=== PATIENT | male | born 1955 | race Hispanic/Latino ===

== ENCOUNTER 2017-01-31 08:35 | Outpatient (CLI) | payer BC ==
--- OUTSIDE RECORDS SUMMARY | 2017-01-31 09:00 | XMS | Clinical Summary ---
:1955 Author Organization [facility] Address [address] [place] [id number] Phone Care Team Providers Name Role Phone , Primary Care Provider Unavailable Allergies No Known Allergies Current Medications Prescription Sig. Disp. Refills Start Date End Date Status lisinopril Take 5 mg by mouth Active (PRINIVIL,ZESTRIL) 5 MG daily. tablet pravastatin (PRAVACHOL) 40 Take 40 mg by Active MG tablet mouth daily. aspirin 81 MG EC tablet Take 81 mg by Active mouth daily. Active Problems Not on file Social History Tobacco Use Types Packs/Day Years Used Date Never Assessed Sex Assigned at Date Recorded Not on file Last Filed Vital Signs Vital Sign Reading Time Taken Blood Pressure 110/70 08/21/2012 4:55 PM CDT Pulse 74 08/21/2012 4:40 PM CDT Temperature 36.4 C (97.5 F) 08/21/2012 4:40 PM CDT Respiratory Rate 20 08/21/2012 4:55 PM CDT Oxygen Saturation 96% 08/21/2012 4:40 PM CDT Inhaled Oxygen Concentration - - Weight 105 kg (231 lb 7.7 oz) 08/18/2012 5:28 PM CDT Height 182.9 cm (6') 08/18/2012 5:28 PM CDT Body Mass Index 31.39 08/18/2012 5:28 PM CDT Plan of Treatment Not on file Results Not on filefrom Last 3 Months
--- OUTSIDE RECORDS SUMMARY | 2017-01-31 09:00 | XMS | Continuity of Care Document ---
:1955 Author Organization [facility] Care Team Providers Name Role Phone GUILLERMO POLLARD Primary Care Physician Insurance Providers Payer Name Policy Number Subscriber Name Relationship [facility] [id number] NAM MORALES SELF/SAME PATIENT [facility]O [id number] NAM MORALES SELF/SAME PATIENT Advance Directives Directive Response Recorded Date/Time Code Status Level I-Full Code 01/10/17 2:36pm Advance Directive? N 01/10/17 5:37pm Chief Complaint and Reason for Visit Reason for Visit ATYPICAL CHEST PAIN Problems Active Medical Problems Problem Onset Date Recorded Date Status Pharyngitis Unknown 03/24/15 Active Atypical chest pain Unknown 01/10/17 Active Medications Current Home Medications Medication Dose Units Route Directions Days/Qty Instructions Start Date ASPIRIN (ASPIRIN 81 MG By Mouth EVERY DAY @ 30 01/11/17 EC 81 MG 0900 (LO-DOSE)) 81 MG TAB Levothyroxine 0.15 MG By Mouth EVERY DAY @ Sodium (SYNTHROID 0900 0.15 MG TAB) 150 MCG TAB TAMSULOSIN HCL 0.4 MG By Mouth AT BEDTIME (TAMSULOSIN 0.4 MG (2100) CAP) 0.4 MG CAP Past Home Medications Medication Directions Ordered Status Amoxicillin Trihydrate THREE TIME A DAY(09;15;21) 03/24/15 Discontinued (Amoxicillin 500 Mg) 500 Mg Cap Cap, 500 Mg By Mouth Ibuprofen (Motrin 600 Mg Tab) EVERY EIGHT HOURS NEEDED as 03/24/15 Discontinued 600 Mg Tab Tab, 600 Mg By Mouth needed for PAIN AND INFLAMMATION Prednisone (Prednisone 20 Mg EVERY DAY @ 0900 03/24/15 Discontinued Tab) 20 Mg Tab Tab, 60 Mg By Mouth Social History Problem Response Recorded Date Occupation: [employer] 01/10/17 Recreational drugs? N 01/10/17 Alcohol? N 01/10/17 Query Response Start Date Stop Date Smoking Status: Never Smoker Hospital Discharge Instructions Diagnosis: CHEST PAIN Goal: RESOLVE Intervention: ASSESSMENT, TESTS Plan of Care Discharge Date 01/11/17 Disposition HOME/SELF CARE Instructions/Education Provided DI for Atypical Chest Pain DI for Chest Pain Forms Provided Patient Portal [employer] Instruct DI How to Quit Smoking Prescriptions See Medications Section Additional Instructions/Education FOLLOW UP WITH [facility] FOR HEART CATHETERIZATION. TAKE MEDICATIONS PRESCRIBED. Care Plan and Goals See Discharge Instructions section Functional Status Query Response Date Recorded WNL?+ Y January 11, 2017 9:00am Allergies, Adverse Reactions, Alerts No known allergies. Immunizations Name Date Given Type Flu vaccine this seaso N Historical Pnuemonia Vaccine last 5 years? N Historical Vital Signs Vital Reading Collection Date/Time Result Blood Pressure 01/11/17 2:43pm 122/75 Blood Pressure Source 01/11/17 4:00am Auto Cuff Temperature 01/11/17 2:43pm 97.8 F Temperature Source 01/11/17 4:00am Oral Respiratory Rate 01/11/17 2:43pm 20 Pulse Rate 01/11/17 2:43pm 62 Pulse Location 01/11/17 4:00am Monitor Bedside Pulse Oximetry 01/11/17 2:43pm 97 Height 01/10/17 11:30am 5 ft 11 in Height 01/10/17 11:30am 180.34 cm Weight 01/10/17 11:30am 237 lb Weight 01/10/17 11:30am 107.501 kg Body Mass Index 01/10/17 11:30am 33.1 kg/m2 Results Laboratory Results Test Name Result Units Flags Reference Collection Result Comments Date/Time Date/Time White Blood 5.6 K/uL 4.8-10.8 01/11/17 01/11/17 Count 5:35am 6:18am Red Blood 4.44 M/uL L 4.70-6.00 01/11/17 01/11/17 Count 5:35am 6:18am Hemoglobin 14.0 g/dL 13.5-17.5 01/11/17 01/11/17 5:35am 6:18am Hematocrit 40.9 % L 42.0-52.0 01/11/17 01/11/17 5:35am 6:18am Mean 92.2 fl 80.0-100.0 01/11/17 01/11/17 Corpuscular 5:35am 6:18am Volume Mean 31.7 pg H 27.0-31.0 01/11/17 01/11/17 Corpuscular 5:35am 6:18am Hemoglobin Mean 34.3 g/dL 32.0-36.0 01/11/17 01/11/17 Corpuscular 5:35am 6:18am Hgb Concent Diff Red Cell 13.7 % 11.5-14.5 01/11/17 01/11/17 Distribution 5:35am 6:18am Width Platelet 203 K/uL 130-400 01/11/17 01/11/17 Count 5:35am 6:18am Mean Platelet 7.8 fl 7.4-10.4 01/11/17 01/11/17 Volume 5:35am 6:18am Granulocytes 60.7 % 50.0-75.0 01/11/17 01/11/17 (%) 5:35am 6:18am Lymphocytes % 26.9 % 20.0-40.0 01/11/17 01/11/17 5:35am 6:18am Monocytes % 9.7 % 0.0-15.0 01/11/17 01/11/17 5:35am 6:18am Eosinophils % 1.9 % 0.0-10.0 01/11/17 01/11/17 5:35am 6:18am Basophils % 0.8 % 0.0-2.0 01/11/17 01/11/17 5:35am 6:18am Granulocytes 3.4 K/uL 1.8-6.4 01/11/17 01/11/17 # 5:35am 6:18am Lymphocytes # 1.5 K/uL 1.2-3.6 01/11/17 01/11/17 5:35am 6:18am Monocytes # 0.5 K/uL 0.3-0.9 01/11/17 01/11/17 5:35am 6:18am Eosinophils # 0.1 K/UL 0.0-0.5 01/11/17 01/11/17 5:35am 6:18am Basophils # 0.0 K/UL 0.0-0.2 01/11/17 01/11/17 5:35am 6:18am Manual NO 01/11/17 01/11/17 Differential 5:35am 6:18am N/A CALCULATE 01/11/17 01/11/17 CORONARY HEART DISEASE (CHD) RISK FACTORS: BELOW 5:35am 5:44am +1, Age (y): Men, >45 Women, >55 or Premature Menopause Without Estrogen Therapy +1, Family History of Premature CHD +1, Current Cigarette Smoking +1, Hypertension +1, Low HDL-C: <40 mg/dL -1, High HDL-C: 60 mg/dL or More Total RFs CHD Risk Equivalents (REq): Diabetes Other Forms of Atherosclerotic Disease Lipid testing of hospitalized patients may be inaccurate due to fluctuations from the patients normal metabolic state. Accurate triglyceride and LDL testing requires a fasting specimen. If non-fasting cholesterol > rx=840 mg/dL or HDL is < 40 mg/dL, fasting lipid panel is recommended. Repeat testing recommended prior to treatment. Desirable Levels Cholesterol 175 mg/dL 0-200 01/11/17 01/11/17 Level 5:35am 6:36am Triglycerides 111 mg/dL 10-150 01/11/17 01/11/17 Normal triglycerides: <150 mg/dL Level 5:35am 6:36am Borderline-high triglycerides: 150-199 mg/dL High triglycerides: 200-499 mg/dL Very high triglycerides: > bs=368 mg/dL HDL 50 mg/dL 40-130 01/11/17 01/11/17 Cholesterol 5:35am 6:36am N/A 3.5 0.0-5.0 01/11/17 01/11/17 5:35am 6:36am LDL 104 mg/dL 0-130 01/11/17 01/11/17 *LDL Cholesterol <130 mg/dL, No CHD or CHD Risk Equivalent Cholesterol 5:35am 6:36am <100 mg/dL, With CHD or CHD Risk Equivalent (Measured) LDL Cholesterol Therapeutic Goal: 100 mg/dL or Less if CHD or CHD Risk Equivalent Present <130 mg/dL if No CHD or REq; 2 or more Risk Factors <160 mg/dL if No CHD or REq; 0-1 Risk Factors Reference: ATP III, PANCHO, 285:06, 9776-97, 2000. Sodium Level 135 mmol/L 135-144 01/11/17 01/11/17 5:35am 6:36am Potassium 3.8 mmol/L 3.5-5.1 01/11/17 01/11/17 Level 5:35am 6:36am Chloride 105 mmol/L 101-111 01/11/17 01/11/17 Level 5:35am 6:36am Carbon 24 mmol/L 22-32 01/11/17 01/11/17 Dioxide Level 5:35am 6:36am Anion Gap 9.8 mmol/L L 10-01/11/17 01/11/17 5:35am 6:36am Glucose Level 100 mg/dL 70-109 01/11/17 01/11/17 Random glucose > 200 mg/dL in a patient with typical 5:35am 6:36am symptoms of diabetes (polydipsia, polyuria and unexplained weight loss) satisfies ADA criteria for diabetes mellitus if confirmed by repeat testing on another day. Confirmation is unnecessary when acute metabolic decompensation with hyperglycemia is manifested. Reference: Report of the Expert Committee on the Diagnosis and Classification of Diabetes Mellitus. Diabetes Care, 20:1183, 1997. Blood Urea 12 mg/dL 8 01/11/17 01/11/17 Nitrogen 5:35am 6:36am Creatinine 0.80 mg/dL 0.61-1.24 01/11/17 01/11/17 5:35am 6:36am EGFR Note 115.3 59.3-175.8 01/11/17 01/11/17 eGFR (Estimated Glomerular Filtration Rate) 5:35am 6:36am eGFR calculation value obtained using the [facility] Quadratic (MCQ) equation. The reportable reference range is recommended to be greater than 60 ml/min/1.73m. This is an estimation of the patient's GFR and clinical correlation is recommended. This eGFR calculation does not account for race. This result may differ from other equations available. Calcium Level 8.5 mg/dL L 8.9-10.3 01/11/17 01/11/17 5:35am 6:36am Albumin 4.0 g/dL 3.5-5.0 01/11/17 01/11/17 5:35am 6:36am Total 0.9 mg/dL 0.3-1.2 01/11/17 01/11/17 Bilirubin 5:35am 6:36am Alkaline 110 IU/L H 32-91 01/11/17 01/11/17 Phosphatase 5:35am 6:36am Total Protein 6.9 g/dL 6.5-8.1 01/11/17 01/11/17 5:35am 6:36am Alanine 35 IU/L 7-55 01/11/17 01/11/17 Aminotransfer 5:35am 6:36am ase (ALT/SGPT) Aspartate 33 IU/L 15-41 01/11/17 01/11/17 Amino Transf 5:35am 6:36am (AST/SGOT) Globulin 2.9 g/dL 2.3-3.5 01/11/17 01/11/17 5:35am 6:36am Albumin/Globu 1.4 1.2-2.2 01/11/17 01/11/17 kota Ratio 5:35am 6:36am Troponin I < 0.01 ng/mL 0.00-0.03 01/11/17 01/11/17 5:35am 6:36am Troponin I-Interpretation Reference : <0.03 ng/mL NEGATIVE 0.04 - 0.49 ng/mL EQUIVOCAL =OR > 0.5 ng/mL CONSISTENT WITH ACUTE MYOCARDIAL INJURY 98% of confirmed AMI patients will have at least one value in a set or serial specimens >0.50 ng/ml. 99% of normals are between 0.0 - 0.10 ng/ml. Serial samples on a patient that are all <0.10 ng/ml effectively rules out AMI. Persistently increased troponin I values that are above the upper limit of normal but below the threshold for AMI indicate mycardial injury but not necessarily an ischemic mechanism of injury. Troponin Important Points 1. Troponin is specific for myocardial injury but not for AMI. Elevated troponin levels above the upper limit of normal but below the AMI cutoff may be present in cardiac injury other then AMI and represent some degree of risk. 2. Elevated troponin levels inconsistent with patient history or clinical condition should be considered a sign to investigate for other cardiac conditions. 3. Serial sampling is critical for accurate diagnosis. Magnesium 2.3 mg/dL 1.8-2.5 01/10/17 01/10/17 Level 9:20pm 9:51pm Prothrombin 11.4 SECONDS 10.0-12.9 01/10/17 01/10/17 Time 12:24pm 12:44pm INR 1.0 01/10/17 01/10/17 International 12:24pm 12:44pm THE INR IS TO BE USED ONLY FOR MONITORING ORAL ANTICOAGULANT Normalized THERAPY. Ratio INDICATION INR VALUE 1. Prophylaxis of venous thrombosis 2.0-3.0 (high-risk surgery) Treatment of venous thrombosis Treatment of PE Prevention of systemic embolism Tissue heart valves AMI (to prevent systemic embolism) Valvular heart disease Atrial fibrillation Bileaflet mechanical valve in aortic position 2. Mechanical prosthetic heart valves (high risk) 2.5-3.5 Thrombosis and Antiphospholipid syndrome Prevention of recurrent GA Sixth ACCP Consensus Conference on Antithrombotic Therapy, Chest 2001; 119:Supplement 8-21. Activated 28.5 SECONDS 25.1-36.5 01/10/17 01/10/17 Partial 12:24pm 12:44pm Thromboplast Time Creatine 379 IU/L 49-397 01/10/17 01/10/17 Kinase 12:24pm 12:53pm Creatine 4.4 ng/ML 0.6-6.3 01/10/17 01/10/17 Kinase MB 12:24pm 12:53pm Thyroid 2.51 uIU/mL 0.34-5.6 01/10/17 01/10/17 Stimulating 6:00pm 5:35pm Hormone (TSH) Procedures No Known History of Procedures. Encounters Encounter Location Arrival/Admit Date Discharge/Depart Date Attending Provider Discharged [place] 01/10/17 11:28am 01/11/17 4:36pm JEN BERGER [facility] Encounter Diagnosis Onset Date Atypical chest pain
[2017-01-31 10:03] LABS: Hematocrit 43.9 % (42.0-52.0); Mean Platelet Volume 7.3 fL (7.4-10.4); Red Blood Cell (RBC) Count 4.57 mill/uL (4.70-6.10); White Blood Cell (WBC) Count 5.1 thou/uL (4.8-10.8)
[2017-01-31 10:10] LABS: PTT 30.1 SEC (22.9-36.1); Prothrombin Time 13.8 SEC (12.0-14.7)
[2017-01-31 10:35] LABS: ALT (SGPT) 35 U/L (8-55); AST (SGOT) 27 U/L (5-34); Alkaline Phosphatase 133 U/L (40-150); Anion Gap 15 mmol/L (10-20); BUN (Urea Nitrogen) 14 mg/dL (8.4-25.7); Bilirubin, Total 0.6 mg/dL (0.2-1.2); Calc. Creatinine Clearance 0 mL/min (70-130); Calcium 9.1 mg/dL (7.8-10.44); Carbon Dioxide 25 mmol/L (23-31); Chloride 106 mmol/L (98-107); Estimated GFR-MDRD Greater than 90; Globulin 2.7 g/dL (2.4-3.5)
--- NOTE | 2017-01-31 11:34 | RAD ---
CHEST PA AND LATERAL: Date: 01/31/17 HISTORY: 61-year-old male for preoperative evaluation. COMPARISON: 04/17/16. FINDINGS: Heart size is within normal limits. Atherosclerosis of aorta. No confluent pneumonia, overt edema, o r pleural effusion. Anterior cervical fusion changes lower cervical spine. IMPRESSION: No acute intrathoracic disease. Atherosclerosis of aorta. Stable from prior study. POS: [facility]
--- NOTE | 2017-01-31 22:07 | EKG ---
Test Reason : Blood Pressure : / mmHG Vent. Rate : 055 BPM Atrial Rate : 055 BPM P-R Int : 194 ms QRS Dur : 088 ms QT Int : 396 ms P-R-T Axes : 026 -08 -14 degrees QTc Int : 378 ms Sinus bradycardia Low voltage QRS Cannot rule out Anterior infarct , age undetermined Abnormal ECG When compared with ECG of 11-SEP-2016 00:15, Questionable change in QRS axis Inverted T waves have replaced nonspecific T wave abnormality in Inferior leads Confirmed by STEPHEN RODRIGUEZ, SCally ([id number]) on 01/31/2017 10:07:00 PM Referred By: DERECK Confirmed By:DR. Estephanie MITCHELL MD
== END 2017-01-31 08:36 | disposition home or self-care (01) ==
LOC: LABBT 08:35
PROVIDERS: ATTEND Internal Medicine
DX: Z01.810 Encounter for preprocedural cardiovascular examination (principal); R07.89 Other chest pain; I70.0 Atherosclerosis of aorta
CPT/HCPCS: 71020; 80053; 85027; 85610; 85730; 93005; 93010

== ENCOUNTER 2017-02-04 07:56 | Day surgery (SDC) | payer BC, OTHER ==
[2017-01-31 08:56] VITALS: BMI 33.6
[2017-02-04] MEDS ORDERED: diphenhydrAMINE 25 MG CAP ONE (08:58)
[2017-02-04] MEDS ORDERED: Diazepam 5 MG TAB ONE (08:58)
[2017-02-04] MEDS ORDERED: Heparin 1000 UNIT/NS 500ML(OR) 500 ML ONE (09:20)
[2017-02-04] MEDS ORDERED: Diazepam 5 MG TAB PO SCH (09:30)
[2017-02-04] MEDS ORDERED: diphenhydrAMINE 25 MG CAP PO SCH (09:30)
[2017-02-04] MEDS ORDERED: Sodium Chloride 0.9% 1,000 ML IV SCH (09:30)
[2017-02-04] MEDS ORDERED: Famotidine/PF 20 mg/2ml Vial SLOW IVP SCH (09:30)
[2017-02-04] MEDS ORDERED: Nitroglycerin 100MG/250ML BOT 250 ML ONE (09:37)
[2017-02-04] MEDS ORDERED: Heparin 10,000 UNITS/1 ML VIAL ONE (09:37)
[2017-02-04] MEDS ORDERED: Verapamil 5 MG/2 ML VIAL ONE (09:38)
[2017-02-04] MEDS ORDERED: Fentanyl 100 MCG/2 ML VIAL ONE (09:50)
[2017-02-04] MEDS ORDERED: Midazolam HCl 2 mg/2 ml Vial ONE (09:50)
[2017-02-04] MEDS ORDERED: Iopamidol 370 76% 100 ML VIAL ONE ×2 (14:45→21:16)
== END 2017-02-04 12:56 | disposition home or self-care (01) ==
LOC: CCL 07:56
PROVIDERS: ATTEND Internal Medicine
DX: R07.89 Other chest pain (principal); Z79.82 Long term (current) use of aspirin; Z87.891 Personal history of nicotine dependence
CPT/HCPCS: 80061; 93458; 93798; 99152; C1769; J1644; J2250; J3010

== ENCOUNTER 2017-03-10 12:26 | Outpatient (CLI) | payer BC ==
[~2017-03-10 12:26] MED LIST: Iopamidol 370 76% 100 ML VIAL ONE
--- NOTE | 2017-03-10 13:28 | CT ---
CT OF ABDOMEN AND PELVIS PERFORMED WITH CONTRAST ENHANCEMENT: Date: 03/10/17 HISTORY: Abdominal pain, which is more right-sided, with fever. History of diverticulitis. COMPARISON: 11/06/16 study. FINDINGS: The lung bases are clear of any infiltrative process. There are diffuse fatty changes of the liver. The spleen is within normal limits of size. Pancreas an d gallbladder regions are unremarkable. Right and left adrenal glands, and right and left kidneys are normal in size. Small hypodensity invol ving the posterior cortex of the left kidney is statistically most likely a small cyst. There is no s ignificant periaortic or mesenteric adenopathy. The appendix is normal in size and retrocecal in loca tion. CT Of pelvis was performed with contrast enhancement. Sigmoid diverticulosis is noted without evidenc e of any inflammatory process. No evidence of adenopathy, mass, or free fluid. Surgical clips are aga in noted adjacent to the right side of the symphysis. Review of osseous structures show no lytic or blastic bony change. IMPRESSION: 1. Fatty changes of the liver. 2. Sigmoid diverticulosis. 3. Postsurgical changes in the right inguinal region. 4. No acute abnormalities of the abdomen or pelvis. POS: [facility]
== END 2017-03-10 12:27 | disposition home or self-care (01) ==
LOC: CT 12:26
PROVIDERS: ATTEND Family Medicine
DX: R10.30 Lower abdominal pain, unspecified (principal); K76.0 Fatty (change of) liver, not elsewhere classified; K57.30 Diverticulosis of large intestine without perforation or abscess without bleeding
CPT/HCPCS: 74177

== ENCOUNTER 2017-06-23 09:49 | Outpatient (CLI) | payer BC | END 2017-06-23 09:50 | disposition home or self-care (01) | LOC: BICRAD 09:49 | PROVIDERS: ATTEND Family Medicine | DX: M17.11 Unilateral primary osteoarthritis, right knee; M25.561 Pain in right knee ==

== ENCOUNTER 2017-12-05 09:14 | Outpatient (CLI) | payer BC ==
[2017-12-05 09:31] LABS: #Basophils 0.1 thou/uL (0.0-0.2); #Eosinphils 0.1 thou/uL (0.0-0.7); #Lymphocytes 1.7 thou/uL (1.20-3.40); #Monocytes 0.7 thou/uL (0.11-0.59); #Neutrophils 3.5 thou/uL (1.40-6.50); %Basophils 0.8 % (0.0-1.0); %Eosinophils 1.7 % (0.0-10.0); %Lymphocytes 27.7 % (21.0-51.0); %Monocytes 11.6 % (0.0-10.0); %Neutrophils 58.2 % (42.0-75.0); Hemoglobin 15.2 g/dL (14.0-18.0); Mean Corpuscular Hemoglobin 29.3 pg (27.0-31.0); Platelet Count 256 thou/uL (130-400); RBC Distribution Width 11.6 % (11.5-14.5); Red Blood Cell (RBC) Count 5.18 mill/uL (4.70-6.10)
[2017-12-05 09:51] LABS: ALT (SGPT) 43 U/L (8-55); AST (SGOT) 31 U/L (5-34); Albumin 4.4 g/dL (3.4-4.8); Alkaline Phosphatase 77 U/L (40-150); Anion Gap 10 mmol/L (10-20); BUN (Urea Nitrogen) 15 mg/dL (8.4-25.7); Bilirubin, Total 0.6 mg/dL (0.2-1.2); Calc. Creatinine Clearance 0 mL/min (70-130); Calcium 9.6 mg/dL (7.8-10.44); Carbon Dioxide 29 mmol/L (23-31); Chloride 106 mmol/L (98-107); Estimated GFR-MDRD 86; Glucose 96 mg/dL (80-115); Potassium 4.2 mmol/L (3.5-5.1); Protein, Total 7.4 g/dL (5.8-8.1); Sodium 141 mmol/L (136-145)
--- NOTE | 2017-12-05 11:46 | ULT ---
GALLBLADDER ULTRASOUND: Date: 12/05/17 HISTORY: Right upper quadrant pain. FINDINGS: Real-time imaging of the right upper quadrant shows a normal appearing gallbladder. The common duct i s 4.0 mm. Technologist reports a negative ultrasound Hollis's sign. The liver is of increased echogenicity, it measures 17.5 cm in length. The right kidney is normal in size and nonobstructed. The pancreas is almost completely obscured. IMPRESSION: Fatty changes of the liver. POS: [facility]
== END 2017-12-05 09:15 | disposition home or self-care (01) ==
LOC: SCSULT 09:14
PROVIDERS: ATTEND Family Medicine
DX: R10.11 Right upper quadrant pain (principal)
CPT/HCPCS: 36415; 76705; 80053; 85025

== ENCOUNTER 2017-12-05 18:00 | Outpatient (CLI) | payer BC | END 2017-12-05 18:01 | disposition home or self-care (01) | LOC: SLEEPLAB 18:00 | PROVIDERS: ATTEND Family Medicine | DX: G47.33 Obstructive sleep apnea (adult) (pediatric) (principal); R06.83 Snoring; G47.00 Insomnia, unspecified; Z68.34 Body mass index [BMI] 34.0-34.9, adult | CPT/HCPCS: 95806 ==

== ENCOUNTER 2018-10-13 09:10 | Outpatient (CLI) | payer BC, OTHER ==
--- NOTE | 2018-10-13 11:24 | RAD ---
TWO VIEW CHEST: HISTORY: Abnormal physical exam/oscultation. COMPARISON: 01/31/2017. FINDINGS: No evidence of confluent infiltrate or effusion. Heart size upper normal and stable. Vascular and i nterstitial markings are mildly prominent. Findings appear stable from prior exam considering the di fferences in technique. IMPRESSION: No acute process identified. POS: [facility]
== END 2018-10-13 09:11 | disposition home or self-care (01) ==
LOC: BICRAD 09:10
PROVIDERS: ATTEND Family Medicine
DX: R09.89 Other specified symptoms and signs involving the circulatory and respiratory systems (principal)
CPT/HCPCS: 71046

== ENCOUNTER 2019-02-25 23:28 | Emergency (ER) | payer BC, OTHER ==
[2019-02-26 00:57] LABS: Bilirubin Negative (Negative); Blood, Urine Negative (Negative); Clarity Clear (Clear); Glucose, Urine (Dipstick) Normal (Negative); Leukocyte Negative Leu/uL (Negative); Nitrite Negative (Negative); Protein, Urine (Dipstick) Negative (Neg-Trace); Urobilinogen Normal mg/dL (Less than 2)
--- NOTE | 2019-02-26 08:35 | ULT ---
PRELIMINARY REPORT/[facility]/EMERGENCY AFTER HOURS PROCEDURE: EXAM: Ultrasound examination of the scrotum. CLINICAL HISTORY: 63-year-old man with right testicular pain x 4-5days. See notes on last image. Thanks TECHNIQUE: Real-time ultrasound of the scrotum with color Doppler and image documentation. COMPARISON: None provided. FINDINGS: RIGHT TESTICLE: Right testicle measures 4.2 x 1.9 x 2.7 cm with normal color and spectral Doppler lindsey w. Normal right epididymis. LEFT TESTICLE: No mass. Normal Doppler flow. EPIDIDYMIDES: Left testicle measures 4.4 x 2.1 x 2.9 cm with normal color and spectral Doppler flow. Small cyst in the left epididymis. Otherwise, normal left epididymis SCROTUM: Prominent varicoceles bilaterally which enlarge with Valsalva. IMPRESSION: 1. Normal testicles. 2. Bilateral varicocele. ELECTRONICALLY SIGNED BY: Sai Loaiza D.O. Feb 26, 2019 1:27:18 AM [employer] SUPERVISOR This report is intended for review by the ordering physician only, in accordance of law. If you recei ve this report in error, please call [facility] at [phone]. FINAL REPORT TESTICULAR ULTRASOUND: HISTORY: Right testicular pain. History of hernia. COMPARISON: None. TECHNIQUE: Hussein scale, color flow, Doppler imaging, and spectral waveform analysis was performed of the left and right testicles. FINDINGS: RIGHT TESTICLE: No abnormal masses. Appropriate vascular flow. Unremarkable right epididymis. LEFT TESTICLE: Normal echotexture. No masses. Normal Doppler. Unremarkable. Left epididymis. Incidental small c yst is noted. Bilateral varicoceles are identified. IMPRESSION: Bilateral varicoceles. This report is in agreement with the preliminary report by [facility]. POS: [facility]
== END 2019-02-26 01:16 | disposition home or self-care (01) ==
LOC: ERS 23:28
DX: I86.1 Scrotal varices (principal); E03.9 Hypothyroidism, unspecified; N40.0 Benign prostatic hyperplasia without lower urinary tract symptoms
CPT/HCPCS: 76870; 81003; 93976

== ENCOUNTER 2019-08-01 09:34 | Outpatient (CLI) | payer BC, OTHER ==
--- NOTE | 2019-08-01 10:12 | RAD ---
PA AND LATERAL CHEST: History: Dyspnea on exertion. Comparison: 10-13-18 FINDINGS: Heart size is upper limits of normal. There are some atherosclerotic changes of the aorta. Chronic ap pearing interstitial lung changes are seen, with fairly similar appearance to the previous exam. IMPRESSION: Borderline heart size with chronic appearing interstitial lung change. POS: [facility]
== END 2019-08-01 09:35 | disposition home or self-care (01) ==
LOC: BICRAD 09:34
PROVIDERS: ATTEND Family Medicine
DX: R06.00 Dyspnea, unspecified (principal); J84.9 Interstitial pulmonary disease, unspecified; E03.9 Hypothyroidism, unspecified
CPT/HCPCS: 36415; 71046; 80053; 80061; 83880; 84439; 84443; 84481; 85025

== ENCOUNTER 2020-02-10 08:24 | Inpatient (IN) | payer BC, OTHER ==
[2020-02-10 09:03] LABS: #Lymphocytes 0.7 thou/uL (1.20-3.40); #Monocytes 0.2 thou/uL (0.11-0.59); #Neutrophils 4.6 thou/uL (1.40-6.50); %Basophils 0.1 % (0.0-1.0); %Eosinophils 0.3 % (0.0-10.0); %Lymphocytes 11.9 % (21.0-51.0); %Monocytes 3.2 % (0.0-10.0); %Neutrophils 84.5 % (42.0-75.0); Hemoglobin 15.3 g/dL (14.0-18.0); Mean Corpuscular HGB CONC 33.8 g/dL (32.0-36.0); Mean Corpuscular Hemoglobin 31.2 pg (27.0-31.0); Mean Corpuscular Volume 92.1 fL (78.0-98.0); Mean Platelet Volume 8.2 fL (7.4-10.4); Platelet Count 161 thou/uL (130-400); RBC Distribution Width 12.8 % (11.5-14.5); Red Blood Cell (RBC) Count 4.92 mill/uL (4.70-6.10); White Blood Cell (WBC) Count 5.4 thou/uL (4.8-10.8)
[2020-02-10 09:09] LABS: PTT 40.5 sec (22.9-36.1); Prothrombin Time 13.6 sec (12.0-14.7)
[2020-02-10 09:10] LABS: D-Dimer Test 0.81 *mcg/mL (0.27-0.43)
[2020-02-10] MEDS ORDERED: cefTRIAXone\\ROCEPHIN 1 GM VIAL ONE (09:19)
[2020-02-10] MEDS ORDERED: Acetaminophen 500 MG TAB ONE (09:19)
[2020-02-10] MEDS ORDERED: Dexamethasone 4 mg/ml Vial ONE (09:19)
[2020-02-10] MEDS ORDERED: Metoclopramide HCl 10 MG/2 ML VIAL ONE (09:19)
[2020-02-10] MEDS ORDERED: Ketorolac Tromethamine 30 MG/ML VIAL ONE (09:19)
[2020-02-10] MEDS ORDERED: Azithromycin 500 MG VIAL ONE (09:19)
[2020-02-10] MEDS ORDERED: diphenhydrAMINE 50 MG/ML VIAL ONE (09:19)
[2020-02-10 09:22] LABS: Actual Bicarbonate (HCO3a) 21.7 mEq/L (22-28); Analyzer IN Cardio ER; Base Excess (BEa) -0.7 mEq/L (-2.0 to +3.0); CO2 Tension 29.9 mmHg (35.0-45.0); Calcium, Ionized (arterial) 1.11 mmol/L (1.12-1.30); Carboxyhemoglobin (COHb) 0.8 gm% (0.0-3.0); Hemoglobin (Hb) 14.8 g/dL (14.0-18.0); Potassium - ABG Lab 3.52 mmol/L (3.70-5.30); pH, Arterial 7.48 (7.35-7.45)
[2020-02-10 09:24] LABS: ALT (SGPT) 39 U/L (8-55); AST (SGOT) 55 U/L (5-34); Alkaline Phosphatase 67 U/L (40-110); Anion Gap 20 mmol/L (10-20); BUN (Urea Nitrogen) 12 mg/dL (8.4-25.7); Bilirubin, Total 0.7 mg/dL (0.2-1.2); CK (CPK) 63 U/L (30-200); Calc. Creatinine Clearance 0 mL/min (70-130); Calcium 8.7 mg/dL (7.8-10.44); Carbon Dioxide 21 mmol/L (23-31); Chloride 102 mmol/L (98-107); Globulin 3.7 g/dL (2.4-3.5); Glucose 91 mg/dL (80-115); Potassium 3.6 mmol/L (3.5-5.1); Protein, Total 7.7 g/dL (5.8-8.1); Sodium 139 mmol/L (136-145)
[2020-02-10 09:44] LABS: ALV-art Gradient 59.155 mmHg (0-20); O2 Tension (PaO2), arterial 53.2 mmHg (> 80.0); Puncture Site LRA
[2020-02-10] MEDS ORDERED: Iopamidol-370 76% 500 ML 1 ML ONE (09:52)
--- NOTE | 2020-02-10 10:14 | RAD ---
Chest one view HISTORY: Dyspnea. COVID positive. COMPARISON: 08/01/2019. FINDINGS: Cardiac silhouette is magnified and upper limits of normal in size. Pulmonary vasculature u pper limits of normal. Predominantly peripheral patchy areas of groundglass infiltrate involving each lung, right upper lobe and left lower lobe. No evidence of pneumothorax. Degenerative changes of the thoracic spine. Postoperative changes cervic al spine. IMPRESSION : Multifocal infiltrates, consistent with COVID pneumonitis.
[2020-02-10] MEDS ORDERED: HYDROcodone/Acetaminophen 5/325 mg Tablet PO PRN (11:33)
[2020-02-10] MEDS ORDERED: Senokot S 8.6-50 MG TAB PO PRN (11:33)
[2020-02-10] MEDS ORDERED: Calcium Carbonate 500 MG ChewTAB PO PRN (11:33)
[2020-02-10] MEDS ORDERED: Ondansetron ODT 4 MG TAB PO PRN (11:33)
[2020-02-10] MEDS ORDERED: Ondansetron PF 4 MG/2 ML Vial IVP PRN (11:33)
--- NOTE | 2020-02-10 12:31 | CT ---
EXAM: CT angiogram of the chest including 3-D rendering: HISTORY: Dyspnea, Covid pneumonia, elevated d-dimer. COMPARISON: None FINDINGS: Exam is somewhat limited particularly in the lower lobes because of extensive pulmonary disease as we ll as motion artifact. There is adequate opacification of the pulmonary arteries. No evidence for aortic aneurysm or dissection. No convincing CT evidence for acute pulmonary embolism. Extensive bilateral Covid pneumonia. No evidence for mediastinal mass or adenopathy. No evidence for pleural or pericardial effusion. The visualized upper abdomen is unremarkable. IMPRESSION: No convincing CT evidence for acute pulmonary embolism. Extensive bilateral Covid pneumonia
--- NOTE | 2020-02-10 14:11 | PDOC.HHP ---
Hospitalist HPI - History of Present Illness SOB History of Present Illness: Patient is a 64-year-old male presented to the emergency room with generalized body aches, intermittent nausea with diarrhea, headaches along with fever and hypoxia. His room air saturation was 87 to 88%. He also complained of sh ortness of breath on minimal exertion along with some wheezing. The above symptoms has been going on for approximately 1 week and is progressively getting worse. He tested positive for COVID-19 on February 03. He denies any chest pain, palpitations or syncope. In the emergency room he was found to have hypoxemia with PO2 of 53.2 with O2 saturation of 88%. Pulmonary embolism was ruled out. He received antibiotics along with dexamethasone in the emergency room. He was started on O2 suppleme ntation. Past Medical History Hypothyroidism History of Graves Disease Obstructive sleep apnea on CPAP Elevated PSA Knee OA. Hsitory of Proctitis. Hx of Diverticulosis (duodenal diverticulum). BPH. ING HERNIA Surgical History Cholecystectomy [facility] 1997 L Meniscus Repair x3 1997,1999,2003 Uterine ablation R Meniscus Repair x2 Cervical spine 4 compressed discs with metal plate placed 2013 laparoscopic right inguinal hernia repair, intra-abdominal approach in [place] 1999 TRUs BX neg per pt in [place] 2006 Heart Cath x 2 TRUS BX: Vol. 37.5gms, no ca 10/28/16 left knee replacement- [facility] 09[facility]2018 TRUS VOL: 38gms 12/06/19 Cystoscopy: mild BPH, + median Bar, no ML, + trab; uo 2-3mm prox bn 12/06/19 Family History Father: , BLADDER, COLON, PROSTATE CANCER, diagnosed with Diabetes, Heart Disease Mother: , DEPRESSION, HYPERTENSION, Mental Illness Siblings: alive Children: alive, Diabetes 2 brother(s) , 1 sister(s) - healthy. 3daughter(s) - healthy. Mother had dementia, and blood disorder, Siblings diabetic. Oldest daughter-R.A. Social History Former Smoker Patient smoked on and off for 5 years while in the . Lives with spouse. Retired, postal service. Marital status: , Single, Chelo Ballard 02/20/2019 2:16:24 PM > , . Allergies N.K.D.A. ED Course: VITAL SIGNS [place] Feb 10, 2020 08:39 SUKHDEEP Ledesma, Arpita BP: 130/70, MAP: 90, Pulse: 70, Resp: 24, Temp: 99.1 (Oral), Pain: 5, O2 sat: 93 on (Room Air), Time: 02/10/2020 08:39. MEDICATION ADMINISTRATION SUMMARY [place] Feb 10, 2020 14:16 Drug Name Dose Ordered Route Status Time azithromycin intravenous 500 mg IV Piggy Back Given 10:00 02/10/2020 *Reglan injection 10 mg IV Piggy Back Given 09:45 02/10/2020 acetaminophen oral 1000 mg Oral Given 09:40 02/10/2020 cefTRIAXone injection 1 g IV Piggy Back Given 09:35 02/10/2020 *Toradol injection 15 mg IV Push Given 09:33 02/10/2020 *diphenhydrAMINE injection 25 mg IV Push Given 09:31 02/10/2020 dexamethasone sodium phosphate injection 6 mg IV Push Given 09:30 02/10/2020 *sodium chloride 0.9 % intravenous 1 L IV Fluid Infusion Given 09:30 02/10/2020 Hospitalist ROS - Review of Systems Cardiovascular: denies: chest pain, palpitations, orthopnea, paroxysmal noc. dyspnea, edema, light headedness, other Gastrointestinal: denies: nausea, vomiting, abdominal pain, diarrhea, constipation, melena, hematochezia, other Neurological: reports: other (Generalized headache). denies: weakness, numbness, incoordination, change in speech, confusion, seizures All other systems reviewed; all pertinent +/- noted in HPI/Subj - Medication Medications: Aspirin 81(Aspirin) 81 MG Tablet Delayed Release 1 tablet Orally Once a day Levothyroxine Sodium 125 MCG Tablet 1 tablet in the morning on an empty stomach Orally Once a day Tamsulosin HCl 0.4 mg Capsule TAKE 1 CAPSULE BY MOUTH EVERY DAY - Exam General Appearance: ill appearing General - other findings: Mild to moderate respiratory distress Eye: PERRL, anicteric sclera ENT: normocephalic atraumatic, no oropharyngeal lesions Neck: supple, no JVD Heart: RRR, no gallops, no rubs, normal peripheral pulses Respiratory: no wheezes, normal chest expansion, rales, rhonchi Gastrointestinal: soft, non-tender, non-distended, normal bowel sounds, no guarding, no rigidity Extremities: no cyanosis, no clubbing Skin: normal turgor, no lesions Neurological: cranial nerve grossly intact, normal sensation to touch, no weakness, no focal deficits Musculoskeletal: normal tone, normal strength Psychiatric: normal affect, A&O x 3 Hospitalist Results - Labs Result Diagrams: 02/10/20 08:45 02/10/20 08:45 Lab results: WBC 5.4 thou/uL (4.8-10.8) 02/10/20 08:45 Hgb 15.3 g/dL (14.0-18.0) 02/10/20 08:45 Hct 45.4 % (42.0-52.0) 02/10/20 08:45 MCV 92.1 fL (78.0-98.0) 02/10/20 08:45 Plt Count 161 thou/uL (130-400) 02/10/20 08:45 Neutrophils % 84.5 % (42.0-75.0) H 02/10/20 08:45 ABG pH 7.48 (7.35-7.45) H 02/10/20 09:22 ABG pCO2 29.9 mmHg (35.0-45.0) L 02/10/20 09:22 ABG pO2 53.2 mmHg (> 80.0) L* 02/10/20 09:22 Sodium 139 mmol/L (136-145) 02/10/20 08:45 Potassium 3.6 mmol/L (3.5-5.1) 02/10/20 08:45 Chloride 102 mmol/L (98-107) 02/10/20 08:45 Carbon Dioxide 21 mmol/L (23-31) L 02/10/20 08:45 BUN 12 mg/dL (8.4-25.7) 02/10/20 08:45 Creatinine 0.85 mg/dL (0.7-1.3) 02/10/20 08:45 Glucose 91 mg/dL (80-115) 02/10/20 08:45 Calcium 8.7 mg/dL (7.8-10.44) 02/10/20 08:45 Total Bilirubin 0.7 mg/dL (0.2-1.2) 02/10/20 08:45 AST 55 U/L (5-34) H 02/10/20 08:45 ALT 39 U/L (8-55) 02/10/20 08:45 Alkaline Phosphatase 67 U/L (40-110) 02/10/20 08:45 Creatine Kinase 63 U/L (30-200) 02/10/20 08:45 Troponin I 0.020 ng/mL (< 0.028) 02/10/20 08:45 C-Reactive Protein 20.10 mg/dL (= or < 0.5) H 02/10/20 11:54 B-Natriuretic Peptide 30.1 pg/mL (0-100) 02/10/20 08:45 Serum Total Protein 7.7 g/dL (5.8-8.1) 02/10/20 08:45 Albumin 4.0 g/dL (3.4-4.8) 02/10/20 08:45 Abnormal Lab Results - Last 48 hrs 02/10/20 08:45: Carbon Dioxide 21 L, AST 55 H, Globulin 3.7 H, Albumin/Globulin Ratio 1.1 L 02/10/20 08:45: APTT 40.5 H, D-Dimer 0.81 H 02/10/20 08:45: MCH 31.2 H, Neutrophils % 84.5 H, Lymphocytes % 11.9 L, Lymphocytes # 0.7 L 02/10/20 08:45: Ferritin 371.74 H 02/10/20 08:45: Fibrinogen 576 H 02/10/20 09:22: Bicarbonate Actual 21.7 L, ABG pH 7.48 H, ABG pCO2 29.9 L, ABG pO2 53.2 L*, ABG O2 Sat (Measured) 88.7 L, ABG Oxyhemoglobin 87.8 L, ABG Deoxyhemoglobin 11.2 H, A-a O2 Gradient 59.155 H, Potassium 3.52 L, Ionized Calcium 1.11 L 02/10/20 11:54: Lactate Dehydrogenase 386 H 02/10/20 11:54: C-Reactive Protein 20.10 H - EKG Interpretation EKG: Sinus rhythm with left axis deviationreviewed by me - Radiology Interpretation CT scan - chest Status: image reviewed by me Additional Comment: No convincing CT evidence for acute pulmonary embolism. Extensive bilateral Covid pneumonia Chest x-ray Status: image reviewed by me Additional Comment: Multifocal infiltrates, consistent with COVID pneumonitis. Hospitalist H&P A/P - Plan Plan: Acute hypoxic respiratory failure due to COVID-19 pneumonia Elevated inflammatory markers Benign prostatic hypertrophy Hypothyroidism Obstructive sleep apnea on CPAP Plan: Patient will be monitored on the medical floor. We will start him on O2 supplementation with bronchodilators. Start IV dexamethasone. Consult infectious disease. Symptomatic treatment. Resume home medications once verified. GI and DVT prophylaxis. Resume home CPAP. Monitor inflammatory markers. A.m. labs. Isolation for COVID-19. Case discussed with patient's spouse who is the DPOA.
--- NOTE | 2020-02-10 17:10 | CON ---
DATE OF CONSULTATION: 02/10/2020 REASON FOR CONSULTATION: COVID pneumonia. HISTORY OF PRESENT ILLNESS: A 64-year-old, history of hypothyroidism, BPH, and degenerative joint disease, who developed symptoms of COVID infection on February 03, and then became hypoxemic and was admitted on the . He was just admitted to the floor here. He was given Decadron and has not yet been started remdesivir. He is quite dyspneic. Denies any headaches. A little bit of abdominal cramps, some diarrhea, anorexia, anosmia. No chest pain. No sputum production. No hemoptysis. No genitourinary symptoms. Chronic left knee pain following replacement. MEDICAL HISTORY: Hypothyroidism, BPH, degenerative joint disease, C-spine fusion, right knee scope and replacement, hernia repair. SOCIAL HISTORY: Retired from post office. . Drinks occasionally. Never smoker. FAMILY HISTORY: Noncontributory. ALLERGIES: NONE. CURRENT MEDICATIONS: 1. Inhaler. 2. Aspirin. 3. Calcium. 4. Clonidine. 5. Decadron. 6. Pepcid. 7. Hydrocodone. 8. Levothyroxine. 9. Ondansetron. 10. Tamsulosin. PHYSICAL EXAMINATION: VITAL SIGNS: O2 saturation is 94 with 3 L nasal cannula O2. His blood pressure 130/70, heart rate 92, afebrile at the moment. SKIN: Normal, peripheral IV access, voiding in the toilet. No lymphadenopathy. HEENT: Ocular movements conjugate. Oral cavity normal. NECK: Supple. LUNGS: With scattered inspiratory crackles. HEART: S1, S2, regular rate. ABDOMEN: Soft, not distended or tender. No ascites. No bladder distention. EXTREMITIES: No joint inflammatory activity. A little bit of tenderness on range of motion of left knee that is chronic. No edema. Pulses 1+ in dorsalis pedis. Moves all extremities equally. LABORATORY DATA: Sodium 139, creatinine was 0.85. AST 55, ALT 39, alkaline phosphatase 67, CK 63, albumin 4.0. BNP 30. CRP 20. Ferritin 371. D-dimer 0.81. CT angio chest with diffuse bilateral ground-glass opacities, had a CT abdomen last year in February with diverticulosis. ASSESSMENT: Severe COVID pneumonia requiring O2 nasal cannula 3 L, quite extensive lung disease, the usual type, marked elevation in CRP. The patient has a high risk of further deterioration and we will go ahead and add remdesivir after discussing indication with his and continue Decadron, and enoxaparin has been started. Monitor inflammatory markers daily. Job ID: [id number]
[2020-02-10] MEDS: Albuterol 200 PUFF (6.7GM INHALER) INH SCH ×3 (18:41→21:56)
[2020-02-10] MEDS ORDERED: REMDESIVIR (EUA) 200 MG in Sodium Chloride 0.9% 250 ML 210 ML IV SCH (21:00)
[2020-02-10] MEDS: Enoxaparin Sodium 40 MG/0.4 ML SYRINGE SC SCH (21:27)
[2020-02-10] MEDS: Tamsulosin HCl 0.4 MG CAP PO SCH (21:27)
[2020-02-10] MEDS: Famotidine 20 MG TAB PO SCH (21:27)
[2020-02-10] MEDS: Acetaminophen 325 MG TAB PO PRN (21:34)
[2020-02-10] MEDS ORDERED: Sodium Chloride 0.9% 500 ML IV SCH (22:30)
[2020-02-10 23:19] LABS: Lactic Acid 1.9 mmol/L (0.5-2.2)
[2020-02-10 23:24] LABS: Anion Gap 17 mmol/L (10-20); BUN (Urea Nitrogen) 14 mg/dL (8.4-25.7); Calc. Creatinine Clearance 144 mL/min (70-130); Carbon Dioxide 18 mmol/L (23-31); Chloride 106 mmol/L (98-107); Glucose 111 mg/dL (80-115); Magnesium 1.8 mg/dL (1.6-2.6); Potassium 3.6 mmol/L (3.5-5.1); Sodium 137 mmol/L (136-145)
[2020-02-11] MEDS ORDERED: Ibuprofen 200 MG TAB PO SCH (01:15)
[2020-02-11] MEDS: Albuterol 200 PUFF (6.7GM INHALER) INH SCH ×5 (01:29→19:35)
[2020-02-11] MEDS: Levothyroxine Sodium 125 MCG TAB PO SCH (05:22)
[2020-02-11 06:34] LABS: #Basophils 0.1 thou/uL (0.0-0.2); #Lymphocytes 0.5 thou/uL (1.20-3.40); #Monocytes 0.4 thou/uL (0.11-0.59); #Neutrophils 4.2 thou/uL (1.40-6.50); %Basophils 1.3 % (0.0-1.0); %Eosinophils 0.2 % (0.0-10.0); %Lymphocytes 9.7 % (21.0-51.0); %Monocytes 7.5 % (0.0-10.0); %Neutrophils 81.3 % (42.0-75.0); Hemoglobin 13.9 g/dL (14.0-18.0); Mean Corpuscular HGB CONC 34.6 g/dL (32.0-36.0); Mean Corpuscular Volume 92.3 fL (78.0-98.0); Mean Platelet Volume 7.8 fL (7.4-10.4); Platelet Count 159 thou/uL (130-400); RBC Distribution Width 12.8 % (11.5-14.5); Red Blood Cell (RBC) Count 4.35 mill/uL (4.70-6.10); White Blood Cell (WBC) Count 5.2 thou/uL (4.8-10.8)
[2020-02-11 06:58] LABS: ALT (SGPT) 38 U/L (8-55); AST (SGOT) 61 U/L (5-34); Albumin 3.6 g/dL (3.4-4.8); Alkaline Phosphatase 58 U/L (40-110); Anion Gap 16 mmol/L (10-20); BUN (Urea Nitrogen) 17 mg/dL (8.4-25.7); Bilirubin, Total 0.5 mg/dL (0.2-1.2); CRP (Inflammatory) 19.99 mg/dL (= or < 0.5); Calc. Creatinine Clearance 130 mL/min (70-130); Calcium 8.2 mg/dL (7.8-10.44); Carbon Dioxide 23 mmol/L (23-31); Chloride 104 mmol/L (98-107); Globulin 3.1 g/dL (2.4-3.5); Glucose 109 mg/dL (80-115); Potassium 3.7 mmol/L (3.5-5.1); Protein, Total 6.7 g/dL (5.8-8.1); Sodium 139 mmol/L (136-145)
[2020-02-11] MEDS ORDERED: hydrALAZINE 20 MG/ML VIAL SLOW IVP PRN (08:36)
[2020-02-11] MEDS ORDERED: Loratadine 10 MG TAB PO PRN (08:36)
[2020-02-11] MEDS ORDERED: Sodium Chloride 0.65% Nasal 44 ML BOT EA NARE PRN (08:36)
[2020-02-11] MEDS ORDERED: Loperamide HCl 2 MG CAP PO PRN (08:36)
[2020-02-11] MEDS ORDERED: Cepastat Lozenges 1 LOZ PO PRN (08:36)
[2020-02-11] MEDS ORDERED: Bisacodyl 5 MG TAB PO PRN (08:36)
[2020-02-11] MEDS ORDERED: FLU VACC QS2020-21(6MOS UP)/PF 60 MCG/0.5 ML SYRINGE IM ONE (09:00)
[2020-02-11] MEDS: Enoxaparin Sodium 40 MG/0.4 ML SYRINGE SC SCH ×2 (09:45→21:10)
[2020-02-11] MEDS: Aspirin 81 mg Enteric Coated Tablet PO SCH (09:45)
[2020-02-11] MEDS: Acetaminophen 325 MG TAB PO PRN ×2 (09:45→21:11)
[2020-02-11] MEDS: Dexamethasone 4 mg/ml Vial SLOW IVP SCH (09:45)
--- NOTE | 2020-02-11 11:26 | PDOC.HOSPP ---
- Subjective Encounter Date: 02/11/20 Encounter Time: 08:00 Subjective: Patient seen and examined bedside today, patient is physically weak, no overnight event, patient has fever, he has cough and shortness of breath on exertion - Objective Vital Signs & Weight: Vital Signs (12 hours) Temp Pulse Resp BP Pulse Ox 02/11/20 04:00 98.8 F 63 20 96/61 92 L 02/11/20 02:18 99.8 F H 02/11/20 01:29 100.3 F H 02/11/20 00:00 100.3 F H 70 20 100/58 L 92 L Weight Weight 250 lb 0.067 oz I&O: 02/10/20 02/11/20 02/12/20 06:59 06:59 06:59 Intake Total 1210 Output Total 150 Balance 1060 Result Diagrams: 02/11/20 06:20 02/11/20 06:20 Radiology Reviewed by me: Yes Hospitalist ROS - Review of Systems Constitutional: reports: fever, weakness, malaise. denies: chills, sweats, other Respiratory: reports: cough, shortness of breath, SOB with excertion. denies: dry, hemoptysis, pleuritic pain, sputum, wheezing, other Cardiovascular: denies: chest pain, palpitations, orthopnea, paroxysmal noc. dyspnea, edema, light headedness, other Gastrointestinal: denies: nausea, vomiting, abdominal pain, diarrhea, constipation, melena, hematochezia, other Genitourinary: denies: dysuria, frequency, incontinence, hematuria, retention, other Musculoskeletal: denies: neck pain, shoulder pain, arm pain, back pain, hand pain, leg pain, foot pain, other - Medication Medications: Active Medications Generic Name Dose Route Start Last Admin Trade Name Freq PRN Reason Stop Dose Admin Acetaminophen 650 mg 02/10/20 11:33 02/11/20 09:45 Acetaminophen 325 Mg Tab PO 650 mg Q4H PRN Administration Headache/Fever/Mild Pain (1-3) Albuterol Sulfate 2 puff 02/10/20 14:30 02/11/20 05:35 Albuterol 200 Puff (6.7gm Inhaler) INH 2 puff [id number] CLAY Administration Aspirin 81 mg 02/11/20 09:00 02/11/20 09:45 Aspirin 81 Mg Enteric Coated Tablet PO 81 mg DAILY CLAY Administration Dexamethasone 6 mg 02/11/20 09:00 02/11/20 09:45 Dexamethasone 4 Mg/Ml Vial SLOW IVP 6 mg DAILY CLAY Administration Enoxaparin Sodium 40 mg 02/10/20 21:00 02/11/20 09:45 Enoxaparin Sodium 40 Mg/0.4 Ml Syringe SC 40 mg 0900,2100 CLAY Administration Famotidine 20 mg 02/10/20 21:00 02/10/20 21:27 Famotidine 20 Mg Tab PO 20 mg BID CLAY Administration Levothyroxine Sodium 125 mcg 02/11/20 06:00 02/11/20 05:22 Levothyroxine Sodium 125 Mcg Tab PO 125 mcg 0600 CLAY Administration Tamsulosin HCl 0.4 mg 02/10/20 21:00 02/10/20 21:27 Tamsulosin Hcl 0.4 Mg Cap PO 0.4 mg HS CLAY Administration - Exam General Appearance: NAD, awake alert Eye: PERRL, anicteric sclera ENT: normocephalic atraumatic, no oropharyngeal lesions Neck: supple, symmetric, no JVD, no thyromegaly Heart: RRR, no murmur, no gallops, no rubs Respiratory - other findings: Bilateral coarse breath sound, reduced air entry, Gastrointestinal: soft, non-tender, non-distended, normal bowel sounds Gastrointestinal - other findings: Obesity noted Extremities: no cyanosis, no clubbing, no edema Skin: normal turgor, no lesions Neurological: no focal deficits Musculoskeletal: normal tone, normal strength Psychiatric: normal affect, normal behavior, A&O x 3 Hosp A/P (1) Acute respiratory failure due to COVID-19 Code(s): U07.1 - COVID-19; J96.00 - ACUTE RESPIRATORY FAILURE, UNSP W HYPOXIA OR HYPERCAPNIA Status: Acute (2) Viral pneumonia Code(s): J12.9 - VIRAL PNEUMONIA, UNSPECIFIED Status: Acute (3) Hypothyroidism (acquired) Code(s): E03.9 - HYPOTHYROIDISM, UNSPECIFIED Status: Chronic (4) BPH (benign prostatic hyperplasia) Code(s): N40.0 - BENIGN PROSTATIC HYPERPLASIA WITHOUT LOWER URINRY TRACT SYMP Status: Chronic Qualifiers: Lower urinary tract symptom presence: symptoms absent Qualified Code(s): N40.0 - Benign prostatic hyperplasia without lower urinary tract symptoms (5) H/O Graves' disease Code(s): Z86.39 - PERSONAL HISTORY OF ENDO, NUTRITIONAL AND METABOLIC DISEASE Status: Chronic (6) Obesity (BMI 30.0-34.9) Code(s): E66.9 - OBESITY, UNSPECIFIED Status: Chronic - Plan old records reviewed/req, respiratory therapy Continue remdesivir therapy today day 2 Continue vitamin supplementation Continue dexamethasone Medication reviewed and continue provide symptomatic and supportive care We will monitor for any deterioration Continue oxygen to keep saturation above 92% Ambulate as tolerated
[2020-02-11] MEDS: Famotidine 20 MG TAB PO SCH ×2 (12:52→21:10)
--- NOTE | 2020-02-11 18:51 | PRG ---
DATE OF SERVICE: 02/11/2020 SUBJECTIVE: Sitting in bed, a little bit tachypneic. OBJECTIVE: VITAL SIGNS: He has been placed on high-flow nasal cannula O2, satting at 96 to 99 with 60 L/minute. Still having intermittent temperature elevation. LUNGS: Basilar inspiratory crackles. HEART: S1 and S2. Regular rate. ABDOMEN: Soft and not distended. EXTREMITIES: Moves all extremities equally. LABORATORY DATA: White cell count 5.2, hemoglobin 13.9, and platelets 159. D-dimer is 1.03. Creatinine 0.92. Ferritin 404. CRP 19.99. ASSESSMENT AND DISCUSSION: Severe COVID pneumonia on high-flow nasal cannula O2. Extensive lung infection, marked elevation in CRP, high risk for further deterioration. If he does not turn around soon, he is going to end up intubated. Job ID: [id number]
[2020-02-11] MEDS: Tamsulosin HCl 0.4 MG CAP PO SCH (21:11)
[2020-02-11] MEDS: REMDESIVIR (EUA) 100 MG in Sodium Chloride 0.9% 250 ML 230 ML IV SCH (21:11)
[2020-02-12] MEDS: Albuterol 200 PUFF (6.7GM INHALER) INH SCH ×7 (00:12→20:57)
[2020-02-12] MEDS: Levothyroxine Sodium 125 MCG TAB PO SCH (05:12)
[2020-02-12 07:05] LABS: #Lymphocytes 0.7 thou/uL (1.20-3.40); #Monocytes 0.7 thou/uL (0.11-0.59); #Neutrophils 5.9 thou/uL (1.40-6.50); %Basophils 0.1 % (0.0-1.0); %Eosinophils 0.1 % (0.0-10.0); %Lymphocytes 9.7 % (21.0-51.0); %Monocytes 9.7 % (0.0-10.0); %Neutrophils 80.5 % (42.0-75.0); Hemoglobin 13.9 g/dL (14.0-18.0); Mean Corpuscular HGB CONC 33.8 g/dL (32.0-36.0); Mean Corpuscular Hemoglobin 30.6 pg (27.0-31.0); Mean Corpuscular Volume 90.5 fL (78.0-98.0); Platelet Count 194 thou/uL (130-400); RBC Distribution Width 12.9 % (11.5-14.5); Red Blood Cell (RBC) Count 4.53 mill/uL (4.70-6.10); White Blood Cell (WBC) Count 7.3 thou/uL (4.8-10.8)
[2020-02-12 07:13] LABS: ALT (SGPT) 34 U/L (8-55); AST (SGOT) 57 U/L (5-34); Albumin 3.6 g/dL (3.4-4.8); Alkaline Phosphatase 59 U/L (40-110); Bilirubin, Direct 0.3 mg/dL (0.1-0.3); Bilirubin, Total 0.5 mg/dL (0.2-1.2); Protein, Total 6.7 g/dL (5.8-8.1)
[2020-02-12 07:16] LABS: ALT (SGPT) 34 U/L (8-55); AST (SGOT) 57 U/L (5-34); Albumin 3.6 g/dL (3.4-4.8); Alkaline Phosphatase 61 U/L (40-110); Anion Gap 16 mmol/L (10-20); BUN (Urea Nitrogen) 19 mg/dL (8.4-25.7); Bilirubin, Total 0.5 mg/dL (0.2-1.2); CRP (Inflammatory) 12.99 mg/dL (= or < 0.5); Calc. Creatinine Clearance 153 mL/min (70-130); Calcium 8.4 mg/dL (7.8-10.44); Carbon Dioxide 23 mmol/L (23-31); Chloride 103 mmol/L (98-107); Globulin 3.2 g/dL (2.4-3.5); Glucose 114 mg/dL (80-115); Potassium 3.9 mmol/L (3.5-5.1); Protein, Total 6.8 g/dL (5.8-8.1); Sodium 138 mmol/L (136-145)
[2020-02-12] MEDS: Famotidine 20 MG TAB PO SCH ×2 (08:53→20:56)
[2020-02-12] MEDS: Aspirin 81 mg Enteric Coated Tablet PO SCH (08:53)
[2020-02-12] MEDS: Enoxaparin Sodium 40 MG/0.4 ML SYRINGE SC SCH ×2 (08:53→20:57)
[2020-02-12] MEDS: Dexamethasone 4 mg/ml Vial SLOW IVP SCH (08:53)
--- NOTE | 2020-02-12 13:18 | PDOC.HOSPP ---
- Subjective Encounter Date: 02/12/20 Encounter Time: 09:00 Subjective: Patient is on high flow oxygen, overall patient is doing better, he has no fever, he is feeling weak, he has a mild cough, no chest pain, - Objective Vital Signs & Weight: Vital Signs (12 hours) Temp Pulse Resp BP Pulse Ox 02/12/20 12:00 98.5 F 62 20 112/80 96 02/12/20 08:00 98.2 F 58 L 24 H 116/61 95 02/12/20 04:00 98.5 F 56 L 20 120/67 96 Weight Weight 250 lb 0.067 oz I&O: 02/11/20 02/12/20 02/13/20 06:59 06:59 06:59 Intake Total 1210 Output Total 150 Balance 1060 Result Diagrams: 02/12/20 06:33 02/12/20 06:33 Hospitalist ROS - Review of Systems Constitutional: reports: weakness Respiratory: reports: cough, shortness of breath, SOB with excertion. denies: dry, hemoptysis, pleuritic pain, sputum, wheezing, other Cardiovascular: denies: chest pain, palpitations, orthopnea, paroxysmal noc. dyspnea, edema, light headedness, other Gastrointestinal: denies: nausea, vomiting, abdominal pain, diarrhea, constipation, melena, hematochezia, other Genitourinary: denies: dysuria, frequency, incontinence, hematuria, retention, other Musculoskeletal: denies: neck pain, shoulder pain, arm pain, back pain, hand pain, leg pain, foot pain, other Skin: denies: rash, lesions, jacques, bruising, other - Medication Medications: Active Medications Generic Name Dose Route Start Last Admin Trade Name Freq PRN Reason Stop Dose Admin Acetaminophen 650 mg 02/10/20 11:33 02/11/20 21:11 Acetaminophen 325 Mg Tab PO 650 mg Q4H PRN Administration Headache/Fever/Mild Pain (1-3) Albuterol Sulfate 2 puff 02/10/20 14:30 02/12/20 11:03 Albuterol 200 Puff (6.7gm Inhaler) INH 2 puff [id number] CLAY Administration Aspirin 81 mg 02/11/20 09:00 02/12/20 08:53 Aspirin 81 Mg Enteric Coated Tablet PO 81 mg DAILY CLAY Administration Dexamethasone 6 mg 02/11/20 09:00 02/12/20 08:53 Dexamethasone 4 Mg/Ml Vial SLOW IVP 6 mg DAILY CLAY Administration Enoxaparin Sodium 40 mg 02/10/20 21:00 02/12/20 08:53 Enoxaparin Sodium 40 Mg/0.4 Ml Syringe SC 40 mg 0900,2100 CLAY Administration Famotidine 20 mg 02/10/20 21:00 02/12/20 08:53 Famotidine 20 Mg Tab PO 20 mg BID CLAY Administration Remdesivir 100 mg/ Sodium 250 mls @ 250 mls/hr 02/11/20 21:00 02/11/20 21:11 Chloride IV 02/14/20 21:59 250 mls Q24H CLAY Administration Levothyroxine Sodium 125 mcg 02/11/20 06:00 02/12/20 05:12 Levothyroxine Sodium 125 Mcg Tab PO 125 mcg 0600 CLAY Administration Tamsulosin HCl 0.4 mg 02/10/20 21:00 02/11/20 21:11 Tamsulosin Hcl 0.4 Mg Cap PO 0.4 mg HS CLAY Administration - Exam General Appearance: NAD, awake alert Eye: PERRL, anicteric sclera ENT: normocephalic atraumatic, no oropharyngeal lesions Neck: supple, symmetric, no JVD, no thyromegaly Heart: RRR, no murmur, no gallops Respiratory: no tachypnea Respiratory - other findings: Air entry reduced bilaterally, Gastrointestinal: soft, non-tender, non-distended, normal bowel sounds Gastrointestinal - other findings: Obesity noted Extremities: no cyanosis, no clubbing Skin: normal turgor, no lesions Neurological: no focal deficits Musculoskeletal: normal tone, normal strength Psychiatric: normal affect, normal behavior Hosp A/P (1) Acute respiratory failure due to COVID-19 Code(s): U07.1 - COVID-19; J96.00 - ACUTE RESPIRATORY FAILURE, UNSP W HYPOXIA OR HYPERCAPNIA Status: Acute (2) Viral pneumonia Code(s): J12.9 - VIRAL PNEUMONIA, UNSPECIFIED Status: Acute (3) Hypothyroidism (acquired) Code(s): E03.9 - HYPOTHYROIDISM, UNSPECIFIED Status: Chronic (4) BPH (benign prostatic hyperplasia) Code(s): N40.0 - BENIGN PROSTATIC HYPERPLASIA WITHOUT LOWER URINRY TRACT SYMP Status: Chronic Qualifiers: Lower urinary tract symptom presence: symptoms absent Qualified Code(s): N40.0 - Benign prostatic hyperplasia without lower urinary tract symptoms (5) H/O Graves' disease Code(s): Z86.39 - PERSONAL HISTORY OF ENDO, NUTRITIONAL AND METABOLIC DISEASE Status: Chronic (6) Obesity (BMI 30.0-34.9) Code(s): E66.9 - OBESITY, UNSPECIFIED Status: Chronic (7) JARED on CPAP Code(s): G47.33 - OBSTRUCTIVE SLEEP APNEA (ADULT) (PEDIATRIC); Z99.89 - DEPENDENCE ON OTHER ENABLING MACHINES AND DEVICES Status: Chronic - Plan old records reviewed/req, plan discussed w/ family, respiratory therapy, DVT proph w/lovenox Continue remdesivir therapy today day 3 Continue vitamin supplementation Continue dexamethasone Medication reviewed and continue provide symptomatic and supportive care We will monitor for any deterioration Continue oxygen to keep saturation above 92% Ambulate as tolerated Try to reach out family member about updating plan of care but no response on phone Continue high flow oxygen and wean off as tolerated
[2020-02-12] MEDS: Zolpidem Tartrate 5 MG TAB PO PRN (20:56)
[2020-02-12] MEDS: Benzonatate 100 MG CAP PO PRN (20:56)
[2020-02-12] MEDS: GUAIFENESIN SF SOLN 200 MG/10 ML UDCUP PO PRN (20:56)
[2020-02-12] MEDS: REMDESIVIR (EUA) 100 MG in Sodium Chloride 0.9% 250 ML 230 ML IV SCH (20:57)
[2020-02-12] MEDS: Tamsulosin HCl 0.4 MG CAP PO SCH (20:57)
[2020-02-13] MEDS: GUAIFENESIN SF SOLN 200 MG/10 ML UDCUP PO PRN ×3 (00:22→09:06)
[2020-02-13] MEDS: Albuterol 200 PUFF (6.7GM INHALER) INH SCH ×6 (02:41→23:29)
[2020-02-13] MEDS: Levothyroxine Sodium 125 MCG TAB PO SCH (04:53)
[2020-02-13] MEDS: Benzonatate 100 MG CAP PO PRN ×2 (04:53→20:33)
[2020-02-13 07:20] LABS: ALT (SGPT) 33 U/L (8-55); AST (SGOT) 51 U/L (5-34); Albumin 3.4 g/dL (3.4-4.8); Alkaline Phosphatase 71 U/L (40-110); Bilirubin, Direct 0.3 mg/dL (0.1-0.3); Bilirubin, Total 0.7 mg/dL (0.2-1.2); Protein, Total 6.5 g/dL (5.8-8.1)
[2020-02-13 07:22] LABS: Anion Gap 14 mmol/L (10-20); BUN (Urea Nitrogen) 17 mg/dL (8.4-25.7); Calc. Creatinine Clearance 171 mL/min (70-130); Calcium 8.2 mg/dL (7.8-10.44); Carbon Dioxide 22 mmol/L (23-31); Chloride 104 mmol/L (98-107); Glucose 108 mg/dL (80-115); Sodium 136 mmol/L (136-145)
[2020-02-13] MEDS: Enoxaparin Sodium 40 MG/0.4 ML SYRINGE SC SCH ×2 (09:05→20:32)
[2020-02-13] MEDS: Aspirin 81 mg Enteric Coated Tablet PO SCH (09:05)
[2020-02-13] MEDS: Dexamethasone 4 mg/ml Vial SLOW IVP SCH (09:05)
[2020-02-13] MEDS: Famotidine 20 MG TAB PO SCH ×2 (09:05→20:33)
[2020-02-13] MEDS: Acetaminophen 325 MG TAB PO PRN ×2 (09:18→20:33)
--- NOTE | 2020-02-13 19:08 | PDOC.HOSPP ---
- Subjective Encounter Date: 02/13/20 Encounter Time: 11:00 Subjective: Patient seen for follow-up regarding COVID-19 infection. He reports feeling better while at rest, shortness of breath with exertion. - Objective Vital Signs & Weight: Vital Signs (12 hours) Temp Pulse Resp BP Pulse Ox 02/13/20 16:00 58 L 22 H 95 02/13/20 12:00 98.3 F 60 94 L 02/13/20 08:00 98.1 F 61 22 H 122/69 94 L 02/13/20 07:54 92 L Weight Weight 250 lb 0.067 oz I&O: 02/12/20 02/13/20 02/14/20 06:59 06:59 06:59 Intake Total 250 Balance 250 Result Diagrams: 02/12/20 06:33 02/13/20 06:49 Additional Labs: Labs and MAR reviewed by sd Hospitalist ROS - Review of Systems Respiratory: reports: SOB with excertion Cardiovascular: denies: chest pain, palpitations, orthopnea, paroxysmal noc. dyspnea, edema, light headedness Gastrointestinal: denies: nausea, vomiting, abdominal pain, diarrhea, constipation, melena, hematochezia - Medication Medications: Active Medications Generic Name Dose Route Start Last Admin Trade Name Freq PRN Reason Stop Dose Admin Acetaminophen 650 mg 02/10/20 11:33 02/13/20 09:18 Acetaminophen 325 Mg Tab PO 650 mg Q4H PRN Administration Headache/Fever/Mild Pain (1-3) Albuterol Sulfate 2 puff 02/10/20 14:30 02/13/20 18:21 Albuterol 200 Puff (6.7gm Inhaler) INH 2 puff [id number] CLAY Administration Aspirin 81 mg 02/11/20 09:00 02/13/20 09:05 Aspirin 81 Mg Enteric Coated Tablet PO 81 mg DAILY CLAY Administration Benzonatate 100 mg 02/11/20 08:36 02/13/20 04:53 Benzonatate 100 Mg Cap PO 100 mg Q6H PRN Administration Cough Dexamethasone 6 mg 02/11/20 09:00 02/13/20 09:05 Dexamethasone 4 Mg/Ml Vial SLOW IVP 6 mg DAILY CLAY Administration Enoxaparin Sodium 40 mg 02/10/20 21:00 02/13/20 09:05 Enoxaparin Sodium 40 Mg/0.4 Ml Syringe SC 40 mg 0900,2100 CLAY Administration Famotidine 20 mg 02/10/20 21:00 02/13/20 09:05 Famotidine 20 Mg Tab PO 20 mg BID CLAY Administration Guaifenesin 200 mg 02/11/20 08:36 02/13/20 09:06 Diabetic Tussin 200 Mg/10 Ml Udcup PO 200 mg Q4H PRN Administration Cough Remdesivir 100 mg/ Sodium 250 mls @ 250 mls/hr 02/11/20 21:00 02/12/20 20:57 Chloride IV 02/14/20 21:59 250 mls Q24H CLAY Administration Levothyroxine Sodium 125 mcg 02/11/20 06:00 02/13/20 04:53 Levothyroxine Sodium 125 Mcg Tab PO 125 mcg 0600 CLAY Administration Tamsulosin HCl 0.4 mg 02/10/20 21:00 02/12/20 20:57 Tamsulosin Hcl 0.4 Mg Cap PO 0.4 mg HS CLAY Administration Zolpidem Tartrate 5 mg 02/11/20 08:36 02/12/20 20:56 Zolpidem Tartrate 5 Mg Tab PO 5 mg HSPRN PRN Administration Insomnia - Exam General Appearance: awake alert Eye: anicteric sclera ENT: moist mucosa Neck: supple Heart: RRR Respiratory: CTAB Gastrointestinal: soft, non-tender Skin: no rashes Psychiatric: normal affect, normal behavior Hosp A/P - Plan (1) Acute respiratory failure due to COVID-19 Code(s): U07.1 - COVID-19; J96.00 - ACUTE RESPIRATORY FAILURE, UNSP W HYPOXIA OR HYPERCAPNIA Status: Acute (2) Viral pneumonia Code(s): J12.9 - VIRAL PNEUMONIA, UNSPECIFIED Status: Acute (3) Hypothyroidism (acquired) Code(s): E03.9 - HYPOTHYROIDISM, UNSPECIFIED Status: Chronic (4) BPH (benign prostatic hyperplasia) Code(s): N40.0 - BENIGN PROSTATIC HYPERPLASIA WITHOUT LOWER URINRY TRACT SYMP Status: Chronic Qualifiers: Lower urinary tract symptom presence: symptoms absent Qualified Code(s): N40.0 - Benign prostatic hyperplasia without lower urinary tract symptoms (5) H/O Graves' disease Code(s): Z86.39 - PERSONAL HISTORY OF ENDO, NUTRITIONAL AND METABOLIC DISEASE Status: Chronic (6) Obesity (BMI 30.0-34.9) Code(s): E66.9 - OBESITY, UNSPECIFIED Status: Chronic (7) JARED on CPAP Code(s): G47.33 - OBSTRUCTIVE SLEEP APNEA (ADULT) (PEDIATRIC); Z99.89 - DEPENDENCE ON OTHER ENABLING MACHINES AND DEVICES Status: Chronic - Plan Remdesivir day 4 today. Patient is on dexamethasone Patient continues to be on high flow oxygen, may need BiPAP if situation worsens. Ambulate as tolerated
[2020-02-13] MEDS: Zolpidem Tartrate 5 MG TAB PO PRN (20:33)
[2020-02-13] MEDS: Tamsulosin HCl 0.4 MG CAP PO SCH (20:33)
[2020-02-13] MEDS: REMDESIVIR (EUA) 100 MG in Sodium Chloride 0.9% 250 ML 230 ML IV SCH (20:37)
[2020-02-14] MEDS: GUAIFENESIN SF SOLN 200 MG/10 ML UDCUP PO PRN (00:18)
[2020-02-14] MEDS: Albuterol 200 PUFF (6.7GM INHALER) INH SCH ×6 (02:37→22:30)
[2020-02-14] MEDS: Benzonatate 100 MG CAP PO PRN ×2 (05:28→20:39)
[2020-02-14] MEDS: Levothyroxine Sodium 125 MCG TAB PO SCH (05:28)
[2020-02-14 06:41] LABS: ALT (SGPT) 44 U/L (8-55); AST (SGOT) 51 U/L (5-34); Albumin 3.5 g/dL (3.4-4.8); Alkaline Phosphatase 90 U/L (40-110); Anion Gap 14 mmol/L (10-20); BUN (Urea Nitrogen) 17 mg/dL (8.4-25.7); Bilirubin, Direct 0.4 mg/dL (0.1-0.3); Bilirubin, Total 0.8 mg/dL (0.2-1.2); Calc. Creatinine Clearance 162 mL/min (70-130); Calcium 8.2 mg/dL (7.8-10.44); Carbon Dioxide 24 mmol/L (23-31); Chloride 102 mmol/L (98-107); Glucose 95 mg/dL (80-115); Potassium 4.1 mmol/L (3.5-5.1); Protein, Total 6.5 g/dL (5.8-8.1); Sodium 136 mmol/L (136-145)
[2020-02-14] MEDS: Famotidine 20 MG TAB PO SCH ×2 (08:45→20:36)
[2020-02-14] MEDS: Aspirin 81 mg Enteric Coated Tablet PO SCH (08:46)
[2020-02-14] MEDS: Enoxaparin Sodium 40 MG/0.4 ML SYRINGE SC SCH ×2 (08:46→20:37)
[2020-02-14] MEDS: Dexamethasone 4 mg/ml Vial SLOW IVP SCH (08:46)
[2020-02-14] MEDS: Acetaminophen 325 MG TAB PO PRN ×2 (08:51→18:26)
--- NOTE | 2020-02-14 18:27 | PDOC.HOSPP ---
- Subjective Encounter Date: 02/14/20 Encounter Time: 10:00 Subjective: Patient seen for follow-up regarding acute respiratory failure with hypoxia. He reports shortness of breath with exertion but also reports that he feels better than yesterday. - Objective Vital Signs & Weight: Vital Signs (12 hours) Temp Pulse Resp BP BP Pulse Ox 02/14/20 12:06 98.5 F 67 20 124/72 95 02/14/20 09:00 98.1 F 57 L 20 143/76 H 96 02/14/20 08:02 93 L 02/14/20 08:00 96 Weight Weight 250 lb 0.067 oz I&O: 02/13/20 02/14/20 02/15/20 06:59 06:59 06:59 Intake Total 250 Balance 250 Result Diagrams: 02/12/20 06:33 02/14/20 06:05 Additional Labs: I reviewed patient's labs and MAR Hospitalist ROS - Review of Systems Respiratory: reports: cough, dry, SOB with excertion Cardiovascular: denies: chest pain, palpitations, orthopnea, paroxysmal noc. dyspnea, edema, light headedness Genitourinary: denies: dysuria, frequency, incontinence, hematuria, retention - Medication Medications: Active Medications Generic Name Dose Route Start Last Admin Trade Name Freq PRN Reason Stop Dose Admin Acetaminophen 650 mg 02/10/20 11:33 02/14/20 08:51 Acetaminophen 325 Mg Tab PO 650 mg Q4H PRN Administration Headache/Fever/Mild Pain (1-3) Albuterol Sulfate 2 puff 02/10/20 14:30 02/14/20 17:52 Albuterol 200 Puff (6.7gm Inhaler) INH 2 puff [id number] CLAY Administration Aspirin 81 mg 02/11/20 09:00 02/14/20 08:46 Aspirin 81 Mg Enteric Coated Tablet PO 81 mg DAILY CLAY Administration Benzonatate 100 mg 02/11/20 08:36 02/14/20 05:28 Benzonatate 100 Mg Cap PO 100 mg Q6H PRN Administration Cough Dexamethasone 6 mg 02/11/20 09:00 02/14/20 08:46 Dexamethasone 4 Mg/Ml Vial SLOW IVP 6 mg DAILY CLAY Administration Enoxaparin Sodium 40 mg 02/10/20 21:00 02/14/20 08:46 Enoxaparin Sodium 40 Mg/0.4 Ml Syringe SC 40 mg 0900,2100 CLAY Administration Famotidine 20 mg 02/10/20 21:00 02/14/20 08:45 Famotidine 20 Mg Tab PO 20 mg BID CLAY Administration Guaifenesin 200 mg 02/11/20 08:36 02/14/20 00:18 Diabetic Tussin 200 Mg/10 Ml Udcup PO 200 mg Q4H PRN Administration Cough Remdesivir 100 mg/ Sodium 250 mls @ 250 mls/hr 02/11/20 21:00 02/13/20 20:37 Chloride IV 02/14/20 21:59 250 mls Q24H CLAY Administration Levothyroxine Sodium 125 mcg 02/11/20 06:00 02/14/20 05:28 Levothyroxine Sodium 125 Mcg Tab PO 125 mcg 0600 CLAY Administration Tamsulosin HCl 0.4 mg 02/10/20 21:00 02/13/20 20:33 Tamsulosin Hcl 0.4 Mg Cap PO 0.4 mg HS CLAY Administration Zolpidem Tartrate 5 mg 02/11/20 08:36 02/13/20 20:33 Zolpidem Tartrate 5 Mg Tab PO 5 mg HSPRN PRN Administration Insomnia - Exam General - other findings: Obese Eye: anicteric sclera ENT: moist mucosa Neck: supple Heart: RRR Respiratory: CTAB Gastrointestinal: soft, non-tender Skin: no rashes Psychiatric: normal affect, normal behavior, oriented to person, oriented to place Hosp A/P - Plan (1) Acute respiratory failure due to COVID-19 Code(s): U07.1 - COVID-19; J96.00 - ACUTE RESPIRATORY FAILURE, UNSP W HYPOXIA OR HYPERCAPNIA Status: Acute (2) Viral pneumonia Code(s): J12.9 - VIRAL PNEUMONIA, UNSPECIFIED Status: Acute (3) Hypothyroidism (acquired) Code(s): E03.9 - HYPOTHYROIDISM, UNSPECIFIED Status: Chronic (4) BPH (benign prostatic hyperplasia) Code(s): N40.0 - BENIGN PROSTATIC HYPERPLASIA WITHOUT LOWER URINRY TRACT SYMP Status: Chronic Qualifiers: Lower urinary tract symptom presence: symptoms absent Qualified Code(s): N40.0 - Benign prostatic hyperplasia without lower urinary tract symptoms (5) H/O Graves' disease Code(s): Z86.39 - PERSONAL HISTORY OF ENDO, NUTRITIONAL AND METABOLIC DISEASE Status: Chronic (6) Obesity (BMI 30.0-34.9) Code(s): E66.9 - OBESITY, UNSPECIFIED Status: Chronic (7) JARED on CPAP Code(s): G47.33 - OBSTRUCTIVE SLEEP APNEA (ADULT) (PEDIATRIC); Z99.89 - DEPENDENCE ON OTHER ENABLING MACHINES AND DEVICES Status: Chronic - Plan Remdesivir day 5 today. Continue dexamethasone Patient continues to be on high flow oxygen. Ambulate as tolerated
[2020-02-14] MEDS ORDERED: Zinc Sulfate 220 MG CAP PO SCH (18:45)
[2020-02-14] MEDS ORDERED: Ascorbic Acid 500 mg Chewable Tablet PO SCH (18:45)
[2020-02-14] MEDS: Zolpidem Tartrate 5 MG TAB PO PRN (20:36)
[2020-02-14] MEDS: Tamsulosin HCl 0.4 MG CAP PO SCH (20:36)
[2020-02-14] MEDS: REMDESIVIR (EUA) 100 MG in Sodium Chloride 0.9% 250 ML 230 ML IV SCH (20:37)
[2020-02-15] MEDS: Albuterol 200 PUFF (6.7GM INHALER) INH SCH ×6 (03:01→22:17)
[2020-02-15] MEDS: Acetaminophen 325 MG TAB PO PRN (05:11)
[2020-02-15] MEDS: Levothyroxine Sodium 125 MCG TAB PO SCH (05:11)
[2020-02-15] MEDS: GUAIFENESIN SF SOLN 200 MG/10 ML UDCUP PO PRN (05:12)
[2020-02-15 06:33] LABS: Anion Gap 17 mmol/L (10-20); BUN (Urea Nitrogen) 18 mg/dL (8.4-25.7); Calc. Creatinine Clearance 144 mL/min (70-130); Calcium 8.5 mg/dL (7.8-10.44); Carbon Dioxide 21 mmol/L (23-31); Chloride 100 mmol/L (98-107); Glucose 89 mg/dL (80-115); Potassium 4.1 mmol/L (3.5-5.1); Sodium 134 mmol/L (136-145)
[2020-02-15 06:36] LABS: ALT (SGPT) 46 U/L (8-55); AST (SGOT) 47 U/L (5-34); Albumin 3.6 g/dL (3.4-4.8); Alkaline Phosphatase 106 U/L (40-110); Bilirubin, Direct 0.7 mg/dL (0.1-0.3); Bilirubin, Total 1.2 mg/dL (0.2-1.2); Protein, Total 6.9 g/dL (5.8-8.1)
[2020-02-15] MEDS: Ascorbic Acid 500 mg Chewable Tablet PO SCH ×2 (09:56→12:14)
[2020-02-15] MEDS: Aspirin 81 mg Enteric Coated Tablet PO SCH ×2 (09:56→12:14)
[2020-02-15] MEDS: Famotidine 20 MG TAB PO SCH ×3 (09:56→20:13)
[2020-02-15] MEDS: Zinc Sulfate 220 MG CAP PO SCH (09:56)
[2020-02-15] MEDS: Enoxaparin Sodium 40 MG/0.4 ML SYRINGE SC SCH ×2 (11:25→20:13)
[2020-02-15] MEDS: Dexamethasone 4 mg/ml Vial SLOW IVP SCH (11:25)
[2020-02-15] MEDS ORDERED: Cholecalciferol 1,000 UNITS (25 MCG) TAB PO SCH (12:15)
--- NOTE | 2020-02-15 12:28 | CON ---
DATE OF CONSULTATION: 02/15/2020 REASON FOR CONSULTATION: Hypoxic respiratory failure from COVID-19 pneumonia. HISTORY OF PRESENT ILLNESS: The patient is a pleasant 64-year-old male, who presented to this facility on 02/09 with COVID-19 pneumonia. He said he was diagnosed on February 04, but was not hospitalized until this past Tuesday. He has developed progressive hypoxemia and was brought into the [facility] specifically for BiPAP, which he did for a little while, but is now back on high-flow nasal cannula. The patient's associated symptoms include dry cough and body aches. He denies any lack of taste or lack of smell. PAST MEDICAL HISTORY: 1. Hypothyroidism. 2. Prostatic hypertrophy. 3. Degenerative joint disease. PAST SURGICAL HISTORY: 1. C-spine fusion. 2. Right knee scope. 3. Hernia repair. SOCIAL HISTORY: Nonsmoker. Occasionally drinks alcohol. He is retired from the [employer]. FAMILY MEDICAL HISTORY: Unremarkable. ALLERGIES: NONE. INPATIENT MEDICATIONS: Reviewed. See summary section on the chart. OUTPATIENT MEDICATIONS: Include: 1. Ibuprofen. 2. Aspirin. 3. Levothyroxine. 4. Tamsulosin. PHYSICAL EXAMINATION: VITAL SIGNS: Temperature 99.8, pulse 86, respirations 20, O2 saturations were only 94% on high-flow nasal cannula, 89%. HEENT: Unremarkable. NECK: No adenopathy or JVD. LUNGS: Coarse crackles bilaterally. CARDIAC: S1 and S2. Regular. ABDOMEN: Soft and nontender. EXTREMITIES: No clubbing, cyanosis, or edema. IMAGING: Chest x-ray from 5 days ago showed diffuse bilateral pulmonary infiltrates. LABORATORY DATA: White blood cell count 7.3, hematocrit 41, and platelet count 194 from 02/11. Chemistry: Sodium 134, potassium 4.1, chloride 100, CO2 21, BUN 18, creatinine 0.8, glucose 89. Ferritin is 322. C-reactive protein is 10. ASSESSMENT: COVID-19 pneumonia with acute hypoxic respiratory failure. PLAN: Continue the steroids. High-flow oxygen. I have added vitamin D at supratherapeutic doses. BiPAP only as needed. Continue anticoagulation. Job ID: [id number]
--- NOTE | 2020-02-15 14:34 | RAD ---
EXAM: Single view of the chest HISTORY: Pneumonia COMPARISON: 02/10/2020 FINDINGS: Single view of the chest shows an enlarged but stable cardiomediastinal silhouette. There i s a scattered multifocal infiltrates. These appear to have worsened in the left lower lobe. No pleural effusion is seen. Degenerative changes are seen in the spine. IMPRESSION: Multifocal pneumonia
--- NOTE | 2020-02-15 18:08 | PDOC.HOSPP ---
- Subjective Encounter Date: 02/15/20 Encounter Time: 11:30 Subjective: Patient seen for follow-up regarding acute hypoxic respiratory failure. Patient was transferred to [facility] today morning for BiPAP. He reports feeling about the same as yesterday. - Objective Vital Signs & Weight: Vital Signs (12 hours) Temp Pulse 02/15/20 13:00 99.4 F 02/15/20 06:20 88 Weight Weight 250 lb 0.067 oz I&O: 02/14/20 02/15/20 02/16/20 06:59 06:59 06:59 Intake Total 1000 Output Total 975 675 Balance 25 -675 Result Diagrams: 02/12/20 06:33 02/15/20 05:37 Additional Labs: Labs and MAR reviewed by me EKG Reviewed by me: Yes Hospitalist ROS - Review of Systems ROS unobtainable: (Normal sinus rhythm on telemetry) Constitutional: denies: fever, chills, sweats, weakness, malaise Respiratory: reports: SOB with excertion. denies: cough, dry, shortness of breath, hemoptysis, pleuritic pain, sputum, wheezing Cardiovascular: denies: chest pain, palpitations, orthopnea, paroxysmal noc. dyspnea, edema, light headedness - Medication Medications: Active Medications Generic Name Dose Route Start Last Admin Trade Name Freq PRN Reason Stop Dose Admin Acetaminophen 650 mg 02/10/20 11:33 02/15/20 05:11 Acetaminophen 325 Mg Tab PO 650 mg Q4H PRN Administration Headache/Fever/Mild Pain (1-3) Albuterol Sulfate 2 puff 02/10/20 14:30 02/15/20 14:11 Albuterol 200 Puff (6.7gm Inhaler) INH 2 puff [id number] CLAY Administration Ascorbic Acid 1,000 mg 02/15/20 09:00 02/15/20 12:14 Ascorbic Acid 500 Mg Chewable Tablet PO 1,000 mg DAILY CLAY Administration Aspirin 81 mg 02/11/20 09:00 02/15/20 12:14 Aspirin 81 Mg Enteric Coated Tablet PO 81 mg DAILY CLAY Administration Benzonatate 100 mg 02/11/20 08:36 02/14/20 20:39 Benzonatate 100 Mg Cap PO 100 mg Q6H PRN Administration Cough Dexamethasone 6 mg 02/11/20 09:00 02/15/20 11:25 Dexamethasone 4 Mg/Ml Vial SLOW IVP 6 mg DAILY CLAY Administration Enoxaparin Sodium 40 mg 02/10/20 21:00 02/15/20 11:25 Enoxaparin Sodium 40 Mg/0.4 Ml Syringe SC 40 mg 0900,2100 CLAY Administration Famotidine 20 mg 02/10/20 21:00 02/15/20 12:13 Famotidine 20 Mg Tab PO 20 mg BID CLAY Administration Guaifenesin 200 mg 02/11/20 08:36 02/15/20 05:12 Diabetic Tussin 200 Mg/10 Ml Udcup PO 200 mg Q4H PRN Administration Cough Levothyroxine Sodium 125 mcg 02/11/20 06:00 02/15/20 05:11 Levothyroxine Sodium 125 Mcg Tab PO 125 mcg 0600 CLAY Administration Tamsulosin HCl 0.4 mg 02/10/20 21:00 02/14/20 20:36 Tamsulosin Hcl 0.4 Mg Cap PO 0.4 mg HS CLAY Administration Zinc Sulfate 220 mg 02/15/20 09:00 02/15/20 09:56 Zinc Sulfate 220 Mg Cap PO Not Given DAILY CLAY Zolpidem Tartrate 5 mg 02/11/20 08:36 02/14/20 20:36 Zolpidem Tartrate 5 Mg Tab PO 5 mg HSPRN PRN Administration Insomnia - Exam General Appearance: awake alert ENT: normocephalic atraumatic Heart: RRR Respiratory: CTAB Gastrointestinal: soft, normal bowel sounds Skin: no rashes Musculoskeletal: normal strength Psychiatric: normal affect, normal behavior Hosp A/P - Plan (1) Acute respiratory failure due to COVID-19 Code(s): U07.1 - COVID-19; J96.00 - ACUTE RESPIRATORY FAILURE, UNSP W HYPOXIA OR HYPERCAPNIA Status: Acute (2) Viral pneumonia Code(s): J12.9 - VIRAL PNEUMONIA, UNSPECIFIED Status: Acute (3) Hypothyroidism (acquired) Code(s): E03.9 - HYPOTHYROIDISM, UNSPECIFIED Status: Chronic (4) BPH (benign prostatic hyperplasia) Code(s): N40.0 - BENIGN PROSTATIC HYPERPLASIA WITHOUT LOWER URINRY TRACT SYMP Status: Chronic Qualifiers: Lower urinary tract symptom presence: symptoms absent Qualified Code(s): N40.0 - Benign prostatic hyperplasia without lower urinary tract symptoms (5) H/O Graves' disease Code(s): Z86.39 - PERSONAL HISTORY OF ENDO, NUTRITIONAL AND METABOLIC DISEASE Status: Chronic (6) Obesity (BMI 30.0-34.9) Code(s): E66.9 - OBESITY, UNSPECIFIED Status: Chronic (7) JARED on CPAP Code(s): G47.33 - OBSTRUCTIVE SLEEP APNEA (ADULT) (PEDIATRIC); Z99.89 - DEPENDENCE ON OTHER ENABLING MACHINES AND DEVICES Status: Chronic - Plan Patient completed course of remdesivir. Continue dexamethasone Patient currently in the IMCU, on BiPAP therapy. Continue DVT prophylaxis. Plate
[2020-02-15] MEDS: Tamsulosin HCl 0.4 MG CAP PO SCH (20:13)
[2020-02-16] MEDS: Albuterol 200 PUFF (6.7GM INHALER) INH SCH ×6 (02:00→22:30)
[2020-02-16 04:13] LABS: Anion Gap 16 mmol/L (10-20); BUN (Urea Nitrogen) 20 mg/dL (8.4-25.7); Calc. Creatinine Clearance 155 mL/min (70-130); Calcium 8.2 mg/dL (7.8-10.44); Carbon Dioxide 22 mmol/L (23-31); Chloride 100 mmol/L (98-107); Glucose 106 mg/dL (80-115); Sodium 134 mmol/L (136-145)
[2020-02-16 04:16] LABS: ALT (SGPT) 37 U/L (8-55); AST (SGOT) 29 U/L (5-34); Albumin 3.4 g/dL (3.4-4.8); Alkaline Phosphatase 83 U/L (40-110); Bilirubin, Direct 0.6 mg/dL (0.1-0.3); Bilirubin, Total 1.1 mg/dL (0.2-1.2); Protein, Total 6.1 g/dL (5.8-8.1)
[2020-02-16] MEDS: Levothyroxine Sodium 125 MCG TAB PO SCH (06:12)
[2020-02-16] MEDS: Enoxaparin Sodium 40 MG/0.4 ML SYRINGE SC SCH ×2 (08:16→19:55)
[2020-02-16] MEDS: Dexamethasone 4 mg/ml Vial SLOW IVP SCH (08:16)
[2020-02-16] MEDS: Famotidine 20 MG TAB PO SCH ×2 (08:16→19:56)
[2020-02-16] MEDS: Aspirin 81 mg Enteric Coated Tablet PO SCH (08:16)
[2020-02-16] MEDS: Zinc Sulfate 220 MG CAP PO SCH (08:22)
[2020-02-16] MEDS: Ascorbic Acid 500 mg Chewable Tablet PO SCH (08:22)
[2020-02-16] MEDS: Cholecalciferol 1,000 UNITS (25 MCG) TAB PO SCH (08:28)
--- NOTE | 2020-02-16 15:02 | PRG ---
DATE OF SERVICE: 02/16/2020 SUBJECTIVE: Events have been reviewed. He is afebrile. His last temperature was February 10 at 102.7. OBJECTIVE: VITAL SIGNS: Blood pressure 115/72, heart rate is 84, respiratory rates in the high 20s. GENERAL: He is sitting in a bedside chair, in no distress. LUNGS: Unchanged. HEART: Unchanged. ABDOMEN: Unchanged. LABORATORY DATA: Sodium 134, potassium 4, chloride 100, bicarb 22, BUN 20, and creatinine 0.7. IMPRESSION: COVID pneumonia, clinically stable at this point. Continue in the intermediate care unit for as needed BiPAP. Job ID: [id number]
--- NOTE | 2020-02-16 19:07 | PDOC.HOSPP ---
- Subjective Encounter Date: 02/16/20 Encounter Time: 11:30 Subjective: Patient seen for follow-up regarding acute hypoxic respiratory failure. He states he feels better today. He denies any chest pain. Shortness of breath is better. - Objective Vital Signs & Weight: Vital Signs (12 hours) Temp Pulse Ox 02/16/20 18:56 90 L 02/16/20 16:00 98.0 F 02/16/20 15:00 92 L 02/16/20 12:00 98 F 02/16/20 08:00 99.8 F H 94 L Weight Weight 250 lb 0.067 oz Most Recent Monitor Data Heart Rate from ECG 70 NIBP 131/75 NIBP BP-Mean 93 Respiration from ECG 35 SpO2 97 I&O: 02/15/20 02/16/20 02/17/20 06:59 06:59 06:59 Intake Total 1000 480 680 Output Total 975 1325 1050 Balance 25 -845 -370 Result Diagrams: 02/12/20 06:33 02/16/20 03:38 Additional Labs: Labs and MAR reviewed by me EKG Reviewed by me: Yes (Telemetry shows normal sinus rhythm) Hospitalist ROS - Review of Systems Constitutional: denies: fever, chills, sweats, weakness, malaise Respiratory: reports: SOB with excertion. denies: cough, dry, shortness of breath, hemoptysis, pleuritic pain, sputum, wheezing - Medication Medications: Active Medications Generic Name Dose Route Start Last Admin Trade Name Freq PRN Reason Stop Dose Admin Acetaminophen 650 mg 02/10/20 11:33 02/15/20 05:11 Acetaminophen 325 Mg Tab PO 650 mg Q4H PRN Administration Headache/Fever/Mild Pain (1-3) Albuterol Sulfate 2 puff 02/10/20 14:30 02/16/20 18:26 Albuterol 200 Puff (6.7gm Inhaler) INH 2 puff [id number] CLAY Administration Ascorbic Acid 1,000 mg 02/15/20 09:00 02/16/20 08:22 Ascorbic Acid 500 Mg Chewable Tablet PO 1,000 mg DAILY CLAY Administration Aspirin 81 mg 02/11/20 09:00 02/16/20 08:16 Aspirin 81 Mg Enteric Coated Tablet PO 81 mg DAILY CLAY Administration Benzonatate 100 mg 02/11/20 08:36 02/14/20 20:39 Benzonatate 100 Mg Cap PO 100 mg Q6H PRN Administration Cough Cholecalciferol 5,000 units 02/16/20 09:00 02/16/20 08:28 Cholecalciferol 1,000 Units (25 Mcg) Tab PO 5,000 units DAILY CLAY Administration Dexamethasone 6 mg 02/11/20 09:00 02/16/20 08:16 Dexamethasone 4 Mg/Ml Vial SLOW IVP 6 mg DAILY CLAY Administration Enoxaparin Sodium 40 mg 02/10/20 21:00 02/16/20 08:16 Enoxaparin Sodium 40 Mg/0.4 Ml Syringe SC 40 mg 09,2099 CLAY Administration Famotidine 20 mg 02/10/20 21:00 02/16/20 08:16 Famotidine 20 Mg Tab PO 20 mg BID CLAY Administration Guaifenesin 200 mg 02/11/20 08:36 02/15/20 05:12 Diabetic Tussin 200 Mg/10 Ml Udcup PO 200 mg Q4H PRN Administration Cough Levothyroxine Sodium 125 mcg 02/11/20 06:00 02/16/20 06:12 Levothyroxine Sodium 125 Mcg Tab PO 125 mcg 0600 CLAY Administration Sodium Chloride 10 ml 02/10/20 11:33 02/15/20 20:14 Flush - Normal Saline 10 Ml Syringe IVF 10 ml PRN PRN Administration Saline Flush Tamsulosin HCl 0.4 mg 02/10/20 21:00 02/15/20 20:13 Tamsulosin Hcl 0.4 Mg Cap PO 0.4 mg HS CLAY Administration Zinc Sulfate 220 mg 02/15/20 09:00 02/16/20 08:22 Zinc Sulfate 220 Mg Cap PO 220 mg DAILY CLAY Administration Zolpidem Tartrate 5 mg 02/11/20 08:36 02/14/20 20:36 Zolpidem Tartrate 5 Mg Tab PO 5 mg HSPRN PRN Administration Insomnia - Exam General - other findings: Obesity ENT: moist mucosa Neck: supple Heart: RRR Respiratory: CTAB Gastrointestinal: soft, non-tender Skin: no rashes Psychiatric: normal affect, normal behavior Hosp A/P - Plan -Assessment (1) Acute respiratory failure due to COVID-19 Code(s): U07.1 - COVID-19; J96.00 - ACUTE RESPIRATORY FAILURE, UNSP W HYPOXIA OR HYPERCAPNIA Status: Acute (2) Viral pneumonia Code(s): J12.9 - VIRAL PNEUMONIA, UNSPECIFIED Status: Acute (3) Hypothyroidism (acquired) Code(s): E03.9 - HYPOTHYROIDISM, UNSPECIFIED Status: Chronic (4) BPH (benign prostatic hyperplasia) Code(s): N40.0 - BENIGN PROSTATIC HYPERPLASIA WITHOUT LOWER URINRY TRACT SYMP Status: Chronic Qualifiers: Lower urinary tract symptom presence: symptoms absent Qualified Code(s): N40.0 - Benign prostatic hyperplasia without lower urinary tract symptoms (5) H/O Graves' disease Code(s): Z86.39 - PERSONAL HISTORY OF ENDO, NUTRITIONAL AND METABOLIC DISEASE Status: Chronic (6) Obesity (BMI 30.0-34.9) Code(s): E66.9 - OBESITY, UNSPECIFIED Status: Chronic (7) JARED on CPAP Code(s): G47.33 - OBSTRUCTIVE SLEEP APNEA (ADULT) (PEDIATRIC); Z99.89 - DE PENDENCE ON OTHER ENABLING MACHINES AND DEVICES Status: Chronic - Plan Patient is currently on BiPAP, in the IMCU. He has completed course of remdesivir. He is currently on dexamethasone DVT prophylaxis with low molecular weight heparin.
[2020-02-16] MEDS: Tamsulosin HCl 0.4 MG CAP PO SCH (19:56)
[2020-02-17] MEDS: Albuterol 200 PUFF (6.7GM INHALER) INH SCH ×6 (02:30→21:18)
[2020-02-17 04:02] LABS: Anion Gap 15 mmol/L (10-20); BUN (Urea Nitrogen) 20 mg/dL (8.4-25.7); Calc. Creatinine Clearance 176 mL/min (70-130); Calcium 8.2 mg/dL (7.8-10.44); Carbon Dioxide 19 mmol/L (23-31); Chloride 101 mmol/L (98-107); Glucose 111 mg/dL (80-115); Potassium 4.3 mmol/L (3.5-5.1); Sodium 131 mmol/L (136-145)
[2020-02-17 04:09] LABS: ALT (SGPT) 39 U/L (8-55); AST (SGOT) 40 U/L (5-34); Albumin 3.2 g/dL (3.4-4.8); Alkaline Phosphatase 77 U/L (40-110); Bilirubin, Direct 0.3 mg/dL (0.1-0.3); Bilirubin, Total 0.8 mg/dL (0.2-1.2); Protein, Total 6.7 g/dL (5.8-8.1)
[2020-02-17] MEDS: Levothyroxine Sodium 125 MCG TAB PO SCH (05:44)
[2020-02-17] MEDS: Famotidine 20 MG TAB PO SCH ×2 (09:25→20:35)
[2020-02-17] MEDS: Enoxaparin Sodium 40 MG/0.4 ML SYRINGE SC SCH ×2 (09:26→20:35)
[2020-02-17] MEDS: Zinc Sulfate 220 MG CAP PO SCH (09:26)
[2020-02-17] MEDS: Dexamethasone 4 mg/ml Vial SLOW IVP SCH (09:26)
[2020-02-17] MEDS: Ascorbic Acid 500 mg Chewable Tablet PO SCH (09:26)
[2020-02-17] MEDS: Cholecalciferol 1,000 UNITS (25 MCG) TAB PO SCH (09:26)
[2020-02-17] MEDS: Aspirin 81 mg Enteric Coated Tablet PO SCH (09:26)
--- NOTE | 2020-02-17 14:25 | PRG ---
DATE OF SERVICE: 02/17/2020 SUBJECTIVE: Lasha Escudero sit in bedside chair. He is in no distress. He says he is feeling "okay." He says he might be a little bit better. OBJECTIVE: VITAL SIGNS: His blood pressure 127/69, respiratory rates in the high 20s to low 30s, oximetry is 96, still on high-flow oxygen. LUNGS: Unchanged. HEART: Unchanged. ABDOMEN: Unchanged. IMPRESSION: COVID pneumonia, making slow progress as expected. There are no signs on exam needing intubation. There are no signs of muscle fatigue. Job ID: [id number]
--- NOTE | 2020-02-17 18:58 | PDOC.HOSPP ---
- Subjective Encounter Date: 02/17/20 Encounter Time: 12:30 Subjective: Patient seen for follow-up regarding acute hypoxic respiratory failure. He denies chest pain. - Objective Vital Signs & Weight: Vital Signs (12 hours) Temp Pulse Ox 02/17/20 16:00 98.6 F 02/17/20 12:00 98.3 F 02/17/20 08:00 99.0 F 90 L Weight Weight 250 lb 0.067 oz Most Recent Monitor Data Heart Rate from ECG 71 NIBP 117/70 NIBP BP-Mean 85 Respiration from ECG 38 SpO2 92 I&O: 02/16/20 02/17/20 02/18/20 06:59 06:59 06:59 Intake Total 480 930 Output Total 7306 7622 161 Balance -845 -995 -600 Result Diagrams: 02/12/20 06:33 02/17/20 03:34 Additional Labs: I reviewed patient's labs and MAR EKG Reviewed by me: Yes (Normal sinus rhythm on telemetry) Hospitalist ROS - Review of Systems Respiratory: reports: SOB with excertion Cardiovascular: denies: chest pain, palpitations, orthopnea, paroxysmal noc. dyspnea, edema, light headedness Gastrointestinal: denies: nausea, vomiting, abdominal pain, diarrhea, constipation, melena, hematochezia - Medication Medications: Active Medications Generic Name Dose Route Start Last Admin Trade Name Freq PRN Reason Stop Dose Admin Acetaminophen 650 mg 02/10/20 11:33 02/15/20 05:11 Acetaminophen 325 Mg Tab PO 650 mg Q4H PRN Administration Headache/Fever/Mild Pain (1-3) Albuterol Sulfate 2 puff 02/10/20 14:30 02/17/20 17:08 Albuterol 200 Puff (6.7gm Inhaler) INH 2 puff [id number] CLAY Administration Ascorbic Acid 1,000 mg 02/15/20 09:00 02/17/20 09:26 Ascorbic Acid 500 Mg Chewable Tablet PO 1,000 mg DAILY CLAY Administration Aspirin 81 mg 02/11/20 09:00 02/17/20 09:26 Aspirin 81 Mg Enteric Coated Tablet PO 81 mg DAILY CLAY Administration Benzonatate 100 mg 02/11/20 08:36 02/14/20 20:39 Benzonatate 100 Mg Cap PO 100 mg Q6H PRN Administration Cough Cholecalciferol 5,000 units 02/16/20 09:00 02/17/20 09:26 Cholecalciferol 1,000 Units (25 Mcg) Tab PO 5,000 units DAILY CLAY Administration Dexamethasone 6 mg 02/11/20 09:00 02/17/20 09:26 Dexamethasone 4 Mg/Ml Vial SLOW IVP 6 mg DAILY CLAY Administration Enoxaparin Sodium 40 mg 02/10/20 21:00 02/17/20 09:26 Enoxaparin Sodium 40 Mg/0.4 Ml Syringe SC 40 mg 09,2099 CLAY Administration Famotidine 20 mg 02/10/20 21:00 02/17/20 09:25 Famotidine 20 Mg Tab PO 20 mg BID CLAY Administration Guaifenesin 200 mg 02/11/20 08:36 02/15/20 05:12 Diabetic Tussin 200 Mg/10 Ml Udcup PO 200 mg Q4H PRN Administration Cough Levothyroxine Sodium 125 mcg 02/11/20 06:00 02/17/20 05:44 Levothyroxine Sodium 125 Mcg Tab PO 125 mcg 0600 CLAY Administration Senna/Docusate Sodium 2 tab 02/10/20 11:33 02/16/20 19:55 Senokot S 8.6-50 Mg Tab PO 2 tab BIDPRN PRN Administration Constipation Sodium Chloride 10 ml 02/10/20 11:33 02/15/20 20:14 Flush - Normal Saline 10 Ml Syringe IVF 10 ml PRN PRN Administration Saline Flush Tamsulosin HCl 0.4 mg 02/10/20 21:00 02/16/20 19:56 Tamsulosin Hcl 0.4 Mg Cap PO 0.4 mg HS CLAY Administration Zinc Sulfate 220 mg 02/15/20 09:00 02/17/20 09:26 Zinc Sulfate 220 Mg Cap PO 220 mg DAILY CLAY Administration Zolpidem Tartrate 5 mg 02/11/20 08:36 02/14/20 20:36 Zolpidem Tartrate 5 Mg Tab PO 5 mg HSPRN PRN Administration Insomnia - Exam General Appearance: awake alert General - other findings: Obese Eye: anicteric sclera ENT: moist mucosa Heart: RRR Respiratory: CTAB Gastrointestinal: soft Skin: no rashes Psychiatric: normal affect, normal behavior Hosp A/P - Plan -Assessment (1) Acute respiratory failure due to COVID-19 Code(s): U07.1 - COVID-19; J96.00 - ACUTE RESPIRATORY FAILURE, UNSP W HYPOXIA OR HYPERCAPNIA Status: Acute (2) Viral pneumonia Code(s): J12.9 - VIRAL PNEUMONIA, UNSPECIFIED Status: Acute (3) Hypothyroidism (acquired) Code(s): E03.9 - HYPOTHYROIDISM, UNSPECIFIED Status: Chronic (4) BPH (benign prostatic hyperplasia) Code(s): N40.0 - BENIGN PROSTATIC HYPERPLASIA WITHOUT LOWER URINRY TRACT SYMP Status: Chronic Qualifiers: Lower urinary tract symptom presence: symptoms absent Qualified Code(s): N40.0 - Benign prostatic hyperplasia without lower urinary tract symptoms (5) H/O Graves' disease Code(s): Z86.39 - PERSONAL HISTORY OF ENDO, NUTRITIONAL AND METABOLIC DISEASE Status: Chronic (6) Obesity (BMI 30.0-34.9) Code(s): E66.9 - OBESITY, UNSPECIFIED Status: Chronic (7) JARED on CPAP Code(s): G47.33 - OBSTRUCTIVE SLEEP APNEA (ADULT) (PEDIATRIC); Z99.89 - DEPENDENCE ON OTHER ENABLING MACHINES AND DEVICES Status: Chronic - Plan Continue to treat on BiPAP in the IMCU. Patient completed course of remdesivir. Continue dexamethasone DVT prophylaxis with low molecular weight heparin.
[2020-02-17] MEDS: Tamsulosin HCl 0.4 MG CAP PO SCH (20:35)
[2020-02-17] MEDS: Zolpidem Tartrate 5 MG TAB PO PRN (20:35)
[2020-02-18] MEDS: Albuterol 200 PUFF (6.7GM INHALER) INH SCH ×6 (01:35→22:57)
[2020-02-18 04:14] LABS: Anion Gap 14 mmol/L (10-20); BUN (Urea Nitrogen) 20 mg/dL (8.4-25.7); Calc. Creatinine Clearance 155 mL/min (70-130); Calcium 8.6 mg/dL (7.8-10.44); Carbon Dioxide 25 mmol/L (23-31); Chloride 99 mmol/L (98-107); Glucose 107 mg/dL (80-115); Potassium 4.2 mmol/L (3.5-5.1); Sodium 134 mmol/L (136-145)
[2020-02-18 04:16] LABS: ALT (SGPT) 52 U/L (8-55); AST (SGOT) 40 U/L (5-34); Albumin 3.2 g/dL (3.4-4.8); Alkaline Phosphatase 79 U/L (40-110); Bilirubin, Direct 0.4 mg/dL (0.1-0.3); Bilirubin, Total 0.8 mg/dL (0.2-1.2); Protein, Total 6.6 g/dL (5.8-8.1)
[2020-02-18] MEDS: Levothyroxine Sodium 125 MCG TAB PO SCH (05:38)
[2020-02-18] MEDS: Enoxaparin Sodium 40 MG/0.4 ML SYRINGE SC SCH ×2 (08:49→20:41)
[2020-02-18] MEDS: Ascorbic Acid 500 mg Chewable Tablet PO SCH (08:49)
[2020-02-18] MEDS: Zinc Sulfate 220 MG CAP PO SCH (08:49)
[2020-02-18] MEDS: Cholecalciferol 1,000 UNITS (25 MCG) TAB PO SCH (08:49)
[2020-02-18] MEDS: Famotidine 20 MG TAB PO SCH ×2 (08:49→20:41)
[2020-02-18] MEDS: Aspirin 81 mg Enteric Coated Tablet PO SCH (08:49)
[2020-02-18] MEDS: Dexamethasone 4 mg/ml Vial SLOW IVP SCH (08:49)
--- NOTE | 2020-02-18 11:40 | PRG ---
DATE OF SERVICE: 02/18/2020 SUBJECTIVE: The patient is sitting up in a chair. His O2 saturations are generally running in the high 80s on 90% high-flow. He is not in any distress. OBJECTIVE: VITAL SIGNS: His blood pressure is 135/88, pulse is running generally from 60 to 109. HEENT: Unremarkable. NECK: No JVD. LUNGS: No crackles. CARDIAC: S1 and S2. Regular. ABDOMEN: Soft. EXTREMITIES: No edema. LABORATORY DATA: Sodium 134, potassium 4.2, BUN 20, creatinine 0.7, glucose 107, C-reactive protein is down to 7.8. ASSESSMENT: 1. COVID-19 pneumonia. 2. Acute hypoxic respiratory failure. PLAN: I would advocate continuing the anticoagulation, steroids, and high-flow oxygen. He remains on vitamin D, vitamin C, and zinc. Even though his O2 saturations are in the 80s, I would not intubate or do BiPAP at this time. Job ID: [id number]
--- NOTE | 2020-02-18 17:41 | PDOC.HOSPP ---
- Subjective Encounter Date: 02/18/20 Encounter Time: 14:00 Subjective: Patient seen for follow-up regarding hypoxic respiratory failure. Denies any new complaints. - Objective Vital Signs & Weight: Vital Signs (12 hours) Temp Pulse Ox 02/18/20 15:07 97 02/18/20 12:02 91 L 02/18/20 12:00 98.3 F 02/18/20 08:00 98.8 F 88 L Weight Weight 250 lb 0.067 oz Most Recent Monitor Data Heart Rate from ECG 106 NIBP 120/68 NIBP BP-Mean 85 Respiration from ECG 39 SpO2 87 I&O: 02/17/20 02/18/20 02/19/20 06:59 06:59 06:59 Intake Total 930 910 Output Total 6235 1999 Balance -784 -8284 Result Diagrams: 02/12/20 06:33 02/18/20 03:37 Additional Labs: Labs and MAR reviewed by me EKG Reviewed by me: Yes (Telemetry shows normal sinus rhythm) Hospitalist ROS - Review of Systems Respiratory: reports: SOB with excertion. denies: cough, shortness of breath, pleuritic pain, wheezing Cardiovascular: denies: chest pain, palpitations, orthopnea, paroxysmal noc. dyspnea, edema, light headedness Genitourinary: denies: dysuria, frequency, incontinence, hematuria, retention - Medication Medications: Active Medications Generic Name Dose Route Start Last Admin Trade Name Freq PRN Reason Stop Dose Admin Acetaminophen 650 mg 02/10/20 11:33 02/15/20 05:11 Acetaminophen 325 Mg Tab PO 650 mg Q4H PRN Administration Headache/Fever/Mild Pain (1-3) Albuterol Sulfate 2 puff 02/10/20 14:30 02/18/20 15:09 Albuterol 200 Puff (6.7gm Inhaler) INH 2 puff [id number] CLAY Administration Ascorbic Acid 1,000 mg 02/15/20 09:00 02/18/20 08:49 Ascorbic Acid 500 Mg Chewable Tablet PO 1,000 mg DAILY CLAY Administration Aspirin 81 mg 02/11/20 09:00 02/18/20 08:49 Aspirin 81 Mg Enteric Coated Tablet PO 81 mg DAILY CLAY Administration Benzonatate 100 mg 02/11/20 08:36 02/14/20 20:39 Benzonatate 100 Mg Cap PO 100 mg Q6H PRN Administration Cough Cholecalciferol 5,000 units 02/16/20 09:00 02/18/20 08:49 Cholecalciferol 1,000 Units (25 Mcg) Tab PO 5,000 units DAILY CLAY Administration Dexamethasone 6 mg 02/11/20 09:00 02/18/20 08:49 Dexamethasone 4 Mg/Ml Vial SLOW IVP 6 mg DAILY CLAY Administration Enoxaparin Sodium 40 mg 02/10/20 21:00 02/18/20 08:49 Enoxaparin Sodium 40 Mg/0.4 Ml Syringe SC 40 mg [id number],[id number] CLAY Administration Famotidine 20 mg 02/10/20 21:00 02/18/20 08:49 Famotidine 20 Mg Tab PO 20 mg BID CLAY Administration Guaifenesin 200 mg 02/11/20 08:36 02/15/20 05:12 Diabetic Tussin 200 Mg/10 Ml Udcup PO 200 mg Q4H PRN Administration Cough Levothyroxine Sodium 125 mcg 02/11/20 06:00 02/18/20 05:38 Levothyroxine Sodium 125 Mcg Tab PO 125 mcg 0600 CLAY Administration Senna/Docusate Sodium 2 tab 02/10/20 11:33 02/16/20 19:55 Senokot S 8.6-50 Mg Tab PO 2 tab BIDPRN PRN Administration Constipation Sodium Chloride 10 ml 02/10/20 11:33 02/17/20 20:36 Flush - Normal Saline 10 Ml Syringe IVF 10 ml PRN PRN Administration Saline Flush Tamsulosin HCl 0.4 mg 02/10/20 21:00 02/17/20 20:35 Tamsulosin Hcl 0.4 Mg Cap PO 0.4 mg HS CLAY Administration Zinc Sulfate 220 mg 02/15/20 09:00 02/18/20 08:49 Zinc Sulfate 220 Mg Cap PO 220 mg DAILY CLAY Administration Zolpidem Tartrate 5 mg 02/11/20 08:36 02/17/20 20:35 Zolpidem Tartrate 5 Mg Tab PO 5 mg HSPRN PRN Administration Insomnia - Exam General Appearance: awake alert ENT: normocephalic atraumatic Neck: supple Heart: RRR Respiratory: CTAB Gastrointestinal: soft Skin: no lesions Psychiatric: normal affect, normal behavior Hosp A/P - Plan -Assessment (1) Acute respiratory failure due to COVID-19 Code(s): U07.1 - COVID-19; J96.00 - ACUTE RESPIRATORY FAILURE, UNSP W HYPOXIA OR HYPERCAPNIA Status: Acute (2) Viral pneumonia Code(s): J12.9 - VIRAL PNEUMONIA, UNSPECIFIED Status: Acute (3) Hypothyroidism (acquired) Code(s): E03.9 - HYPOTHYROIDISM, UNSPECIFIED Status: Chronic (4) BPH (benign prostatic hyperplasia) Code(s): N40.0 - BENIGN PROSTATIC HYPERPLASIA WITHOUT LOWER URINRY TRACT SYMP Status: Chronic Qualifiers: Lower urinary tract symptom presence: symptoms absent Qualified Code(s): N40.0 - Benign prostatic hyperplasia without lower urinary tract symptoms (5) H/O Graves' disease Code(s): Z86.39 - PERSONAL HISTORY OF ENDO, NUTRITIONAL AND METABOLIC DISEASE Status: Chronic (6) Obesity (BMI 30.0-34.9) Code(s): E66.9 - OBESITY, UNSPECIFIED Status: Chronic (7) JARED on CPAP Code(s): G47.33 - OBSTRUCTIVE SLEEP APNEA (ADULT) (PEDIATRIC); Z99.89 - DEPENDENCE ON OTHER ENABLING MACHINES AND DEVICES Status: Chronic - Plan Patient being treated with BiPAP in the IMCU. Patient has completed course of remdesivir. Pt is on dexamethasone DVT prophylaxis with low molecular weight heparin.
[2020-02-18] MEDS: Zolpidem Tartrate 5 MG TAB PO PRN (20:41)
[2020-02-18] MEDS: Tamsulosin HCl 0.4 MG CAP PO SCH (20:41)
[2020-02-19] MEDS: Albuterol 200 PUFF (6.7GM INHALER) INH SCH ×6 (02:42→23:07)
[2020-02-19 04:22] LABS: Anion Gap 16 mmol/L (10-20); BUN (Urea Nitrogen) 19 mg/dL (8.4-25.7); Calc. Creatinine Clearance 171 mL/min (70-130); Calcium 8.6 mg/dL (7.8-10.44); Carbon Dioxide 20 mmol/L (23-31); Chloride 100 mmol/L (98-107); Glucose 112 mg/dL (80-115); Potassium 4.2 mmol/L (3.5-5.1); Sodium 132 mmol/L (136-145)
[2020-02-19 04:25] LABS: ALT (SGPT) 52 U/L (8-55); AST (SGOT) 36 U/L (5-34); Albumin 3.2 g/dL (3.4-4.8); Alkaline Phosphatase 75 U/L (40-110); Bilirubin, Direct 0.4 mg/dL (0.1-0.3); Bilirubin, Total 0.8 mg/dL (0.2-1.2); Protein, Total 6.7 g/dL (5.8-8.1)
[2020-02-19] MEDS: Levothyroxine Sodium 125 MCG TAB PO SCH (06:27)
[2020-02-19] MEDS: Zinc Sulfate 220 MG CAP PO SCH (07:52)
[2020-02-19] MEDS: Enoxaparin Sodium 40 MG/0.4 ML SYRINGE SC SCH ×2 (07:52→19:59)
[2020-02-19] MEDS: Famotidine 20 MG TAB PO SCH ×2 (07:52→20:00)
[2020-02-19] MEDS: Dexamethasone 4 mg/ml Vial SLOW IVP SCH (07:52)
[2020-02-19] MEDS: Aspirin 81 mg Enteric Coated Tablet PO SCH (07:52)
[2020-02-19] MEDS: Ascorbic Acid 500 mg Chewable Tablet PO SCH (07:53)
[2020-02-19] MEDS: Cholecalciferol 1,000 UNITS (25 MCG) TAB PO SCH (07:53)
--- NOTE | 2020-02-19 10:24 | PRG ---
DATE OF SERVICE: 02/19/2020 SUBJECTIVE: The patient is doing well and has no acute complaints. He is on high-flow oxygen. OBJECTIVE: VITAL SIGNS: Temperature 98.2, heart rate 99, blood pressure 133/79. HEENT: Unremarkable. NECK: No JVD. LUNGS: Coarse breath sounds. CARDIAC: S1 and S2, regular. ABDOMEN: Soft. EXTREMITIES: No edema. LABORATORY DATA: Sodium 132, potassium 4.2, BUN 19, creatinine 0.7, glucose 112. C-reactive protein is 9.68. ASSESSMENT: 1. COVID-19 pneumonia. 2. Acute hypoxic respiratory failure. PLAN: Continue anticoagulation, steroids, and high-flow oxygen. Job ID: [id number]
--- NOTE | 2020-02-19 18:15 | PDOC.HOSPP ---
- Subjective Encounter Date: 02/19/20 Encounter Time: 08:30 Subjective: Patient seen for follow-up regarding acute hypoxic respiratory failure from pneumonia due to COVID-19 virus. He denies any chest pain. He reports shortness of breath with exertion. - Objective Vital Signs & Weight: Vital Signs (12 hours) Temp Pulse Ox 02/19/20 16:00 98.1 F 02/19/20 12:00 98.0 F 93 L 02/19/20 10:47 90 L 02/19/20 08:00 98.2 F 93 L Weight Weight 250 lb 0.067 oz Most Recent Monitor Data Heart Rate from ECG 72 NIBP 178/95 NIBP BP-Mean 122 Respiration from ECG 30 SpO2 100 I&O: 02/18/20 02/19/20 02/20/20 06:59 06:59 06:59 Intake Total 0 1730 Output Total 1999 1999 Balance -8344 -877 Result Diagrams: 02/12/20 06:33 02/19/20 03:21 Additional Labs: I reviewed patient's labs and MAR EKG Reviewed by me: Yes (Normal sinus rhythm on telemetry) Hospitalist ROS - Review of Systems Respiratory: reports: cough, dry, SOB with excertion. denies: shortness of breath, hemoptysis, pleuritic pain, sputum, wheezing Cardiovascular: denies: chest pain, palpitations, orthopnea, paroxysmal noc. dyspnea, edema, light headedness - Medication Medications: Active Medications Generic Name Dose Route Start Last Admin Trade Name Freq PRN Reason Stop Dose Admin Acetaminophen 650 mg 02/10/20 11:33 02/15/20 05:11 Acetaminophen 325 Mg Tab PO 650 mg Q4H PRN Administration Headache/Fever/Mild Pain (1-3) Albuterol Sulfate 2 puff 02/10/20 14:30 02/19/20 14:36 Albuterol 200 Puff (6.7gm Inhaler) INH 2 puff [id number] CLAY Administration Ascorbic Acid 1,000 mg 02/15/20 09:00 02/19/20 07:53 Ascorbic Acid 500 Mg Chewable Tablet PO 1,000 mg DAILY CLAY Administration Aspirin 81 mg 02/11/20 09:00 02/19/20 07:52 Aspirin 81 Mg Enteric Coated Tablet PO 81 mg DAILY CLAY Administration Benzonatate 100 mg 02/11/20 08:36 02/14/20 20:39 Benzonatate 100 Mg Cap PO 100 mg Q6H PRN Administration Cough Cholecalciferol 5,000 units 02/16/20 09:00 02/19/20 07:53 Cholecalciferol 1,000 Units (25 Mcg) Tab PO 5,000 units DAILY CLAY Administration Dexamethasone 6 mg 02/11/20 09:00 02/19/20 07:52 Dexamethasone 4 Mg/Ml Vial SLOW IVP 6 mg DAILY CLAY Administration Enoxaparin Sodium 40 mg 02/10/20 21:00 02/19/20 07:52 Enoxaparin Sodium 40 Mg/0.4 Ml Syringe SC 40 mg [id number] CLAY Administration Famotidine 20 mg 02/10/20 21:00 02/19/20 07:52 Famotidine 20 Mg Tab PO 20 mg BID CLAY Administration Guaifenesin 200 mg 02/11/20 08:36 02/15/20 05:12 Diabetic Tussin 200 Mg/10 Ml Udcup PO 200 mg Q4H PRN Administration Cough Levothyroxine Sodium 125 mcg 02/11/20 06:00 02/19/20 06:27 Levothyroxine Sodium 125 Mcg Tab PO 125 mcg 0600 CLAY Administration Senna/Docusate Sodium 2 tab 02/10/20 11:33 02/16/20 19:55 Senokot S 8.6-50 Mg Tab PO 2 tab BIDPRN PRN Administration Constipation Sodium Chloride 10 ml 02/10/20 11:33 02/18/20 20:41 Flush - Normal Saline 10 Ml Syringe IVF 10 ml PRN PRN Administration Saline Flush Tamsulosin HCl 0.4 mg 02/10/20 21:00 02/18/20 20:41 Tamsulosin Hcl 0.4 Mg Cap PO 0.4 mg HS CLAY Administration Zinc Sulfate 220 mg 02/15/20 09:00 02/19/20 07:52 Zinc Sulfate 220 Mg Cap PO 220 mg DAILY CLAY Administration Zolpidem Tartrate 5 mg 02/11/20 08:36 02/18/20 20:41 Zolpidem Tartrate 5 Mg Tab PO 5 mg HSPRN PRN Administration Insomnia - Exam General - other findings: Obese Eye: anicteric sclera ENT: no oropharyngeal lesions Neck: supple Heart: RRR Respiratory - other findings: Bibasal crackles Skin: no rashes Psychiatric: normal affect, normal behavior Hosp A/P - Plan -Assessment (1) Acute respiratory failure due to COVID-19 Code(s): U07.1 - COVID-19; J96.00 - ACUTE RESPIRATORY FAILURE, UNSP W HYPOXIA OR HYPERCAPNIA Status: Acute (2) Viral pneumonia Code(s): J12.9 - VIRAL PNEUMONIA, UNSPECIFIED Status: Acute (3) Hypothyroidism (acquired) Code(s): E03.9 - HYPOTHYROIDISM, UNSPECIFIED Status: Chronic (4) BPH (benign prostatic hyperplasia) Code(s): N40.0 - BENIGN PROSTATIC HYPERPLASIA WITHOUT LOWER URINRY TRACT SYMP Status: Chronic Qualifiers: Lower urinary tract symptom presence: symptoms absent Qualified Code(s): N40.0 - Benign prostatic hyperplasia without lower urinary tract symptoms (5) H/O Graves' disease Code(s): Z86.39 - PERSONAL HISTORY OF ENDO, NUTRITIONAL AND METABOLIC DISEASE Status: Chronic (6) Obesity (BMI 30.0-34.9) Code(s): E66.9 - OBESITY, UNSPECIFIED Status: Chronic (7) JARED on CPAP Code(s): G47.33 - OBSTRUCTIVE SLEEP APNEA (ADULT) (PEDIATRIC); Z99.89 - DEPENDENCE ON OTHER ENABLING MACHINES AND DEVICES Status: Chronic - Plan Patient is on high flow oxygen in [facility]. He was only on BiPAP for a few hours on the day of transfer to [facility]. Patient has completed course of remdesivir. Continue dexamethasone DVT prophylaxis with low molecular weight heparin.
[2020-02-19] MEDS: Tamsulosin HCl 0.4 MG CAP PO SCH (20:00)
[2020-02-19] MEDS: Zolpidem Tartrate 5 MG TAB PO PRN (20:34)
[2020-02-20] MEDS: Albuterol 200 PUFF (6.7GM INHALER) INH SCH ×6 (02:34→23:02)
[2020-02-20 04:04] LABS: Anion Gap 15 mmol/L (10-20); BUN (Urea Nitrogen) 18 mg/dL (8.4-25.7); Calc. Creatinine Clearance 176 mL/min (70-130); Calcium 8.5 mg/dL (7.8-10.44); Carbon Dioxide 21 mmol/L (23-31); Chloride 99 mmol/L (98-107); Glucose 104 mg/dL (80-115); Potassium 4.1 mmol/L (3.5-5.1); Sodium 131 mmol/L (136-145)
[2020-02-20 04:06] LABS: ALT (SGPT) 65 U/L (8-55); AST (SGOT) 36 U/L (5-34); Albumin 3.2 g/dL (3.4-4.8); Alkaline Phosphatase 81 U/L (40-110); Bilirubin, Direct 0.5 mg/dL (0.1-0.3); Bilirubin, Total 0.8 mg/dL (0.2-1.2); Protein, Total 6.6 g/dL (5.8-8.1)
[2020-02-20] MEDS: Levothyroxine Sodium 125 MCG TAB PO SCH (06:47)
[2020-02-20] MEDS: Zinc Sulfate 220 MG CAP PO SCH (07:55)
[2020-02-20] MEDS: Cholecalciferol 1,000 UNITS (25 MCG) TAB PO SCH (07:55)
[2020-02-20] MEDS: Enoxaparin Sodium 40 MG/0.4 ML SYRINGE SC SCH ×2 (07:55→20:02)
[2020-02-20] MEDS: Famotidine 20 MG TAB PO SCH ×2 (07:56→20:02)
[2020-02-20] MEDS: Aspirin 81 mg Enteric Coated Tablet PO SCH (07:56)
[2020-02-20] MEDS: Ascorbic Acid 500 mg Chewable Tablet PO SCH (07:56)
[2020-02-20] MEDS: Dexamethasone 4 mg/ml Vial SLOW IVP SCH (07:56)
--- NOTE | 2020-02-20 11:18 | PRG ---
DATE OF SERVICE: 02/20/2020 SUBJECTIVE: Mr. Escudero is now requiring BiPAP, but his O2 saturations are running 100% on the BiPAP. OBJECTIVE: VITAL SIGNS: On exam, temperature 98.4, pulse 114, and blood pressure 107/74. HEENT: Unremarkable. NECK: No JVD. LUNGS: Diffuse crackles. CARDIAC: S1 and S2. Regular. ABDOMEN: Soft. EXTREMITIES: No edema. LABORATORY DATA: Sodium 131, potassium 4.1, chloride 99, CO2 of 21, BUN 18, creatinine 0.6, glucose 104, and albumin 3.2. ASSESSMENT: 1. COVID-19 pneumonia. 2. Acute hypoxic respiratory failure. 3. Mild hyponatremia. PLAN: Continue supportive care with BiPAP, steroids, and anticoagulation. Hopefully, he will not worsen to the point where he needs intubation. Job ID: [id number]
--- NOTE | 2020-02-20 18:31 | PDOC.HOSPP ---
- Subjective Encounter Date: 02/20/20 Encounter Time: 12:00 Subjective: Patient seen for follow-up regarding acute hypoxic respiratory failure. He has been switched to BiPAP today. He reports shortness of breath with exertion. - Objective Vital Signs & Weight: Vital Signs (12 hours) Temp Pulse Ox 02/20/20 16:00 98.3 F 02/20/20 12:00 97.9 F 99 02/20/20 08:00 98.4 F 84 L Weight Admit Weight 250 lb 0.067 oz Weight 250 lb 0.067 oz Most Recent Monitor Data Heart Rate from ECG 89 NIBP 107/83 NIBP BP-Mean 91 Respiration from ECG 31 SpO2 85 I&O: 02/19/20 02/20/20 02/21/20 06:59 06:59 06:59 Intake Total 1730 1460 250 Output Total 2000 1950 400 Balance -270 -490 -150 Result Diagrams: 02/12/20 06:33 02/20/20 03:23 Additional Labs: Labs and MAR reviewed by me EKG Reviewed by me: Yes (Normal sinus rhythm on telemetry) Hospitalist ROS - Review of Systems Respiratory: reports: cough, dry, shortness of breath, SOB with excertion. denies: hemoptysis, pleuritic pain, sputum, wheezing Cardiovascular: denies: chest pain, palpitations, orthopnea, paroxysmal noc. dyspnea, light headedness - Medication Medications: Active Medications Generic Name Dose Route Start Last Admin Trade Name Freq PRN Reason Stop Dose Admin Acetaminophen 650 mg 02/10/20 11:33 02/15/20 05:11 Acetaminophen 325 Mg Tab PO 650 mg Q4H PRN Administration Headache/Fever/Mild Pain (1-3) Albuterol Sulfate 2 puff 02/10/20 14:30 02/20/20 15:06 Albuterol 200 Puff (6.7gm Inhaler) INH 2 puff [id number] CLAY Administration Ascorbic Acid 1,000 mg 02/15/20 09:00 02/20/20 07:56 Ascorbic Acid 500 Mg Chewable Tablet PO 1,000 mg DAILY CLAY Administration Aspirin 81 mg 02/11/20 09:00 02/20/20 07:56 Aspirin 81 Mg Enteric Coated Tablet PO 81 mg DAILY CLAY Administration Benzonatate 100 mg 02/11/20 08:36 02/14/20 20:39 Benzonatate 100 Mg Cap PO 100 mg Q6H PRN Administration Cough Cholecalciferol 5,000 units 02/16/20 09:00 02/20/20 07:55 Cholecalciferol 1,000 Units (25 Mcg) Tab PO 5,000 units DAILY CLAY Administration Dexamethasone 6 mg 02/11/20 09:00 02/20/20 07:56 Dexamethasone 4 Mg/Ml Vial SLOW IVP 6 mg DAILY CLAY Administration Enoxaparin Sodium 40 mg 02/10/20 21:00 02/20/20 07:55 Enoxaparin Sodium 40 Mg/0.4 Ml Syringe SC 40 mg 09,2099 CLAY Administration Famotidine 20 mg 02/10/20 21:00 02/20/20 07:56 Famotidine 20 Mg Tab PO 20 mg BID CLAY Administration Guaifenesin 200 mg 02/11/20 08:36 02/15/20 05:12 Diabetic Tussin 200 Mg/10 Ml Udcup PO 200 mg Q4H PRN Administration Cough Levothyroxine Sodium 125 mcg 02/11/20 06:00 02/20/20 06:47 Levothyroxine Sodium 125 Mcg Tab PO 125 mcg 0600 CLAY Administration Senna/Docusate Sodium 2 tab 02/10/20 11:33 02/16/20 19:55 Senokot S 8.6-50 Mg Tab PO 2 tab BIDPRN PRN Administration Constipation Sodium Chloride 10 ml 02/10/20 11:33 02/18/20 20:41 Flush - Normal Saline 10 Ml Syringe IVF 10 ml PRN PRN Administration Saline Flush Tamsulosin HCl 0.4 mg 02/10/20 21:00 02/19/20 20:00 Tamsulosin Hcl 0.4 Mg Cap PO 0.4 mg HS CLAY Administration Zinc Sulfate 220 mg 02/15/20 09:00 02/20/20 07:55 Zinc Sulfate 220 Mg Cap PO 220 mg DAILY CLAY Administration Zolpidem Tartrate 5 mg 02/11/20 08:36 02/19/20 20:34 Zolpidem Tartrate 5 Mg Tab PO 5 mg HSPRN PRN Administration Insomnia - Exam General - other findings: Obese ENT: moist mucosa Heart: RRR Respiratory: CTAB Gastrointestinal: soft Skin: no rashes Psychiatric: normal affect Hosp A/P - Plan -Assessment (1) Acute respiratory failure due to COVID-19 Code(s): U07.1 - COVID-19; J96.00 - ACUTE RESPIRATORY FAILURE, UNSP W HYPOXIA OR HYPERCAPNIA Status: Acute (2) Viral pneumonia Code(s): J12.9 - VIRAL PNEUMONIA, UNSPECIFIED Status: Acute (3) Hypothyroidism (acquired) Code(s): E03.9 - HYPOTHYROIDISM, UNSPECIFIED Status: Chronic (4) BPH (benign prostatic hyperplasia) Code(s): N40.0 - BENIGN PROSTATIC HYPERPLASIA WITHOUT LOWER URINRY TRACT SYMP Status: Chronic Qualifiers: Lower urinary tract symptom presence: symptoms absent Qualified Code(s): N40.0 - Benign prostatic hyperplasia without lower urinary tract symptoms (5) H/O Graves' disease Code(s): Z86.39 - PERSONAL HISTORY OF ENDO, NUTRITIONAL AND METABOLIC DISEASE Status: Chronic (6) Obesity (BMI 30.0-34.9) Code(s): E66.9 - OBESITY, UNSPECIFIED Status: Chronic (7) JARED on CPAP Code(s): G47.33 - OBSTRUCTIVE SLEEP APNEA (ADULT) (PEDIATRIC); Z99.89 - DEPENDENCE ON OTHER ENABLING MACHINES AND DEVICES Status: Chronic - Plan Patient has been switched to BiPAP today. Continue BiPAP, steroids. Patient has completed course of remdesivir. DVT prophylaxis with low molecular weight heparin.
[2020-02-20] MEDS: Zolpidem Tartrate 5 MG TAB PO PRN (20:02)
[2020-02-20] MEDS: Tamsulosin HCl 0.4 MG CAP PO SCH (20:02)
[2020-02-21] MEDS: Albuterol 200 PUFF (6.7GM INHALER) INH SCH ×6 (02:58→23:51)
[2020-02-21] MEDS: Levothyroxine Sodium 125 MCG TAB PO SCH (05:40)
[2020-02-21 05:49] LABS: ALT (SGPT) 61 U/L (8-55); AST (SGOT) 35 U/L (5-34); Alkaline Phosphatase 83 U/L (40-110); Anion Gap 15 mmol/L (10-20); BUN (Urea Nitrogen) 18 mg/dL (8.4-25.7); Bilirubin, Direct 0.5 mg/dL (0.1-0.3); Calc. Creatinine Clearance 179 mL/min (70-130); Calcium 8.3 mg/dL (7.8-10.44); Carbon Dioxide 21 mmol/L (23-31); Chloride 100 mmol/L (98-107); Glucose 93 mg/dL (80-115); Potassium 4.4 mmol/L (3.5-5.1); Protein, Total 6.7 g/dL (5.8-8.1); Sodium 132 mmol/L (136-145)
[2020-02-21] MEDS: Cholecalciferol 1,000 UNITS (25 MCG) TAB PO SCH (10:20)
[2020-02-21] MEDS: Enoxaparin Sodium 40 MG/0.4 ML SYRINGE SC SCH ×2 (10:20→20:23)
[2020-02-21] MEDS: Dexamethasone 4 mg/ml Vial SLOW IVP SCH (10:21)
[2020-02-21] MEDS: Aspirin 81 mg Enteric Coated Tablet PO SCH (10:21)
[2020-02-21] MEDS: Ascorbic Acid 500 mg Chewable Tablet PO SCH (10:21)
[2020-02-21] MEDS: Famotidine 20 MG TAB PO SCH ×2 (10:21→20:23)
[2020-02-21] MEDS: Zinc Sulfate 220 MG CAP PO SCH (10:21)
--- NOTE | 2020-02-21 10:50 | PRG ---
DATE OF SERVICE: 02/21/2020 SUBJECTIVE: He remains on BiPAP with FiO2 of about 95%. PHYSICAL EXAMINATION: VITAL SIGNS: Temperature 97.5, pulse 77, blood pressure 134/80. HEENT: Unremarkable. NECK: No JVD. LUNGS: Diffuse crackles. CARDIAC: S1 and S2, regular. ABDOMEN: Soft. EXTREMITIES: No edema. LABORATORY DATA: Sodium 132, potassium 4.4, BUN 18, creatinine 0.6, glucose 93. ASSESSMENT: Severe COVID-19 pneumonia with hypoxemia requiring noninvasive ventilation. PLAN: At this time, he is not weanable from his ventilation. He is very borderline in terms of needing to be intubated. He needs to remain in the ICU. We are continuing present therapy. Job ID: [id number]
--- NOTE | 2020-02-21 17:55 | PDOC.HOSPP ---
- Subjective Encounter Date: 02/21/20 Encounter Time: 11:00 Subjective: Patient seen for follow-up regarding hypoxic respiratory failure secondary to COVID-19 pneumonia. Patient is currently on BiPAP. - Objective Vital Signs & Weight: Vital Signs (12 hours) Temp Pulse Pulse Ox 02/21/20 16:00 98 F 96 02/21/20 12:00 98.3 F 02/21/20 08:45 90 02/21/20 08:00 98 F 95 Weight Admit Weight 250 lb 0.067 oz Weight 250 lb 0.067 oz Most Recent Monitor Data Heart Rate from ECG 92 NIBP 116/69 NIBP BP-Mean 84 Respiration from ECG 16 SpO2 94 I&O: 02/20/20 02/21/20 02/22/20 06:59 06:59 06:59 Intake Total 1460 700 Output Total 1950 1100 Balance -490 -400 Result Diagrams: 02/12/20 06:33 02/21/20 05:10 Additional Labs: I reviewed patient's labs and MAR EKG Reviewed by me: Yes (Telemetry shows normal sinus rhythm) Hospitalist ROS - Review of Systems Cardiovascular: denies: chest pain, palpitations, orthopnea, paroxysmal noc. dyspnea, edema, light headedness Gastrointestinal: denies: nausea, vomiting, abdominal pain, diarrhea, constipation, melena, hematochezia - Medication Medications: Active Medications Generic Name Dose Route Start Last Admin Trade Name Freq PRN Reason Stop Dose Admin Acetaminophen 650 mg 02/10/20 11:33 02/15/20 05:11 Acetaminophen 325 Mg Tab PO 650 mg Q4H PRN Administration Headache/Fever/Mild Pain (1-3) Albuterol Sulfate 2 puff 02/10/20 14:30 02/21/20 05:41 Albuterol 200 Puff (6.7gm Inhaler) INH Not Given [id number] CLAY Ascorbic Acid 1,000 mg 02/15/20 09:00 02/21/20 10:21 Ascorbic Acid 500 Mg Chewable Tablet PO 1,000 mg DAILY CLAY Administration Aspirin 81 mg 02/11/20 09:00 02/21/20 10:21 Aspirin 81 Mg Enteric Coated Tablet PO 81 mg DAILY CLAY Administration Benzonatate 100 mg 02/11/20 08:36 02/14/20 20:39 Benzonatate 100 Mg Cap PO 100 mg Q6H PRN Administration Cough Cholecalciferol 5,000 units 02/16/20 09:00 02/21/20 10:20 Cholecalciferol 1,000 Units (25 Mcg) Tab PO 5,000 units DAILY CLAY Administration Dexamethasone 6 mg 02/11/20 09:00 02/21/20 10:21 Dexamethasone 4 Mg/Ml Vial SLOW IVP 6 mg DAILY CLAY Administration Enoxaparin Sodium 40 mg 02/10/20 21:00 02/21/20 10:20 Enoxaparin Sodium 40 Mg/0.4 Ml Syringe SC 40 mg 09,2099 CLAY Administration Famotidine 20 mg 02/10/20 21:00 02/21/20 10:21 Famotidine 20 Mg Tab PO 20 mg BID CLAY Administration Guaifenesin 200 mg 02/11/20 08:36 02/15/20 05:12 Diabetic Tussin 200 Mg/10 Ml Udcup PO 200 mg Q4H PRN Administration Cough Levothyroxine Sodium 125 mcg 02/11/20 06:00 02/21/20 05:40 Levothyroxine Sodium 125 Mcg Tab PO Not Given 0600 CLAY Senna/Docusate Sodium 2 tab 02/10/20 11:33 02/16/20 19:55 Senokot S 8.6-50 Mg Tab PO 2 tab BIDPRN PRN Administration Constipation Sodium Chloride 10 ml 02/10/20 11:33 02/18/20 20:41 Flush - Normal Saline 10 Ml Syringe IVF 10 ml PRN PRN Administration Saline Flush Tamsulosin HCl 0.4 mg 02/10/20 21:00 02/20/20 20:02 Tamsulosin Hcl 0.4 Mg Cap PO 0.4 mg HS CLAY Administration Zinc Sulfate 220 mg 02/15/20 09:00 02/21/20 10:21 Zinc Sulfate 220 Mg Cap PO 220 mg DAILY CLAY Administration Zolpidem Tartrate 5 mg 02/11/20 08:36 02/20/20 20:02 Zolpidem Tartrate 5 Mg Tab PO 5 mg HSPRN PRN Administration Insomnia - Exam General Appearance: awake alert General - other findings: Obese Eye: anicteric sclera ENT: normocephalic atraumatic Neck: supple Heart: RRR Respiratory: CTAB Gastrointestinal: soft, non-tender Skin: no rashes Psychiatric: normal affect, normal behavior Hosp A/P - Plan -Assessment (1) Acute respiratory failure due to COVID-19 Code(s): U07.1 - COVID-19; J96.00 - ACUTE RESPIRATORY FAILURE, UNSP W HYPOXIA OR HYPERCAPNIA Status: Acute (2) Viral pneumonia Code(s): J12.9 - VIRAL PNEUMONIA, UNSPECIFIED Status: Acute (3) Hypothyroidism (acquired) Code(s): E03.9 - HYPOTHYROIDISM, UNSPECIFIED Status: Chronic (4) BPH (benign prostatic hyperplasia) Code(s): N40.0 - BENIGN PROSTATIC HYPERPLASIA WITHOUT LOWER URINRY TRACT SYMP Status: Chronic Qualifiers: Lower urinary tract symptom presence: symptoms absent Qualified Code(s): N40.0 - Benign prostatic hyperplasia without lower urinary tract symptoms (5) H/O Graves' disease Code(s): Z86.39 - PERSONAL HISTORY OF ENDO, NUTRITIONAL AND METABOLIC DISEASE Status: Chronic (6) Obesity (BMI 30.0-34.9) Code(s): E66.9 - OBESITY, UNSPECIFIED Status: Chronic (7) JARED on CPAP Code(s): G47.33 - OBSTRUCTIVE SLEEP APNEA (ADULT) (PEDIATRIC); Z99.89 - DEPENDENCE ON OTHER ENABLING MACHINES AND DEVICES Status: Chronic - Plan Continue BiPAP therapy. Continue dexamethasone. Patient has completed course of remdesivir. DVT prophylaxis with low molecular weight heparin.
[2020-02-21] MEDS: Tamsulosin HCl 0.4 MG CAP PO SCH (20:23)
[2020-02-22] MEDS: Albuterol 200 PUFF (6.7GM INHALER) INH SCH ×5 (02:56→21:51)
[2020-02-22 05:02] LABS: Anion Gap 14 mmol/L (10-20); BUN (Urea Nitrogen) 20 mg/dL (8.4-25.7); Calc. Creatinine Clearance 181 mL/min (70-130); Calcium 8.6 mg/dL (7.8-10.44); Carbon Dioxide 24 mmol/L (23-31); Chloride 98 mmol/L (98-107); Glucose 107 mg/dL (80-115); Potassium 4.2 mmol/L (3.5-5.1); Sodium 132 mmol/L (136-145)
[2020-02-22 05:14] LABS: ALT (SGPT) 57 U/L (8-55); AST (SGOT) 29 U/L (5-34); Albumin 3.2 g/dL (3.4-4.8); Alkaline Phosphatase 82 U/L (40-110); Bilirubin, Direct 0.6 mg/dL (0.1-0.3); Protein, Total 6.7 g/dL (5.8-8.1)
[2020-02-22] MEDS: Levothyroxine Sodium 125 MCG TAB PO SCH (06:39)
[2020-02-22] MEDS: Cholecalciferol 1,000 UNITS (25 MCG) TAB PO SCH (08:06)
[2020-02-22] MEDS: Ascorbic Acid 500 mg Chewable Tablet PO SCH (08:06)
[2020-02-22] MEDS: Famotidine 20 MG TAB PO SCH ×2 (08:07→21:51)
[2020-02-22] MEDS: Zinc Sulfate 220 MG CAP PO SCH (08:07)
[2020-02-22] MEDS: Aspirin 81 mg Enteric Coated Tablet PO SCH (08:07)
[2020-02-22] MEDS: Dexamethasone 4 mg/ml Vial SLOW IVP SCH (08:07)
[2020-02-22] MEDS: Enoxaparin Sodium 40 MG/0.4 ML SYRINGE SC SCH ×2 (08:08→21:51)
--- NOTE | 2020-02-22 10:35 | PRG ---
DATE OF SERVICE: 02/22/2020 SUBJECTIVE: The patient is doing better today. He has been taken off the BiPAP and put on high-flow nasal cannula. PHYSICAL EXAMINATION: VITAL SINGS: On exam, his O2 sats about 96% on 75% high flow. Temperature 98.1, pulse rate 80, and blood pressure 111/64. HEENT: Unremarkable. NECK: No JVD. CHEST: Inspiratory crackles. CARDIAC: S1 and S2. Regular. ABDOMEN: Soft. EXTREMITIES: No edema. His C-reactive protein is 18.8. Sodium 132, potassium 4.2, chloride 90, CO2 of 24, BUN 20, creatinine 0.6, glucose 107. ASSESSMENT: COVID-19 pneumonia with acute hypoxic respiratory failure. PLAN: I think we can go ahead and discontinue the daily anti-inflammatory marker monitoring as that is not making any difference in his care. We are continuing the steroids, anticoagulation and hopefully, we can continue to wean his oxygen. His progress over the last 24 hours is encouraging. Job ID: [id number]
--- NOTE | 2020-02-22 18:05 | PDOC.HOSPP ---
- Subjective Encounter Date: 02/22/20 Encounter Time: 10:30 Subjective: Patient seen for follow-up regarding Covid 19 infection causing pneumonia. He is now on high flow oxygen. - Objective Vital Signs & Weight: Vital Signs (12 hours) Temp Pulse Pulse BP BP Pulse Ox Pulse Ox 02/22/20 16:00 98.1 F 02/22/20 14:23 92 97 116/69 115/72 92 L 02/22/20 12:00 98.8 F 02/22/20 10:05 91 L 02/22/20 08:00 98.1 F 02/22/20 07:33 99 Pulse Ox 02/22/20 16:00 02/22/20 14:23 93 L 02/22/20 12:00 02/22/20 10:05 02/22/20 08:00 02/22/20 07:33 Weight Admit Weight 250 lb 0.067 oz Weight 250 lb 0.067 oz Most Recent Monitor Data Heart Rate from ECG 78 NIBP 109/71 NIBP BP-Mean 83 Respiration from ECG 34 SpO2 89 I&O: 02/21/20 02/22/20 02/23/20 06:59 06:59 06:59 Intake Total 700 710 Output Total 1100 1230 Balance -400 -520 Result Diagrams: 02/12/20 06:33 02/22/20 04:31 Additional Labs: I reviewed patient's labs and MAR EKG Reviewed by me: Yes (Telemetry: NSR) Hospitalist ROS - Review of Systems Respiratory: reports: SOB with excertion. denies: cough, dry, shortness of breath, hemoptysis, pleuritic pain, sputum, wheezing Gastrointestinal: denies: nausea, vomiting, abdominal pain, diarrhea, constipation, melena, hematochezia - Medication Medications: Active Medications Generic Name Dose Route Start Last Admin Trade Name Freq PRN Reason Stop Dose Admin Acetaminophen 650 mg 02/10/20 11:33 02/15/20 05:11 Acetaminophen 325 Mg Tab PO 650 mg Q4H PRN Administration Headache/Fever/Mild Pain (1-3) Albuterol Sulfate 2 puff 02/10/20 14:30 02/22/20 13:21 Albuterol 200 Puff (6.7gm Inhaler) INH 2 puff [id number] CLAY Administration Ascorbic Acid 1,000 mg 02/15/20 09:00 02/22/20 08:06 Ascorbic Acid 500 Mg Chewable Tablet PO 1,000 mg DAILY CLAY Administration Aspirin 81 mg 02/11/20 09:00 02/22/20 08:07 Aspirin 81 Mg Enteric Coated Tablet PO 81 mg DAILY CLAY Administration Benzonatate 100 mg 02/11/20 08:36 02/14/20 20:39 Benzonatate 100 Mg Cap PO 100 mg Q6H PRN Administration Cough Cholecalciferol 5,000 units 02/16/20 09:00 02/22/20 08:06 Cholecalciferol 1,000 Units (25 Mcg) Tab PO 5,000 units DAILY CLAY Administration Dexamethasone 6 mg 02/11/20 09:00 02/22/20 08:07 Dexamethasone 4 Mg/Ml Vial SLOW IVP 6 mg DAILY CLAY Administration Enoxaparin Sodium 40 mg 02/10/20 21:00 02/22/20 08:08 Enoxaparin Sodium 40 Mg/0.4 Ml Syringe SC 40 mg [id number],[id number] CLAY Administration Famotidine 20 mg 02/10/20 21:00 02/22/20 08:07 Famotidine 20 Mg Tab PO 20 mg BID CLAY Administration Guaifenesin 200 mg 02/11/20 08:36 02/15/20 05:12 Diabetic Tussin 200 Mg/10 Ml Udcup PO 200 mg Q4H PRN Administration Cough Levothyroxine Sodium 125 mcg 02/11/20 06:00 02/22/20 06:39 Levothyroxine Sodium 125 Mcg Tab PO Not Given 0600 CLAY Senna/Docusate Sodium 2 tab 02/10/20 11:33 02/16/20 19:55 Senokot S 8.6-50 Mg Tab PO 2 tab BIDPRN PRN Administration Constipation Sodium Chloride 10 ml 02/10/20 11:33 02/18/20 20:41 Flush - Normal Saline 10 Ml Syringe IVF 10 ml PRN PRN Administration Saline Flush Tamsulosin HCl 0.4 mg 02/10/20 21:00 02/21/20 20:23 Tamsulosin Hcl 0.4 Mg Cap PO 0.4 mg HS CLAY Administration Zinc Sulfate 220 mg 02/15/20 09:00 02/22/20 08:07 Zinc Sulfate 220 Mg Cap PO 220 mg DAILY CLAY Administration Zolpidem Tartrate 5 mg 02/11/20 08:36 02/20/20 20:02 Zolpidem Tartrate 5 Mg Tab PO 5 mg HSPRN PRN Administration Insomnia - Exam General Appearance: awake alert General - other findings: Obese ENT: no oropharyngeal lesions Heart: RRR Respiratory: CTAB Gastrointestinal: soft Skin: no rashes Psychiatric: normal affect, normal behavior Hosp A/P - Plan Patient is a pleasant 64-year-old gentleman who was admitted to the hospital on February 10, 2020 for respiratory failure secondary to COVID-19 infection. He was seen by infectious disease service and by pulmonary and critical care medicine service. He received remdesivir. He is also on dexamethasone. He was on high flow oxygen on the medical floor, subsequently was transferred to [facility] for BiPAP. He had BiPAP for a couple of hours on the night of transfer and did not tolerate it well. He was transitioned back to high flow oxygen. He did need to go back on BiPAP for the last couple of days but is back on high flow oxygen today. -Assessment (1) Acute respiratory failure due to COVID-19 Code(s): U07.1 - COVID-19; J96.00 - ACUTE RESPIRATORY FAILURE, UNSP W HYPOXIA OR HYPERCAPNIA Status: Acute (2) Viral pneumonia Code(s): J12.9 - VIRAL PNEUMONIA, UNSPECIFIED Status: Acute (3) Hypothyroidism (acquired) Code(s): E03.9 - HYPOTHYROIDISM, UNSPECIFIED Status: Chronic (4) BPH (benign prostatic hyperplasia) Code(s): N40.0 - BENIGN PROSTATIC HYPERPLASIA WITHOUT LOWER URINRY TRACT SYMP Status: Chronic Qualifiers: Lower urinary tract symptom presence: symptoms absent Qualified Code(s): N40.0 - Benign prostatic hyperplasia without lower urinary tract symptoms (5) H/O Graves' disease Code(s): Z86.39 - PERSONAL HISTORY OF ENDO, NUTRITIONAL AND METABOLIC DISEASE Status: Chronic (6) Obesity (BMI 30.0-34.9) Code(s): E66.9 - OBESITY, UNSPECIFIED Status: Chronic (7) JARED on CPAP Code(s): G47.33 - OBSTRUCTIVE SLEEP APNEA (ADULT) (PEDIATRIC); Z99.89 - DEPENDENCE ON OTHER ENABLING MACHINES AND DEVICES Status: Chronic - Plan Patient has been transitioned from BiPAP to high flow oxygen. Continue dexamethasone. Patient has received a course of remdesivir. DVT prophylaxis with low molecular weight heparin. Ambulate patient.
--- NOTE | 2020-02-22 18:16 | PRG ---
DATE OF SERVICE: 02/22/2020 SUBJECTIVE: The patient in the IMCU with high-flow nasal cannula, sometimes going back to BiPAP intermittently. He is eating dinner and says that he feels much better today, but is still saturating at 86% with high-flow nasal cannula. Flow rate now is at 55 and O2 saturations are stated at 91% to 99%. OBJECTIVE: GENERAL: He is oriented. HEENT: Ocular movements conjugate. LUNGS: Cellophane like bilateral inspiratory crackles up to fourth of right and left hemithorax and poor expansion bilaterally. HEART: S1 and S2. ABDOMEN: Soft. EXTREMITIES: Moves all extremities equally. LABORATORY DATA: Creatinine 0.66. Sodium 132. Ferritin was down, but now is up again to 433, and CRP was down to 9 and now is up again to 18. The D-dimers are down to 2.62. MEDICATIONS: The patient is currently on; 1. Decadron. 2. Ambien. 3. Zofran. 4. Clonidine. 5. Aspirin. 6. Enoxaparin. IMAGING STUDIES: Last chest x-ray was from a few days ago and it showed multifocal pneumonia changes. ASSESSMENT AND DISCUSSION: Severe COVID pneumonia with evidence of some organizing pneumonia already and severe hypoxemia requiring high-flow nasal cannula. His lungs sounds indicate a very slow recovery if he avoids intubation. It is not clear why these inflammatory markers are turning around, going back up again. It is usually it is a harbinger of problems in the future. Job ID: [id number]
[2020-02-22] MEDS: Zolpidem Tartrate 5 MG TAB PO PRN (21:51)
[2020-02-22] MEDS: Tamsulosin HCl 0.4 MG CAP PO SCH (21:51)
[2020-02-23] MEDS: Albuterol 200 PUFF (6.7GM INHALER) INH SCH ×7 (00:26→21:37)
[2020-02-23 04:37] LABS: Anion Gap 17 mmol/L (10-20); BUN (Urea Nitrogen) 18 mg/dL (8.4-25.7); Calc. Creatinine Clearance 184 mL/min (70-130); Calcium 8.5 mg/dL (7.8-10.44); Carbon Dioxide 24 mmol/L (23-31); Chloride 99 mmol/L (98-107); Glucose 107 mg/dL (80-115); Potassium 4.6 mmol/L (3.5-5.1); Sodium 135 mmol/L (136-145)
[2020-02-23] MEDS: Levothyroxine Sodium 125 MCG TAB PO SCH (05:59)
[2020-02-23] MEDS: Cholecalciferol 1,000 UNITS (25 MCG) TAB PO SCH (09:02)
[2020-02-23] MEDS: Dexamethasone 4 mg/ml Vial SLOW IVP SCH (09:02)
[2020-02-23] MEDS: Ascorbic Acid 500 mg Chewable Tablet PO SCH (09:02)
[2020-02-23] MEDS: Aspirin 81 mg Enteric Coated Tablet PO SCH (09:02)
[2020-02-23] MEDS: Zinc Sulfate 220 MG CAP PO SCH (09:03)
[2020-02-23] MEDS: Famotidine 20 MG TAB PO SCH ×2 (09:03→21:36)
[2020-02-23] MEDS: Acetaminophen 325 MG TAB PO PRN ×2 (09:03→13:30)
[2020-02-23] MEDS: Enoxaparin Sodium 40 MG/0.4 ML SYRINGE SC SCH ×2 (09:04→21:35)
--- NOTE | 2020-02-23 11:28 | RAD ---
EXAM: Chest one view: HISTORY: Follow-up pneumonia COMPARISON: 02/15/2020 FINDINGS: Heart size: Within normal limits. Lungs: Persistent bilateral interstitial alveolar and groundglass opacity changes evidence for bilate ral Covid pneumonia, somewhat more prominent and more diffuse than on the prior study. No evidence for pleural effusion. IMPRESSION: Somewhat more diffuse bilateral pneumonia. Continued short-term follow-up.
--- NOTE | 2020-02-23 12:47 | PRG ---
DATE OF SERVICE: 02/23/2020 SUBJECTIVE: The patient is about the same as he has been. He is still requiring BiPAP alternating with high flow. OBJECTIVE: VITAL SIGNS: Temperature 97.5, O2 saturation 94%, pulse 97, blood pressure 129/68. He is currently on FiO2 of 95%. HEENT: Unremarkable. NECK: No adenopathy or JVD. LUNGS: Inspiratory crackles. CARDIAC: S1 and S2. Regular. ABDOMEN: Soft. EXTREMITIES: No edema. DIAGNOSTIC DATA: His x-ray continued to show bilateral infiltrates. Labs; sodium 135, potassium 4.6, BUN 18, creatinine 0.6, glucose 107. ASSESSMENT: 1. COVID-19 pneumonia. 2. Acute respiratory failure with hypoxemia. PLAN: Continue supportive care. Hopefully, we can avoid intubation. He is on proper medication including steroids, anticoagulation, and appropriate vitamins. Job ID: [id number]
--- NOTE | 2020-02-23 14:51 | PDOC.HOSPP ---
- Subjective Encounter Date: 02/23/20 Encounter Time: 14:49 Subjective: F/u: COVID The patient desaturated after working with PT this morning to 70% on high flow nasal cannula. He has been placed back on BIPAP. He has minimal cough. He reports mild chest discomfort . No fevers or chills Spoke extensively to the about viral pneumonia and its course vs bacterial pneumonia and she was concerned about inflammatory markers going up - Objective Vital Signs & Weight: Vital Signs (12 hours) Temp Pulse Pulse Ox 02/23/20 11:21 101 H 02/23/20 08:00 97.5 F L 91 L 02/23/20 04:10 98.0 F Weight Admit Weight 250 lb 0.067 oz Weight 250 lb 0.067 oz Most Recent Monitor Data Heart Rate from ECG 95 NIBP 96/59 NIBP BP-Mean 71 Respiration from ECG 31 SpO2 100 I&O: 02/22/20 02/23/20 02/24/20 06:59 06:59 06:59 Intake Total 710 1750 Output Total 1230 1725 Balance -520 25 Result Diagrams: 02/12/20 06:33 02/23/20 03:53 Hospitalist ROS - Review of Systems Constitutional: denies: fever, chills - Medication Medications: Active Medications Generic Name Dose Route Start Last Admin Trade Name Freq PRN Reason Stop Dose Admin Acetaminophen 650 mg 02/10/20 11:33 02/15/20 05:11 Acetaminophen 325 Mg Tab PO 650 mg Q4H PRN Administration Headache/Fever/Mild Pain (1-3) Albuterol Sulfate 2 puff 02/10/20 14:30 02/23/20 14:49 Albuterol 200 Puff (6.7gm Inhaler) INH 2 puff [id number] CLAY Administration Ascorbic Acid 1,000 mg 02/15/20 09:00 02/23/20 09:02 Ascorbic Acid 500 Mg Chewable Tablet PO 1,000 mg DAILY CLAY Administration Aspirin 81 mg 02/11/20 09:00 02/23/20 09:02 Aspirin 81 Mg Enteric Coated Tablet PO 81 mg DAILY CLAY Administration Benzonatate 100 mg 02/11/20 08:36 02/14/20 20:39 Benzonatate 100 Mg Cap PO 100 mg Q6H PRN Administration Cough Cholecalciferol 5,000 units 02/16/20 09:00 02/23/20 09:02 Cholecalciferol 1,000 Units (25 Mcg) Tab PO 5,000 units DAILY CLAY Administration Dexamethasone 6 mg 02/11/20 09:00 02/23/20 09:02 Dexamethasone 4 Mg/Ml Vial SLOW IVP 6 mg DAILY CLAY Administration Enoxaparin Sodium 40 mg 02/10/20 21:00 02/23/20 09:04 Enoxaparin Sodium 40 Mg/0.4 Ml Syringe SC 40 mg [id number],[id number] CLAY Administration Famotidine 20 mg 02/10/20 21:00 02/23/20 09:03 Famotidine 20 Mg Tab PO 20 mg BID CLAY Administration Guaifenesin 200 mg 02/11/20 08:36 02/15/20 05:12 Diabetic Tussin 200 Mg/10 Ml Udcup PO 200 mg Q4H PRN Administration Cough Levothyroxine Sodium 125 mcg 02/11/20 06:00 02/23/20 05:59 Levothyroxine Sodium 125 Mcg Tab PO 125 mcg 0600 CLAY Administration Senna/Docusate Sodium 2 tab 02/10/20 11:33 02/16/20 19:55 Senokot S 8.6-50 Mg Tab PO 2 tab BIDPRN PRN Administration Constipation Sodium Chloride 10 ml 02/10/20 11:33 02/22/20 21:51 Flush - Normal Saline 10 Ml Syringe IVF 10 ml PRN PRN Administration Saline Flush Tamsulosin HCl 0.4 mg 02/10/20 21:00 02/22/20 21:51 Tamsulosin Hcl 0.4 Mg Cap PO 0.4 mg HS CLAY Administration Zinc Sulfate 220 mg 02/15/20 09:00 02/23/20 09:03 Zinc Sulfate 220 Mg Cap PO 220 mg DAILY CLAY Administration Zolpidem Tartrate 5 mg 02/11/20 08:36 02/22/20 21:51 Zolpidem Tartrate 5 Mg Tab PO 5 mg HSPRN PRN Administration Insomnia - Exam General Appearance: NAD, awake alert General - other findings: on BIPAP Eye: PERRL, anicteric sclera ENT: normocephalic atraumatic, no oropharyngeal lesions Neck: no JVD Heart: RRR, no murmur, no gallops, no rubs Respiratory: CTAB, no wheezes, no rales, no ronchi Gastrointestinal: soft, non-tender, non-distended, normal bowel sounds Extremities: no cyanosis, no clubbing, no edema Skin: normal turgor, no lesions, no rashes Hosp A/P - Plan Chest X ray: bilateral infiltrates This is a 64 year old male diagnosed with COVID Acute hypoxic respiratory failure secondary to COVID pneumonia- worsening - repeat chest X ray shows stable bilateral infiltrates. D-dimer downtrending yesterday. No fever or WBC - s/p remdesivir 02/09 to 02/13 - continue IV steroids and lovenox 40 mg SC BID - pulmonary and ID are following - will trial doxycycline Hyponatremia - improved, sodium up to 135 Anemia - 13.9, stable Transaminitis - LFT dowtnrending
[2020-02-23] MEDS ORDERED: Doxycycline 100 MG CAP PO SCH (16:30)
[2020-02-23] MEDS: Zolpidem Tartrate 5 MG TAB PO PRN (21:36)
[2020-02-23] MEDS: Tamsulosin HCl 0.4 MG CAP PO SCH (21:36)
[2020-02-23] MEDS: Doxycycline 100 MG CAP PO SCH (21:36)
[2020-02-24] MEDS: Albuterol 200 PUFF (6.7GM INHALER) INH SCH ×6 (01:44→23:12)
[2020-02-24 04:53] LABS: Anion Gap 17 mmol/L (10-20); BUN (Urea Nitrogen) 18 mg/dL (8.4-25.7); Calc. Creatinine Clearance 181 mL/min (70-130); Calcium 8.4 mg/dL (7.8-10.44); Carbon Dioxide 23 mmol/L (23-31); Chloride 97 mmol/L (98-107); Glucose 96 mg/dL (80-115); Potassium 4.5 mmol/L (3.5-5.1); Sodium 132 mmol/L (136-145)
[2020-02-24] MEDS: Levothyroxine Sodium 125 MCG TAB PO SCH (05:52)
[2020-02-24] MEDS: Dexamethasone 4 mg/ml Vial SLOW IVP SCH (09:37)
[2020-02-24] MEDS: Enoxaparin Sodium 40 MG/0.4 ML SYRINGE SC SCH ×2 (09:37→20:07)
[2020-02-24] MEDS: Doxycycline 100 MG CAP PO SCH ×2 (09:38→20:06)
[2020-02-24] MEDS: Zinc Sulfate 220 MG CAP PO SCH (09:38)
[2020-02-24] MEDS: Famotidine 20 MG TAB PO SCH ×2 (09:38→20:06)
[2020-02-24] MEDS: Cholecalciferol 1,000 UNITS (25 MCG) TAB PO SCH (09:38)
[2020-02-24] MEDS: Ascorbic Acid 500 mg Chewable Tablet PO SCH (09:38)
[2020-02-24] MEDS: Aspirin 81 mg Enteric Coated Tablet PO SCH (09:38)
--- NOTE | 2020-02-24 14:40 | PRG ---
DATE OF SERVICE: 02/24/2020 SUBJECTIVE: The patient remains on BiPAP alternating with high-flow oxygen. OBJECTIVE: VITAL SIGNS: Temperature 100.4, pulse low 100s, blood pressure 125/80, O2 saturation generally in the low 90s. HEENT: Unremarkable. NECK: No JVD. LUNGS: Clear anteriorly. CARDIAC: S1 and S2. Regular. ABDOMEN: Soft. EXTREMITIES: No edema. LABORATORY DATA: Sodium 132, potassium 4.5, BUN 18, creatinine 0.6, and glucose 96. ASSESSMENT: 1. COVID-19 pneumonia. 2. Acute hypoxic respiratory failure requiring noninvasive mechanical ventilation. PLAN: The patient is continuing steroids, anticoagulation, and vitamins. It might be helpful to add some antifungal coverage given the duration of corticosteroids. Job ID: [id number]
--- NOTE | 2020-02-24 15:11 | PDOC.HOSPP ---
- Subjective Encounter Date: 02/24/20 Encounter Time: 12:00 Subjective: F/u: COVID The patient is sitting in the chair. He is on the BIPAP because he desaturated this morning. He is asking for sprite. He has mild dry cough. No chest pain or chest congestion Discussed with the who wants to come visit. She states the patient originally had a fever on 02/02. They stayed at home and he did not test positive until 02/04. She states it has been 20 days since he was symptomatic and he has been on BIPAP for last four days and is disappointed with the slow recovery. Patient's she had COVID herself and has recovered. She is a nurse here at the hospital - Objective Vital Signs & Weight: Vital Signs (12 hours) Temp Pulse Pulse Ox 02/24/20 12:00 98.6 F 02/24/20 08:01 105 H 02/24/20 08:00 100.4 F H 02/24/20 07:42 90 L 02/24/20 05:55 98.3 F Weight Admit Weight 250 lb 0.067 oz Weight 250 lb 0.067 oz Most Recent Monitor Data Heart Rate from ECG 104 NIBP 121/78 NIBP BP-Mean 92 Respiration from ECG 29 SpO2 83 I&O: 02/23/20 02/24/20 02/25/20 06:59 06:59 06:59 Intake Total 1750 1871.5 Output Total 1725 1700 Balance 25 171.5 Result Diagrams: 02/12/20 06:33 02/24/20 03:48 Hospitalist ROS - Review of Systems Constitutional: denies: fever, chills - Medication Medications: Active Medications Generic Name Dose Route Start Last Admin Trade Name Freq PRN Reason Stop Dose Admin Acetaminophen 650 mg 02/10/20 11:33 02/23/20 13:30 Acetaminophen 325 Mg Tab PO 650 mg Q4H PRN Administration Headache/Fever/Mild Pain (1-3) Albuterol Sulfate 2 puff 02/10/20 14:30 02/24/20 14:41 Albuterol 200 Puff (6.7gm Inhaler) INH 2 puff [id number] CLAY Administration Ascorbic Acid 1,000 mg 02/15/20 09:00 02/24/20 09:38 Ascorbic Acid 500 Mg Chewable Tablet PO 1,000 mg DAILY CLAY Administration Aspirin 81 mg 02/11/20 09:00 02/24/20 09:38 Aspirin 81 Mg Enteric Coated Tablet PO 81 mg DAILY CLAY Administration Benzonatate 100 mg 02/11/20 08:36 02/14/20 20:39 Benzonatate 100 Mg Cap PO 100 mg Q6H PRN Administration Cough Cholecalciferol 5,000 units 02/16/20 09:00 02/24/20 09:38 Cholecalciferol 1,000 Units (25 Mcg) Tab PO 5,000 units DAILY CLAY Administration Dexamethasone 6 mg 02/11/20 09:00 02/24/20 09:37 Dexamethasone 4 Mg/Ml Vial SLOW IVP 6 mg DAILY CLAY Administration Doxycycline Hyclate 100 mg 02/23/20 21:00 02/24/20 09:38 Doxycycline 100 Mg Cap PO 100 mg BID CLAY Administration Enoxaparin Sodium 40 mg 02/10/20 21:00 02/24/20 09:37 Enoxaparin Sodium 40 Mg/0.4 Ml Syringe SC 40 mg [id number] CLAY Administration Famotidine 20 mg 02/10/20 21:00 02/24/20 09:38 Famotidine 20 Mg Tab PO 20 mg BID CLAY Administration Guaifenesin 200 mg 02/11/20 08:36 02/15/20 05:12 Diabetic Tussin 200 Mg/10 Ml Udcup PO 200 mg Q4H PRN Administration Cough Levothyroxine Sodium 125 mcg 02/11/20 06:00 02/24/20 05:52 Levothyroxine Sodium 125 Mcg Tab PO 125 mcg 0600 CLAY Administration Senna/Docusate Sodium 2 tab 02/10/20 11:33 02/16/20 19:55 Senokot S 8.6-50 Mg Tab PO 2 tab BIDPRN PRN Administration Constipation Sodium Chloride 10 ml 02/10/20 11:33 02/22/20 21:51 Flush - Normal Saline 10 Ml Syringe IVF 10 ml PRN PRN Administration Saline Flush Tamsulosin HCl 0.4 mg 02/10/20 21:00 02/23/20 21:36 Tamsulosin Hcl 0.4 Mg Cap PO 0.4 mg HS CLAY Administration Zinc Sulfate 220 mg 02/15/20 09:00 02/24/20 09:38 Zinc Sulfate 220 Mg Cap PO 220 mg DAILY CLAY Administration Zolpidem Tartrate 5 mg 02/11/20 08:36 02/23/20 21:36 Zolpidem Tartrate 5 Mg Tab PO 5 mg HSPRN PRN Administration Insomnia - Exam General Appearance: NAD, awake alert General - other findings: obese, on BIPAP Eye: PERRL, anicteric sclera ENT: normocephalic atraumatic, no oropharyngeal lesions Neck: no JVD Heart: RRR, no murmur, no gallops, no rubs Respiratory - other findings: diminished breath sounds at the bases Gastrointestinal: soft, non-tender, non-distended, normal bowel sounds Extremities: no cyanosis, no clubbing, no edema Skin: normal turgor, no lesions, no rashes Hosp A/P - Plan Chest X ray: more diffuse pneumonia This is a 64 year old male diagnosed with COVID Acute hypoxic respiratory failure secondary to COVID pneumonia - repeat chest X ray 02/22 show more diffuse pneumonia - s/p remdesivir 02/09 to 02/13 - continue IV steroids and lovenox 40 mg SC BID - started doxycycline 02/22. Ferritin worsening, but CRP and d-dimer are downtrending. Will add on a BNP, last one was normal - pulmonary has added micafungin. Will continue BIPAP alternating with high flow as tolerated Hyponatremia - worsened, sodium down to 132. No edema. Check BNP Anemia - 13.9, stable. Repeat CBC tomorrow, B12/folate Transaminitis - LFT dowtnrended, will repeat to see if normalized
[2020-02-24] MEDS: Micafungin 100 MG in Sodium Chloride 0.9% 100 ML IVPB SCH (16:15)
[2020-02-24] MEDS: Tamsulosin HCl 0.4 MG CAP PO SCH (20:06)
[2020-02-25] MEDS: Albuterol 200 PUFF (6.7GM INHALER) INH SCH ×6 (02:42→22:44)
[2020-02-25 04:22] LABS: Hemoglobin 15.8 g/dL (14.0-18.0); Mean Corpuscular HGB CONC 33.2 g/dL (32.0-36.0); Mean Corpuscular Hemoglobin 30.5 pg (27.0-31.0); Mean Corpuscular Volume 91.6 fL (78.0-98.0); Mean Platelet Volume 7.7 fL (7.4-10.4); Platelet Count 307 thou/uL (130-400); RBC Distribution Width 13.6 % (11.5-14.5); Red Blood Cell (RBC) Count 5.18 mill/uL (4.70-6.10); White Blood Cell (WBC) Count 17.2 thou/uL (4.8-10.8)
[2020-02-25 04:41] LABS: ALT (SGPT) 51 U/L (8-55); AST (SGOT) 26 U/L (5-34); Albumin 3.1 g/dL (3.4-4.8); Alkaline Phosphatase 87 U/L (40-110); Anion Gap 16 mmol/L (10-20); BUN (Urea Nitrogen) 17 mg/dL (8.4-25.7); Bilirubin, Direct 0.7 mg/dL (0.1-0.3); Bilirubin, Total 1.3 mg/dL (0.2-1.2); Calc. Creatinine Clearance 179 mL/min (70-130); Calcium 8.7 mg/dL (7.8-10.44); Carbon Dioxide 24 mmol/L (23-31); Chloride 97 mmol/L (98-107); Glucose 96 mg/dL (80-115); Potassium 4.2 mmol/L (3.5-5.1); Protein, Total 6.9 g/dL (5.8-8.1); Sodium 133 mmol/L (136-145)
[2020-02-25] MEDS: Levothyroxine Sodium 125 MCG TAB PO SCH (06:07)
[2020-02-25] MEDS: Cholecalciferol 1,000 UNITS (25 MCG) TAB PO SCH (07:24)
[2020-02-25] MEDS: Doxycycline 100 MG CAP PO SCH ×2 (07:24→21:15)
[2020-02-25] MEDS: Ascorbic Acid 500 mg Chewable Tablet PO SCH (07:25)
[2020-02-25] MEDS: Zinc Sulfate 220 MG CAP PO SCH (07:25)
[2020-02-25] MEDS: Famotidine 20 MG TAB PO SCH ×2 (07:25→21:16)
[2020-02-25] MEDS: Aspirin 81 mg Enteric Coated Tablet PO SCH (07:25)
[2020-02-25] MEDS: Enoxaparin Sodium 40 MG/0.4 ML SYRINGE SC SCH ×2 (07:26→20:41)
[2020-02-25] MEDS: Dexamethasone 4 mg/ml Vial SLOW IVP SCH (07:26)
--- NOTE | 2020-02-25 09:21 | PRG ---
DATE OF SERVICE: 02/25/2020 SUBJECTIVE: The patient is not doing very well. He continues on BiPAP 100% FiO2. Discussed within the prospect of intubation today. He was not interested in pursuing that. OBJECTIVE: VITAL SIGNS: Temperature 99.3, pulse 101, pressure 124/64, O2 saturation in the low 90s. HEENT: Unremarkable. NECK: No adenopathy or JVD. LUNGS: Crackles. CARDIAC: S1 and S2. Regular. ABDOMEN: Soft. EXTREMITIES: No edema. LABORATORY DATA: White blood cell count 17.2, hematocrit 47.5, and platelet count 307. D-dimer is 2.18. Albumin 3.1. Sodium 133, potassium 4.2, chloride 97, CO2 of 24, BUN 17, creatinine 0.7, and glucose 96. ASSESSMENT: 1. Severe COVID-19 pneumonia. 2. Hypoxemic respiratory failure. PLAN: The patient will continue steroids, anticoagulation, antibiotics, and antifungals. His progress has been disappointing thus far, but there is not much to add to current treatment. Job ID: [id number]
[2020-02-25] MEDS ORDERED: Cyanocobalamin (Vitamin B-12) 1,000 MCG TAB PO SCH (14:45)
[2020-02-25] MEDS ORDERED: Folic Acid 1 MG TAB PO SCH (14:45)
[2020-02-25] MEDS: Micafungin 100 MG in Sodium Chloride 0.9% 100 ML IVPB SCH (15:48)
--- NOTE | 2020-02-25 18:19 | PDOC.HOSPP ---
- Subjective Encounter Date: 02/25/20 Encounter Time: 10:00 Subjective: Fu: COVID THe patient has been having difficulty weaning off the BIPAP today and has been wearing it most of the day. He reports productive cough of clear phlegm. His visited him today - Objective Vital Signs & Weight: Vital Signs (12 hours) Temp Pulse Pulse Ox 02/25/20 16:00 97.4 F L 02/25/20 11:35 98.5 F 02/25/20 11:23 89 02/25/20 07:55 99.3 F 02/25/20 07:52 89 L Weight Admit Weight 250 lb 0.067 oz Weight 250 lb 0.067 oz Most Recent Monitor Data Heart Rate from ECG 86 NIBP 138/83 NIBP BP-Mean 101 Respiration from ECG 28 SpO2 94 I&O: 02/24/20 02/25/20 02/26/20 06:59 06:59 06:59 Intake Total 1871.5 367 Output Total 1700 1650 Balance 171.5 -1283 Result Diagrams: 02/25/20 03:46 02/25/20 03:46 Hospitalist ROS - Review of Systems Constitutional: denies: fever, chills - Medication Medications: Active Medications Generic Name Dose Route Start Last Admin Trade Name Freq PRN Reason Stop Dose Admin Acetaminophen 650 mg 02/10/20 11:33 02/23/20 13:30 Acetaminophen 325 Mg Tab PO 650 mg Q4H PRN Administration Headache/Fever/Mild Pain (1-3) Albuterol Sulfate 2 puff 02/10/20 14:30 02/25/20 15:46 Albuterol 200 Puff (6.7gm Inhaler) INH 2 puff [id number] CLAY Administration Ascorbic Acid 1,000 mg 02/15/20 09:00 02/25/20 07:25 Ascorbic Acid 500 Mg Chewable Tablet PO 1,000 mg DAILY CLAY Administration Aspirin 81 mg 02/11/20 09:00 02/25/20 07:25 Aspirin 81 Mg Enteric Coated Tablet PO 81 mg DAILY CLAY Administration Benzonatate 100 mg 02/11/20 08:36 02/14/20 20:39 Benzonatate 100 Mg Cap PO 100 mg Q6H PRN Administration Cough Cholecalciferol 5,000 units 02/16/20 09:00 02/25/20 07:24 Cholecalciferol 1,000 Units (25 Mcg) Tab PO 5,000 units DAILY CLAY Administration Dexamethasone 6 mg 02/11/20 09:00 02/25/20 07:26 Dexamethasone 4 Mg/Ml Vial SLOW IVP 6 mg DAILY CLAY Administration Doxycycline Hyclate 100 mg 02/23/20 21:00 02/25/20 07:24 Doxycycline 100 Mg Cap PO 100 mg BID CLAY Administration Enoxaparin Sodium 40 mg 02/10/20 21:00 02/25/20 07:26 Enoxaparin Sodium 40 Mg/0.4 Ml Syringe SC 40 mg 09,2099 CLAY Administration Famotidine 20 mg 02/10/20 21:00 02/25/20 07:25 Famotidine 20 Mg Tab PO 20 mg BID CLAY Administration Guaifenesin 200 mg 02/11/20 08:36 02/15/20 05:12 Diabetic Tussin 200 Mg/10 Ml Udcup PO 200 mg Q4H PRN Administration Cough Micafungin Sodium 100 mg/ 100 mls @ 100 mls/hr 02/24/20 15:00 02/25/20 15:48 Sodium Chloride IVPB 100 mls Q24H CLAY Administration Levothyroxine Sodium 125 mcg 02/11/20 06:00 02/25/20 06:07 Levothyroxine Sodium 125 Mcg Tab PO 125 mcg 0600 CLAY Administration Senna/Docusate Sodium 2 tab 02/10/20 11:33 02/16/20 19:55 Senokot S 8.6-50 Mg Tab PO 2 tab BIDPRN PRN Administration Constipation Sodium Chloride 10 ml 02/10/20 11:33 02/22/20 21:51 Flush - Normal Saline 10 Ml Syringe IVF 10 ml PRN PRN Administration Saline Flush Tamsulosin HCl 0.4 mg 02/10/20 21:00 02/24/20 20:06 Tamsulosin Hcl 0.4 Mg Cap PO 0.4 mg HS CLAY Administration Zinc Sulfate 220 mg 02/15/20 09:00 02/25/20 07:25 Zinc Sulfate 220 Mg Cap PO 220 mg DAILY CLAY Administration Zolpidem Tartrate 5 mg 02/11/20 08:36 02/23/20 21:36 Zolpidem Tartrate 5 Mg Tab PO 5 mg HSPRN PRN Administration Insomnia - Exam General Appearance: NAD, awake alert Eye: PERRL, anicteric sclera ENT: normocephalic atraumatic, no oropharyngeal lesions Neck: no JVD Heart: RRR, no murmur, no gallops, no rubs, normal peripheral pulses Respiratory: CTAB, no wheezes, no rales, no ronchi Gastrointestinal: soft, non-tender, non-distended, normal bowel sounds Extremities: no cyanosis, no clubbing, no edema Skin: normal turgor, no lesions, no rashes Hosp A/P - Plan Chest X ray: more diffuse pneumonia This is a 64 year old male diagnosed with COVID Acute hypoxic respiratory failure secondary to COVID pneumonia - repeat chest X ray 02/22 show more diffuse pneumonia - s/p remdesivir 02/09 to 02/13 - continue IV dexamethasone and lovenox 40 mg SC BID - started doxycycline 02/22 since ferritin worsened. Repeat BNP 02/24 was only 12, so no need for diuretics. Micafungin added 02/23 - 02/24: WBC has increased to 17. Given worsening Xray on 02/22, will trial adding IV zosyn. This could alternatively just be leukocytosis from steroids. Send sputum culture Hyponatremia - sodium 132 02/23, will recheck tomorrow B12 and folate deficiency anemia - vitamin B12 < 200, folate low. Started IM vitamin B12, then switch to oral B12 - start folic acid supplementation. Check intrinsic factor antibody in morning Transaminitis - LFT dowtnrended, will repeat to see if normalized
[2020-02-25] MEDS ORDERED: Piperacillin/Tazobactam 3.375 GM in Sodium Chloride 0.9% 100 ML IVPB SCH (18:45)
[2020-02-25] MEDS ORDERED: Cyanocobalamin 1000 MCG/ML VIAL IM SCH (20:00)
[2020-02-25] MEDS: Tamsulosin HCl 0.4 MG CAP PO SCH (21:16)
[2020-02-25] MEDS ORDERED: Morphine 2 MG/ML VIAL SLOW IVP SCH (23:00)
[2020-02-26] MEDS: Piperacillin/Tazobactam 3.375 GM in Sodium Chloride 0.9% 100 ML IVPB SCH ×5 (00:27→23:21)
[2020-02-26] MEDS: Albuterol 200 PUFF (6.7GM INHALER) INH SCH ×6 (02:58→23:09)
[2020-02-26 04:19] LABS: Hemoglobin 16.8 g/dL (14.0-18.0); Mean Corpuscular HGB CONC 32.9 g/dL (32.0-36.0); Mean Corpuscular Hemoglobin 30.8 pg (27.0-31.0); Mean Corpuscular Volume 93.6 fL (78.0-98.0); Mean Platelet Volume 7.9 fL (7.4-10.4); Platelet Count 279 thou/uL (130-400); RBC Distribution Width 13.8 % (11.5-14.5); Red Blood Cell (RBC) Count 5.46 mill/uL (4.70-6.10); White Blood Cell (WBC) Count 14.5 thou/uL (4.8-10.8)
[2020-02-26 04:40] LABS: ALT (SGPT) 46 U/L (8-55); AST (SGOT) 25 U/L (5-34); Albumin 3.2 g/dL (3.4-4.8); Alkaline Phosphatase 92 U/L (40-110); Anion Gap 20 mmol/L (10-20); BUN (Urea Nitrogen) 20 mg/dL (8.4-25.7); Bilirubin, Total 1.4 mg/dL (0.2-1.2); Calc. Creatinine Clearance 184 mL/min (70-130); Calcium 8.9 mg/dL (7.8-10.44); Carbon Dioxide 21 mmol/L (23-31); Chloride 100 mmol/L (98-107); Globulin 4.1 g/dL (2.4-3.5); Glucose 93 mg/dL (80-115); Potassium 4.5 mmol/L (3.5-5.1); Protein, Total 7.3 g/dL (5.8-8.1); Sodium 136 mmol/L (136-145)
[2020-02-26] MEDS: Levothyroxine Sodium 125 MCG TAB PO SCH (07:13)
[2020-02-26] MEDS ORDERED: Enoxaparin Sodium 40 MG/0.4 ML SYRINGE SC SCH (09:20)
--- NOTE | 2020-02-26 09:45 | PRG ---
DATE OF SERVICE: 02/26/2020 SUBJECTIVE: The patient remains on BiPAP with FiO2 100%. OBJECTIVE: VITAL SIGNS: Temperature 98.2, O2 saturation 98%, pulse 110, blood pressure 117/79. HEENT: Unremarkable. NECK: No JVD. LUNGS: Crackles. CARDIAC: S1 and S2. Regular. ABDOMEN: Soft. EXTREMITIES: No edema. LABORATORY DATA: Sodium 136, potassium 4.5, chloride 100, CO2 of 21, BUN 20, creatinine 0.6, glucose 93. Ferritin level 741, which is up compared to yesterday. White blood cell count 14.5, hematocrit 51, platelet count 279. ASSESSMENT: 1. COVID-19 pneumonia with very minimal improvement in O2 saturation. 2. Acute hypoxic respiratory failure. PLAN: I am going to add D5 half-normal as he has been unable to take nutrition in the last couple of days. I have suggested a Dobhoff tube and tube feeds, but the patient refused. I have also offered intubation and the patient has refused. I am going to continue with the steroids, increase his anticoagulation, and change his oral doxycycline IV. I do think there is a significant chance of him worsening and I do feel that the family will probably want intubation when the patient starts to go [place]. Job ID: [id number]
[2020-02-26] MEDS ORDERED: Enoxaparin Sodium 80 MG/0.8 ML SYRINGE SC SCH (10:15)
[2020-02-26] MEDS: Dextrose 5 %-0.45 % NaCl 1,000 ML IV SCH ×2 (10:55→23:54)
[2020-02-26] MEDS: Dexamethasone 4 mg/ml Vial SLOW IVP SCH (10:56)
[2020-02-26] MEDS: Aspirin 81 mg Enteric Coated Tablet PO SCH (11:44)
[2020-02-26] MEDS: Ascorbic Acid 500 mg Chewable Tablet PO SCH (11:44)
[2020-02-26] MEDS: Cholecalciferol 1,000 UNITS (25 MCG) TAB PO SCH (11:45)
[2020-02-26] MEDS: Cyanocobalamin (Vitamin B-12) 1,000 MCG TAB PO SCH (11:45)
[2020-02-26] MEDS: Zinc Sulfate 220 MG CAP PO SCH (11:47)
[2020-02-26] MEDS: Folic Acid 1 MG TAB PO SCH (11:47)
[2020-02-26] MEDS: Famotidine 20 MG TAB PO SCH ×2 (11:47→22:19)
[2020-02-26] MEDS: Enoxaparin Sodium 40 MG/0.4 ML SYRINGE SC SCH (14:34)
[2020-02-26] MEDS: Doxycycline 100 MG CAP PO SCH (14:34)
[2020-02-26] MEDS: Micafungin 100 MG in Sodium Chloride 0.9% 100 ML IVPB SCH (14:38)
--- NOTE | 2020-02-26 16:17 | PDOC.HOSPP ---
- Subjective Encounter Date: 02/26/20 Encounter Time: 15:00 Subjective: F/u: COVID The patient has been wearing BIPAP for most of the day. He is tired, still has dry cough. Spoke to and updated her on plan. Advised her not to have her daughter visit since she is on immunosuppressants - Objective Vital Signs & Weight: Vital Signs (12 hours) Temp Pulse 02/26/20 15:00 98.4 F 02/26/20 14:22 103 H 02/26/20 12:00 98.2 F 02/26/20 08:46 101 H 02/26/20 07:31 98.2 F Weight Admit Weight 250 lb 0.067 oz Weight 250 lb 0.067 oz Most Recent Monitor Data Heart Rate from ECG 102 NIBP 117/79 NIBP BP-Mean 91 Respiration from ECG 29 SpO2 98 I&O: 02/25/20 02/26/20 02/27/20 06:59 06:59 06:59 Intake Total 367 575 Output Total 1650 700 Balance -1283 -125 Result Diagrams: 02/26/20 03:50 02/26/20 03:50 Hospitalist ROS - Review of Systems Constitutional: denies: fever, chills - Medication Medications: Active Medications Generic Name Dose Route Start Last Admin Trade Name Freq PRN Reason Stop Dose Admin Acetaminophen 650 mg 02/10/20 11:33 02/23/20 13:30 Acetaminophen 325 Mg Tab PO 650 mg Q4H PRN Administration Headache/Fever/Mild Pain (1-3) Albuterol Sulfate 2 puff 02/10/20 14:30 02/26/20 14:24 Albuterol 200 Puff (6.7gm Inhaler) INH Not Given [id number] CLAY Ascorbic Acid 1,000 mg 02/15/20 09:00 02/26/20 11:44 Ascorbic Acid 500 Mg Chewable Tablet PO Not Given DAILY CLAY Aspirin 81 mg 02/11/20 09:00 02/26/20 11:44 Aspirin 81 Mg Enteric Coated Tablet PO Not Given DAILY CLAY Benzonatate 100 mg 02/11/20 08:36 02/14/20 20:39 Benzonatate 100 Mg Cap PO 100 mg Q6H PRN Administration Cough Cholecalciferol 5,000 units 02/16/20 09:00 02/26/20 11:45 Cholecalciferol 1,000 Units (25 Mcg) Tab PO Not Given DAILY CLAY Cyanocobalamin 1,000 mcg 02/26/20 09:00 02/26/20 11:45 Cyanocobalamin (Vitamin B-12) 1,000 Mcg Tab PO Not Given DAILY CLAY Dexamethasone 6 mg 02/11/20 09:00 02/26/20 10:56 Dexamethasone 4 Mg/Ml Vial SLOW IVP 6 mg DAILY CLAY Administration Famotidine 20 mg 02/10/20 21:00 02/26/20 11:47 Famotidine 20 Mg Tab PO Not Given BID CLAY Folic Acid 1 mg 02/26/20 09:00 02/26/20 11:47 Folic Acid 1 Mg Tab PO Not Given DAILY [facility] Guaifenesin 200 mg 02/11/20 08:36 02/15/20 05:12 Diabetic Tussin 200 Mg/10 Ml Udcup PO 200 mg Q4H PRN Administration Cough Micafungin Sodium 100 mg/ 100 mls @ 100 mls/hr 02/24/20 15:00 02/26/20 14:38 Sodium Chloride IVPB 100 mls Q24H CLAY Administration Piperacillin Sod/Tazobactam 100 mls @ 200 mls/hr 02/25/20 23:59 02/26/20 10:57 Sod 3.375 gm/ Sodium Chloride IVPB 100 mls Q6HR CLAY Administration Dextrose/Sodium Chloride 1,000 mls @ 75 mls/hr 02/26/20 09:30 02/26/20 10:55 D5 1/2 Ns IV 1,000 mls .[id number] CLAY Administration Levothyroxine Sodium 125 mcg 02/11/20 06:00 02/26/20 07:13 Levothyroxine Sodium 125 Mcg Tab PO Not Given 0600 CLAY Senna/Docusate Sodium 2 tab 02/10/20 11:33 02/16/20 19:55 Senokot S 8.6-50 Mg Tab PO 2 tab BIDPRN PRN Administration Constipation Sodium Chloride 10 ml 02/10/20 11:33 02/22/20 21:51 Flush - Normal Saline 10 Ml Syringe IVF 10 ml PRN PRN Administration Saline Flush Tamsulosin HCl 0.4 mg 02/10/20 21:00 02/25/20 21:16 Tamsulosin Hcl 0.4 Mg Cap PO Not Given HS CLAY Zinc Sulfate 220 mg 02/15/20 09:00 02/26/20 11:47 Zinc Sulfate 220 Mg Cap PO Not Given DAILY CLAY Zolpidem Tartrate 5 mg 02/11/20 08:36 02/23/20 21:36 Zolpidem Tartrate 5 Mg Tab PO 5 mg HSPRN PRN Administration Insomnia - Exam General Appearance: NAD General - other findings: slightly drowsy, on BIPAP Eye: PERRL, anicteric sclera ENT: normocephalic atraumatic, no oropharyngeal lesions Neck: no JVD Heart: RRR, no murmur, no gallops, no rubs Respiratory: CTAB, no wheezes, no rales, no ronchi Gastrointestinal: soft, non-tender, non-distended, normal bowel sounds Extremities: no cyanosis, no clubbing, no edema Skin: normal turgor, no lesions, no rashes Hosp A/P - Plan Chest X ray: more diffuse pneumonia This is a 64 year old male diagnosed with COVID Acute hypoxic respiratory failure secondary to COVID pneumonia - repeat chest X ray 02/22 show more diffuse pneumonia - s/p remdesivir 02/09 to 02/13 - continue IV dexamethasone and lovenox 40 mg SC BID - continue doxycycline ( D1 02/22), micafungin (D1 02/23) and zosyn day 2. WBC has improved from 17 to 14. CRP has increased to 256? Hyponatremia - resolved B12 and folate deficiency anemia - vitamin B12 < 200, folate low. Started IM vitamin B12, then switch to oral B12 - start folic acid supplementation. Intrinsic factor antibody pending Transaminitis - LFT dowtnrended, will repeat to see if normalized
[2020-02-26] MEDS: Enoxaparin Sodium 80 MG/0.8 ML SYRINGE SC SCH (20:22)
[2020-02-26] MEDS ORDERED: Doxycycline 100 MG in Syringe 0 ML IVPB SCH (21:00)
[2020-02-26] MEDS: Tamsulosin HCl 0.4 MG CAP PO SCH (22:19)
[2020-02-27] MEDS: Albuterol 200 PUFF (6.7GM INHALER) INH SCH ×5 (03:00→23:51)
[2020-02-27] MEDS: Levothyroxine Sodium 125 MCG TAB PO SCH (05:01)
[2020-02-27] MEDS: Piperacillin/Tazobactam 3.375 GM in Sodium Chloride 0.9% 100 ML IVPB SCH ×4 (05:33→23:24)
[2020-02-27] MEDS: Cholecalciferol 1,000 UNITS (25 MCG) TAB PO SCH (07:19)
[2020-02-27] MEDS: Ascorbic Acid 500 mg Chewable Tablet PO SCH (07:19)
[2020-02-27] MEDS: Aspirin 81 mg Enteric Coated Tablet PO SCH (07:19)
[2020-02-27] MEDS: Famotidine 20 MG TAB PO SCH ×2 (07:20→21:25)
[2020-02-27] MEDS: Zinc Sulfate 220 MG CAP PO SCH (07:20)
[2020-02-27] MEDS: Folic Acid 1 MG TAB PO SCH (07:20)
[2020-02-27] MEDS: Cyanocobalamin (Vitamin B-12) 1,000 MCG TAB PO SCH (07:20)
[2020-02-27] MEDS: Dexamethasone 4 mg/ml Vial SLOW IVP SCH (07:42)
[2020-02-27] MEDS: Enoxaparin Sodium 80 MG/0.8 ML SYRINGE SC SCH ×2 (07:42→21:25)
--- NOTE | 2020-02-27 09:03 | PRG ---
DATE OF SERVICE: 02/27/2020 SUBJECTIVE: The patient is on BiPAP. His is at his bedside. He seems to be doing reasonably well. OBJECTIVE: VITAL SIGNS: On exam, temperature 97.6, pulse 79, blood pressure 141/92. He is on BiPAP 14/7 with FiO2 of 87%. His O2 saturations were running in the mid 90s. HEENT: Unremarkable. NECK: No JVD. LUNGS: Inspiratory crackles. CARDIAC: S1 and S2. Regular. ABDOMEN: Soft. EXTREMITIES: No edema. ASSESSMENT: 1. COVID-19 pneumonia. 2. Acute respiratory failure requiring noninvasive mechanical ventilation. 3. Question of secondary infection. PLAN: We are going to trial him on high-flow oxygen later today, see if we can get some nutrition in him. If he cannot get nutrition in that way, then I think he is at the point where he probably needs to have a Dobhoff tube and start tube feedings. We are continuing the dexamethasone and the anticoagulation. Prognosis is guarded. Job ID: [id number]
[2020-02-27] MEDS: Dextrose 5 %-0.45 % NaCl 1,000 ML IV SCH (11:00)
[2020-02-27] MEDS: Lorazepam 2 MG/ML VIAL SLOW IVP PRN (11:00)
[2020-02-27 14:00] LABS: Hemoglobin 16.2 g/dL (14.0-18.0); Mean Corpuscular HGB CONC 32.6 g/dL (32.0-36.0); Mean Corpuscular Hemoglobin 30.5 pg (27.0-31.0); Mean Corpuscular Volume 93.7 fL (78.0-98.0); Platelet Count 234 thou/uL (130-400); RBC Distribution Width 13.7 % (11.5-14.5); Red Blood Cell (RBC) Count 5.31 mill/uL (4.70-6.10); White Blood Cell (WBC) Count 16.1 thou/uL (4.8-10.8)
[2020-02-27] MEDS: Micafungin 100 MG in Sodium Chloride 0.9% 100 ML IVPB SCH (16:05)
--- NOTE | 2020-02-27 17:25 | PDOC.HOSPP ---
- Subjective Encounter Date: 02/27/20 Encounter Time: 11:00 Subjective: F/u: COVID The patient was on high flow nasal cannula this morning with saturations 83- 85%. They had just taken him off BIPAP to get him to eat. The patient states he had extensive gunk all inside of his mouth due to wearing BIPAP for days and his mouth being dry. His back is hurting from being in bed all the time. - Objective Vital Signs & Weight: Vital Signs (12 hours) Temp Pulse Pulse Ox 02/27/20 14:11 105 H 02/27/20 12:36 83 L 02/27/20 12:00 97.4 F L 02/27/20 10:38 90 02/27/20 07:27 93 L 02/27/20 07:18 97.6 F 02/27/20 07:08 97 02/27/20 04:00 98.0 F Weight Admit Weight 250 lb 0.067 oz Weight 250 lb 0.067 oz Most Recent Monitor Data Heart Rate from ECG 96 NIBP 146/90 NIBP BP-Mean 108 Respiration from ECG 28 SpO2 92 I&O: 02/26/20 02/27/20 02/28/20 06:59 06:59 06:59 Intake Total 575 1696 Output Total 700 925 Balance -125 771 Result Diagrams: 02/27/20 13:40 02/26/20 03:50 Hospitalist ROS - Review of Systems Constitutional: denies: fever, chills - Medication Medications: Active Medications Generic Name Dose Route Start Last Admin Trade Name Freq PRN Reason Stop Dose Admin Acetaminophen 650 mg 02/10/20 11:33 02/23/20 13:30 Acetaminophen 325 Mg Tab PO 650 mg Q4H PRN Administration Headache/Fever/Mild Pain (1-3) Albuterol Sulfate 2 puff 02/10/20 14:30 02/27/20 14:09 Albuterol 200 Puff (6.7gm Inhaler) INH 2 puff [id number] CLAY Administration Ascorbic Acid 1,000 mg 02/15/20 09:00 02/27/20 07:19 Ascorbic Acid 500 Mg Chewable Tablet PO Not Given DAILY CLAY Aspirin 81 mg 02/11/20 09:00 02/27/20 07:19 Aspirin 81 Mg Enteric Coated Tablet PO Not Given DAILY CLAY Benzonatate 100 mg 02/11/20 08:36 02/14/20 20:39 Benzonatate 100 Mg Cap PO 100 mg Q6H PRN Administration Cough Cholecalciferol 5,000 units 02/16/20 09:00 02/27/20 07:19 Cholecalciferol 1,000 Units (25 Mcg) Tab PO Not Given DAILY CLAY Cyanocobalamin 1,000 mcg 02/26/20 09:00 02/27/20 07:20 Cyanocobalamin (Vitamin B-12) 1,000 Mcg Tab PO Not Given DAILY CLAY Dexamethasone 6 mg 02/11/20 09:00 02/27/20 07:42 Dexamethasone 4 Mg/Ml Vial SLOW IVP 6 mg DAILY CLAY Administration Enoxaparin Sodium 70 mg 02/26/20 21:00 02/27/20 07:42 Enoxaparin Sodium 80 Mg/0.8 Ml Syringe SC 70 mg [id number] CLAY Administration Famotidine 20 mg 02/10/20 21:00 02/27/20 07:20 Famotidine 20 Mg Tab PO Not Given BID CLAY Folic Acid 1 mg 02/26/20 09:00 02/27/20 07:20 Folic Acid 1 Mg Tab PO Not Given DAILY [facility] Guaifenesin 200 mg 02/11/20 08:36 02/15/20 05:12 Diabetic Tussin 200 Mg/10 Ml Udcup PO 200 mg Q4H PRN Administration Cough Micafungin Sodium 100 mg/ 100 mls @ 100 mls/hr 02/24/20 15:00 02/26/20 14:38 Sodium Chloride IVPB 100 mls Q24H CLAY Administration Piperacillin Sod/Tazobactam 100 mls @ 200 mls/hr 02/25/20 23:59 02/27/20 10:59 Sod 3.375 gm/ Sodium Chloride IVPB 100 mls Q6HR CLAY Administration Dextrose/Sodium Chloride 1,000 mls @ 75 mls/hr 02/26/20 09:30 02/27/20 11:00 D5 1/2 Ns IV 1,000 mls .[id number] CLAY Administration Doxycycline Hyclate 100 mg/ 100 mls @ 100 mls/hr 02/26/20 21:00 02/27/20 09:36 Sodium Chloride IVPB 100 mls Q12HR CLAY Administration Levothyroxine Sodium 125 mcg 02/11/20 06:00 02/27/20 05:01 Levothyroxine Sodium 125 Mcg Tab PO Not Given 0600 CLAY Lorazepam 0.5 mg 02/26/20 09:19 02/27/20 11:00 Lorazepam 2 Mg/Ml Vial SLOW IVP 0.5 mg Q6H PRN Administration Anxiety/Agitation Senna/Docusate Sodium 2 tab 02/10/20 11:33 02/16/20 19:55 Senokot S 8.6-50 Mg Tab PO 2 tab BIDPRN PRN Administration Constipation Sodium Chloride 10 ml 02/10/20 11:33 02/22/20 21:51 Flush - Normal Saline 10 Ml Syringe IVF 10 ml PRN PRN Administration Saline Flush Tamsulosin HCl 0.4 mg 02/10/20 21:00 02/26/20 22:19 Tamsulosin Hcl 0.4 Mg Cap PO Not Given HS CLAY Zinc Sulfate 220 mg 02/15/20 09:00 02/27/20 07:20 Zinc Sulfate 220 Mg Cap PO Not Given DAILY [facility]LAY Zolpidem Tartrate 5 mg 02/11/20 08:36 02/23/20 21:36 Zolpidem Tartrate 5 Mg Tab PO 5 mg HSPRN PRN Administration Insomnia - Exam General Appearance: NAD, awake alert Eye: PERRL, anicteric sclera ENT: normocephalic atraumatic, no oropharyngeal lesions Neck: no JVD Heart: RRR, no murmur, no gallops, no rubs Respiratory: no rales, no ronchi Respiratory - other findings: mildly diminished Gastrointestinal: soft, non-tender, non-distended, normal bowel sounds Extremities: no cyanosis, no clubbing, no edema Hosp A/P - Plan Chest X ray: more diffuse pneumonia This is a 64 year old male diagnosed with COVID Acute hypoxic respiratory failure secondary to COVID pneumonia - repeat chest X ray 02/22 show more diffuse pneumonia. He received remdesivir 02/09 to 02/13 - continue IV dexamethasone and lovenox 40 mg SC BID - continue doxycycline ( D1 02/22), micafungin (D1 02/23) and zosyn day 3. WBC increased again to 16, but will monitor . His ferritin and CRP are increasing, but clinically appears slightly better Hyponatremia - resolved B12 and folate deficiency anemia - vitamin B12 < 200, folate low. Started IM vitamin B12, then switch to oral B12 - start folic acid supplementation. Intrinsic factor antibody pending Transaminitis - resolved
[2020-02-27] MEDS: Zolpidem Tartrate 5 MG TAB PO PRN (21:25)
[2020-02-27] MEDS: Tamsulosin HCl 0.4 MG CAP PO SCH (21:25)
[2020-02-28] MEDS: Albuterol 200 PUFF (6.7GM INHALER) INH SCH ×6 (01:06→22:42)
[2020-02-28] MEDS: Lorazepam 2 MG/ML VIAL SLOW IVP PRN ×2 (01:46→03:41)
[2020-02-28 02:15] LABS: Actual Bicarbonate (HCO3a) 23.4 mEq/L (22-28); Base Excess (BEa) -1.3 mEq/L (-2.0 to +3.0); CO2 Tension 39.6 mmHg (35.0-45.0); Calcium, Ionized (arterial) 1.18 mmol/L (1.12-1.30); Carboxyhemoglobin (COHb) 1.5 gm% (0.0-3.0); Hemoglobin (Hb) 16.6 g/dL (14.0-18.0); Potassium - ABG Lab 3.95 mmol/L (3.70-5.30); pH, Arterial 7.39 (7.35-7.45)
[2020-02-28] MEDS ORDERED: Propofol 1,000 MG/100 ML VIAL IV ONE (02:41)
[2020-02-28 03:02] LABS: O2 Tension (PaO2), arterial 47.4 mmHg (> 80.0)
[2020-02-28 03:03] LABS: Puncture Site RBA
[2020-02-28] MEDS ORDERED: Morphine 2 MG/ML VIAL SLOW IVP PRN (03:30)
[2020-02-28] MEDS ORDERED: DISCONTINUE PREVIOUS NARCOTIC PAIN MEDICATIONS AND BENZODIAZEPINES FS SCH (03:30)
[2020-02-28] MEDS ORDERED: Fentanyl BOLUS 250 ML IVPB PRN (03:30)
[2020-02-28] MEDS ORDERED: Propofol BOLUS 1,000 MG/100 ML VIAL IV PRN (03:30)
[2020-02-28] MEDS: Dextrose 5 %-0.45 % NaCl 1,000 ML IV SCH ×3 (03:40→21:06)
[2020-02-28] MEDS: Propofol 1,000 MG/100 ML VIAL IV PRN ×5 (03:41→17:20)
[2020-02-28] MEDS: fentaNYL Citrate/PF 2,000 MCG in Sodium Chloride 0.9% 60 ML IV SCH ×2 (03:43→15:06)
[2020-02-28] MEDS ORDERED: Sterile Water 10 ML ONE ×3 (03:44→07:29)
[2020-02-28] MEDS ORDERED: Vecuronium 10 MG VIAL ONE (03:44)
[2020-02-28 04:07] LABS: Platelet Count 216 thou/uL (130-400)
[2020-02-28 04:47] LABS: Calc. Creatinine Clearance 179 mL/min (70-130)
[2020-02-28] MEDS: Piperacillin/Tazobactam 3.375 GM in Sodium Chloride 0.9% 100 ML IVPB SCH ×3 (05:09→17:18)
[2020-02-28] MEDS: Vecuronium 10 MG VIAL IV PRN ×8 (05:09→17:21)
[2020-02-28] MEDS: Levothyroxine Sodium 125 MCG TAB PO SCH ×2 (06:38→09:10)
[2020-02-28 07:04] LABS: Actual Bicarbonate (HCO3a) 26.8 mEq/L (22-28); Base Excess (BEa) -3.3 mEq/L (-2.0 to +3.0); Calcium, Ionized (arterial) 1.21 mmol/L (1.12-1.30); Carboxyhemoglobin (COHb) 1.4 gm% (0.0-3.0); Hemoglobin (Hb) 15.9 g/dL (14.0-18.0); O2 Tension (PaO2), arterial 84.8 mmHg (> 80.0)
[2020-02-28 07:05] LABS: Puncture Site LRA
[2020-02-28] MEDS ORDERED: Vecuronium 10 MG VIAL IVP PRN (07:29)
[2020-02-28] MEDS: Sterile Water 10 ML VIAL IVP PRN ×5 (07:33→17:21)
--- NOTE | 2020-02-28 07:53 | RAD ---
Chest AP view INDICATION: ET tube placement COMPARISON: Prior exam dated February 23, 2020 FINDINGS: Lungs: Bilateral airspace disease most prominent within the left lower lobe is stable Cardiac silhouette: Mild cardiomegaly persists Pulmonary vasculature: Mild pulmonary vascular congestion persist Pleural spaces: Slightly increased bilateral pleural effusions, small in size. Upper abdomen: There is now a gastric catheter projecting below left hemidiaphragm and beyond the fi eld-of-view. Osseous structures: No acute osseous abnormality. Additional findings: Patient is not intubated with the ET tube tip seen 4 cm above the level of the kemar. IMPRESSION: 1. Persistent bilateral airspace disease suspicious for component pneumonia and alveolar edema. 2. Mild cardiomegaly with pulmonary vascular congestion and now slightly increased bilateral pleural effusions suggest a component of CHF. 3. Interval intubation and gastric catheter placement. 4. No pneumothorax.
--- NOTE | 2020-02-28 07:54 | PRG ---
DATE OF SERVICE: 02/28/2020 This is a 35 minutes critical care time. SUBJECTIVE: The patient finally decompensated to the point last night where he had to be taken to the CCU and intubated. He is now about to be placed in prone positioning. OBJECTIVE: VITAL SIGNS: Temperature 98.5, pulse 120, blood pressure 104/70. He is currently off propofol 40 mcg/kg/minute, 24 intake 1237, output 250. HEENT: Unremarkable. NECK: No JVD. LUNGS: Have poor crackles bilaterally. CARDIAC: S1 and S2. Slightly tachycardic. ABDOMEN: Soft and nontender. EXTREMITIES: No edema. IMAGING STUDIES: His x-ray shows diffuse bilateral infiltrates, which largely unchanged. LABORATORY DATA: ABG; pH 7.2, pCO2 of 71, pO2 of 84, that is on SIMV rate 18, tidal volume 500, PEEP 12, FiO2 of 100%. Hematocrit 48.4, and platelet count 216. Ferritin level 820. ASSESSMENT: 1. COVID-19 pneumonia with progressive respiratory failure. 2. Protein-calorie malnutrition. 3. Acute respiratory failure requiring mechanical ventilation. PLAN: 1. I will have the patient placed in prone positioning today. I will try to convert him over to a midazolam drip rather than the propofol drip. 2. Start tube feeds as he has been unable to eat for quite some time. 3. Convert dexamethasone over to hydrocortisone and see if he has a better response to that. 4. Prognosis is very guarded at this time. Job ID: [id number]
[2020-02-28] MEDS: Hydrocortisone Sod Succ/PF 100 mg/2 ml Vial IVP SCH ×2 (09:02→20:57)
[2020-02-28] MEDS: Famotidine 20 MG TAB PO SCH (09:10)
[2020-02-28] MEDS: Ascorbic Acid 500 mg Chewable Tablet PO SCH (09:10)
[2020-02-28] MEDS: Enoxaparin Sodium 80 MG/0.8 ML SYRINGE SC SCH ×2 (09:10→20:58)
[2020-02-28] MEDS: Aspirin 81 mg Enteric Coated Tablet PO SCH (09:10)
[2020-02-28] MEDS: Zinc Sulfate 220 MG CAP PO SCH (09:11)
[2020-02-28] MEDS: Famotidine/PF 20 mg/2ml Vial SLOW IVP SCH ×2 (09:13→20:57)
[2020-02-28] MEDS: Cyanocobalamin (Vitamin B-12) 1,000 MCG TAB PO SCH (09:14)
[2020-02-28] MEDS: Folic Acid 1 MG TAB PO SCH (09:14)
[2020-02-28] MEDS: Cholecalciferol 1,000 UNITS (25 MCG) TAB PO SCH (10:15)
[2020-02-28] MEDS: Micafungin 100 MG in Sodium Chloride 0.9% 100 ML IVPB SCH (14:45)
--- NOTE | 2020-02-28 16:28 | PDOC.HOSPP ---
- Subjective Encounter Date: 02/28/20 Encounter Time: 15:00 Subjective: F/u: COVID The patient was intubated overnight. The patient is currently in the prone position - Objective Vital Signs & Weight: Vital Signs (12 hours) Temp Pulse Resp BP Pulse Ox 02/28/20 16:00 25 H 02/28/20 15:49 91 94/69 02/28/20 15:00 97.9 F 02/28/20 14:00 25 H 02/28/20 12:00 98.0 F 25 H 02/28/20 10:51 106 H 102/67 02/28/20 10:00 25 H 02/28/20 08:00 25 H 93 L 02/28/20 07:00 98.4 F 02/28/20 06:54 117 H 104/70 02/28/20 06:00 18 Weight Admit Weight 250 lb 0.067 oz Weight 218 lb 0.595 oz Most Recent Monitor Data Heart Rate from ECG 91 NIBP 97/67 NIBP BP-Mean 77 Respiration from ECG 25 SpO2 93 I&O: 02/27/20 02/28/20 02/29/20 06:59 06:59 06:59 Intake Total 1696 1237 387 Output Total 925 250 520 Balance 771 987 -133 Result Diagrams: 02/28/20 03:36 02/28/20 03:36 Additional Labs: Accuchecks 02/28/20 02/28/20 13:18 03:34 POC Glucose 150 H 114 H Hospitalist ROS - Review of Systems Constitutional: denies: fever, chills - Medication Medications: Active Medications Generic Name Dose Route Start Last Admin Trade Name Freq PRN Reason Stop Dose Admin Acetaminophen 650 mg 02/10/20 11:33 02/23/20 13:30 Acetaminophen 325 Mg Tab PO 650 mg Q4H PRN Administration Headache/Fever/Mild Pain (1-3) Albuterol Sulfate 2 puff 02/10/20 14:30 02/28/20 15:49 Albuterol 200 Puff (6.7gm Inhaler) INH 2 puff [id number] CLAY Administration Ascorbic Acid 1,000 mg 02/15/20 09:00 02/28/20 09:10 Ascorbic Acid 500 Mg Chewable Tablet PO 1,000 mg DAILY CLAY Administration Aspirin 81 mg 02/11/20 09:00 02/28/20 09:10 Aspirin 81 Mg Enteric Coated Tablet PO 81 mg DAILY CLAY Administration Benzonatate 100 mg 02/11/20 08:36 02/14/20 20:39 Benzonatate 100 Mg Cap PO 100 mg Q6H PRN Administration Cough Cholecalciferol 5,000 units 02/16/20 09:00 02/28/20 10:15 Cholecalciferol 1,000 Units (25 Mcg) Tab PO 5,000 units DAILY CLAY Administration Cyanocobalamin 1,000 mcg 02/26/20 09:00 02/28/20 09:14 Cyanocobalamin (Vitamin B-12) 1,000 Mcg Tab PO 1,000 mcg DAILY CLAY Administration Enoxaparin Sodium 70 mg 02/26/20 21:00 02/28/20 09:10 Enoxaparin Sodium 80 Mg/0.8 Ml Syringe SC 70 mg [id number] CLAY Administration Famotidine 20 mg 02/28/20 09:00 02/28/20 09:13 Famotidine/Pf 20 Mg/2ml Vial SLOW IVP Not Given Q12HR CLAY Folic Acid 1 mg 02/26/20 09:00 02/28/20 09:14 Folic Acid 1 Mg Tab PO 1 mg DAILY CLAY Administration Guaifenesin 200 mg 02/11/20 08:36 02/15/20 05:12 Diabetic Tussin 200 Mg/10 Ml Udcup PO 200 mg Q4H PRN Administration Cough Hydrocortisone Sodium Succinate 100 mg 02/28/20 09:00 02/28/20 09:02 Hydrocortisone Sod Succ/Pf 100 Mg/2 Ml Vial IVP 100 mg Q12HR CLAY Administration Micafungin Sodium 100 mg/ 100 mls @ 100 mls/hr 02/24/20 15:00 02/28/20 14:45 Sodium Chloride IVPB 100 mls Q24H CLAY Administration Piperacillin Sod/Tazobactam 100 mls @ 200 mls/hr 02/25/20 23:59 02/28/20 11:30 Sod 3.375 gm/ Sodium Chloride IVPB 100 mls Q6HR CLAY Administration Dextrose/Sodium Chloride 1,000 mls @ 75 mls/hr 02/26/20 09:30 02/28/20 03:46 D5 1/2 Ns IV 1,000 mls .[id number] CLAY Administration Fentanyl Citrate 2,000 mcg/ 100 mls @ 0 mls/hr 02/28/20 03:30 02/28/20 15:06 Sodium Chloride IV 03/29/20 03:30 100 mls INF CLAY Administration Protocol Per Protocol Midazolam HCl 100 mg/ Sodium 100 mls @ 0 mls/hr 02/28/20 08:00 02/28/20 10:07 Chloride IVPB 100 mls INF PRN Administration Sedation Protocol As Directed Levothyroxine Sodium 125 mcg 02/11/20 06:00 02/28/20 09:10 Levothyroxine Sodium 125 Mcg Tab PO 125 mcg 0600 CLAY Administration Lorazepam 2 mg 02/28/20 03:30 02/28/20 03:41 Lorazepam 2 Mg/Ml Vial SLOW IVP 03/29/20 03:30 2 mg Q1H PRN Administration Breakthrough agitation Propofol 1,000 mg 02/28/20 03:30 02/28/20 13:21 Propofol 1,000 Mg/100 Ml Vial IV 03/29/20 03:30 1,000 mg INF PRN Administration TO ACHIEVE GOAL RASS Protocol Senna/Docusate Sodium 2 tab 02/10/20 11:33 02/16/20 19:55 Senokot S 8.6-50 Mg Tab PO 2 tab BIDPRN PRN Administration Constipation Sodium Chloride 10 ml 02/10/20 11:33 02/22/20 21:51 Flush - Normal Saline 10 Ml Syringe IVF 10 ml PRN PRN Administration Saline Flush Sterile Water 10 ml 02/28/20 03:54 02/28/20 11:29 Sterile Water 10 Ml Vial IVP 10 ml Q30MIN PRN Administration NEEDED FOR RECONSTITUTION Tamsulosin HCl 0.4 mg 02/10/20 21:00 02/27/20 21:25 Tamsulosin Hcl 0.4 Mg Cap PO 0.4 mg HS CLAY Administration Vecuronium [place] 10 mg 02/28/20 03:54 02/28/20 15:09 Vecuronium 10 Mg Vial IV 10 mg Q30MIN PRN Administration SPASM Zinc Sulfate 220 mg 02/15/20 09:00 02/28/20 09:11 Zinc Sulfate 220 Mg Cap PO 220 mg DAILY CLAY Administration - Exam General - other findings: intubated, in prone position ENT: normocephalic atraumatic, no oropharyngeal lesions Neck: no JVD Heart: RRR, no murmur, no gallops, no rubs Respiratory: CTAB, no wheezes, no rales, no ronchi Gastrointestinal: soft, non-tender, non-distended, normal bowel sounds Extremities: no cyanosis, no clubbing, no edema Skin: normal turgor, no lesions, no rashes Hosp A/P - Plan Chest X ray: more diffuse pneumonia This is a 64 year old male diagnosed with COVID Acute hypoxic respiratory failure secondary to COVID pneumonia - repeat chest X ray 02/22 show more diffuse pneumonia. He received remdesivir 02/09 to 02/13 - continue IV dexamethasone and lovenox 40 mg SC BID - micafungin (D1 02/23) and zosyn day (D1 02/24). WBC increased again to 16, will repeat today. Ferritin downtrending Hyponatremia - resolved B12 and folate deficiency anemia - vitamin B12 < 200, folate low. Got one dose of vitamin B12, then switch to oral B12 - start folic acid supplementation. Intrinsic factor antibody pending Transaminitis - resolved
[2020-02-28 17:23] LABS: White Blood Cell (WBC) Count 17.2 thou/uL (4.8-10.8)
[2020-02-28] MEDS: Tamsulosin HCl 0.4 MG CAP PO SCH (20:57)
[2020-02-29] MEDS: Piperacillin/Tazobactam 3.375 GM in Sodium Chloride 0.9% 100 ML IVPB SCH ×5 (00:12→23:52)
[2020-02-29] MEDS ORDERED: Vecuronium 10 MG VIAL ONE ×2 (01:56→04:21)
[2020-02-29] MEDS ORDERED: Sterile Water 10 ML ONE ×2 (01:59→04:22)
[2020-02-29] MEDS: Vecuronium 10 MG VIAL IV PRN (02:00)
[2020-02-29] MEDS: Sterile Water 10 ML VIAL IVP PRN (02:01)
[2020-02-29] MEDS: Albuterol 200 PUFF (6.7GM INHALER) INH SCH ×6 (02:48→23:00)
[2020-02-29] MEDS: fentaNYL Citrate/PF 2,000 MCG in Sodium Chloride 0.9% 60 ML IV SCH ×2 (03:43→17:17)
[2020-02-29 03:55] LABS: #Basophils 0.1 thou/uL (0.0-0.2); #Lymphocytes 0.3 thou/uL (1.20-3.40); #Monocytes 0.4 thou/uL (0.11-0.59); #Neutrophils 9.6 thou/uL (1.40-6.50); %Basophils 0.8 % (0.0-1.0); %Eosinophils 0.2 % (0.0-10.0); %Lymphocytes 2.5 % (21.0-51.0); %Monocytes 3.5 % (0.0-10.0); %Neutrophils 92.9 % (42.0-75.0); Hemoglobin 14.2 g/dL (14.0-18.0); Mean Corpuscular HGB CONC 32.8 g/dL (32.0-36.0); Mean Corpuscular Volume 94.5 fL (78.0-98.0); Mean Platelet Volume 8.5 fL (7.4-10.4); Platelet Count 155 thou/uL (130-400); RBC Distribution Width 13.8 % (11.5-14.5); Red Blood Cell (RBC) Count 4.58 mill/uL (4.70-6.10); White Blood Cell (WBC) Count 10.3 thou/uL (4.8-10.8)
[2020-02-29 04:11] LABS: Anion Gap 14 mmol/L (10-20); BUN (Urea Nitrogen) 22 mg/dL (8.4-25.7); Calc. Creatinine Clearance 168 mL/min (70-130); Calcium 8.1 mg/dL (7.8-10.44); Carbon Dioxide 22 mmol/L (23-31); Chloride 104 mmol/L (98-107); Glucose 127 mg/dL (80-115); Potassium 4.8 mmol/L (3.5-5.1); Sodium 135 mmol/L (136-145)
[2020-02-29 07:08] LABS: Actual Bicarbonate (HCO3a) 24.7 mEq/L (22-28); Base Excess (BEa) -1.7 mEq/L (-2.0 to +3.0); CO2 Tension 48.3 mmHg (35.0-45.0); Carboxyhemoglobin (COHb) 1.8 gm% (0.0-3.0); Hemoglobin (Hb) 14.6 g/dL (14.0-18.0); O2 Tension (PaO2), arterial 101.2 mmHg (> 80.0); Potassium - ABG Lab 4.36 mmol/L (3.70-5.30); pH, Arterial 7.33 (7.35-7.45)
[2020-02-29 07:12] LABS: ALV-art Gradient 551.425 mmHg (0-20); Puncture Site RRA
--- NOTE | 2020-02-29 08:29 | PRG ---
DATE OF SERVICE: 02/29/2020 35 minutes critical care time. SUBJECTIVE: The patient remains intubated on mechanical ventilation in a prone position for COVID-19 pneumonia. OBJECTIVE: VITAL SIGNS: His temperature is 97.2, pulse 72, blood pressure 91/58, O2 saturation 99%. Total intake 1914, output 1180. HEENT: Difficult to assess because he is in a prone position. NECK: No adenopathy or JVD. LUNGS: Inspiratory crackles. CARDIAC: S1 and S2 regular. ABDOMEN: Soft. EXTREMITIES: Edematous. LABORATORY DATA: ABG; pH 7.33, pCO2 of 48, pO2 of 101 on bilevel rate 22, FiO2 of 100%, high pressure 32, low pressure 12, inspiratory time 1.1 second. White blood cell count 10.3, hematocrit 43.2, platelet count 155. Sodium 135, potassium 4.8, chloride 104, CO2 of 22, BUN 22, creatinine 0.6, and glucose 127. Ferritin is 820. ASSESSMENT: 1. Coronavirus disease 2019 pneumonia. 2. Prolonged respiratory failure. Intubated about 24 hours ago for respiratory arrest. The patient has had a coronavirus disease since mid January. 3. Protein-calorie malnutrition. PLAN: 1. Tube feeds were started yesterday. 2. To supine position later today and reassess. 3. I have adjusted some ventilator parameters in order to try to increase his mean airway pressure. 4. Continue the Mycamine and Zosyn empirically. 5. Continue hydrocortisone. 6. Prognosis extremely guarded at this point. Job ID: [id number]
--- NOTE | 2020-02-29 09:07 | RAD ---
FRONTAL RADIOGRAPH CHEST: DATE: 02/29/2020. COMPARISON: 02/28/2020. HISTORY: Pneumonia. FINDINGS: Stable endotracheal tube and nasogastric tube. Cardiac silhouette is prominent. Shallow inspiration limits detailed assessment. There is significant perihilar and bibasilar interstitial prominence wi th superimposed nonspecific airspace disease in the left lung base, not significantly changed. IMPRESSION: No significant interval change. POS: [facility]
[2020-02-29] MEDS: Cyanocobalamin (Vitamin B-12) 1,000 MCG TAB PO SCH (09:48)
[2020-02-29] MEDS: Cholecalciferol 1,000 UNITS (25 MCG) TAB PO SCH (09:48)
[2020-02-29] MEDS: Aspirin 81 mg Enteric Coated Tablet PO SCH (09:48)
[2020-02-29] MEDS: Ascorbic Acid 500 mg Chewable Tablet PO SCH (09:48)
[2020-02-29] MEDS: Enoxaparin Sodium 80 MG/0.8 ML SYRINGE SC SCH ×2 (09:48→20:56)
[2020-02-29] MEDS: Hydrocortisone Sod Succ/PF 100 mg/2 ml Vial IVP SCH ×2 (09:49→20:56)
[2020-02-29] MEDS: Micafungin 100 MG in Sodium Chloride 0.9% 100 ML IVPB SCH (09:49)
[2020-02-29] MEDS: Zinc Sulfate 220 MG CAP PO SCH (09:49)
[2020-02-29] MEDS: Levothyroxine 100 MCG SDV IVP SCH (09:49)
[2020-02-29] MEDS: Famotidine/PF 20 mg/2ml Vial SLOW IVP SCH ×2 (09:49→20:56)
[2020-02-29] MEDS: Folic Acid 1 MG TAB PO SCH (09:49)
--- NOTE | 2020-02-29 13:06 | PDOC.HOSPP ---
- Subjective Encounter Date: 02/29/20 Encounter Time: 10:00 Subjective: F/u: COVID The patient is intubated. Urine appears darker. The patient is sedated Spoke with patient's daughter visiting from [place] in the room and answered her questions - Objective Vital Signs & Weight: Vital Signs (12 hours) Pulse Resp BP Pulse Ox 02/29/20 10:32 70 133/79 02/29/20 10:00 25 H 02/29/20 08:00 25 H 92 L 02/29/20 06:56 71 92/58 L 02/29/20 06:00 25 H 02/29/20 04:00 25 H 02/29/20 02:47 73 02/29/20 02:00 25 H Weight Admit Weight 250 lb 0.067 oz Weight 218 lb 0.595 oz Most Recent Monitor Data Heart Rate from ECG 77 NIBP 129/70 NIBP BP-Mean 89 Respiration from ECG 26 SpO2 90 I&O: 02/28/20 02/29/20 03/01/20 06:59 06:59 06:59 Intake Total 1237 1914.1 Output Total 250 1180 155 Balance 987 734.1 -155 Result Diagrams: 02/29/20 03:43 02/29/20 03:43 Additional Labs: Accuchecks 02/29/20 02/28/20 09:42 13:18 POC Glucose 112 H 150 H Hospitalist ROS - Review of Systems Constitutional: denies: fever, chills - Medication Medications: Active Medications Generic Name Dose Route Start Last Admin Trade Name Freq PRN Reason Stop Dose Admin Acetaminophen 650 mg 02/10/20 11:33 02/23/20 13:30 Acetaminophen 325 Mg Tab PO 650 mg Q4H PRN Administration Headache/Fever/Mild Pain (1-3) Albuterol Sulfate 2 puff 02/10/20 14:30 02/29/20 10:31 Albuterol 200 Puff (6.7gm Inhaler) INH 2 puff [id number] CLAY Administration Ascorbic Acid 1,000 mg 02/15/20 09:00 02/29/20 09:48 Ascorbic Acid 500 Mg Chewable Tablet PO 1,000 mg DAILY CLAY Administration Aspirin 81 mg 02/11/20 09:00 02/29/20 09:48 Aspirin 81 Mg Enteric Coated Tablet PO 81 mg DAILY CLAY Administration Benzonatate 100 mg 02/11/20 08:36 02/14/20 20:39 Benzonatate 100 Mg Cap PO 100 mg Q6H PRN Administration Cough Cholecalciferol 5,000 units 02/16/20 09:00 02/29/20 09:48 Cholecalciferol 1,000 Units (25 Mcg) Tab PO 5,000 units DAILY CLAY Administration Cyanocobalamin 1,000 mcg 02/26/20 09:00 02/29/20 09:48 Cyanocobalamin (Vitamin B-12) 1,000 Mcg Tab PO 1,000 mcg DAILY CLAY Administration Enoxaparin Sodium 70 mg 02/26/20 21:00 02/29/20 09:48 Enoxaparin Sodium 80 Mg/0.8 Ml Syringe SC 70 mg CLAY Administration Famotidine 20 mg 02/28/20 09:00 02/29/20 09:49 Famotidine/Pf 20 Mg/2ml Vial SLOW IVP 20 mg Q12HR CLAY Administration Folic Acid 1 mg 02/26/20 09:00 02/29/20 09:49 Folic Acid 1 Mg Tab PO 1 mg DAILY CLAY Administration Guaifenesin 200 mg 02/11/20 08:36 02/15/20 05:12 Diabetic Tussin 200 Mg/10 Ml Udcup PO 200 mg Q4H PRN Administration Cough Hydrocortisone Sodium Succinate 100 mg 02/28/20 09:00 02/29/20 09:49 Hydrocortisone Sod Succ/Pf 100 Mg/2 Ml Vial IVP 100 mg Q12HR CLAY Administration Piperacillin Sod/Tazobactam 100 mls @ 200 mls/hr 02/25/20 23:59 02/29/20 12:26 Sod 3.375 gm/ Sodium Chloride IVPB 100 mls Q6HR CLAY Administration Dextrose/Sodium Chloride 1,000 mls @ 75 mls/hr 02/26/20 09:30 02/28/20 21:06 D5 1/2 Ns IV 1,000 mls .[id number] CLAY Administration Fentanyl Citrate 2,000 mcg/ 100 mls @ 0 mls/hr 02/28/20 03:30 02/29/20 03:43 Sodium Chloride IV 03/29/20 03:30 100 mls INF CLAY Administration Protocol Per Protocol Midazolam HCl 100 mg/ Sodium 100 mls @ 0 mls/hr 02/28/20 08:00 02/28/20 10:07 Chloride IVPB 100 mls INF PRN Administration Sedation Protocol As Directed Micafungin Sodium 100 mg/ 100 mls @ 100 mls/hr 02/29/20 09:00 02/29/20 09:49 Sodium Chloride IVPB 100 mls 0900 CLAY Administration Levothyroxine Sodium 75 mcg 02/29/20 09:00 02/29/20 09:49 Levothyroxine 100 Mcg Sdv IVP 75 mcg DAILY CLAY Administration Lorazepam 2 mg 02/28/20 03:30 02/28/20 03:41 Lorazepam 2 Mg/Ml Vial SLOW IVP 03/29/20 03:30 2 mg Q1H PRN Administration Breakthrough agitation Propofol 1,000 mg 02/28/20 03:30 02/28/20 17:20 Propofol 1,000 Mg/100 Ml Vial IV 03/29/20 03:30 1,000 mg INF PRN Administration TO ACHIEVE GOAL RASS Protocol Senna/Docusate Sodium 2 tab 02/10/20 11:33 02/16/20 19:55 Senokot S 8.6-50 Mg Tab PO 2 tab BIDPRN PRN Administration Constipation Sodium Chloride 10 ml 02/10/20 11:33 02/22/20 21:51 Flush - Normal Saline 10 Ml Syringe IVF 10 ml PRN PRN Administration Saline Flush Sterile Water 10 ml 02/28/20 03:54 02/29/20 02:01 Sterile Water 10 Ml Vial IVP 10 ml Q30MIN PRN Administration NEEDED FOR RECONSTITUTION Tamsulosin HCl 0.4 mg 02/10/20 21:00 02/28/20 20:57 Tamsulosin Hcl 0.4 Mg Cap PO 0.4 mg HS CLAY Administration Vecuronium [place] 10 mg 02/28/20 03:54 02/29/20 02:00 Vecuronium 10 Mg Vial IV 10 mg Q30MIN PRN Administration SPASM Zinc Sulfate 220 mg 02/15/20 09:00 02/29/20 09:49 Zinc Sulfate 220 Mg Cap PO 220 mg DAILY CLAY Administration - Exam General Appearance: NAD General - other findings: intubated Eye: PERRL, anicteric sclera ENT: normocephalic atraumatic, no oropharyngeal lesions Neck: no JVD Heart: RRR, no murmur, no gallops, no rubs Respiratory: CTAB, no wheezes, no rales, no ronchi Gastrointestinal: soft, non-tender, non-distended, normal bowel sounds Gastrointestinal - other findings: dark urine Extremities: no cyanosis, no clubbing, no edema Hosp A/P - Plan Chest X ray: more diffuse pneumonia This is a 64 year old male diagnosed with COVID, developed progressive respiratory failure and is now intubated. Acute hypoxic respiratory failure secondary to COVID pneumonia - repeat chest X ray 02/22 show more diffuse pneumonia. He received remdesivir 02/09 to 02/13 - continue IV dexamethasone and lovenox 40 mg SC BID - micafungin (D1 02/23) and zosyn day (D1 02/24). Leukocytosis resolved. Appreciate journal box inspector support Hyponatremia - resolved Pernicious anemia - vitamin B12 < 200, intrinsic factor positive. Continue monthly vitamin B12 Folic acid deficiency anemia - continue folic acid Transaminitis - resolved
[2020-02-29] MEDS: Lorazepam 2 MG/ML VIAL SLOW IVP PRN (13:52)
--- NOTE | 2020-02-29 14:24 | PQF ---
CLINICAL DOCUMENTATION CLARIFICATION FORM: Dear Dr. Hoffman Date: 03/01/20 Please exercise your independent, professional judgment in responding to the clarification form. Clinical indicators are provided on the bottom of this form for your review. Please check appropriate box(es): [ ] Sepsis due to: [ ] Severe sepsis with associated acute organ dysfunction: [ ] Acute Respiratory Failure [ ] Acute Kidney injury w/o ATN [ ] Acute Kidney Injury w ATN [ ] Encephalopathy (metabolic) (septic) [ ] Disseminated Intravascular Coagulopathy (DIC) [ ] Hepatic Failure [ ] Additional/Other: please specify: [ ] Septic Shock [ X] Localized infection without sepsis [ ] SIRS due to non-infectious process (please specify etiology) [ ] with organ dysfunction [ ] without organ dysfunction [ ] Other diagnosis [ ] Unable to determine In addition, please specify: Present on Admission (POA): [ X] Yes [ ] No [ ] Unable to determine For continuity of documentation, please document condition throughout progress notes and discharge summary. Thank You. To be completed by CDI/Coding staff for physician review: CLINICAL INDICATORS - SIGNS / SYMPTOMS / LABS / RESULTS AND LOCATION IN MR WBC 02/24: 17.2 CRP 02/21: 18.85 PULSE 101-117 RISK FACTORS / RESULTS AND LOCATION IN MR COVID 19 (PN 02/28-NIVIA) PNEUMONIA (PN 02/28-NIVIA) ACUTE RESPIRATORY FAILURE (PN 02/28-NIVIA) TREATMENTS / RESULTS AND LOCATION IN MR IV AZITHROMYCIN (ER) IV ROCEPHIN (ER) IV FLUIDS (ER-PRESENT) IV ZOSYN (02/24-PRESENT) BLOOD CULTURES (02/09) CCU MONITORING MECHANICAL VENTILATION CDS Signature: Lexy Zambrano RN Phone #: [phone] Date: 03/01/20 This is a permanent part of the Medical Record [facility]
[2020-02-29] MEDS: Dextrose 5 %-0.45 % NaCl 1,000 ML IV SCH (16:35)
[2020-02-29] MEDS: Tamsulosin HCl 0.4 MG CAP PO SCH (20:56)
[2020-03-01] MEDS: Albuterol 200 PUFF (6.7GM INHALER) INH SCH ×6 (02:38→21:48)
[2020-03-01 03:27] LABS: #Basophils 0.2 thou/uL (0.0-0.2); #Lymphocytes 0.2 thou/uL (1.20-3.40); #Monocytes 0.3 thou/uL (0.11-0.59); #Neutrophils 10.8 thou/uL (1.40-6.50); %Basophils 1.7 % (0.0-1.0); %Eosinophils 0.3 % (0.0-10.0); %Monocytes 2.5 % (0.0-10.0); %Neutrophils 93.5 % (42.0-75.0); Hemoglobin 14.1 g/dL (14.0-18.0); Mean Corpuscular HGB CONC 32.3 g/dL (32.0-36.0); Mean Corpuscular Hemoglobin 30.6 pg (27.0-31.0); Mean Corpuscular Volume 94.9 fL (78.0-98.0); Mean Platelet Volume 8.7 fL (7.4-10.4); Platelet Count 154 thou/uL (130-400); RBC Distribution Width 13.9 % (11.5-14.5); Red Blood Cell (RBC) Count 4.62 mill/uL (4.70-6.10); White Blood Cell (WBC) Count 11.5 thou/uL (4.8-10.8)
[2020-03-01 04:08] LABS: Anion Gap 13 mmol/L (10-20); BUN (Urea Nitrogen) 20 mg/dL (8.4-25.7); Calc. Creatinine Clearance 151 mL/min (70-130); Calcium 7.8 mg/dL (7.8-10.44); Carbon Dioxide 27 mmol/L (23-31); Chloride 101 mmol/L (98-107); Glucose 131 mg/dL (80-115); Potassium 4.3 mmol/L (3.5-5.1); Sodium 137 mmol/L (136-145)
[2020-03-01] MEDS: Piperacillin/Tazobactam 3.375 GM in Sodium Chloride 0.9% 100 ML IVPB SCH ×4 (05:26→23:36)
[2020-03-01] MEDS: Dextrose 5 %-0.45 % NaCl 1,000 ML IV SCH ×2 (05:31→17:57)
[2020-03-01] MEDS: fentaNYL Citrate/PF 2,000 MCG in Sodium Chloride 0.9% 60 ML IV SCH ×2 (06:49→19:33)
[2020-03-01] MEDS: Lorazepam 2 MG/ML VIAL SLOW IVP PRN ×5 (07:07→20:18)
[2020-03-01 07:16] LABS: Actual Bicarbonate (HCO3a) 28.5 mEq/L (22-28); CO2 Tension 42.7 mmHg (35.0-45.0); Calcium, Ionized (arterial) 1.12 mmol/L (1.12-1.30); Carboxyhemoglobin (COHb) 1.1 gm% (0.0-3.0); pH, Arterial 7.44 (7.35-7.45)
[2020-03-01 07:17] LABS: O2 Tension (PaO2), arterial 50.9 mmHg (> 80.0); Puncture Site LRA
[2020-03-01 07:18] LABS: ALV-art Gradient 359.175 mmHg (0-20)
--- NOTE | 2020-03-01 08:45 | RAD ---
PORTABLE CHEST 1 VIEW: Date: 03/01/2020 Time: 0525 hours HISTORY: Respiratory failure. COVID pneumonia. FINDINGS/IMPRESSION: Comparison made with exam of previous day. Endotracheal and nasogastric tubes remain in place. The heart size is stable. Bilateral interstitial and air space disease is again seen. No pneumothoraces or large effusions are identified. POS: OFF
[2020-03-01] MEDS: Ascorbic Acid 500 mg Chewable Tablet PO SCH (09:33)
[2020-03-01] MEDS: Aspirin 81 mg Enteric Coated Tablet PO SCH (09:34)
[2020-03-01] MEDS: Cyanocobalamin (Vitamin B-12) 1,000 MCG TAB PO SCH (09:34)
[2020-03-01] MEDS: Zinc Sulfate 220 MG CAP PO SCH (09:34)
[2020-03-01] MEDS: Folic Acid 1 MG TAB PO SCH (09:34)
[2020-03-01] MEDS: Cholecalciferol 1,000 UNITS (25 MCG) TAB PO SCH (09:34)
[2020-03-01] MEDS: Micafungin 100 MG in Sodium Chloride 0.9% 100 ML IVPB SCH (09:35)
[2020-03-01] MEDS: Enoxaparin Sodium 80 MG/0.8 ML SYRINGE SC SCH ×2 (09:35→20:17)
[2020-03-01] MEDS: Famotidine/PF 20 mg/2ml Vial SLOW IVP SCH ×2 (09:36→20:17)
[2020-03-01] MEDS: Hydrocortisone Sod Succ/PF 100 mg/2 ml Vial IVP SCH ×2 (09:36→20:17)
[2020-03-01] MEDS: Levothyroxine 100 MCG SDV IVP SCH (11:07)
--- NOTE | 2020-03-01 11:52 | PRG ---
DATE OF SERVICE: 03/01/2020 SUBJECTIVE: Mr. Escudero is a little bit better. We have been able to come off the prone position, but still requiring sedation. Current ventilator includes a rate of 25, bilevel pressure 34/13, and FiO2 of 65%. At this, he has at best saturation 95. PHYSICAL EXAMINATION: VITAL SIGNS: Blood pressure 155/83, heart rate 74, temperature 98.1, saturation 93%. HEENT: Shows no JVD. LUNGS: Coarse rhonchi without wheezes. HEART: Regular rate and rhythm, S1, S2 are distant. ABDOMEN: Soft. There is no organomegaly. EXTREMITIES: Has Trace edema. LABORATORY DATA: White count 39550, hemoglobin is 14.1 with hematocrit of 43.8, and platelet count 154,000. Chemistries include sodium 134, potassium 4.3, chloride 101, CO2 is 27, BUN 20, creatinine 0.7. Blood gas includes pH 7.44, CO2 42.7, pO2 of 51, and bicarbonate of 28. IMAGING: Chest x-ray today is reviewed by me and demonstrates lines and tubes in appropriate positions. There are bilateral infiltrates throughout the right lung and involving the left lower lung. At this point, only the left upper lung appears to be saved. When compared to the previous chest x-ray of 02/22, it is moderately improved, even given differences in technique. IMPRESSION: COVID pneumonia with hypercapnic hypoxic respiratory failure, and not dramatically improved, although now off prone positioning. PLAN: We will continue current supportive therapies with guarded prognosis. Critical care 30 minutes. Job ID: [id number]
--- NOTE | 2020-03-01 15:21 | PDOC.HOSPP ---
- Subjective Encounter Date: 03/01/20 Encounter Time: 10:45 Subjective: is on vent, sedated daughter at bedside - Objective Vital Signs & Weight: Vital Signs (12 hours) Pulse Resp BP Pulse Ox 03/01/20 14:20 74 99/70 03/01/20 14:00 33 H 03/01/20 12:00 26 H 03/01/20 10:18 74 155/83 H 03/01/20 10:00 30 H 03/01/20 08:00 28 H 92 L 03/01/20 06:55 112 H 102/66 03/01/20 06:00 25 H 03/01/20 04:00 25 H Weight Admit Weight 250 lb 0.067 oz Weight 222 lb 0.088 oz Most Recent Monitor Data Heart Rate from ECG 76 NIBP 108/70 NIBP BP-Mean 82 Respiration from ECG 19 SpO2 90 I&O: 02/29/20 03/01/20 03/02/20 06:59 06:59 06:59 Intake Total 1914.1 2613 Output Total 1180 965 640 Balance 734.1 6623 -640 Result Diagrams: 03/01/20 03:05 03/01/20 03:05 Hospitalist ROS - Medication Medications: Active Medications Generic Name Dose Route Start Last Admin Trade Name Freq PRN Reason Stop Dose Admin Acetaminophen 650 mg 02/10/20 11:33 02/23/20 13:30 Acetaminophen 325 Mg Tab PO 650 mg Q4H PRN Administration Headache/Fever/Mild Pain (1-3) Albuterol Sulfate 2 puff 02/10/20 14:30 03/01/20 14:19 Albuterol 200 Puff (6.7gm Inhaler) INH 2 puff [id number] CLAY Administration Ascorbic Acid 1,000 mg 02/15/20 09:00 03/01/20 09:33 Ascorbic Acid 500 Mg Chewable Tablet PO 1,000 mg DAILY CLAY Administration Aspirin 81 mg 02/11/20 09:00 03/01/20 09:34 Aspirin 81 Mg Enteric Coated Tablet PO 81 mg DAILY CLAY Administration Benzonatate 100 mg 02/11/20 08:36 02/14/20 20:39 Benzonatate 100 Mg Cap PO 100 mg Q6H PRN Administration Cough Cholecalciferol 5,000 units 02/16/20 09:00 03/01/20 09:34 Cholecalciferol 1,000 Units (25 Mcg) Tab PO 5,000 units DAILY CLAY Administration Cyanocobalamin 1,000 mcg 02/26/20 09:00 03/01/20 09:34 Cyanocobalamin (Vitamin B-12) 1,000 Mcg Tab PO 1,000 mcg DAILY CLAY Administration Enoxaparin Sodium 70 mg 02/26/20 21:00 03/01/20 09:35 Enoxaparin Sodium 80 Mg/0.8 Ml Syringe SC 70 mg [id number] CLAY Administration Famotidine 20 mg 02/28/20 09:00 03/01/20 09:36 Famotidine/Pf 20 Mg/2ml Vial SLOW IVP 20 mg Q12HR CLAY Administration Folic Acid 1 mg 02/26/20 09:00 03/01/20 09:34 Folic Acid 1 Mg Tab PO 1 mg DAILY CLAY Administration Guaifenesin 200 mg 02/11/20 08:36 02/15/20 05:12 Diabetic Tussin 200 Mg/10 Ml Udcup PO 200 mg Q4H PRN Administration Cough Hydrocortisone Sodium Succinate 100 mg 02/28/20 09:00 03/01/20 09:36 Hydrocortisone Sod Succ/Pf 100 Mg/2 Ml Vial IVP 100 mg Q12HR CLAY Administration Piperacillin Sod/Tazobactam 100 mls @ 200 mls/hr 02/25/20 23:59 03/01/20 11:07 Sod 3.375 gm/ Sodium Chloride IVPB 100 mls Q6HR CLAY Administration Dextrose/Sodium Chloride 1,000 mls @ 75 mls/hr 02/26/20 09:30 03/01/20 05:31 D5 1/2 Ns IV 1,000 mls .[id number] CLAY Administration Fentanyl Citrate 2,000 mcg/ 100 mls @ 0 mls/hr 02/28/20 03:30 03/01/20 06:49 Sodium Chloride IV 03/29/20 03:30 100 mls INF CLAY Administration Protocol Per Protocol Midazolam HCl 100 mg/ Sodium 100 mls @ 0 mls/hr 02/28/20 08:00 03/01/20 11:14 Chloride IVPB 100 mls INF PRN Administration Sedation Protocol As Directed Micafungin Sodium 100 mg/ 100 mls @ 100 mls/hr 02/29/20 09:00 03/01/20 09:35 Sodium Chloride IVPB 100 mls 0900 CLAY Administration Lorazepam 2 mg 02/28/20 03:30 03/01/20 09:25 Lorazepam 2 Mg/Ml Vial SLOW IVP 03/29/20 03:30 2 mg Q1H PRN Administration Breakthrough agitation Propofol 1,000 mg 02/28/20 03:30 02/28/20 17:20 Propofol 1,000 Mg/100 Ml Vial IV 03/29/20 03:30 1,000 mg INF PRN Administration TO ACHIEVE GOAL RASS Protocol Senna/Docusate Sodium 2 tab 02/10/20 11:33 02/16/20 19:55 Senokot S 8.6-50 Mg Tab PO 2 tab BIDPRN PRN Administration Constipation Sodium Chloride 10 ml 02/10/20 11:33 03/01/20 09:34 Flush - Normal Saline 10 Ml Syringe IVF 10 ml PRN PRN Administration Saline Flush Sterile Water 10 ml 02/28/20 03:54 02/29/20 02:01 Sterile Water 10 Ml Vial IVP 10 ml Q30MIN PRN Administration NEEDED FOR RECONSTITUTION Tamsulosin HCl 0.4 mg 02/10/20 21:00 02/29/20 20:56 Tamsulosin Hcl 0.4 Mg Cap PO 0.4 mg HS CLAY Administration Vecuronium [place] 10 mg 02/28/20 03:54 02/29/20 02:00 Vecuronium 10 Mg Vial IV 10 mg Q30MIN PRN Administration SPASM Zinc Sulfate 220 mg 02/15/20 09:00 03/01/20 09:34 Zinc Sulfate 220 Mg Cap PO 220 mg DAILY CLAY Administration - Exam General Appearance: ill appearing Eye: PERRL, anicteric sclera ENT: no oropharyngeal lesions, moist mucosa Neck: supple, no JVD Heart: RRR, no murmur Respiratory: no wheezes, rales, rhonchi Gastrointestinal: soft, non-tender, non-distended, normal bowel sounds Extremities: no cyanosis, no edema Neurological: cranial nerve grossly intact, no focal deficits Hosp A/P (1) Pneumonia due to COVID-19 virus Code(s): U07.1 - COVID-19; J12.89 - OTHER VIRAL PNEUMONIA Status: Acute (2) Acute respiratory failure due to COVID-19 Code(s): U07.1 - COVID-19; J96.00 - ACUTE RESPIRATORY FAILURE, UNSP W HYPOXIA OR HYPERCAPNIA Status: Acute (3) BPH (benign prostatic hyperplasia) Code(s): N40.0 - BENIGN PROSTATIC HYPERPLASIA WITHOUT LOWER URINRY TRACT SYMP Status: Chronic Qualifiers: Lower urinary tract symptom presence: symptoms absent Qualified Code(s): N40.0 - Benign prostatic hyperplasia without lower urinary tract symptoms (4) H/O Graves' disease Code(s): Z86.39 - PERSONAL HISTORY OF ENDO, NUTRITIONAL AND METABOLIC DISEASE Status: Chronic (5) Hypothyroidism (acquired) Code(s): E03.9 - HYPOTHYROIDISM, UNSPECIFIED Status: Chronic (6) Obesity (BMI 30.0-34.9) Code(s): E66.9 - OBESITY, UNSPECIFIED Status: Chronic (7) Chronic anemia Code(s): D64.9 - ANEMIA, UNSPECIFIED Status: Chronic (8) JARED (obstructive sleep apnea) Code(s): G47.33 - OBSTRUCTIVE SLEEP APNEA (ADULT) (PEDIATRIC) Status: Chronic (9) Moderate malnutrition Code(s): E44.0 - MODERATE PROTEIN-CALORIE MALNUTRITION Status: Acute - Plan is on steroids, nebs, aspirin, lovenox full dose, zosyn, micafungin, pepcid, synthroid and flomax prognosis guarded hemostable d/w daughter at bedside palliative care
[2020-03-01] MEDS: Propofol 1,000 MG/100 ML VIAL IV PRN (19:04)
[2020-03-01] MEDS: Tamsulosin HCl 0.4 MG CAP PO SCH (20:17)
[2020-03-02] MEDS: Propofol 1,000 MG/100 ML VIAL IV PRN ×4 (00:55→23:05)
[2020-03-02] MEDS: Albuterol 200 PUFF (6.7GM INHALER) INH SCH ×6 (02:36→22:37)
[2020-03-02 04:19] LABS: #Basophils 0.1 thou/uL (0.0-0.2); #Lymphocytes 0.3 thou/uL (1.20-3.40); #Monocytes 0.3 thou/uL (0.11-0.59); #Neutrophils 9.4 thou/uL (1.40-6.50); %Basophils 0.9 % (0.0-1.0); %Eosinophils 0.4 % (0.0-10.0); %Lymphocytes 3.2 % (21.0-51.0); %Monocytes 2.4 % (0.0-10.0); Hemoglobin 12.3 g/dL (14.0-18.0); Mean Corpuscular HGB CONC 33.2 g/dL (32.0-36.0); Mean Corpuscular Hemoglobin 31.1 pg (27.0-31.0); Mean Corpuscular Volume 93.8 fL (78.0-98.0); Mean Platelet Volume 8.4 fL (7.4-10.4); Platelet Count 130 thou/uL (130-400); Red Blood Cell (RBC) Count 3.95 mill/uL (4.70-6.10); White Blood Cell (WBC) Count 10.1 thou/uL (4.8-10.8)
[2020-03-02 04:38] LABS: Anion Gap 11 mmol/L (10-20); BUN (Urea Nitrogen) 17 mg/dL (8.4-25.7); Calc. Creatinine Clearance 171 mL/min (70-130); Calcium 7.5 mg/dL (7.8-10.44); Carbon Dioxide 29 mmol/L (23-31); Chloride 102 mmol/L (98-107); Glucose 127 mg/dL (80-115); Potassium 4.1 mmol/L (3.5-5.1); Sodium 138 mmol/L (136-145)
[2020-03-02] MEDS: Piperacillin/Tazobactam 3.375 GM in Sodium Chloride 0.9% 100 ML IVPB SCH ×4 (05:03→23:02)
[2020-03-02] MEDS: Levothyroxine Sodium 75 MCG TAB PO SCH (05:04)
[2020-03-02 07:00] LABS: Actual Bicarbonate (HCO3a) 27.3 mEq/L (22-28); Base Excess (BEa) 2.9 mEq/L (-2.0 to +3.0); CO2 Tension 41.3 mmHg (35.0-45.0); Calcium, Ionized (arterial) 1.12 mmol/L (1.12-1.30); Carboxyhemoglobin (COHb) 1.4 gm% (0.0-3.0); Hemoglobin (Hb) 12.9 g/dL (14.0-18.0); Potassium - ABG Lab 3.81 mmol/L (3.70-5.30); pH, Arterial 7.44 (7.35-7.45)
[2020-03-02 07:01] LABS: ALV-art Gradient 364.225 mmHg (0-20); O2 Tension (PaO2), arterial 47.6 mmHg (> 80.0); Puncture Site LRA
[2020-03-02] MEDS: Aspirin 81 mg Enteric Coated Tablet PO SCH (07:27)
[2020-03-02] MEDS: Ascorbic Acid 500 mg Chewable Tablet PO SCH (07:27)
[2020-03-02] MEDS: Folic Acid 1 MG TAB PO SCH (07:27)
[2020-03-02] MEDS: Zinc Sulfate 220 MG CAP PO SCH (07:28)
[2020-03-02] MEDS: Enoxaparin Sodium 80 MG/0.8 ML SYRINGE SC SCH ×2 (07:28→19:42)
[2020-03-02] MEDS: Famotidine/PF 20 mg/2ml Vial SLOW IVP SCH ×2 (07:28→19:43)
[2020-03-02] MEDS: Hydrocortisone Sod Succ/PF 100 mg/2 ml Vial IVP SCH ×2 (07:28→19:44)
[2020-03-02] MEDS: Cholecalciferol 1,000 UNITS (25 MCG) TAB PO SCH (07:33)
[2020-03-02] MEDS: Cyanocobalamin (Vitamin B-12) 1,000 MCG TAB PO SCH (07:33)
[2020-03-02] MEDS: Micafungin 100 MG in Sodium Chloride 0.9% 100 ML IVPB SCH (07:34)
[2020-03-02] MEDS: fentaNYL Citrate/PF 2,000 MCG in Sodium Chloride 0.9% 60 ML IV SCH (08:49)
[2020-03-02] MEDS: Dextrose 5 %-0.45 % NaCl 1,000 ML IV SCH (09:42)
--- NOTE | 2020-03-02 10:42 | RAD ---
PORTABLE CHES 1 VIEW: Date: 03/02/2020 Time: 0512 hours HISTORY: Pneumonia and respiratory failure. FINDINGS/IMPRESSION: No significant interval change is seen since the previous day's exam. POS: OFF
--- NOTE | 2020-03-02 11:41 | PRG ---
DATE OF SERVICE: 03/02/2020 SUBJECTIVE: Mr. Escudero is not significantly different today. Current ventilator settings include rate of 25, bilevel 32/13 with FiO2 of 65% at which his saturation is only 92. He remains sedated. PHYSICAL EXAMINATION: VITAL SIGNS: Blood pressure 126/78, heart rate is 65, saturation ranges 88 to 92. He is currently afebrile. NECK: There is no JVD. LUNGS: Coarse rhonchi without wheezes. There is no rub. HEART: Regular rate and rhythm. ABDOMEN: Soft. There is no organomegaly. EXTREMITIES: He has trace edema. There is no cyanosis or clubbing. LABORATORY DATA: White count 10,100, hemoglobin is 12.3 with hematocrit of 37. Chemistries include sodium 138, potassium 4.1, chloride 102, CO2 is 29, BUN 17, and creatinine 0.6. Blood gas on the ventilator settings as above include pH 7.44, CO2 of 41, PO2 of 46, and bicarbonate 27. IMAGING DATA: Chest x-ray today is reviewed by me and demonstrates faint basilar infiltrate bilaterally. The upper lung zones are fairly spared. Left heart border is not well visualized. There is no obvious effusion. There is no pneumothorax. IMPRESSION: COVID pneumonia with respiratory failure. He remains on high FiO2, but he has now developed a mild respiratory alkalosis. I will try to reduce his bilevel support from 32/13 to 28/10 and we will see if there is clinical tolerance. PLAN: Reduce bilevel support as above. Otherwise, we are in a fairly protracted phase. At some point, he is probably going to need a tracheostomy. Critical care, 30 minutes. Job ID: [id number]
--- NOTE | 2020-03-02 13:01 | PDOC.HOSPP ---
- Subjective Encounter Date: 03/02/20 Encounter Time: 11:40 Subjective: is on vent, sedated not in distress - Objective Vital Signs & Weight: Vital Signs (12 hours) Pulse Resp BP Pulse Ox 03/02/20 10:17 63 126/78 03/02/20 07:09 33 H 91 L 03/02/20 06:35 65 111/64 03/02/20 06:00 28 H 03/02/20 04:00 30 H 03/02/20 02:00 32 H Weight Admit Weight 250 lb 0.067 oz Weight 222 lb 0.088 oz Most Recent Monitor Data Heart Rate from ECG 64 NIBP 127/81 NIBP BP-Mean 96 Respiration from ECG 22 SpO2 92 I&O: 03/01/20 03/02/20 03/03/20 06:59 06:59 06:59 Intake Total 2613 3599.9 0 Output Total 965 1510 390 Balance 1648 2089.9 -390 Result Diagrams: 03/02/20 04:03 03/02/20 04:03 Hospitalist ROS - Medication Medications: Active Medications Generic Name Dose Route Start Last Admin Trade Name Freq PRN Reason Stop Dose Admin Acetaminophen 650 mg 02/10/20 11:33 02/23/20 13:30 Acetaminophen 325 Mg Tab PO 650 mg Q4H PRN Administration Headache/Fever/Mild Pain (1-3) Albuterol Sulfate 2 puff 02/10/20 14:30 03/02/20 10:16 Albuterol 200 Puff (6.7gm Inhaler) INH 2 puff [id number] CLAY Administration Ascorbic Acid 1,000 mg 02/15/20 09:00 03/02/20 07:27 Ascorbic Acid 500 Mg Chewable Tablet PO 1,000 mg DAILY CLAY Administration Aspirin 81 mg 02/11/20 09:00 03/02/20 07:27 Aspirin 81 Mg Enteric Coated Tablet PO 81 mg DAILY CLAY Administration Benzonatate 100 mg 02/11/20 08:36 02/14/20 20:39 Benzonatate 100 Mg Cap PO 100 mg Q6H PRN Administration Cough Cholecalciferol 5,000 units 02/16/20 09:00 03/02/20 07:33 Cholecalciferol 1,000 Units (25 Mcg) Tab PO 5,000 units DAILY CLAY Administration Cyanocobalamin 1,000 mcg 02/26/20 09:00 03/02/20 07:33 Cyanocobalamin (Vitamin B-12) 1,000 Mcg Tab PO 1,000 mcg DAILY CLAY Administration Enoxaparin Sodium 70 mg 02/26/20 21:00 03/02/20 07:28 Enoxaparin Sodium 80 Mg/0.8 Ml Syringe SC 70 mg 0900,2100 CLAY Administration Famotidine 20 mg 02/28/20 09:00 03/02/20 07:28 Famotidine/Pf 20 Mg/2ml Vial SLOW IVP 20 mg Q12HR CLAY Administration Folic Acid 1 mg 02/26/20 09:00 03/02/20 07:27 Folic Acid 1 Mg Tab PO 1 mg DAILY CLAY Administration Guaifenesin 200 mg 02/11/20 08:36 02/15/20 05:12 Diabetic Tussin 200 Mg/10 Ml Udcup PO 200 mg Q4H PRN Administration Cough Hydrocortisone Sodium Succinate 100 mg 02/28/20 09:00 03/02/20 07:28 Hydrocortisone Sod Succ/Pf 100 Mg/2 Ml Vial IVP 100 mg Q12HR CLAY Administration Piperacillin Sod/Tazobactam 100 mls @ 200 mls/hr 02/25/20 23:59 03/02/20 10:18 Sod 3.375 gm/ Sodium Chloride IVPB 100 mls Q6HR CLAY Administration Dextrose/Sodium Chloride 1,000 mls @ 75 mls/hr 02/26/20 09:30 03/02/20 09:42 D5 1/2 Ns IV 1,000 mls .[id number] CLAY Administration Fentanyl Citrate 2,000 mcg/ 100 mls @ 0 mls/hr 02/28/20 03:30 03/02/20 08:49 Sodium Chloride IV 03/29/20 03:30 100 mls INF CLAY Administration Protocol Per Protocol Midazolam HCl 100 mg/ Sodium 100 mls @ 0 mls/hr 02/28/20 08:00 03/01/20 11:14 Chloride IVPB 100 mls INF PRN Administration Sedation Protocol As Directed Micafungin Sodium 100 mg/ 100 mls @ 100 mls/hr 02/29/20 09:00 03/02/20 07:34 Sodium Chloride IVPB 100 mls 0900 CLAY Administration Levothyroxine Sodium 75 mcg 03/02/20 06:00 03/02/20 05:04 Levothyroxine Sodium 75 Mcg Tab PO 75 mcg 0600 CLAY Administration Lorazepam 2 mg 02/28/20 03:30 03/01/20 20:18 Lorazepam 2 Mg/Ml Vial SLOW IVP 03/29/20 03:30 2 mg Q1H PRN Administration Breakthrough agitation Propofol 1,000 mg 02/28/20 03:30 03/02/20 09:05 Propofol 1,000 Mg/100 Ml Vial IV 03/29/20 03:30 1,000 mg INF PRN Administration TO ACHIEVE GOAL RASS Protocol Senna/Docusate Sodium 2 tab 02/10/20 11:33 02/16/20 19:55 Senokot S 8.6-50 Mg Tab PO 2 tab BIDPRN PRN Administration Constipation Sodium Chloride 10 ml 02/10/20 11:33 03/01/20 20:30 Flush - Normal Saline 10 Ml Syringe IVF 10 ml PRN PRN Administration Saline Flush Sterile Water 10 ml 02/28/20 03:54 02/29/20 02:01 Sterile Water 10 Ml Vial IVP 10 ml Q30MIN PRN Administration NEEDED FOR RECONSTITUTION Tamsulosin HCl 0.4 mg 02/10/20 21:00 03/01/20 20:17 Tamsulosin Hcl 0.4 Mg Cap PO 0.4 mg HS CLAY Administration Vecuronium [place] 10 mg 02/28/20 03:54 02/29/20 02:00 Vecuronium 10 Mg Vial IV 10 mg Q30MIN PRN Administration SPASM Zinc Sulfate 220 mg 02/15/20 09:00 03/02/20 07:28 Zinc Sulfate 220 Mg Cap PO 220 mg DAILY CLAY Administration - Exam Eye: PERRL, anicteric sclera ENT: no oropharyngeal lesions, dry oral mucosa Neck: supple, no JVD Heart: RRR, no murmur Respiratory: no wheezes, no rales, rhonchi Gastrointestinal: soft, non-tender, non-distended, normal bowel sounds Extremities: no cyanosis, no edema Neurological: cranial nerve grossly intact, no focal deficits Hosp A/P (1) Pneumonia due to COVID-19 virus Code(s): U07.1 - COVID-19; J12.89 - OTHER VIRAL PNEUMONIA Status: Acute (2) Acute respiratory failure due to COVID-19 Code(s): U07.1 - COVID-19; J96.00 - ACUTE RESPIRATORY FAILURE, UNSP W HYPOXIA OR HYPERCAPNIA Status: Acute (3) BPH (benign prostatic hyperplasia) Code(s): N40.0 - BENIGN PROSTATIC HYPERPLASIA WITHOUT LOWER URINRY TRACT SYMP Status: Chronic Qualifiers: Lower urinary tract symptom presence: symptoms absent Qualified Code(s): N40.0 - Benign prostatic hyperplasia without lower urinary tract symptoms (4) H/O Graves' disease Code(s): Z86.39 - PERSONAL HISTORY OF ENDO, NUTRITIONAL AND METABOLIC DISEASE Status: Chronic (5) Hypothyroidism (acquired) Code(s): E03.9 - HYPOTHYROIDISM, UNSPECIFIED Status: Chronic (6) Obesity (BMI 30.0-34.9) Code(s): E66.9 - OBESITY, UNSPECIFIED Status: Chronic (7) Chronic anemia Code(s): D64.9 - ANEMIA, UNSPECIFIED Status: Chronic (8) JARED (obstructive sleep apnea) Code(s): G47.33 - OBSTRUCTIVE SLEEP APNEA (ADULT) (PEDIATRIC) Status: Chronic (9) Moderate malnutrition Code(s): E44.0 - MODERATE PROTEIN-CALORIE MALNUTRITION Status: Acute - Plan is on steroids, nebs, aspirin, lovenox full dose, zosyn, micafungin, pepcid, synthroid and flomax got intubated on 02/26, day 4 on vent prognosis guarded hemostable d/w daughter at bedside (03/01) palliative care
[2020-03-02] MEDS: Lorazepam 2 MG/ML VIAL SLOW IVP PRN ×2 (15:57→21:50)
[2020-03-02] MEDS: Tamsulosin HCl 0.4 MG CAP PO SCH (19:44)
[2020-03-03] MEDS: fentaNYL Citrate/PF 2,000 MCG in Sodium Chloride 0.9% 60 ML IV SCH ×2 (00:58→12:46)
[2020-03-03] MEDS: Dextrose 5 %-0.45 % NaCl 1,000 ML IV SCH (01:39)
[2020-03-03] MEDS: Albuterol 200 PUFF (6.7GM INHALER) INH SCH ×6 (02:29→22:06)
[2020-03-03] MEDS: Lorazepam 2 MG/ML VIAL SLOW IVP PRN ×2 (03:43→09:52)
[2020-03-03 04:56] LABS: #Basophils 0.2 thou/uL (0.0-0.2); #Eosinphils 0.1 thou/uL (0.0-0.7); #Lymphocytes 0.5 thou/uL (1.20-3.40); #Monocytes 0.3 thou/uL (0.11-0.59); #Neutrophils 8.6 thou/uL (1.40-6.50); %Basophils 2.1 % (0.0-1.0); %Eosinophils 1.1 % (0.0-10.0); %Lymphocytes 5.5 % (21.0-51.0); %Monocytes 3.1 % (0.0-10.0); %Neutrophils 88.3 % (42.0-75.0); Hemoglobin 12.9 g/dL (14.0-18.0); Mean Corpuscular HGB CONC 32.6 g/dL (32.0-36.0); Mean Corpuscular Hemoglobin 30.5 pg (27.0-31.0); Mean Corpuscular Volume 93.7 fL (78.0-98.0); Mean Platelet Volume 8.5 fL (7.4-10.4); Platelet Count 154 thou/uL (130-400); RBC Distribution Width 13.9 % (11.5-14.5); Red Blood Cell (RBC) Count 4.24 mill/uL (4.70-6.10); White Blood Cell (WBC) Count 9.7 thou/uL (4.8-10.8)
[2020-03-03] MEDS: Piperacillin/Tazobactam 3.375 GM in Sodium Chloride 0.9% 100 ML IVPB SCH ×2 (05:01→10:45)
[2020-03-03] MEDS: Levothyroxine Sodium 75 MCG TAB PO SCH (05:02)
[2020-03-03 05:14] LABS: Anion Gap 13 mmol/L (10-20); BUN (Urea Nitrogen) 13 mg/dL (8.4-25.7); Calc. Creatinine Clearance 187 mL/min (70-130); Calcium 7.6 mg/dL (7.8-10.44); Carbon Dioxide 27 mmol/L (23-31); Chloride 101 mmol/L (98-107); Glucose 136 mg/dL (80-115); Potassium 3.7 mmol/L (3.5-5.1); Sodium 137 mmol/L (136-145)
[2020-03-03] MEDS: Propofol 1,000 MG/100 ML VIAL IV PRN (05:14)
[2020-03-03] MEDS: Enoxaparin Sodium 80 MG/0.8 ML SYRINGE SC SCH ×2 (07:17→20:04)
[2020-03-03 07:18] LABS: Actual Bicarbonate (HCO3a) 26.2 mEq/L (22-28); Base Excess (BEa) 1.2 mEq/L (-2.0 to +3.0); CO2 Tension 42.9 mmHg (35.0-45.0); Calcium, Ionized (arterial) 1.13 mmol/L (1.12-1.30); Carboxyhemoglobin (COHb) 1.7 gm% (0.0-3.0); Potassium - ABG Lab 3.47 mmol/L (3.70-5.30)
[2020-03-03] MEDS: Aspirin 81 mg Enteric Coated Tablet PO SCH (07:18)
[2020-03-03] MEDS: Ascorbic Acid 500 mg Chewable Tablet PO SCH (07:18)
[2020-03-03] MEDS: Zinc Sulfate 220 MG CAP PO SCH (07:18)
[2020-03-03] MEDS: Cyanocobalamin (Vitamin B-12) 1,000 MCG TAB PO SCH (07:18)
[2020-03-03] MEDS: Cholecalciferol 1,000 UNITS (25 MCG) TAB PO SCH (07:18)
[2020-03-03] MEDS: Famotidine/PF 20 mg/2ml Vial SLOW IVP SCH ×2 (07:18→20:03)
[2020-03-03] MEDS: Folic Acid 1 MG TAB PO SCH (07:19)
[2020-03-03 07:20] LABS: O2 Tension (PaO2), arterial 55.4 mmHg (> 80.0); Puncture Site LRA
[2020-03-03 07:21] LABS: ALV-art Gradient 425.725 mmHg (0-20)
[2020-03-03] MEDS: Hydrocortisone Sod Succ/PF 100 mg/2 ml Vial IVP SCH ×2 (07:30→20:03)
--- NOTE | 2020-03-03 08:04 | PRG ---
DATE OF SERVICE: 03/03/2020 TIME SPENT: 35 minutes of critical care time. SUBJECTIVE: The patient remains supine on mechanical ventilation. He has made no significant improvement over the weekend. OBJECTIVE: VITAL SIGNS: His temperature is 98.1, pulse 71, and blood pressure 138/71. He is on no vasopressors. 24-hour intake 3683, output 1445. He has been in positive fluid balance the whole time. HEENT: He has some skin necrosis over the tip of his nostril from prone positioning. NECK: No adenopathy or JVD. LUNGS: Coarse breath sounds. CARDIOVASCULAR: S1 and S2. Regular. ABDOMEN: Soft and nontender. EXTREMITIES: No significant edema. LABORATORY DATA: White blood cell count 9.7, hematocrit 39.7, and platelet count 154. PH of 7.40, pCO2 of 42, pO2 of 55. A-A gradient 425. Bilevel 32/13 with FiO2 of 75%. Sodium 137, potassium 3.7, chloride 101, CO2 of 27, BUN 13, creatinine 0.5, and glucose 136. ASSESSMENT: 1. COVID-19 pneumonia. 2. Acute on chronic respiratory failure, requiring mechanical ventilation. PLAN: I am going to attempt to diurese him some. I have stopped his IV fluids. Once we can get his FiO2 down to a reasonable level, then he will need tracheostomy. His Zosyn can be stopped tomorrow as that will give him 7 full days of treatment. I have asked the nurse to try cycle him off propofol and put him on Versed for sedation, fentanyl for pain. Job ID: [id number]
--- NOTE | 2020-03-03 08:16 | RAD ---
EXAM: CHEST ONE VIEW HISTORY: Pneumonia. COMPARISON: 03/02/2020 FINDINGS: Endotracheal tube and nasogastric tube remain in place. Cardiac silhouette is stable in size. Increas ed interstitial and slight patchy airspace opacities are again seen throughout the lungs bilaterally which are overall similar to prior study. Postoperative changes lower cervical spine are seen. No other interval change. IMPRESSION: Stable interstitial opacities seen throughout the lungs bilaterally which may be related to infectiou s process or possibly pulmonary edema.
[2020-03-03] MEDS: Micafungin 100 MG in Sodium Chloride 0.9% 100 ML IVPB SCH (08:21)
[2020-03-03] MEDS ORDERED: acetaZOLAMIDE Sodium 500 mg Vial IVP SCH (09:00)
[2020-03-03] MEDS ORDERED: AcetaZOLAMIDE 250 MG TAB PO SCH (09:30)
[2020-03-03] MEDS: Vecuronium 10 MG VIAL IV PRN ×5 (11:00→22:34)
--- NOTE | 2020-03-03 14:18 | PDOC.HOSPP ---
- Subjective Encounter Date: 03/03/20 Encounter Time: 09:15 Subjective: is on vent, is slowly weaning off propofol his fio2 is increased on vent due to low pO2 does not respond to verbal stimuli at bedside - Objective Vital Signs & Weight: Vital Signs (12 hours) Pulse Resp BP Pulse Ox 03/03/20 11:09 25 H 03/03/20 10:53 95 147/72 H 03/03/20 07:05 74 138/71 03/03/20 06:59 23 H 97 03/03/20 06:00 28 H 03/03/20 04:00 25 H Weight Admit Weight 250 lb 0.067 oz Weight 226 lb 3.108 oz Most Recent Monitor Data Heart Rate from ECG 118 NIBP 137/74 NIBP BP-Mean 95 Respiration from ECG 20 SpO2 93 I&O: 03/02/20 03/03/20 03/04/20 06:59 06:59 06:59 Intake Total 3599.9 3683.5 0 Output Total 1510 1445 790 Balance 2089.9 2238.5 -790 Result Diagrams: 03/03/20 04:34 03/03/20 04:34 Hospitalist ROS - Medication Medications: Active Medications Generic Name Dose Route Start Last Admin Trade Name Freq PRN Reason Stop Dose Admin Acetaminophen 650 mg 02/10/20 11:33 02/23/20 13:30 Acetaminophen 325 Mg Tab PO 650 mg Q4H PRN Administration Headache/Fever/Mild Pain (1-3) Albuterol Sulfate 2 puff 02/10/20 14:30 03/03/20 11:04 Albuterol 200 Puff (6.7gm Inhaler) INH 2 puff Q0FP-MM CLAY Administration Ascorbic Acid 1,000 mg 02/15/20 09:00 03/03/20 07:18 Ascorbic Acid 500 Mg Chewable Tablet PO 1,000 mg DAILY CLAY Administration Aspirin 81 mg 02/11/20 09:00 03/03/20 07:18 Aspirin 81 Mg Enteric Coated Tablet PO 81 mg DAILY CLAY Administration Bisacodyl 10 mg 02/11/20 08:36 03/03/20 05:02 Bisacodyl 5 Mg Tab PO 10 mg DAILYPRN PRN Administration Constipation Cholecalciferol 5,000 units 02/16/20 09:00 03/03/20 07:18 Cholecalciferol 1,000 Units (25 Mcg) Tab PO 5,000 units DAILY CLAY Administration Cyanocobalamin 1,000 mcg 02/26/20 09:00 03/03/20 07:18 Cyanocobalamin (Vitamin B-12) 1,000 Mcg Tab PO 1,000 mcg DAILY CLAY Administration Enoxaparin Sodium 70 mg 02/26/20 21:00 03/03/20 07:17 Enoxaparin Sodium 80 Mg/0.8 Ml Syringe SC 70 mg [id number] CLAY Administration Famotidine 20 mg 02/28/20 09:00 03/03/20 07:18 Famotidine/Pf 20 Mg/2ml Vial SLOW IVP 20 mg Q12HR CLAY Administration Folic Acid 1 mg 02/26/20 09:00 03/03/20 07:19 Folic Acid 1 Mg Tab PO 1 mg DAILY CLAY Administration Hydrocortisone Sodium Succinate 100 mg 02/28/20 09:00 03/03/20 07:30 Hydrocortisone Sod Succ/Pf 100 Mg/2 Ml Vial IVP 100 mg Q12HR CLAY Administration Fentanyl Citrate 2,000 mcg/ 100 mls @ 0 mls/hr 02/28/20 03:30 03/03/20 12:46 Sodium Chloride IV 03/29/20 03:30 100 mls INF CLAY Administration Protocol Per Protocol Midazolam HCl 100 mg/ Sodium 100 mls @ 0 mls/hr 02/28/20 08:00 03/03/20 05:39 Chloride IVPB 100 mls INF PRN Administration Sedation Protocol As Directed Levothyroxine Sodium 75 mcg 03/02/20 06:00 03/03/20 05:02 Levothyroxine Sodium 75 Mcg Tab PO 75 mcg 0600 CLAY Administration Lorazepam 2 mg 02/28/20 03:30 03/03/20 09:52 Lorazepam 2 Mg/Ml Vial SLOW IVP 03/29/20 03:30 2 mg Q1H PRN Administration Breakthrough agitation Propofol 1,000 mg 02/28/20 03:30 03/03/20 05:14 Propofol 1,000 Mg/100 Ml Vial IV 03/29/20 03:30 1,000 mg INF PRN Administration TO ACHIEVE GOAL RASS Protocol Senna/Docusate Sodium 2 tab 02/10/20 11:33 02/16/20 19:55 Senokot S 8.6-50 Mg Tab PO 2 tab BIDPRN PRN Administration Constipation Sodium Chloride 10 ml 02/10/20 11:33 03/01/20 20:30 Flush - Normal Saline 10 Ml Syringe IVF 10 ml PRN PRN Administration Saline Flush Sterile Water 10 ml 02/28/20 03:54 02/29/20 02:01 Sterile Water 10 Ml Vial IVP 10 ml Q30MIN PRN Administration NEEDED FOR RECONSTITUTION Tamsulosin HCl 0.4 mg 02/10/20 21:00 03/02/20 19:44 Tamsulosin Hcl 0.4 Mg Cap PO 0.4 mg HS CLAY Administration Vecuronium [place] 10 mg 02/28/20 03:54 03/03/20 12:35 Vecuronium 10 Mg Vial IV 10 mg Q30MIN PRN Administration SPASM Zinc Sulfate 220 mg 02/15/20 09:00 03/03/20 07:18 Zinc Sulfate 220 Mg Cap PO 220 mg DAILY CLAY Administration - Exam General Appearance: ill appearing Eye: PERRL, anicteric sclera ENT: no oropharyngeal lesions, dry oral mucosa Neck: supple, no JVD Heart: RRR, no murmur Respiratory: no wheezes, no rales, rhonchi Gastrointestinal: soft, non-tender, non-distended, normal bowel sounds Extremities: no cyanosis, no edema Neurological: cranial nerve grossly intact, no focal deficits Hosp A/P (1) Pneumonia due to COVID-19 virus Code(s): U07.1 - COVID-19; J12.89 - OTHER VIRAL PNEUMONIA Status: Acute (2) Acute respiratory failure due to COVID-19 Code(s): U07.1 - COVID-19; J96.00 - ACUTE RESPIRATORY FAILURE, UNSP W HYPOXIA OR HYPERCAPNIA Status: Acute (3) BPH (benign prostatic hyperplasia) Code(s): N40.0 - BENIGN PROSTATIC HYPERPLASIA WITHOUT LOWER URINRY TRACT SYMP Status: Chronic Qualifiers: Lower urinary tract symptom presence: symptoms absent Qualified Code(s): N40.0 - Benign prostatic hyperplasia without lower urinary tract symptoms (4) H/O Graves' disease Code(s): Z86.39 - PERSONAL HISTORY OF ENDO, NUTRITIONAL AND METABOLIC DISEASE Status: Chronic (5) Hypothyroidism (acquired) Code(s): E03.9 - HYPOTHYROIDISM, UNSPECIFIED Status: Chronic (6) Obesity (BMI 30.0-34.9) Code(s): E66.9 - OBESITY, UNSPECIFIED Status: Chronic (7) Chronic anemia Code(s): D64.9 - ANEMIA, UNSPECIFIED Status: Chronic (8) JARED (obstructive sleep apnea) Code(s): G47.33 - OBSTRUCTIVE SLEEP APNEA (ADULT) (PEDIATRIC) Status: Chronic (9) Moderate malnutrition Code(s): E44.0 - MODERATE PROTEIN-CALORIE MALNUTRITION Status: Acute - Plan is on steroids, nebs, aspirin, lovenox full dose, zosyn, micafungin, pepcid, synthroid and flomax got intubated on 02/26, day 5 on vent, has high Fio2 75% requirment. prognosis guarded hemostable d/w daughter at bedside (03/01), 03/03, will be talking to her as well shortly. palliative care
[2020-03-03] MEDS: AcetaZOLAMIDE 250 MG TAB PO SCH (20:04)
[2020-03-03] MEDS: Tamsulosin HCl 0.4 MG CAP PO SCH (20:04)
[2020-03-03] MEDS: Sterile Water 10 ML VIAL IVP PRN ×2 (20:27→22:34)
[2020-03-04] MEDS: Vecuronium 10 MG VIAL IV PRN ×6 (01:00→17:36)
[2020-03-04] MEDS: Sterile Water 10 ML VIAL IVP PRN (01:01)
[2020-03-04] MEDS: Albuterol 200 PUFF (6.7GM INHALER) INH SCH ×6 (02:34→23:05)
[2020-03-04 03:48] LABS: #Lymphocytes 0.3 thou/uL (1.20-3.40); #Monocytes 0.2 thou/uL (0.11-0.59); #Neutrophils 8.8 thou/uL (1.40-6.50); %Basophils 0.4 % (0.0-1.0); %Eosinophils 0.4 % (0.0-10.0); %Lymphocytes 3.2 % (21.0-51.0); %Monocytes 2.4 % (0.0-10.0); %Neutrophils 93.7 % (42.0-75.0); Hemoglobin 12.6 g/dL (14.0-18.0); Mean Corpuscular HGB CONC 32.9 g/dL (32.0-36.0); Mean Corpuscular Hemoglobin 31.3 pg (27.0-31.0); Mean Corpuscular Volume 95.2 fL (78.0-98.0); Mean Platelet Volume 8.3 fL (7.4-10.4); Platelet Count 161 thou/uL (130-400); RBC Distribution Width 14.3 % (11.5-14.5); Red Blood Cell (RBC) Count 4.04 mill/uL (4.70-6.10); White Blood Cell (WBC) Count 9.4 thou/uL (4.8-10.8)
[2020-03-04 04:11] LABS: Anion Gap 9 mmol/L (10-20); BUN (Urea Nitrogen) 14 mg/dL (8.4-25.7); Calc. Creatinine Clearance 162 mL/min (70-130); Calcium 7.8 mg/dL (7.8-10.44); Carbon Dioxide 32 mmol/L (23-31); Chloride 102 mmol/L (98-107); Glucose 149 mg/dL (80-115); Potassium 3.8 mmol/L (3.5-5.1); Sodium 139 mmol/L (136-145)
[2020-03-04] MEDS: Levothyroxine Sodium 75 MCG TAB PO SCH (05:25)
[2020-03-04] MEDS: Hydrocortisone Sod Succ/PF 100 mg/2 ml Vial IVP SCH ×2 (07:24→20:00)
[2020-03-04] MEDS: Cholecalciferol 1,000 UNITS (25 MCG) TAB PO SCH (07:24)
[2020-03-04] MEDS: AcetaZOLAMIDE 250 MG TAB PO SCH ×2 (07:24→20:01)
[2020-03-04] MEDS: Zinc Sulfate 220 MG CAP PO SCH (07:24)
[2020-03-04] MEDS: Ascorbic Acid 500 mg Chewable Tablet PO SCH (07:24)
[2020-03-04] MEDS: Famotidine/PF 20 mg/2ml Vial SLOW IVP SCH (07:25)
[2020-03-04] MEDS: Enoxaparin Sodium 80 MG/0.8 ML SYRINGE SC SCH ×2 (07:25→20:01)
[2020-03-04] MEDS: Folic Acid 1 MG TAB PO SCH (07:25)
[2020-03-04] MEDS: Cyanocobalamin (Vitamin B-12) 1,000 MCG TAB PO SCH (07:25)
[2020-03-04] MEDS: Aspirin 81 mg Enteric Coated Tablet PO SCH (07:25)
[2020-03-04 07:47] LABS: Actual Bicarbonate (HCO3a) 26.3 mEq/L (22-28); Base Excess (BEa) 0.5 mEq/L (-2.0 to +3.0); CO2 Tension 47.3 mmHg (35.0-45.0); Calcium, Ionized (arterial) 1.18 mmol/L (1.12-1.30); Carboxyhemoglobin (COHb) 1.5 gm% (0.0-3.0); Hemoglobin (Hb) 12.4 g/dL (14.0-18.0); O2 Tension (PaO2), arterial 67.3 mmHg (> 80.0); Potassium - ABG Lab 3.85 mmol/L (3.70-5.30); pH, Arterial 7.36 (7.35-7.45)
[2020-03-04 08:04] LABS: Puncture Site LRA
[2020-03-04 08:05] LABS: ALV-art Gradient 372.675 mmHg (0-20)
--- NOTE | 2020-03-04 08:05 | RAD ---
XR Chest 1 View Portable History: Chest pain Comparison: Radiograph prior day Findings: Endotracheal tube tip at the clavicular level. Enteric tube tip not well seen. Airspace opacities are similar-slightly improving. Impression: Similar to slightly improved lung aeration. No pneumothorax.
[2020-03-04] MEDS: fentaNYL Citrate/PF 2,000 MCG in Sodium Chloride 0.9% 60 ML IV SCH ×2 (08:30→17:20)
--- NOTE | 2020-03-04 08:51 | PRG ---
DATE OF SERVICE: 03/04/2020 Thirty five minutes critical care time. SUBJECTIVE: The patient remains intubated on mechanical ventilation, but in the supine position. OBJECTIVE: VITAL SIGNS: Temperature 97.5, pulse in the 60s, blood pressure 125/71, O2 saturation in the mid 90s. 24-hour intake was 1968, output 3445. HEENT: Remarkable for a necrosis over his nose from previously being in a supine position. NECK: No JVD. LUNGS: Coarse breath sounds anteriorly. CARDIOVASCULAR: S1 and S2, regular. ABDOMEN: Soft. EXTREMITIES: Edematous. LABORATORY DATA: Sodium 139, potassium 3.8, chloride 102, CO2 of 32, BUN 14, creatinine 0.6, glucose 149. White blood cell count 9.4, hematocrit 38.4, and platelet count 161. PH of 7.36, pCO2 of 47, pO2 of 67 on bilevel 35/12, FiO2 70% with a rate of 25. A-A gradient has improved to 372. ASSESSMENT: 1. COVID-19 pneumonia. 2. Acute respiratory failure, requiring mechanical ventilation. PLAN: 1. Try to decrease his FiO2. At some point in the future, he will need tracheostomy, but his FiO2 and PEEP will need to be down first. 2. Antibiotics and antifungals were stopped yesterday. 3. Continue steroids and anticoagulation. Job ID: [id number]
[2020-03-04] MEDS: Lorazepam 2 MG/ML VIAL SLOW IVP PRN (09:14)
--- NOTE | 2020-03-04 14:11 | PDOC.HOSPP ---
- Subjective Encounter Date: 03/04/20 Encounter Time: 08:50 Subjective: sedated and is on vent - Objective Vital Signs & Weight: Vital Signs (12 hours) Pulse Resp BP Pulse Ox 03/04/20 10:56 69 143/88 H 03/04/20 10:45 25 H 03/04/20 09:14 25 H 03/04/20 07:08 25 H 97 03/04/20 06:59 65 100/63 96 03/04/20 06:00 25 H 03/04/20 04:00 25 H 03/04/20 02:31 87 Weight Admit Weight 250 lb 0.067 oz Weight 223 lb 12.307 oz Most Recent Monitor Data Heart Rate from ECG 69 NIBP 98/64 NIBP BP-Mean 75 Respiration from ECG 15 SpO2 90 I&O: 03/03/20 03/04/20 03/05/20 06:59 06:59 06:59 Intake Total 3683.5 1968 0 Output Total 1445 3445 1005 Balance 2238.5 -1477 -1005 Result Diagrams: 03/04/20 03:30 03/04/20 03:30 Hospitalist ROS - Medication Medications: Active Medications Generic Name Dose Route Start Last Admin Trade Name Freq PRN Reason Stop Dose Admin Acetaminophen 650 mg 02/10/20 11:33 02/23/20 13:30 Acetaminophen 325 Mg Tab PO 650 mg Q4H PRN Administration Headache/Fever/Mild Pain (1-3) Acetazolamide 250 mg 03/03/20 21:00 03/04/20 07:24 Acetazolamide 250 Mg Tab PO 250 mg BID CLAY Administration Albuterol Sulfate 2 puff 02/10/20 14:30 03/04/20 10:56 Albuterol 200 Puff (6.7gm Inhaler) INH 2 puff [id number] CLAY Administration Ascorbic Acid 1,000 mg 02/15/20 09:00 03/04/20 07:24 Ascorbic Acid 500 Mg Chewable Tablet PO 1,000 mg DAILY CLAY Administration Aspirin 81 mg 02/11/20 09:00 03/04/20 07:25 Aspirin 81 Mg Enteric Coated Tablet PO 81 mg DAILY CLAY Administration Bisacodyl 10 mg 02/11/20 08:36 03/03/20 05:02 Bisacodyl 5 Mg Tab PO 10 mg DAILYPRN PRN Administration Constipation Cholecalciferol 5,000 units 02/16/20 09:00 03/04/20 07:24 Cholecalciferol 1,000 Units (25 Mcg) Tab PO 5,000 units DAILY CLAY Administration Cyanocobalamin 1,000 mcg 02/26/20 09:00 03/04/20 07:25 Cyanocobalamin (Vitamin B-12) 1,000 Mcg Tab PO 1,000 mcg DAILY CLAY Administration Enoxaparin Sodium 70 mg 02/26/20 21:00 03/04/20 07:25 Enoxaparin Sodium 80 Mg/0.8 Ml Syringe SC 70 mg 899,2099 CLAY Administration Famotidine 20 mg 02/28/20 09:00 03/04/20 07:25 Famotidine/Pf 20 Mg/2ml Vial SLOW IVP 20 mg Q12HR CLAY Administration Folic Acid 1 mg 02/26/20 09:00 03/04/20 07:25 Folic Acid 1 Mg Tab PO 1 mg DAILY CLAY Administration Hydrocortisone Sodium Succinate 100 mg 02/28/20 09:00 03/04/20 07:24 Hydrocortisone Sod Succ/Pf 100 Mg/2 Ml Vial IVP 100 mg Q12HR CLAY Administration Fentanyl Citrate 2,000 mcg/ 100 mls @ 0 mls/hr 02/28/20 03:30 03/04/20 08:30 Sodium Chloride IV 03/29/20 03:30 100 mls INF CLAY Administration Protocol Per Protocol Midazolam HCl 100 mg/ Sodium 100 mls @ 0 mls/hr 02/28/20 08:00 03/04/20 01:45 Chloride IVPB 100 mls INF PRN Administration Sedation Protocol As Directed Levothyroxine Sodium 75 mcg 03/02/20 06:00 03/04/20 05:25 Levothyroxine Sodium 75 Mcg Tab PO 75 mcg 0600 CLAY Administration Lorazepam 2 mg 02/28/20 03:30 03/04/20 09:14 Lorazepam 2 Mg/Ml Vial SLOW IVP 03/29/20 03:30 2 mg Q1H PRN Administration Breakthrough agitation Propofol 1,000 mg 02/28/20 03:30 03/03/20 05:14 Propofol 1,000 Mg/100 Ml Vial IV 03/29/20 03:30 1,000 mg INF PRN Administration TO ACHIEVE GOAL RASS Protocol Senna/Docusate Sodium 2 tab 02/10/20 11:33 02/16/20 19:55 Senokot S 8.6-50 Mg Tab PO 2 tab BIDPRN PRN Administration Constipation Sodium Chloride 10 ml 02/10/20 11:33 03/01/20 20:30 Flush - Normal Saline 10 Ml Syringe IVF 10 ml PRN PRN Administration Saline Flush Sterile Water 10 ml 02/28/20 03:54 03/04/20 01:01 Sterile Water 10 Ml Vial IVP 10 ml Q30MIN PRN Administration NEEDED FOR RECONSTITUTION Tamsulosin HCl 0.4 mg 02/10/20 21:00 03/03/20 20:04 Tamsulosin Hcl 0.4 Mg Cap PO 0.4 mg HS CLAY Administration Vecuronium [place] 10 mg 02/28/20 03:54 03/04/20 13:46 Vecuronium 10 Mg Vial IV 10 mg Q30MIN PRN Administration SPASM Zinc Sulfate 220 mg 02/15/20 09:00 03/04/20 07:24 Zinc Sulfate 220 Mg Cap PO 220 mg DAILY CLAY Administration - Exam Eye: PERRL, anicteric sclera ENT: no oropharyngeal lesions, dry oral mucosa Neck: supple, no JVD Heart: RRR, no murmur Respiratory: no wheezes, no rales, rhonchi Gastrointestinal: soft, non-tender, non-distended, normal bowel sounds Extremities: no cyanosis, 1+ LE edema Neurological: cranial nerve grossly intact, no focal deficits Hosp A/P (1) Pneumonia due to COVID-19 virus Code(s): U07.1 - COVID-19; J12.89 - OTHER VIRAL PNEUMONIA Status: Acute (2) Acute respiratory failure due to COVID-19 Code(s): U07.1 - COVID-19; J96.00 - ACUTE RESPIRATORY FAILURE, UNSP W HYPOXIA OR HYPERCAPNIA Status: Acute (3) BPH (benign prostatic hyperplasia) Code(s): N40.0 - BENIGN PROSTATIC HYPERPLASIA WITHOUT LOWER URINRY TRACT SYMP Status: Chronic Qualifiers: Lower urinary tract symptom presence: symptoms absent Qualified Code(s): N40.0 - Benign prostatic hyperplasia without lower urinary tract symptoms (4) H/O Graves' disease Code(s): Z86.39 - PERSONAL HISTORY OF ENDO, NUTRITIONAL AND METABOLIC DISEASE Status: Chronic (5) Hypothyroidism (acquired) Code(s): E03.9 - HYPOTHYROIDISM, UNSPECIFIED Status: Chronic (6) Obesity (BMI 30.0-34.9) Code(s): E66.9 - OBESITY, UNSPECIFIED Status: Chronic (7) Chronic anemia Code(s): D64.9 - ANEMIA, UNSPECIFIED Status: Chronic (8) JARED (obstructive sleep apnea) Code(s): G47.33 - OBSTRUCTIVE SLEEP APNEA (ADULT) (PEDIATRIC) Status: Chronic (9) Moderate malnutrition Code(s): E44.0 - MODERATE PROTEIN-CALORIE MALNUTRITION Status: Acute - Plan is on steroids, nebs, aspirin, lovenox full dose, protonix, synthroid and flomax got intubated on 02/26, has come down to 59% Fio2 on vent. prognosis guarded hemostable d/w daughter at bedside (03/01), 03/03 palliative care
[2020-03-04] MEDS: Tamsulosin HCl 0.4 MG CAP PO SCH (20:00)
[2020-03-04] MEDS ORDERED: Calcium Chloride 1 GM/10 ML Abboject SYRINGE ONE (23:06)
[2020-03-05] MEDS: Albuterol 200 PUFF (6.7GM INHALER) INH SCH ×2 (00:45→08:22)
[2020-03-05] MEDS: fentaNYL Citrate/PF 2,000 MCG in Sodium Chloride 0.9% 60 ML IV SCH ×3 (03:40→22:09)
[2020-03-05 03:57] LABS: #Eosinphils 0.1 thou/uL (0.0-0.7); #Lymphocytes 0.6 thou/uL (1.20-3.40); #Monocytes 0.4 thou/uL (0.11-0.59); #Neutrophils 9.6 thou/uL (1.40-6.50); %Basophils 0.1 % (0.0-1.0); %Eosinophils 0.5 % (0.0-10.0); %Lymphocytes 5.4 % (21.0-51.0); %Monocytes 3.6 % (0.0-10.0); %Neutrophils 90.3 % (42.0-75.0); Hemoglobin 12.8 g/dL (14.0-18.0); Mean Corpuscular HGB CONC 32.5 g/dL (32.0-36.0); Mean Corpuscular Hemoglobin 30.9 pg (27.0-31.0); Mean Corpuscular Volume 95.2 fL (78.0-98.0); Mean Platelet Volume 8.4 fL (7.4-10.4); Platelet Count 180 thou/uL (130-400); RBC Distribution Width 14.7 % (11.5-14.5); Red Blood Cell (RBC) Count 4.13 mill/uL (4.70-6.10); White Blood Cell (WBC) Count 10.7 thou/uL (4.8-10.8)
[2020-03-05 04:20] LABS: Anion Gap 10 mmol/L (10-20); BUN (Urea Nitrogen) 18 mg/dL (8.4-25.7); Calc. Creatinine Clearance 188 mL/min (70-130); Calcium 7.8 mg/dL (7.8-10.44); Carbon Dioxide 28 mmol/L (23-31); Chloride 106 mmol/L (98-107); Glucose 126 mg/dL (80-115); Potassium 3.7 mmol/L (3.5-5.1); Sodium 140 mmol/L (136-145)
[2020-03-05] MEDS: Lorazepam 2 MG/ML VIAL SLOW IVP PRN ×6 (05:41→21:59)
[2020-03-05] MEDS: Vecuronium 10 MG VIAL IV PRN ×6 (05:41→22:36)
[2020-03-05] MEDS: Levothyroxine Sodium 75 MCG TAB PO SCH (05:54)
[2020-03-05] MEDS: Hydrocortisone Sod Succ/PF 100 mg/2 ml Vial IVP SCH ×2 (08:02→20:34)
[2020-03-05] MEDS: Enoxaparin Sodium 80 MG/0.8 ML SYRINGE SC SCH (08:02)
[2020-03-05] MEDS: Cyanocobalamin (Vitamin B-12) 1,000 MCG TAB PO SCH (08:03)
[2020-03-05] MEDS: AcetaZOLAMIDE 250 MG TAB PO SCH (08:03)
[2020-03-05] MEDS: Ascorbic Acid 500 mg Chewable Tablet PO SCH (08:04)
[2020-03-05] MEDS: Cholecalciferol 1,000 UNITS (25 MCG) TAB PO SCH (08:04)
[2020-03-05] MEDS: Aspirin 81 mg Enteric Coated Tablet PO SCH (08:04)
[2020-03-05] MEDS: Zinc Sulfate 220 MG CAP PO SCH (08:05)
[2020-03-05] MEDS: Folic Acid 1 MG TAB PO SCH (08:05)
[2020-03-05 08:15] LABS: Actual Bicarbonate (HCO3a) 26.6 mEq/L (22-28); Base Excess (BEa) 1.3 mEq/L (-2.0 to +3.0); CO2 Tension 44.7 mmHg (35.0-45.0); Carboxyhemoglobin (COHb) 1.7 gm% (0.0-3.0); Hemoglobin (Hb) 13.8 g/dL (14.0-18.0); Potassium - ABG Lab 3.47 mmol/L (3.70-5.30); pH, Arterial 7.39 (7.35-7.45)
[2020-03-05 08:17] LABS: O2 Tension (PaO2), arterial 46.8 mmHg (> 80.0)
[2020-03-05 08:18] LABS: ALV-art Gradient 325.125 mmHg (0-20); Puncture Site RRA
--- NOTE | 2020-03-05 08:47 | RAD ---
PORTABLE CHEST: HISTORY: Pneumonia. CCU followup. COMPARISON: 03/04/2020. FINDINGS: ET tube and NG tube unchanged. There is hazy infiltrate in the right mid and lower lung and hazy infiltrate in the left mid and lowe r lung again noted. More confluent infiltrate in the right mid lung is noted today. IMPRESSION: Bilateral infiltrates again noted. Increasing consolidation in the right lung infiltrates when lily red to yesterday. POS: AGW
[2020-03-05] MEDS ORDERED: AcetaZOLAMIDE 250 MG TAB PO SCH (09:00)
[2020-03-05] MEDS ORDERED: Levothyroxine Sodium 75 MCG TAB PO SCH (09:00)
--- NOTE | 2020-03-05 09:24 | PRG ---
DATE OF SERVICE: 03/05/2020 35 minutes critical care time. SUBJECTIVE: The patient remains intubated on mechanical ventilation. He is in the supine position. OBJECTIVE: VITAL SIGNS: Temperature 98.8, pulse 81, blood pressure 124/75, O2 saturation generally in the low to mid 90s. He is sedated on Versed. He has also received fentanyl. Total intake for the last 24 hours has been 1106, output 3270. HEENT: Remarkable for necrosis over his nose. NECK: No adenopathy or JVD. LUNGS: Coarse breath sounds bilaterally. CARDIOVASCULAR: S1, S2. Regular. ABDOMEN: He has multiple injection scars over his lower part of his abdomen from anticoagulant administration. EXTREMITIES: No overt edema. LABORATORY DATA: Sodium 140, potassium 3.7, chloride 106, CO2 of 28, BUN 18, creatinine 0.5, glucose 126, pH 7.39, pCO2 of 44, pO2 of 46, on bilevel 35/12 with a rate of 25, FiO2 of 60%. White blood cell count 10.7, hematocrit 39.3, and platelet count 180. X-ray continued to show bilateral infiltrates, although beginning to clear. ASSESSMENT: 1. Coronavirus disease 2019 pneumonia. 2. Acute respiratory failure requiring mechanical ventilation. PLAN: Right now, his improvement is at a standstill. I am going to switch his enoxaparin to Eliquis, so that his abdomen will not be bruised with injections. We will continue treatment with hydrocortisone, vitamins, etc. Right now, he is off antibiotics and antifungals after receiving appropriate courses of both. I am trying to get him in to shape where he can undergo tracheostomy in the near future. I am going to slow down his diuretic therapy to a once daily dose. Job ID: [id number]
[2020-03-05] MEDS: Apixaban 5 MG TAB PER TUBE SCH ×2 (10:28→20:34)
[2020-03-05] MEDS ORDERED: Sterile Water 10 ML ONE ×2 (12:37→19:03)
[2020-03-05] MEDS: cloNIDine 0.1 MG TAB PO PRN (13:09)
--- NOTE | 2020-03-05 13:25 | PDOC.HOSPP ---
- Subjective Encounter Date: 03/05/20 Encounter Time: 10:00 Subjective: sedated, is on vent not in distress - Objective Vital Signs & Weight: Vital Signs (12 hours) Temp Pulse Resp BP 03/05/20 13:15 166/90 H 03/05/20 13:09 166/90 H 03/05/20 12:00 99.0 F 41 H 03/05/20 10:39 69 166/90 H 03/05/20 10:00 98.6 F 29 H 03/05/20 08:05 75 03/05/20 08:00 98.1 F 33 H 03/05/20 06:00 25 H 03/05/20 04:00 32 H 03/05/20 02:00 26 H Weight Admit Weight 250 lb 0.067 oz Weight 222 lb 10.67 oz Most Recent Monitor Data Heart Rate from ECG 73 NIBP 157/88 NIBP BP-Mean 111 Respiration from ECG 22 SpO2 90 I&O: 03/04/20 03/05/20 03/06/20 06:59 06:59 06:59 Intake Total 1968 1106 30 Output Total 6831 3270 568 Balance 1477 -2164 -538 Result Diagrams: 03/05/20 03:02 03/05/20 03:02 Hospitalist ROS - Medication Medications: Active Medications Generic Name Dose Route Start Last Admin Trade Name Freq PRN Reason Stop Dose Admin Acetaminophen 650 mg 02/10/20 11:33 02/23/20 13:30 Acetaminophen 325 Mg Tab PO 650 mg Q4H PRN Administration Headache/Fever/Mild Pain (1-3) Acetazolamide 250 mg 03/05/20 09:00 03/05/20 10:27 Acetazolamide 250 Mg Tab PO Not Given DAILY CLAY Albuterol/Ipratropium 3 ml 03/05/20 13:00 03/05/20 13:13 Ipratropium/Albuterol Sulfate 3 Ml Neb NEB 3 ml [id number] CLAY Administration Apixaban 5 mg 03/05/20 09:00 03/05/20 10:28 Apixaban 5 Mg Tab PER TUBE Not Given BID CLAY Ascorbic Acid 1,000 mg 02/15/20 09:00 03/05/20 08:04 Ascorbic Acid 500 Mg Chewable Tablet PO 1,000 mg DAILY CLAY Administration Aspirin 81 mg 02/11/20 09:00 03/05/20 08:04 Aspirin 81 Mg Enteric Coated Tablet PO 81 mg DAILY CLAY Administration Bisacodyl 10 mg 02/11/20 08:36 03/03/20 05:02 Bisacodyl 5 Mg Tab PO 10 mg DAILYPRN PRN Administration Constipation Cholecalciferol 5,000 units 02/16/20 09:00 03/05/20 08:04 Cholecalciferol 1,000 Units (25 Mcg) Tab PO 5,000 units DAILY CLAY Administration Clonidine 0.1 mg 02/10/20 14:29 03/05/20 13:09 Clonidine 0.1 Mg Tab PO 0.1 mg Q4H PRN Administration SBP Greater Than 180 Cyanocobalamin 1,000 mcg 02/26/20 09:00 03/05/20 08:03 Cyanocobalamin (Vitamin B-12) 1,000 Mcg Tab PO 1,000 mcg DAILY CLAY Administration Folic Acid 1 mg 02/26/20 09:00 03/05/20 08:05 Folic Acid 1 Mg Tab PO 1 mg DAILY CLAY Administration Hydralazine HCl 10 mg 02/11/20 08:36 03/05/20 13:15 Hydralazine 20 Mg/Ml Vial SLOW IVP 10 mg Q4H PRN Administration SBP > 180 and HR < 70 Hydrocortisone Sodium Succinate 100 mg 02/28/20 09:00 03/05/20 08:02 Hydrocortisone Sod Succ/Pf 100 Mg/2 Ml Vial IVP 100 mg Q12HR CLAY Administration Fentanyl Citrate 2,000 mcg/ 100 mls @ 0 mls/hr 02/28/20 03:30 03/05/20 13:11 Sodium Chloride IV 03/29/20 03:30 100 mls INF CLAY Administration Protocol Per Protocol Midazolam HCl 100 mg/ Sodium 100 mls @ 0 mls/hr 02/28/20 08:00 03/05/20 13:12 Chloride IVPB 100 mls INF PRN Administration Sedation Protocol As Directed Lorazepam 2 mg 02/28/20 03:30 03/05/20 13:16 Lorazepam 2 Mg/Ml Vial SLOW IVP 03/29/20 03:30 2 mg Q1H PRN Administration Breakthrough agitation Pantoprazole Sodium 40 mg 03/05/20 09:00 03/05/20 08:05 Pantoprazole 40 Mg Tab PO 40 mg DAILY CLAY Administration Propofol 1,000 mg 02/28/20 03:30 03/03/20 05:14 Propofol 1,000 Mg/100 Ml Vial IV 03/29/20 03:30 1,000 mg INF PRN Administration TO ACHIEVE GOAL RASS Protocol Senna/Docusate Sodium 2 tab 02/10/20 11:33 02/16/20 19:55 Senokot S 8.6-50 Mg Tab PO 2 tab BIDPRN PRN Administration Constipation Sodium Chloride 10 ml 02/10/20 11:33 03/01/20 20:30 Flush - Normal Saline 10 Ml Syringe IVF 10 ml PRN PRN Administration Saline Flush Sterile Water 10 ml 02/28/20 03:54 03/04/20 01:01 Sterile Water 10 Ml Vial IVP 10 ml Q30MIN PRN Administration NEEDED FOR RECONSTITUTION Vecuronium [place] 10 mg 02/28/20 03:54 03/05/20 12:37 Vecuronium 10 Mg Vial IV 10 mg Q30MIN PRN Administration SPASM Zinc Sulfate 220 mg 02/15/20 09:00 03/05/20 08:05 Zinc Sulfate 220 Mg Cap PO 220 mg DAILY CLAY Administration - Exam Eye: PERRL, anicteric sclera ENT: no oropharyngeal lesions, dry oral mucosa Neck: supple, no JVD Heart: RRR, no murmur Respiratory: no wheezes, rales, rhonchi Gastrointestinal: soft, non-tender, non-distended, normal bowel sounds Extremities: no cyanosis, 1+ LE edema Neurological: cranial nerve grossly intact, no focal deficits Hosp A/P (1) Pneumonia due to COVID-19 virus Code(s): U07.1 - COVID-19; J12.89 - OTHER VIRAL PNEUMONIA Status: Acute (2) Acute respiratory failure due to COVID-19 Code(s): U07.1 - COVID-19; J96.00 - ACUTE RESPIRATORY FAILURE, UNSP W HYPOXIA OR HYPERCAPNIA Status: Acute (3) BPH (benign prostatic hyperplasia) Code(s): N40.0 - BENIGN PROSTATIC HYPERPLASIA WITHOUT LOWER URINRY TRACT SYMP Status: Chronic Qualifiers: Lower urinary tract symptom presence: symptoms absent Qualified Code(s): N40.0 - Benign prostatic hyperplasia without lower urinary tract symptoms (4) H/O Graves' disease Code(s): Z86.39 - PERSONAL HISTORY OF ENDO, NUTRITIONAL AND METABOLIC DISEASE Status: Chronic (5) Hypothyroidism (acquired) Code(s): E03.9 - HYPOTHYROIDISM, UNSPECIFIED Status: Chronic (6) Obesity (BMI 30.0-34.9) Code(s): E66.9 - OBESITY, UNSPECIFIED Status: Chronic (7) Chronic anemia Code(s): D64.9 - ANEMIA, UNSPECIFIED Status: Chronic (8) JARED (obstructive sleep apnea) Code(s): G47.33 - OBSTRUCTIVE SLEEP APNEA (ADULT) (PEDIATRIC) Status: Chronic (9) Moderate malnutrition Code(s): E44.0 - MODERATE PROTEIN-CALORIE MALNUTRITION Status: Acute - Plan is on steroids, nebs, aspirin, eliquis, protonix, synthroid and flomax got intubated on 02/26, fio2 requirements are going up, now at 75%. prognosis guarded hemostable d/w daughter at bedside (03/01), 03/03, is in touch with family and is providing updates. palliative care
[2020-03-05] MEDS ORDERED: Labetalol HCl 100 MG/20 ML VIAL SLOW IVP SCH (13:45)
[2020-03-05] MEDS: Acetaminophen 325 MG TAB PO PRN (14:46)
[2020-03-06] MEDS: Vecuronium 10 MG VIAL IV PRN ×3 (05:07→14:37)
[2020-03-06] MEDS: Lorazepam 2 MG/ML VIAL SLOW IVP PRN (05:07)
[2020-03-06] MEDS: Levothyroxine Sodium 75 MCG TAB PO SCH (05:07)
[2020-03-06 05:22] LABS: Band 33 % (5-11); Hemoglobin 12.9 g/dL (14.0-18.0); Lymphocytes 5 % (21-51); MDiff Complete? YES; Mean Corpuscular HGB CONC 32.4 g/dL (32.0-36.0); Mean Corpuscular Volume 95.9 fL (78.0-98.0); Mean Platelet Volume 8.5 fL (7.4-10.4); Monocytes 1 % (0-10); Neutrophil 61 % (42-75); Platelet Count 194 thou/uL (130-400); Platelet Morphology Comment Appears Adequate; Red Blood Cell (RBC) Count 4.16 mill/uL (4.70-6.10); White Blood Cell (WBC) Count 9.4 thou/uL (4.8-10.8)
[2020-03-06 05:27] LABS: Anion Gap 12 mmol/L (10-20); BUN (Urea Nitrogen) 23 mg/dL (8.4-25.7); Calc. Creatinine Clearance 148 mL/min (70-130); Carbon Dioxide 30 mmol/L (23-31); Chloride 105 mmol/L (98-107); Glucose 134 mg/dL (80-115); Sodium 143 mmol/L (136-145)
[2020-03-06] MEDS: cloNIDine 0.1 MG TAB PO PRN (05:46)
[2020-03-06 07:38] LABS: Actual Bicarbonate (HCO3a) 29.7 mEq/L (22-28); Base Excess (BEa) 4.8 mEq/L (-2.0 to +3.0); CO2 Tension 44.9 mmHg (35.0-45.0); Calcium, Ionized (arterial) 1.18 mmol/L (1.12-1.30); Carboxyhemoglobin (COHb) 1.9 gm% (0.0-3.0); Hemoglobin (Hb) 13.8 g/dL (14.0-18.0); Potassium - ABG Lab 3.36 mmol/L (3.70-5.30); pH, Arterial 7.44 (7.35-7.45)
[2020-03-06 07:39] LABS: O2 Tension (PaO2), arterial 37.9 mmHg (> 80.0)
[2020-03-06 07:40] LABS: ALV-art Gradient 333.775 mmHg (0-20); Puncture Site RRA
--- NOTE | 2020-03-06 07:50 | PRG ---
DATE OF SERVICE: 03/06/2020 Thirty five minutes critical care time. SUBJECTIVE: This patient remains intubated on mechanical ventilation. There have been no acute changes overnight. OBJECTIVE: VITAL SIGNS: His temperature is 98.7, pulse 96, blood pressure 129/70, O2 saturation 98%. 24-hour intake 2266, output 2173. HEENT: Unremarkable except for the necrosis over the tip of his nose. NECK: No adenopathy or JVD. LUNGS: Clear. CARDIAC: S1 and S2, regular. ABDOMEN: Soft and nontender. EXTREMITIES: Edematous. LABORATORY DATA: White blood cell count 9.4, hematocrit 39.9, platelet count 194, with 64% neutrophils, 33% bands. Sodium 143, potassium 4, chloride 105, CO2 of 30, BUN 23, creatinine 0.7, glucose 134. Chest x-ray continued to show bilateral infiltrates unchanged from previous. ASSESSMENT: 1. COVID-19 pneumonia. 2. Persistent acute respiratory failure requiring mechanical ventilation. 3. Developing bandemia on his CBC today. PLAN: 1. We will go ahead and add back empiric antibiotics. 2. Start to wean steroids somewhat. 3. Not weanable from mechanical ventilation at this time. If we can get his PEEP and FiO2 down, then he will need tracheostomy. Job ID: [id number]
[2020-03-06] MEDS: fentaNYL Citrate/PF 2,000 MCG in Sodium Chloride 0.9% 60 ML IV SCH ×2 (08:01→17:49)
--- NOTE | 2020-03-06 08:31 | RAD ---
AP CHEST: HISTORY: Pneumonia followup. COMPARISON: 03/05/2020. FINDINGS: ET tube and NG tube remain in place. Bilateral hazy infiltrates are again noted. No significant interval change. POS: AGW
[2020-03-06] MEDS: Micafungin 100 MG in Sodium Chloride 0.9% 100 ML IVPB SCH (09:09)
[2020-03-06] MEDS: Zinc Sulfate 220 MG CAP PO SCH (09:12)
[2020-03-06] MEDS: Ascorbic Acid 500 mg Chewable Tablet PO SCH (09:12)
[2020-03-06] MEDS: Apixaban 5 MG TAB PER TUBE SCH ×2 (09:12→20:01)
[2020-03-06] MEDS: Aspirin 81 mg Enteric Coated Tablet PO SCH (09:12)
[2020-03-06] MEDS: Hydrocortisone Sod Succ/PF 100 mg/2 ml Vial IVP SCH ×2 (09:12→20:01)
[2020-03-06] MEDS: Folic Acid 1 MG TAB PO SCH (09:12)
[2020-03-06] MEDS: Cholecalciferol 1,000 UNITS (25 MCG) TAB PO SCH (09:15)
[2020-03-06] MEDS: Cyanocobalamin (Vitamin B-12) 1,000 MCG TAB PO SCH (09:15)
[2020-03-06] MEDS: Pantoprazole 40 MG GRANULES PACKET PER TUBE SCH (09:56)
[2020-03-06] MEDS: Meropenem 2 GM, Admixture Fee 1 EACH in Sodium Chloride 0.9% 100 ML IVPB SCH ×2 (13:50→21:32)
[2020-03-06] MEDS: Sterile Water 10 ML VIAL IVP PRN (14:37)
--- NOTE | 2020-03-06 16:35 | PDOC.HOSPP ---
- Subjective Encounter Date: 03/06/20 Encounter Time: 12:00 Subjective: on vent, is sedated daughter at bedside - Objective Vital Signs & Weight: Vital Signs (12 hours) Temp Pulse Resp BP Pulse Ox 03/06/20 16:00 101.3 F H 28 H 03/06/20 14:40 99 148/84 H 03/06/20 14:00 28 H 03/06/20 12:00 98.9 F 28 H 03/06/20 11:18 107 H 115/70 03/06/20 10:00 26 H 03/06/20 08:00 99.7 F H 30 H 90 L 03/06/20 07:30 78 165/85 H 03/06/20 05:51 25 H 03/06/20 05:46 186/95 H Weight Admit Weight 250 lb 0.067 oz Weight 3.517 oz Most Recent Monitor Data Heart Rate from ECG 113 NIBP 122/69 NIBP BP-Mean 86 Respiration from ECG 29 SpO2 88 I&O: 03/05/20 03/06/20 03/07/20 06:59 06:59 06:59 Intake Total 1106 2266.5 270 Output Total 3270 2173 860 Balance -2164 93.5 -590 Result Diagrams: 03/06/20 04:25 03/06/20 04:25 Hospitalist ROS - Medication Medications: Active Medications Generic Name Dose Route Start Last Admin Trade Name Freq PRN Reason Stop Dose Admin Acetaminophen 650 mg 02/10/20 11:33 03/05/20 14:46 Acetaminophen 325 Mg Tab PO 650 mg Q4H PRN Administration Headache/Fever/Mild Pain (1-3) Albuterol/Ipratropium 3 ml 03/05/20 13:00 03/06/20 14:40 Ipratropium/Albuterol Sulfate 3 Ml Neb NEB 3 ml [id number] CLAY Administration Apixaban 5 mg 03/05/20 09:00 03/06/20 09:12 Apixaban 5 Mg Tab PER TUBE 5 mg BID CLAY Administration Ascorbic Acid 1,000 mg 02/15/20 09:00 03/06/20 09:12 Ascorbic Acid 500 Mg Chewable Tablet PO 1,000 mg DAILY CLAY Administration Aspirin 81 mg 02/11/20 09:00 03/06/20 09:12 Aspirin 81 Mg Enteric Coated Tablet PO 81 mg DAILY CLAY Administration Bisacodyl 10 mg 02/11/20 08:36 03/03/20 05:02 Bisacodyl 5 Mg Tab PO 10 mg DAILYPRN PRN Administration Constipation Cholecalciferol 5,000 units 02/16/20 09:00 03/06/20 09:15 Cholecalciferol 1,000 Units (25 Mcg) Tab PO 5,000 units DAILY CLAY Administration Clonidine 0.1 mg 02/10/20 14:29 03/06/20 05:46 Clonidine 0.1 Mg Tab PO 0.1 mg Q4H PRN Administration SBP Greater Than 180 Cyanocobalamin 1,000 mcg 02/26/20 09:00 03/06/20 09:15 Cyanocobalamin (Vitamin B-12) 1,000 Mcg Tab PO 1,000 mcg DAILY CLAY Administration Folic Acid 1 mg 02/26/20 09:00 03/06/20 09:12 Folic Acid 1 Mg Tab PO 1 mg DAILY CLAY Administration Hydralazine HCl 10 mg 02/11/20 08:36 03/05/20 13:15 Hydralazine 20 Mg/Ml Vial SLOW IVP 10 mg Q4H PRN Administration SBP > 180 and HR < 70 Hydrocortisone Sodium Succinate 50 mg 03/06/20 07:36 03/06/20 09:12 Hydrocortisone Sod Succ/Pf 100 Mg/2 Ml Vial IVP 50 mg Q12HR CLAY Administration Fentanyl Citrate 2,000 mcg/ 100 mls @ 0 mls/hr 02/28/20 03:30 03/06/20 08:01 Sodium Chloride IV 03/29/20 03:30 100 mls INF CLAY Administration Protocol Per Protocol Midazolam HCl 100 mg/ Sodium 100 mls @ 0 mls/hr 02/28/20 08:00 03/06/20 08:05 Chloride IVPB 100 mls INF PRN Administration Sedation Protocol As Directed Meropenem 2 gm/ Miscellaneous 100 mls @ 200 mls/hr 03/06/20 14:00 03/06/20 13:50 Medication 1 each/ Sodium IVPB 03/13/20 14:01 100 mls Chloride Q8HR CLAY Administration Micafungin Sodium 100 mg/ 100 mls @ 100 mls/hr 03/06/20 07:45 03/06/20 09:09 Sodium Chloride IVPB 03/13/20 07:46 100 mls Q24H CLAY Administration Levothyroxine Sodium 150 mcg 03/06/20 06:00 03/06/20 05:07 Levothyroxine Sodium 75 Mcg Tab PO 150 mcg 0600 CLAY Administration Lorazepam 2 mg 02/28/20 03:30 03/06/20 05:07 Lorazepam 2 Mg/Ml Vial SLOW IVP 03/29/20 03:30 2 mg Q1H PRN Administration Breakthrough agitation Pantoprazole Sodium 40 mg 03/06/20 09:00 03/06/20 09:56 Pantoprazole 40 Mg Granules Packet PER TUBE 40 mg DAILY CLAY Administration Propofol 1,000 mg 02/28/20 03:30 03/03/20 05:14 Propofol 1,000 Mg/100 Ml Vial IV 03/29/20 03:30 1,000 mg INF PRN Administration TO ACHIEVE GOAL RASS Protocol Senna/Docusate Sodium 2 tab 02/10/20 11:33 02/16/20 19:55 Senokot S 8.6-50 Mg Tab PO 2 tab BIDPRN PRN Administration Constipation Sodium Chloride 10 ml 02/10/20 11:33 03/01/20 20:30 Flush - Normal Saline 10 Ml Syringe IVF 10 ml PRN PRN Administration Saline Flush Sterile Water 10 ml 02/28/20 03:54 03/06/20 14:37 Sterile Water 10 Ml Vial IVP 10 ml Q30MIN PRN Administration NEEDED FOR RECONSTITUTION Vecuronium [place] 10 mg 02/28/20 03:54 03/06/20 14:37 Vecuronium 10 Mg Vial IV 10 mg Q30MIN PRN Administration SPASM Zinc Sulfate 220 mg 02/15/20 09:00 03/06/20 09:12 Zinc Sulfate 220 Mg Cap PO 220 mg DAILY CLAY Administration - Exam General Appearance: ill appearing Eye: PERRL, anicteric sclera ENT: no oropharyngeal lesions, dry oral mucosa Neck: supple, no JVD Heart: RRR, no murmur Respiratory: no wheezes, rales, rhonchi Gastrointestinal: soft, non-tender, non-distended, normal bowel sounds Extremities: no cyanosis, 1+ LE edema Neurological: cranial nerve grossly intact, no focal deficits Hosp A/P (1) Pneumonia due to COVID-19 virus Code(s): U07.1 - COVID-19; J12.89 - OTHER VIRAL PNEUMONIA Status: Acute (2) Acute respiratory failure due to COVID-19 Code(s): U07.1 - COVID-19; J96.00 - ACUTE RESPIRATORY FAILURE, UNSP W HYPOXIA OR HYPERCAPNIA Status: Acute (3) BPH (benign prostatic hyperplasia) Code(s): N40.0 - BENIGN PROSTATIC HYPERPLASIA WITHOUT LOWER URINRY TRACT SYMP Status: Chronic Qualifiers: Lower urinary tract symptom presence: symptoms absent Qualified Code(s): N4 0.0 - Benign prostatic hyperplasia without lower urinary tract symptoms (4) H/O Graves' disease Code(s): Z86.39 - PERSONAL HISTORY OF ENDO, NUTRITIONAL AND METABOLIC DISEASE Status: Chronic (5) Hypothyroidism (acquired) Code(s): E03.9 - HYPOTHYROIDISM, UNSPECIFIED Status: Chronic (6) Obesity (BMI 30.0-34.9) Code(s): E66.9 - OBESITY, UNSPECIFIED Status: Chronic (7) Chronic anemia Code(s): D64.9 - ANEMIA, UNSPECIFIED Status: Chronic (8) JARED (obstructive sleep apnea) Code(s): G47.33 - OBSTRUCTIVE SLEEP APNEA (ADULT) (PEDIATRIC) Status: Chronic (9) Moderate malnutrition Code(s): E44.0 - MODERATE PROTEIN-CALORIE MALNUTRITION Status: Acute (10) Sepsis Code(s): A41.9 - SEPSIS, UNSPECIFIED ORGANISM Status: Acute Qualifiers: Sepsis type: sepsis due to unspecified organism Sepsis acute organ dysfunction status: with acute organ dysfunction Severe sepsis acute organ dysfunction type: acute respiratory failure Acute respiratory failure type: with hypoxia Severe sepsis shock status: without septic shock Qualified Code(s): A41.9 - Sepsis, unspecified organism; R65.20 - Severe sepsis without septic shock; J96.01 - Acute respiratory failure with hypoxia - Plan is on steroids, nebs, aspirin, eliquis, protonix, synthroid and flomax got intubated on 02/26, has high fio2 requirements. is back on meropenem and micafungin, blood cs were drawn today may need diuretics if his BP permits prognosis guarded hemostable d/w daughter at bedside (03/01), 03/03, is in touch with family and is providing updates. palliative care
[2020-03-06] MEDS: Acetaminophen 325 MG TAB PO PRN (17:57)
[2020-03-07] MEDS: fentaNYL Citrate/PF 2,000 MCG in Sodium Chloride 0.9% 60 ML IV SCH ×2 (03:50→14:06)
[2020-03-07 05:31] LABS: Anion Gap 14 mmol/L (10-20); BUN (Urea Nitrogen) 28 mg/dL (8.4-25.7); Calc. Creatinine Clearance 163 mL/min (70-130); Calcium 8.5 mg/dL (7.8-10.44); Carbon Dioxide 29 mmol/L (23-31); Chloride 105 mmol/L (98-107); Glucose 134 mg/dL (80-115); Potassium 3.4 mmol/L (3.5-5.1); Sodium 145 mmol/L (136-145)
[2020-03-07] MEDS: Levothyroxine Sodium 75 MCG TAB PO SCH (05:42)
[2020-03-07 06:44] LABS: Band 52 % (5-11); Hemoglobin 12.9 g/dL (14.0-18.0); Lymphocytes 7 % (21-51); MDiff Complete? YES; Mean Corpuscular HGB CONC 31.3 g/dL (32.0-36.0); Mean Corpuscular Hemoglobin 30.2 pg (27.0-31.0); Mean Corpuscular Volume 96.6 fL (78.0-98.0); Mean Platelet Volume 8.5 fL (7.4-10.4); Monocytes 2 % (0-10); Neutrophil 38 % (42-75); Platelet Count 169 thou/uL (130-400); RBC Distribution Width 15.3 % (11.5-14.5); Reactive Lymphocytes 1 % (0-10); Red Blood Cell (RBC) Count 4.26 mill/uL (4.70-6.10); White Blood Cell (WBC) Count 6.9 thou/uL (4.8-10.8)
[2020-03-07] MEDS: Meropenem 2 GM, Admixture Fee 1 EACH in Sodium Chloride 0.9% 100 ML IVPB SCH ×3 (07:13→21:04)
[2020-03-07 08:08] LABS: Actual Bicarbonate (HCO3a) 33.3 mEq/L (22-28); Base Excess (BEa) 7.9 mEq/L (-2.0 to +3.0); CO2 Tension 49.9 mmHg (35.0-45.0); Calcium, Ionized (arterial) 1.21 mmol/L (1.12-1.30); Carboxyhemoglobin (COHb) 2.4 gm% (0.0-3.0); Hemoglobin (Hb) 12.3 g/dL (14.0-18.0); Potassium - ABG Lab 3.24 mmol/L (3.70-5.30); pH, Arterial 7.44 (7.35-7.45)
[2020-03-07 08:09] LABS: O2 Tension (PaO2), arterial 40.6 mmHg (> 80.0)
[2020-03-07 08:10] LABS: Puncture Site LRA
[2020-03-07 08:11] LABS: ALV-art Gradient 396.125 mmHg (0-20)
[2020-03-07] MEDS: Micafungin 100 MG in Sodium Chloride 0.9% 100 ML IVPB SCH (08:27)
--- NOTE | 2020-03-07 09:09 | RAD ---
PORTABLE CHEST: HISTORY: Followup pneumonia. FINDINGS: Endotracheal and NG tubes are in satisfactory position. Heart size is borderline. Infiltrative lung changes are fairly similar to the previous exam given the differences in technique. IMPRESSION: Essentially stable exam. Questionable slight increase to the parenchymal changes in the right mid nery ng field. POS: SUNG
[2020-03-07] MEDS ORDERED: Electrolyte Replacement Protocol 1 EACH FS SCH (09:12)
[2020-03-07] MEDS: Ascorbic Acid 500 mg Chewable Tablet PO SCH (09:23)
[2020-03-07] MEDS: Aspirin 81 mg Enteric Coated Tablet PO SCH (09:23)
[2020-03-07] MEDS: Zinc Sulfate 220 MG CAP PO SCH (09:24)
[2020-03-07] MEDS: Hydrocortisone Sod Succ/PF 100 mg/2 ml Vial IVP SCH ×2 (09:24→20:11)
[2020-03-07] MEDS: Vecuronium 10 MG VIAL IV PRN ×2 (09:24→17:55)
[2020-03-07] MEDS: Apixaban 5 MG TAB PER TUBE SCH ×2 (09:24→20:11)
[2020-03-07] MEDS: Folic Acid 1 MG TAB PO SCH (09:24)
[2020-03-07] MEDS: Sterile Water 10 ML VIAL IVP PRN ×2 (09:24→17:44)
[2020-03-07] MEDS: Pantoprazole 40 MG GRANULES PACKET PER TUBE SCH (09:24)
[2020-03-07] MEDS: Cholecalciferol 1,000 UNITS (25 MCG) TAB PO SCH (09:27)
[2020-03-07] MEDS: Cyanocobalamin (Vitamin B-12) 1,000 MCG TAB PO SCH (09:27)
--- NOTE | 2020-03-07 09:39 | PRG ---
DATE OF SERVICE: 03/07/2020 35 minutes of critical care time. SUBJECTIVE: The patient remains intubated on mechanical ventilation with COVID-19 pneumonia. OBJECTIVE: VITAL SIGNS: Temperature 99.7, pulse 109, blood pressure 147/80. 24-hour intake 2470, output 2145. HEENT: Unremarkable except for the sore over his nose. NECK: No JVD. LUNGS: Coarse rhonchi. CARDIOVASCULAR: S1 and S2. Regular. ABDOMEN: Soft. EXTREMITIES: No edema. LABORATORY DATA: White blood cell count 6.9, hematocrit 41, and platelet count 169. PH 7.44, pCO2 of 50, pO2 of 40 on bilevel 35/12 with a rate of 25, FiO2 70%. Sodium 145, potassium 3.4, chloride 105, CO2 of 29, BUN 20, creatinine 0.6, glucose 134. His x-ray continues to show bilateral infiltrates. ASSESSMENT: 1. COVID-19 pneumonia. 2. Acute hypoxic respiratory failure requiring mechanical ventilation. 3. Generalized failure to improve. PLAN: 1. We will place him back on a prone position today. We will put a donut over his face to protect the necrosis for the nose. 2. Continue the empiric antibiotics and replace potassium. Job ID: [id number]
[2020-03-07] MEDS ORDERED: Potassium Chloride 20 MEQ TAB PO SCH (11:00)
--- NOTE | 2020-03-07 14:33 | PDOC.HOSPP ---
- Subjective Encounter Date: 03/07/20 Encounter Time: :20 Subjective: is on vent, sedated, is being placed in prone position today daughter at bedside - Objective Vital Signs & Weight: Vital Signs (12 hours) Temp Pulse Resp BP Pulse Ox 03/07/20 14:00 25 H 03/07/20 13:20 100 112/70 03/07/20 12:00 98.8 F 26 H 03/07/20 11:08 105 H 110/61 03/07/20 10:00 25 H 03/07/20 08:00 99.7 F H 29 H 90 L 03/07/20 07:51 100 135/74 03/07/20 06:00 29 H 03/07/20 04:00 98.7 F 25 H Weight Admit Weight 250 lb 0.067 oz Weight 221 lb 5.506 oz Most Recent Monitor Data Heart Rate from ECG 101 NIBP 112/71 NIBP BP-Mean 84 Respiration from ECG 25 SpO2 93 I&O: 03/06/20 03/07/20 03/08/20 06:59 06:59 06:59 Intake Total 2266.5 2470 200 Output Total 2173 2145 835 Balance 93.5 325 -635 Result Diagrams: 03/07/20 04:00 03/07/20 04:00 Hospitalist ROS - Medication Medications: Active Medications Generic Name Dose Route Start Last Admin Trade Name Freq PRN Reason Stop Dose Admin Acetaminophen 650 mg 02/10/20 11:33 03/06/20 17:57 Acetaminophen 325 Mg Tab PO 650 mg Q4H PRN Administration Headache/Fever/Mild Pain (1-3) Albuterol/Ipratropium 3 ml 03/05/20 13:00 03/07/20 13:19 Ipratropium/Albuterol Sulfate 3 Ml Neb NEB 3 ml [id number] CLAY Administration Apixaban 5 mg 03/05/20 09:00 03/07/20 09:24 Apixaban 5 Mg Tab PER TUBE 5 mg BID CLAY Administration Ascorbic Acid 1,000 mg 02/15/20 09:00 03/07/20 09:23 Ascorbic Acid 500 Mg Chewable Tablet PO 1,000 mg DAILY CLAY Administration Aspirin 81 mg 02/11/20 09:00 03/07/20 09:23 Aspirin 81 Mg Enteric Coated Tablet PO 81 mg DAILY CLAY Administration Bisacodyl 10 mg 02/11/20 08:36 03/03/20 05:02 Bisacodyl 5 Mg Tab PO 10 mg DAILYPRN PRN Administration Constipation Cholecalciferol 5,000 units 02/16/20 09:00 03/07/20 09:27 Cholecalciferol 1,000 Units (25 Mcg) Tab PO 5,000 units DAILY CLAY Administration Clonidine 0.1 mg 02/10/20 14:29 03/06/20 05:46 Clonidine 0.1 Mg Tab PO 0.1 mg Q4H PRN Administration SBP Greater Than 180 Cyanocobalamin 1,000 mcg 02/26/20 09:00 03/07/20 09:27 Cyanocobalamin (Vitamin B-12) 1,000 Mcg Tab PO 1,000 mcg DAILY CLAY Administration Folic Acid 1 mg 02/26/20 09:00 03/07/20 09:24 Folic Acid 1 Mg Tab PO 1 mg DAILY CLAY Administration Hydralazine HCl 10 mg 02/11/20 08:36 03/05/20 13:15 Hydralazine 20 Mg/Ml Vial SLOW IVP 10 mg Q4H PRN Administration SBP > 180 and HR < 70 Hydrocortisone Sodium Succinate 50 mg 03/06/20 07:36 03/07/20 09:24 Hydrocortisone Sod Succ/Pf 100 Mg/2 Ml Vial IVP 50 mg Q12HR CLAY Administration Fentanyl Citrate 2,000 mcg/ 100 mls @ 0 mls/hr 02/28/20 03:30 03/07/20 14:06 Sodium Chloride IV 03/29/20 03:30 100 mls INF CLAY Administration Protocol Per Protocol Midazolam HCl 100 mg/ Sodium 100 mls @ 0 mls/hr 02/28/20 08:00 03/07/20 03:50 Chloride IVPB 100 mls INF PRN Administration Sedation Protocol As Directed Meropenem 2 gm/ Miscellaneous 100 mls @ 200 mls/hr 03/06/20 14:00 03/07/20 1 4:06 Medication 1 each/ Sodium IVPB 03/13/20 14:01 100 mls Chloride Q8HR CLAY Administration Micafungin Sodium 100 mg/ 100 mls @ 100 mls/hr 03/06/20 07:45 03/07/20 08:27 Sodium Chloride IVPB 03/13/20 07:46 100 mls Q24H CLAY Administration Levothyroxine Sodium 150 mcg 03/06/20 06:00 03/07/20 05:42 Levothyroxine Sodium 75 Mcg Tab PO 150 mcg 0600 CLAY Administration Lorazepam 2 mg 02/28/20 03:30 03/06/20 05:07 Lorazepam 2 Mg/Ml Vial SLOW IVP 03/29/20 03:30 2 mg Q1H PRN Administration Breakthrough agitation Pantoprazole Sodium 40 mg 03/06/20 09:00 03/07/20 09:24 Pantoprazole 40 Mg Granules Packet PER TUBE 40 mg DAILY CLAY Administration Potassium Chloride 40 meq 03/07/20 11:00 03/07/20 11:25 Potassium Chloride 20 Meq Tab PO 03/07/20 15:00 40 meq NOW CLAY Administration Propofol 1,000 mg 02/28/20 03:30 03/03/20 05:14 Propofol 1,000 Mg/100 Ml Vial IV 03/29/20 03:30 1,000 mg INF PRN Administration TO ACHIEVE GOAL RASS Protocol Senna/Docusate Sodium 2 tab 02/10/20 11:33 02/16/20 19:55 Senokot S 8.6-50 Mg Tab PO 2 tab BIDPRN PRN Administration Constipation Sodium Chloride 10 ml 02/10/20 11:33 03/01/20 20:30 Flush - Normal Saline 10 Ml Syringe IVF 10 ml PRN PRN Administration Saline Flush Sterile Water 10 ml 02/28/20 03:54 03/07/20 09:24 Sterile Water 10 Ml Vial IVP 10 ml Q30MIN PRN Administration NEEDED FOR RECONSTITUTION Vecuronium [place] 10 mg 02/28/20 03:54 03/07/20 09:24 Vecuronium 10 Mg Vial IV 10 mg Q30MIN PRN Administration SPASM Zinc Sulfate 220 mg 02/15/20 09:00 03/07/20 09:24 Zinc Sulfate 220 Mg Cap PO 220 mg DAILY CLAY Administration - Exam General Appearance: ill appearing Eye: anicteric sclera ENT: no oropharyngeal lesions, moist mucosa Neck: supple, no JVD Heart: RRR, no murmur Respiratory: no wheezes, rales, rhonchi Gastrointestinal: soft, non-tender, non-distended, normal bowel sounds Extremities: no cyanosis, 1+ LE edema Neurological: cranial nerve grossly intact, no focal deficits Hosp A/P (1) Pneumonia due to COVID-19 virus Code(s): U07.1 - COVID-19; J12.89 - OTHER VIRAL PNEUMONIA Status: Acute (2) Acute respiratory failure due to COVID-19 Code(s): U07.1 - COVID-19; J96.00 - ACUTE RESPIRATORY FAILURE, UNSP W HYPOXIA OR HYPERCAPNIA Status: Acute (3) BPH (benign prostatic hyperplasia) Code(s): N40.0 - BENIGN PROSTATIC HYPERPLASIA WITHOUT LOWER URINRY TRACT SYMP Status: Chronic Qualifiers: Lower urinary tract symptom presence: symptoms absent Qualified Code(s): N40.0 - Benign prostatic hyperplasia without lower urinary tract symptoms (4) H/O Graves' disease Code(s): Z86.39 - PERSONAL HISTORY OF ENDO, NUTRITIONAL AND METABOLIC DISEASE Status: Chronic (5) Hypothyroidism (acquired) Code(s): E03.9 - HYPOTHYROIDISM, UNSPECIFIED Status: Chronic (6) Obesity (BMI 30.0-34.9) Code(s): E66.9 - OBESITY, UNSPECIFIED Status: Chronic (7) Chronic anemia Code(s): D64.9 - ANEMIA, UNSPECIFIED Status: Chronic (8) JARED (obstructive sleep apnea) Code(s): G47.33 - OBSTRUCTIVE SLEEP APNEA (ADULT) (PEDIATRIC) Status: Chronic (9) Moderate malnutrition Code(s): E44.0 - MODERATE PROTEIN-CALORIE MALNUTRITION Status: Acute (10) Sepsis Code(s): A41.9 - SEPSIS, UNSPECIFIED ORGANISM Status: Acute Qualifiers: Sepsis type: sepsis due to unspecified organism Sepsis acute organ dysfunction status: with acute organ dysfunction Severe sepsis acute organ dysfunction type: acute respiratory failure Acute respiratory failure type: with hypoxia Severe sepsis shock status: without septic shock Qualified Code(s): A41.9 - Sepsis, unspecified organism; R65.20 - Severe sepsis without septic shock; J96.01 - Acute respiratory failure with hypoxia - Plan is on steroids, nebs, aspirin, eliquis, protonix, synthroid and flomax got intubated on 02/26, has high fio2 requirements with low pO2 on blood gas, is being proned from today. on meropenem and micafungin may need diuretics if his BP permits prognosis guarded hemostable d/w daughter at bedside (03/01), 03/03, is in touch with family and is providing updates. palliative care
[2020-03-08] MEDS: fentaNYL Citrate/PF 2,000 MCG in Sodium Chloride 0.9% 60 ML IV SCH ×3 (00:32→20:16)
[2020-03-08 04:50] LABS: BUN (Urea Nitrogen) 27 mg/dL (8.4-25.7); Calc. Creatinine Clearance 180 mL/min (70-130); Calcium 8.5 mg/dL (7.8-10.44); Glucose 120 mg/dL (80-115)
[2020-03-08 04:53] LABS: #Lymphocytes 0.4 thou/uL (1.20-3.40); #Monocytes 0.3 thou/uL (0.11-0.59); %Basophils 0.1 % (0.0-1.0); %Eosinophils 0.1 % (0.0-10.0); %Lymphocytes 6.3 % (21.0-51.0); %Neutrophils 89.5 % (42.0-75.0); Hemoglobin 11.7 g/dL (14.0-18.0); Mean Corpuscular HGB CONC 30.4 g/dL (32.0-36.0); Mean Corpuscular Hemoglobin 29.1 pg (27.0-31.0); Mean Corpuscular Volume 95.8 fL (78.0-98.0); Mean Platelet Volume 8.9 fL (7.4-10.4); Platelet Count 201 thou/uL (130-400); RBC Distribution Width 15.1 % (11.5-14.5); Red Blood Cell (RBC) Count 4.02 mill/uL (4.70-6.10); White Blood Cell (WBC) Count 6.7 thou/uL (4.8-10.8)
[2020-03-08 05:02] LABS: Anion Gap 16 mmol/L (10-20); Carbon Dioxide 32 mmol/L (23-31); Chloride 107 mmol/L (98-107); Potassium 3.6 mmol/L (3.5-5.1); Sodium 151 mmol/L (136-145)
[2020-03-08] MEDS: Levothyroxine Sodium 75 MCG TAB PO SCH (05:35)
[2020-03-08] MEDS: Meropenem 2 GM, Admixture Fee 1 EACH in Sodium Chloride 0.9% 100 ML IVPB SCH ×3 (05:36→21:13)
[2020-03-08 07:28] LABS: Actual Bicarbonate (HCO3a) 32.1 mEq/L (22-28); Base Excess (BEa) 7.6 mEq/L (-2.0 to +3.0); CO2 Tension 44.7 mmHg (35.0-45.0); Calcium, Ionized (arterial) 1.19 mmol/L (1.12-1.30); Carboxyhemoglobin (COHb) 2.1 gm% (0.0-3.0); Potassium - ABG Lab 3.51 mmol/L (3.70-5.30); pH, Arterial 7.47 (7.35-7.45)
[2020-03-08] MEDS: Sterile Water 10 ML VIAL IVP PRN (07:49)
[2020-03-08] MEDS: Vecuronium 10 MG VIAL IV PRN (07:49)
[2020-03-08 07:51] LABS: ALV-art Gradient 396.625 mmHg (0-20); O2 Tension (PaO2), arterial 46.6 mmHg (> 80.0); Puncture Site RRA
--- NOTE | 2020-03-08 08:13 | RAD ---
XR Chest 1 View Portable History: Pneumonia Comparison: Radiograph prior day Findings: Endotracheal tube tip sits above the kemar 3 cm. Enteric tube tip below diaphragm although out of field of view. Slight improved lung aeration. No pneumothorax. Impression: Slight improved lung aeration.
[2020-03-08] MEDS: Micafungin 100 MG in Sodium Chloride 0.9% 100 ML IVPB SCH (08:18)
[2020-03-08] MEDS: Aspirin 81 mg Enteric Coated Tablet PO SCH (08:20)
[2020-03-08] MEDS: Zinc Sulfate 220 MG CAP PO SCH (08:20)
[2020-03-08] MEDS: Apixaban 5 MG TAB PER TUBE SCH ×2 (08:20→20:57)
[2020-03-08] MEDS: Ascorbic Acid 500 mg Chewable Tablet PO SCH (08:20)
[2020-03-08] MEDS: Pantoprazole 40 MG GRANULES PACKET PER TUBE SCH (08:20)
[2020-03-08] MEDS: Hydrocortisone Sod Succ/PF 100 mg/2 ml Vial IVP SCH ×2 (08:21→20:57)
[2020-03-08] MEDS: Folic Acid 1 MG TAB PO SCH (08:21)
[2020-03-08] MEDS: Cholecalciferol 1,000 UNITS (25 MCG) TAB PO SCH (08:28)
[2020-03-08] MEDS: Cyanocobalamin (Vitamin B-12) 1,000 MCG TAB PO SCH (08:29)
[2020-03-08] MEDS: Dextrose 5% in Water 1,000 ML IV SCH ×2 (08:37→18:26)
--- NOTE | 2020-03-08 08:50 | PRG ---
DATE OF SERVICE: 03/08/2020 35 minutes critical care time. SUBJECTIVE: The patient remains intubated on mechanical ventilation. He has been placed back in the supine position today. He was given a couple of doses of paralytics last night. He just got a dose of paralytics. OBJECTIVE: VITAL SIGNS: Temperature 98.7, with no documented fever overnight. Pulse 70, blood pressure 132/72, O2 saturation 94%. 24-hour intake was 891, output 2460. HEENT: Remarkable for a healing ulcer at the tip of his nose. Oropharynx is intubated. NECK: No adenopathy or JVD. LUNGS: Diffuse crackles bilaterally. CARDIAC: S1, S2. Regular. ABDOMEN: Soft. EXTREMITIES: No edema. IMAGING: His chest x-ray shows bilateral infiltrates, perhaps a little more concentrated today than yesterday, but that was probably related to being prone while this x-ray was taken. LABORATORY DATA: White blood cell count 6.7, hematocrit 38.5, and platelet count 201. PH 7.47, pCO2 of 44, pO2 of 47. Sodium 151, potassium 3.6, chloride 107, CO2 of 32, BUN 27, creatinine 0.5, and glucose 120. ASSESSMENT: 1. Coronavirus disease 2019 pneumonia. 2. Acute hypoxic respiratory failure requiring mechanical ventilation. 3. Developing hypernatremia. 4. Possible secondary pneumonia. PLAN: I had a long talk with the patient's spouse yesterday. I told her that he has not improved and I am very concerned that he will not survive this. Despite that, we are not giving up. Today, we will see how long he can tolerate being in the supine position. He will continue the meropenem and micafungin through March 13. He is on anticoagulation. He is on steroids. Because he has become so hypernatremic, I will go ahead and give him free water for the next 24 hours and reassess. He continues tube feeds. Prognosis remains very poor. Job ID: [id number]
--- NOTE | 2020-03-08 19:22 | PDOC.HOSPP ---
- Subjective Encounter Date: 03/08/20 Encounter Time: 14:00 Subjective: F/u: COVID The patient is still intubated. FIO2 is around 60% . He is on fentanyl 200 and versed of 5 . Per nursing when he was weaned yesterday he had a lot of ventilator-dyssynchrony Spoke with the patient's daughter today and answered questions - Objective Vital Signs & Weight: Vital Signs (12 hours) Temp Pulse Resp BP Pulse Ox 03/08/20 18:21 64 112/66 03/08/20 18:00 25 H 03/08/20 16:00 99.0 F 25 H 03/08/20 15:12 84 03/08/20 14:00 25 H 03/08/20 12:00 98.8 F 26 H 03/08/20 11:00 79 03/08/20 10:00 27 H 03/08/20 08:00 99.3 F 26 H 94 L 03/08/20 07:49 72 Weight Admit Weight 250 lb 0.067 oz Weight 223 lb 1.725 oz Most Recent Monitor Data Heart Rate from ECG 84 NIBP 112/66 NIBP BP-Mean 81 Respiration from ECG 27 SpO2 92 I&O: 03/07/20 03/08/20 03/09/20 06:59 06:59 06:59 Intake Total 2470 891 2125 Output Total 2145 2460 1010 Balance 325 -1569 1115 Result Diagrams: 03/08/20 04:00 03/08/20 04:00 Hospitalist ROS - Review of Systems ROS unobtainable: due to endotracheal tube - Medication Medications: Active Medications Generic Name Dose Route Start Last Admin Trade Name Freq PRN Reason Stop Dose Admin Acetaminophen 650 mg 02/10/20 11:33 03/06/20 17:57 Acetaminophen 325 Mg Tab PO 650 mg Q4H PRN Administration Headache/Fever/Mild Pain (1-3) Albuterol/Ipratropium 3 ml 03/05/20 13:00 03/08/20 18:20 Ipratropium/Albuterol Sulfate 3 Ml Neb NEB 3 ml [id number] CLAY Administration Apixaban 5 mg 03/05/20 09:00 03/08/20 08:20 Apixaban 5 Mg Tab PER TUBE 5 mg BID CLAY Administration Ascorbic Acid 1,000 mg 02/15/20 09:00 03/08/20 08:20 Ascorbic Acid 500 Mg Chewable Tablet PO 1,000 mg DAILY CLAY Administration Aspirin 81 mg 02/11/20 09:00 03/08/20 08:20 Aspirin 81 Mg Enteric Coated Tablet PO 81 mg DAILY CLAY Administration Bisacodyl 10 mg 02/11/20 08:36 03/03/20 05:02 Bisacodyl 5 Mg Tab PO 10 mg DAILYPRN PRN Administration Constipation Cholecalciferol 5,000 units 02/16/20 09:00 03/08/20 08:28 Cholecalciferol 1,000 Units (25 Mcg) Tab PO 5,000 units DAILY CLAY Administration Clonidine 0.1 mg 02/10/20 14:29 03/06/20 05:46 Clonidine 0.1 Mg Tab PO 0.1 mg Q4H PRN Administration SBP Greater Than 180 Cyanocobalamin 1,000 mcg 02/26/20 09:00 03/08/20 08:29 Cyanocobalamin (Vitamin B-12) 1,000 Mcg Tab PO 1,000 mcg DAILY CLAY Administration Folic Acid 1 mg 02/26/20 09:00 03/08/20 08:21 Folic Acid 1 Mg Tab PO 1 mg DAILY CLAY Administration Hydralazine HCl 10 mg 02/11/20 08:36 03/05/20 13:15 Hydralazine 20 Mg/Ml Vial SLOW IVP 10 mg Q4H PRN Administration SBP > 180 and HR < 70 Hydrocortisone Sodium Succinate 50 mg 03/06/20 07:36 03/08/20 08:21 Hydrocortisone Sod Succ/Pf 100 Mg/2 Ml Vial IVP 50 mg Q12HR CLAY Administration Fentanyl Citrate 2,000 mcg/ 100 mls @ 0 mls/hr 02/28/20 03:30 03/08/20 10:43 Sodium Chloride IV 03/29/20 03:30 100 mls INF CLAY Administration Protocol Per Protocol Midazolam HCl 100 mg/ Sodium 100 mls @ 0 mls/hr 02/28/20 08:00 03/08/20 00:15 Chloride IVPB 100 mls INF PRN Administration Sedation Protocol As Directed Meropenem 2 gm/ Miscellaneous 100 mls @ 200 mls/hr 03/06/20 14:00 03/08/20 15:16 Medication 1 each/ Sodium IVPB 03/13/20 14:01 100 mls Chloride Q8HR CLAY Administration Micafungin Sodium 100 mg/ 100 mls @ 100 mls/hr 03/06/20 07:45 03/08/20 08:18 Sodium Chloride IVPB 03/13/20 07:46 100 mls Q24H CLAY Administration Dextrose/Water 1,000 mls @ 100 mls/hr 03/08/20 08:30 03/08/20 18:26 D5w IV 03/09/20 04:29 1,000 mls .Q10H CLAY Administration Levothyroxine Sodium 150 mcg 03/06/20 06:00 03/08/20 05:35 Levothyroxine Sodium 75 Mcg Tab PO 150 mcg 0600 CLAY Administration Lorazepam 2 mg 02/28/20 03:30 03/06/20 05:07 Lorazepam 2 Mg/Ml Vial SLOW IVP 03/29/20 03:30 2 mg Q1H PRN Administration Breakthrough agitation Pantoprazole Sodium 40 mg 03/06/20 09:00 03/08/20 08:20 Pantoprazole 40 Mg Granules Packet PER TUBE 40 mg DAILY CLAY Administration Propofol 1,000 mg 02/28/20 03:30 03/03/20 05:14 Propofol 1,000 Mg/100 Ml Vial IV 03/29/20 03:30 1,000 mg INF PRN Administration TO ACHIEVE GOAL RASS Protocol Senna/Docusate Sodium 2 tab 02/10/20 11:33 02/16/20 19:55 Senokot S 8.6-50 Mg Tab PO 2 tab BIDPRN PRN Administration Constipation Sodium Chloride 10 ml 02/10/20 11:33 03/01/20 20:30 Flush - Normal Saline 10 Ml Syringe IVF 10 ml PRN PRN Administration Saline Flush Sterile Water 10 ml 02/28/20 03:54 03/08/20 07:49 Sterile Water 10 Ml Vial IVP 10 ml Q30MIN PRN Administration NEEDED FOR RECONSTITUTION Vecuronium [place] 10 mg 02/28/20 03:54 03/08/20 07:49 Vecuronium 10 Mg Vial IV 10 mg Q30MIN PRN Administration SPASM Zinc Sulfate 220 mg 02/15/20 09:00 03/08/20 08:20 Zinc Sulfate 220 Mg Cap PO 220 mg DAILY CLAY Administration - Exam General - other findings: intubated ENT: normocephalic atraumatic, no oropharyngeal lesions Neck: no JVD Heart: RRR, no murmur, no gallops, no rubs Respiratory - other findings: diminished breath sounds bilaterally Gastrointestinal: soft, non-tender, non-distended, normal bowel sounds Extremities: no cyanosis, no clubbing, no edema Skin: normal turgor, no lesions, no rashes Hosp A/P - Plan Chest X ray 03/08: slightly improved lung aeration This is a 64 year old male diagnosed with COVID, developed progressive respiratory failure and is now intubated. Acute hypoxic respiratory failure secondary to COVID pneumonia - repeat chest X ray 02/22 show more diffuse pneumonia. He received remdesivir 02/09 to 02/13 and IV zosyn 02/24 to 03/03 and micafungin 02/23 to 03/03. - He was restarted on meropenem on 03/06 and micafungin on 03/06. He is off steroids. Continue lovenox - FiO2 is currently at 60%, possibly plan for tracheostomy when - continue IV dexamethasone and lovenox 40 mg SC BID - micafungin (D1 02/23) and zosyn day (D1 02/24). Leukocytosis resolved. Appreciate wood planer support Hypernatremia - sodium is up to 151, started on D5W. Will add free water flush 100 q6 hours Pernicious anemia - vitamin B12 < 200, intrinsic factor positive. Continue monthly vitamin B12 Folic acid deficiency anemia - continue folic acid
[2020-03-09] MEDS ORDERED: Morphine 2 MG/ML VIAL SLOW IVP PRN (03:54)
[2020-03-09] MEDS ORDERED: Fentanyl BOLUS 250 ML IVPB PRN (03:55)
[2020-03-09 04:54] LABS: #Lymphocytes 0.5 thou/uL (1.20-3.40); #Monocytes 0.3 thou/uL (0.11-0.59); #Neutrophils 4.6 thou/uL (1.40-6.50); %Basophils 0.2 % (0.0-1.0); %Eosinophils 0.1 % (0.0-10.0); %Lymphocytes 8.7 % (21.0-51.0); %Monocytes 5.6 % (0.0-10.0); %Neutrophils 85.5 % (42.0-75.0); Hemoglobin 10.7 g/dL (14.0-18.0); Mean Corpuscular HGB CONC 32.1 g/dL (32.0-36.0); Mean Corpuscular Hemoglobin 31.2 pg (27.0-31.0); Mean Corpuscular Volume 97.1 fL (78.0-98.0); Mean Platelet Volume 9.2 fL (7.4-10.4); Platelet Count 156 thou/uL (130-400); RBC Distribution Width 14.9 % (11.5-14.5); Red Blood Cell (RBC) Count 3.44 mill/uL (4.70-6.10); White Blood Cell (WBC) Count 5.4 thou/uL (4.8-10.8)
[2020-03-09 05:16] LABS: Anion Gap 12 mmol/L (10-20); BUN (Urea Nitrogen) 26 mg/dL (8.4-25.7); Calc. Creatinine Clearance 187 mL/min (70-130); Carbon Dioxide 35 mmol/L (23-31); Chloride 106 mmol/L (98-107); Glucose 151 mg/dL (80-115); Potassium 3.6 mmol/L (3.5-5.1); Sodium 149 mmol/L (136-145)
[2020-03-09] MEDS: Meropenem 2 GM, Admixture Fee 1 EACH in Sodium Chloride 0.9% 100 ML IVPB SCH ×3 (05:34→21:22)
[2020-03-09] MEDS: Levothyroxine Sodium 75 MCG TAB PO SCH (05:34)
[2020-03-09] MEDS: fentaNYL Citrate/PF 2,000 MCG in Sodium Chloride 0.9% 60 ML IV SCH ×2 (06:09→15:41)
[2020-03-09 07:33] LABS: Actual Bicarbonate (HCO3a) 34.7 mEq/L (22-28); CO2 Tension 47.5 mmHg (35.0-45.0); Calcium, Ionized (arterial) 1.16 mmol/L (1.12-1.30); Carboxyhemoglobin (COHb) 2.2 gm% (0.0-3.0); Hemoglobin (Hb) 11.3 g/dL (14.0-18.0); Potassium - ABG Lab 3.53 mmol/L (3.70-5.30); pH, Arterial 7.48 (7.35-7.45)
[2020-03-09 08:06] LABS: ALV-art Gradient 315.925 mmHg (0-20); O2 Tension (PaO2), arterial 52.5 mmHg (> 80.0); Puncture Site RRA
--- NOTE | 2020-03-09 08:22 | RAD ---
PORTABLE CHEST: HISTORY: Followup pneumonia. COVID. Endotracheal and NG tubes are in satisfactory position. Bilateral lung infiltrates are again demonst rated. There is not a substantial difference since the prior exam. IMPRESSION: Stable exam. POS: SUNG
[2020-03-09] MEDS: Aspirin 81 mg Enteric Coated Tablet PO SCH (08:26)
[2020-03-09] MEDS: Hydrocortisone Sod Succ/PF 100 mg/2 ml Vial IVP SCH ×2 (08:26→21:03)
[2020-03-09] MEDS: Pantoprazole 40 MG GRANULES PACKET PER TUBE SCH (08:26)
[2020-03-09] MEDS: Ascorbic Acid 500 mg Chewable Tablet PO SCH (08:26)
[2020-03-09] MEDS: Apixaban 5 MG TAB PER TUBE SCH ×2 (08:26→21:04)
[2020-03-09] MEDS: Folic Acid 1 MG TAB PO SCH (08:26)
[2020-03-09] MEDS: Zinc Sulfate 220 MG CAP PO SCH (08:26)
[2020-03-09] MEDS: Micafungin 100 MG in Sodium Chloride 0.9% 100 ML IVPB SCH (08:26)
[2020-03-09] MEDS: Cholecalciferol 1,000 UNITS (25 MCG) TAB PO SCH (08:31)
[2020-03-09] MEDS: Cyanocobalamin (Vitamin B-12) 1,000 MCG TAB PO SCH (08:38)
--- NOTE | 2020-03-09 09:52 | PRG ---
DATE OF SERVICE: 03/09/2020 30 minutes critical care time. SUBJECTIVE: The patient remains intubated on mechanical ventilation. OBJECTIVE: VITAL SIGNS: Temperature 98.6, pulse 62, blood pressure 156/86, O2 saturation 92%. 24-hour intake 4311, output 2120. HEENT: Unremarkable. NECK: No adenopathy or JVD. LUNGS: Coarse breath sounds. CARDIAC: S1 and S2, regular. ABDOMEN: Soft. EXTREMITIES: Edematous. LABORATORY DATA: Sodium 149, potassium 3.6, chloride 106, CO2 of 35, BUN 26, creatinine 0.5, and glucose 151. White blood cell count 5.4, hematocrit 33.4, and platelet count 156. PH 7.48, pCO2 of 47, pO2 of 52, on bilevel 35/12 with a FiO2 of 60%. IMAGING STUDIES: His x-ray maybe slightly better. ASSESSMENT: 1. Acute respiratory failure requiring mechanical ventilation. 2. COVID-19 pneumonia. 3. Hypernatremia - slightly improved. PLAN: I have switched him to assist-control mode to help his work of breathing. He is continuing meropenem and micafungin through March 13. He is on anticoagulation and steroids. He has been started on free water through his IV yesterday. I will switch that and give it through his tube today. His prognosis remains guarded. Job ID: [id number]
--- NOTE | 2020-03-09 12:34 | PDOC.HOSPP ---
- Subjective Encounter Date: 03/09/20 Encounter Time: 12:33 Subjective: F/u: COVID He is still on versed 5 and fentanyl 200. Per nursing, no bowel movement since 02/22. His PEEP is down to 12, FiO2 still at 60% Family would be interested in tracheostomy when he is a candidate - Objective Vital Signs & Weight: Vital Signs (12 hours) Temp Pulse Resp BP Pulse Ox 03/09/20 11:04 75 03/09/20 10:00 34 H 03/09/20 08:08 61 03/09/20 08:00 21 H 95 03/09/20 07:00 98.6 F 03/09/20 06:00 25 H 03/09/20 04:00 98.7 F 26 H 03/09/20 02:11 72 123/68 03/09/20 02:00 25 H Weight Admit Weight 250 lb 0.067 oz Weight 224 lb 6.889 oz Most Recent Monitor Data Heart Rate from ECG 74 NIBP 153/78 NIBP BP-Mean 103 Respiration from ECG 28 SpO2 90 I&O: 03/08/20 03/09/20 03/10/20 06:59 06:59 06:59 Intake Total 891 4311 220 Output Total 2460 2120 525 Balance -1569 2191 -305 Result Diagrams: 03/09/20 03:50 03/09/20 03:50 Hospitalist ROS - Review of Systems Constitutional: denies: fever, chills - Medication Medications: Active Medications Generic Name Dose Route Start Last Admin Trade Name Freq PRN Reason Stop Dose Admin Acetaminophen 650 mg 02/10/20 11:33 03/06/20 17:57 Acetaminophen 325 Mg Tab PO 650 mg Q4H PRN Administration Headache/Fever/Mild Pain (1-3) Albuterol/Ipratropium 3 ml 03/05/20 13:00 03/09/20 08:07 Ipratropium/Albuterol Sulfate 3 Ml Neb NEB 3 ml [id number] CLAY Administration Apixaban 5 mg 03/05/20 09:00 03/09/20 08:26 Apixaban 5 Mg Tab PER TUBE 5 mg BID CLAY Administration Ascorbic Acid 1,000 mg 02/15/20 09:00 03/09/20 08:26 Ascorbic Acid 500 Mg Chewable Tablet PO 1,000 mg DAILY CLAY Administration Aspirin 81 mg 02/11/20 09:00 03/09/20 08:26 Aspirin 81 Mg Enteric Coated Tablet PO 81 mg DAILY CLAY Administration Bisacodyl 10 mg 02/11/20 08:36 03/03/20 05:02 Bisacodyl 5 Mg Tab PO 10 mg DAILYPRN PRN Administration Constipation Cholecalciferol 5,000 units 02/16/20 09:00 03/09/20 08:31 Cholecalciferol 1,000 Units (25 Mcg) Tab PO 5,000 units DAILY CLAY Administration Clonidine 0.1 mg 02/10/20 14:29 03/06/20 05:46 Clonidine 0.1 Mg Tab PO 0.1 mg Q4H PRN Administration SBP Greater Than 180 Cyanocobalamin 1,000 mcg 02/26/20 09:00 03/09/20 08:38 Cyanocobalamin (Vitamin B-12) 1,000 Mcg Tab PO 1,000 mcg DAILY CLAY Administration Folic Acid 1 mg 02/26/20 09:00 03/09/20 08:26 Folic Acid 1 Mg Tab PO 1 mg DAILY CLAY Administration Hydralazine HCl 10 mg 02/11/20 08:36 03/05/20 13:15 Hydralazine 20 Mg/Ml Vial SLOW IVP 10 mg Q4H PRN Administration SBP > 180 and HR < 70 Hydrocortisone Sodium Succinate 50 mg 03/06/20 07:36 03/09/20 08:26 Hydrocortisone Sod Succ/Pf 100 Mg/2 Ml Vial IVP 50 mg Q12HR CLAY Administration Meropenem 2 gm/ Miscellaneous 100 mls @ 200 mls/hr 03/06/20 14:00 03/09/20 05:34 Medication 1 each/ Sodium IVPB 03/13/20 14:01 100 mls Chloride Q8HR CLAY Administration Micafungin Sodium 100 mg/ 100 mls @ 100 mls/hr 03/06/20 07:45 03/09/20 08:26 Sodium Chloride IVPB 03/13/20 07:46 100 mls Q24H CLAY Administration Fentanyl Citrate 2,000 mcg/ 100 mls @ 0 mls/hr 03/09/20 04:00 03/09/20 06:09 Sodium Chloride IV 100 mls INF CLAY Administration Protocol Per Protocol Levothyroxine Sodium 150 mcg 03/06/20 06:00 03/09/20 05:34 Levothyroxine Sodium 75 Mcg Tab PO 150 mcg 0600 CLAY Administration Pantoprazole Sodium 40 mg 03/06/20 09:00 03/09/20 08:26 Pantoprazole 40 Mg Granules Packet PER TUBE 40 mg DAILY CLAY Administration Propofol 1,000 mg 02/28/20 03:30 03/03/20 05:14 Propofol 1,000 Mg/100 Ml Vial IV 03/29/20 03:30 1,000 mg INF PRN Administration TO ACHIEVE GOAL RASS Protocol Senna/Docusate Sodium 2 tab 02/10/20 11:33 02/16/20 19:55 Senokot S 8.6-50 Mg Tab PO 2 tab BIDPRN PRN Administration Constipation Sodium Chloride 10 ml 02/10/20 11:33 03/01/20 20:30 Flush - Normal Saline 10 Ml Syringe IVF 10 ml PRN PRN Administration Saline Flush Sterile Water 10 ml 02/28/20 03:54 03/08/20 07:49 Sterile Water 10 Ml Vial IVP 10 ml Q30MIN PRN Administration NEEDED FOR RECONSTITUTION Vecuronium [place] 10 mg 02/28/20 03:54 03/08/20 07:49 Vecuronium 10 Mg Vial IV 10 mg Q30MIN PRN Administration SPASM Zinc Sulfate 220 mg 02/15/20 09:00 03/09/20 08:26 Zinc Sulfate 220 Mg Cap PO 220 mg DAILY CLAY Administration - Exam General - other findings: intubated Eye: PERRL, anicteric sclera ENT: normocephalic atraumatic, no oropharyngeal lesions Neck: no JVD Heart: RRR, no murmur, no gallops, no rubs Respiratory - other findings: bilateral rales Gastrointestinal: soft, non-tender, non-distended Extremities: no cyanosis, no clubbing Extremities - other findings: 2+ pitting edema in the arms Skin: normal turgor, no lesions, no rashes Neurological: cranial nerve grossly intact, normal sensation to touch Hosp A/P - Plan Chest X ray 03/08: slightly improved lung aeration This is a 64 year old male diagnosed with COVID, developed progressive respiratory failure and is now intubated. Acute hypoxic respiratory failure secondary to COVID pneumonia - repeat chest X ray 02/22 show more diffuse pneumonia. He received remdesivir 02/09 to 02/13 and IV zosyn 02/24 to 03/03 and micafungin 02/23 to 03/03. - He was restarted on meropenem on 03/06 and micafungin on 03/06, plan to continue for another 7 days. Chest X ray 03/09 is unchanged - given bilateral rales and 2+ edema on exam, will trial lasix 20 mg IV x 1 Hypernatremia - sodium improved to 149. Discontinued dextrose and will continue free water flushes in the tubes Constipation - will add miralax through the tube. Try to wean fentanyl drip if possible Pernicious anemia - vitamin B12 < 200, intrinsic factor positive. Continue monthly vitamin B12 Folic acid deficiency anemia - continue folic acid
[2020-03-09] MEDS ORDERED: Furosemide 20 MG/2 ML VIAL SLOW IVP SCH (12:45)
[2020-03-10] MEDS: fentaNYL Citrate/PF 2,000 MCG in Sodium Chloride 0.9% 60 ML IV SCH ×3 (01:10→21:14)
[2020-03-10 04:08] LABS: #Lymphocytes 0.7 thou/uL (1.20-3.40); #Monocytes 0.5 thou/uL (0.11-0.59); #Neutrophils 6.3 thou/uL (1.40-6.50); %Basophils 0.1 % (0.0-1.0); %Eosinophils 0.2 % (0.0-10.0); %Lymphocytes 8.6 % (21.0-51.0); %Monocytes 7.1 % (0.0-10.0); Mean Corpuscular HGB CONC 32.3 g/dL (32.0-36.0); Mean Corpuscular Hemoglobin 30.6 pg (27.0-31.0); Mean Corpuscular Volume 94.5 fL (78.0-98.0); Mean Platelet Volume 9.2 fL (7.4-10.4); Platelet Count 160 thou/uL (130-400); RBC Distribution Width 14.9 % (11.5-14.5); Red Blood Cell (RBC) Count 3.61 mill/uL (4.70-6.10); White Blood Cell (WBC) Count 7.5 thou/uL (4.8-10.8)
[2020-03-10 04:27] LABS: Anion Gap 14 mmol/L (10-20); BUN (Urea Nitrogen) 29 mg/dL (8.4-25.7); Calc. Creatinine Clearance 207 mL/min (70-130); Calcium 7.9 mg/dL (7.8-10.44); Carbon Dioxide 36 mmol/L (23-31); Chloride 105 mmol/L (98-107); Glucose 131 mg/dL (80-115); Potassium 3.5 mmol/L (3.5-5.1); Sodium 151 mmol/L (136-145)
[2020-03-10] MEDS ORDERED: Potassium Chloride 20 MEQ TAB PO SCH (06:45)
[2020-03-10] MEDS: Levothyroxine Sodium 75 MCG TAB PO SCH (06:55)
--- NOTE | 2020-03-10 07:36 | PRG ---
DATE OF SERVICE: 03/10/2020 SUBJECTIVE: Mr. Escudero continues on mechanical ventilation. There have been no acute changes overnight. PHYSICAL EXAMINATION: VITAL SIGNS: His heart rate ranges from the 40s to the 70s. He vagals down when he has suctions. Blood pressure is 108/60, O2 saturation generally in the low 90s, but right now is running about 88%. He is sedated on midazolam and fentanyl. HEENT: Remarkable for the ulcer at the tip of his nose, which is healing. NECK: No adenopathy or JVD. LUNGS: Coarse crackles bilaterally with equal breath sounds. CARDIAC: S1 and S2, regular. ABDOMEN: Soft and nontender. EXTREMITIES: No clubbing or cyanosis. Trace edema. LABORATORY DATA: ABG pending. White blood cell count 7.5, hematocrit 34.1, and platelet count 160. Sodium 151, potassium 3.5, chloride 105, CO2 of 36, BUN 29, creatinine 0.5, and glucose 131. ASSESSMENT: 1. Acute respiratory failure requiring mechanical ventilation. 2. COVID-19 pneumonia. 3. Hypernatremia-probably worsened by the diuretics he received yesterday. PLAN: He will need more free water in the form of D5W. Continue steroids, anticoagulation, and mechanical ventilation. Not weanable at this time and eventually will need tracheostomy. I had a long discussion with his at the bedside yesterday. Job ID: [id number]
[2020-03-10] MEDS: Micafungin 100 MG in Sodium Chloride 0.9% 100 ML IVPB SCH (07:47)
[2020-03-10] MEDS: Dextrose 5% in Water 1,000 ML IV SCH ×2 (07:47→18:12)
[2020-03-10 07:52] LABS: Actual Bicarbonate (HCO3a) 37.8 mEq/L (22-28); Base Excess (BEa) 11.5 mEq/L (-2.0 to +3.0); CO2 Tension 58.7 mmHg (35.0-45.0); Calcium, Ionized (arterial) 1.16 mmol/L (1.12-1.30); Carboxyhemoglobin (COHb) 1.7 gm% (0.0-3.0); Hemoglobin (Hb) 11.1 g/dL (14.0-18.0); Potassium - ABG Lab 3.53 mmol/L (3.70-5.30); pH, Arterial 7.43 (7.35-7.45)
[2020-03-10 07:59] LABS: O2 Tension (PaO2), arterial 54.1 mmHg (> 80.0); Puncture Site RRA
[2020-03-10 08:00] LABS: ALV-art Gradient 300.325 mmHg (0-20)
--- NOTE | 2020-03-10 08:13 | RAD ---
Portable frontal chest radiograph: 03/10/2020 COMPARISON: 03/09/2020 HISTORY: Pneumonia FINDINGS: Stable endotracheal tube and nasogastric tube. Stable nonspecific diffuse interstitial and alveolar opacity, most prominent in the right perihilar region/right upper lobe and bilateral lung bases. There is a suggestion of mild subcutaneous emphysema in the right supraclavicular region. IMPRESSION: No significant interval change when compared to the 03/09/2020 examination.
[2020-03-10] MEDS: Zinc Sulfate 220 MG CAP PO SCH (08:22)
[2020-03-10] MEDS: Aspirin 81 mg Enteric Coated Tablet PO SCH (08:22)
[2020-03-10] MEDS: Apixaban 5 MG TAB PER TUBE SCH ×2 (08:22→21:48)
[2020-03-10] MEDS: Pantoprazole 40 MG GRANULES PACKET PER TUBE SCH (08:22)
[2020-03-10] MEDS: Cyanocobalamin (Vitamin B-12) 1,000 MCG TAB PO SCH (08:22)
[2020-03-10] MEDS: Hydrocortisone Sod Succ/PF 100 mg/2 ml Vial IVP SCH ×2 (08:22→21:48)
[2020-03-10] MEDS: Cholecalciferol 1,000 UNITS (25 MCG) TAB PO SCH (08:22)
[2020-03-10] MEDS: Ascorbic Acid 500 mg Chewable Tablet PO SCH (08:22)
[2020-03-10] MEDS: Polyethylene Glycol 3350 17 GM Packet PER TUBE SCH (08:22)
[2020-03-10] MEDS: Folic Acid 1 MG TAB PO SCH (08:22)
[2020-03-10] MEDS: Meropenem 2 GM, Admixture Fee 1 EACH in Sodium Chloride 0.9% 100 ML IVPB SCH ×3 (08:52→21:48)
--- NOTE | 2020-03-10 14:47 | PDOC.HOSPP ---
- Subjective Encounter Date: 03/10/20 Encounter Time: 12:00 Subjective: F/u: COVID, intubated The patient is still intubated. He is on fentanyl of 200 and versed of 5. He had one bowel movement yesterday. PEEP is at 12, FiO2 60% - Objective Vital Signs & Weight: Vital Signs (12 hours) Temp Pulse Resp BP Pulse Ox 03/10/20 14:00 20 03/10/20 13:22 56 L 131/81 03/10/20 12:00 97.7 F 22 H 03/10/20 11:02 67 03/10/20 10:00 20 03/10/20 08:00 99.1 F 20 89 L 03/10/20 07:38 59 L 129/64 03/10/20 06:00 22 H 03/10/20 04:00 23 H Weight Admit Weight 250 lb 0.067 oz Weight 222 lb 14.197 oz Most Recent Monitor Data Heart Rate from ECG 57 NIBP 138/83 NIBP BP-Mean 101 Respiration from ECG 22 SpO2 94 I&O: 03/09/20 03/10/20 03/11/20 06:59 06:59 06:59 Intake Total 4311 4108 250 Output Total 2120 3250 780 Balance 2191 858 -530 Result Diagrams: 03/10/20 03:29 03/10/20 03:29 Hospitalist ROS - Medication Medications: Active Medications Generic Name Dose Route Start Last Admin Trade Name Freq PRN Reason Stop Dose Admin Acetaminophen 650 mg 02/10/20 11:33 03/06/20 17:57 Acetaminophen 325 Mg Tab PO 650 mg Q4H PRN Administration Headache/Fever/Mild Pain (1-3) Albuterol/Ipratropium 3 ml 03/05/20 13:00 03/10/20 13:22 Ipratropium/Albuterol Sulfate 3 Ml Neb NEB 3 ml [id number] CLAY Administration Apixaban 5 mg 03/05/20 09:00 03/10/20 08:22 Apixaban 5 Mg Tab PER TUBE 5 mg BID CLAY Administration Ascorbic Acid 1,000 mg 02/15/20 09:00 03/10/20 08:22 Ascorbic Acid 500 Mg Chewable Tablet PO 1,000 mg DAILY CLAY Administration Aspirin 81 mg 02/11/20 09:00 03/10/20 08:22 Aspirin 81 Mg Enteric Coated Tablet PO 81 mg DAILY CLAY Administration Bisacodyl 10 mg 02/11/20 08:36 03/03/20 05:02 Bisacodyl 5 Mg Tab PO 10 mg DAILYPRN PRN Administration Constipation Cholecalciferol 5,000 units 02/16/20 09:00 03/10/20 08:22 Cholecalciferol 1,000 Units (25 Mcg) Tab PO 5,000 units DAILY CLAY Administration Clonidine 0.1 mg 02/10/20 14:29 03/06/20 05:46 Clonidine 0.1 Mg Tab PO 0.1 mg Q4H PRN Administration SBP Greater Than 180 Cyanocobalamin 1,000 mcg 02/26/20 09:00 03/10/20 08:22 Cyanocobalamin (Vitamin B-12) 1,000 Mcg Tab PO 1,000 mcg DAILY CLAY Administration Folic Acid 1 mg 02/26/20 09:00 03/10/20 08:22 Folic Acid 1 Mg Tab PO 1 mg DAILY CLAY Administration Hydralazine HCl 10 mg 02/11/20 08:36 03/05/20 13:15 Hydralazine 20 Mg/Ml Vial SLOW IVP 10 mg Q4H PRN Administration SBP > 180 and HR < 70 Hydrocortisone Sodium Succinate 50 mg 03/06/20 07:36 03/10/20 08:22 Hydrocortisone Sod Succ/Pf 100 Mg/2 Ml Vial IVP 50 mg Q12HR CLAY Administration Meropenem 2 gm/ Miscellaneous 100 mls @ 200 mls/hr 03/06/20 14:00 03/10/20 08:52 Medication 1 each/ Sodium IVPB 03/13/20 14:01 100 mls Chloride Q8HR CLAY Administration Micafungin Sodium 100 mg/ 100 mls @ 100 mls/hr 03/06/20 07:45 03/10/20 07:47 Sodium Chloride IVPB 03/13/20 07:46 100 mls Q24H CLAY Administration Fentanyl Citrate 2,000 mcg/ 100 mls @ 0 mls/hr 03/09/20 04:00 03/10/20 10:34 Sodium Chloride IV 100 mls INF CLAY Administration Protocol Per Protocol Midazolam HCl 100 mg/ Sodium 100 mls @ 0 mls/hr 03/09/20 15:19 03/10/20 11:14 Chloride IVPB 100 mls INF PRN Administration Sedation Protocol As Directed Dextrose/Water 1,000 mls @ 75 mls/hr 03/10/20 06:45 03/10/20 07:47 D5w IV 03/11/20 22:44 1,000 mls .[id number] CLAY Administration Levothyroxine Sodium 150 mcg 03/06/20 06:00 03/10/20 06:55 Levothyroxine Sodium 75 Mcg Tab PO 150 mcg 0600 CLAY Administration Pantoprazole Sodium 40 mg 03/06/20 09:00 03/10/20 08:22 Pantoprazole 40 Mg Granules Packet PER TUBE 40 mg DAILY CLAY Administration Polyethylene Glycol 17 gm 03/10/20 09:00 03/10/20 08:22 Polyethylene Glycol 3350 17 Gm Packet PER TUBE 17 gm DAILY CLAY Administration Propofol 1,000 mg 02/28/20 03:30 03/03/20 05:14 Propofol 1,000 Mg/100 Ml Vial IV 03/29/20 03:30 1,000 mg INF PRN Administration TO ACHIEVE GOAL RASS Protocol Senna/Docusate Sodium 2 tab 02/10/20 11:33 02/16/20 19:55 Senokot S 8.6-50 Mg Tab PO 2 tab BIDPRN PRN Administration Constipation Sodium Chloride 10 ml 02/10/20 11:33 03/01/20 20:30 Flush - Normal Saline 10 Ml Syringe IVF 10 ml PRN PRN Administration Saline Flush Sterile Water 10 ml 02/28/20 03:54 03/08/20 07:49 Sterile Water 10 Ml Vial IVP 10 ml Q30MIN PRN Administration NEEDED FOR RECONSTITUTION Vecuronium [place] 10 mg 02/28/20 03:54 03/08/20 07:49 Vecuronium 10 Mg Vial IV 10 mg Q30MIN PRN Administration SPASM Zinc Sulfate 220 mg 02/15/20 09:00 03/10/20 08:22 Zinc Sulfate 220 Mg Cap PO 220 mg DAILY CLAY Administration - Exam General Appearance: NAD, awake alert Eye: PERRL, anicteric sclera ENT: normocephalic atraumatic, no oropharyngeal lesions Neck: no JVD Heart: RRR, no murmur, no gallops, no rubs Respiratory: CTAB, no wheezes, no rales, no ronchi Gastrointestinal: soft, non-tender, non-distended, normal bowel sounds Extremities: no cyanosis, no clubbing, no edema Skin: normal turgor, no lesions, no rashes Neurological: cranial nerve grossly intact, normal sensation to touch, no weakness, no focal deficits Hosp A/P - Plan Chest X ray 03/08: slightly improved lung aeration This is a 64 year old male diagnosed with COVID, developed progressive respiratory failure and is now intubated. Acute hypoxic respiratory failure secondary to COVID pneumonia - repeat chest X ray 02/22 show more diffuse pneumonia. He received remdesivir 02/09 to 02/13 and IV zosyn 02/24 to 03/03 and micafungin 02/23 to 03/03. - He was restarted on meropenem on 03/06 and micafungin on 03/06, plan to continue until 03/13. Chest X ray 03/09 is unchanged - plan for tracheostomy when pulmonology feels is appropriate Hypernatremia - sodium worsened to 151. D5 W started again Constipation - continue miralax through the tube. Try to wean fentanyl drip if possible Pernicious anemia - vitamin B12 < 200, intrinsic factor positive. Continue monthly vitamin B12 Folic acid deficiency anemia - continue folic acid
[2020-03-11 04:06] LABS: Anion Gap 11 mmol/L (10-20); BUN (Urea Nitrogen) 25 mg/dL (8.4-25.7); Calc. Creatinine Clearance 213 mL/min (70-130); Carbon Dioxide 36 mmol/L (23-31); Chloride 103 mmol/L (98-107); Glucose 150 mg/dL (80-115); Sodium 146 mmol/L (136-145)
[2020-03-11 04:55] LABS: Anisocytosis SLIGHT = 6-15 cells (100X) (0-5/hpf); MDiff Complete? YES; Polychromasia SLIGHT = 2-3 cells (100X) (0-2/hpf)
[2020-03-11 04:56] LABS: #Basophils 0.1 thou/uL (0.0-0.2); #Eosinphils 0.1 thou/uL (0.0-0.7); #Lymphocytes 0.8 thou/uL (1.20-3.40); #Monocytes 0.4 thou/uL (0.11-0.59); #Neutrophils 8.2 thou/uL (1.40-6.50); %Basophils 0.7 % (0.0-1.0); %Eosinophils 0.7 % (0.0-10.0); %Lymphocytes 8.2 % (21.0-51.0); %Monocytes 3.8 % (0.0-10.0); %Neutrophils 86.6 % (42.0-75.0); Hemoglobin 11.6 g/dL (14.0-18.0); Mean Corpuscular HGB CONC 31.8 g/dL (32.0-36.0); Mean Corpuscular Hemoglobin 30.4 pg (27.0-31.0); Mean Corpuscular Volume 95.5 fL (78.0-98.0); Mean Platelet Volume 10.2 fL (7.4-10.4); Platelet Count 153 thou/uL (130-400); RBC Distribution Width 15.2 % (11.5-14.5); Red Blood Cell (RBC) Count 3.83 mill/uL (4.70-6.10); White Blood Cell (WBC) Count 9.4 thou/uL (4.8-10.8)
[2020-03-11] MEDS: Meropenem 2 GM, Admixture Fee 1 EACH in Sodium Chloride 0.9% 100 ML IVPB SCH ×3 (06:08→22:00)
[2020-03-11] MEDS: Levothyroxine Sodium 75 MCG TAB PO SCH (06:09)
[2020-03-11] MEDS: fentaNYL Citrate/PF 2,000 MCG in Sodium Chloride 0.9% 60 ML IV SCH ×2 (07:01→16:26)
[2020-03-11 07:28] LABS: Actual Bicarbonate (HCO3a) 33.6 mEq/L (22-28); Base Excess (BEa) 8.4 mEq/L (-2.0 to +3.0); CO2 Tension 48.6 mmHg (35.0-45.0); Calcium, Ionized (arterial) 1.16 mmol/L (1.12-1.30); Carboxyhemoglobin (COHb) 2.5 gm% (0.0-3.0); Hemoglobin (Hb) 12.4 g/dL (14.0-18.0); pH, Arterial 7.46 (7.35-7.45)
[2020-03-11 07:29] LABS: O2 Tension (PaO2), arterial 49.2 mmHg (> 80.0)
[2020-03-11 07:30] LABS: Puncture Site LRA
--- NOTE | 2020-03-11 08:32 | PRG ---
DATE OF SERVICE: 03/11/2020 35 minutes critical care time. SUBJECTIVE: The patient remains intubated on mechanical ventilation. No acute changes overnight. OBJECTIVE: VITAL SIGNS: Temperature 97.8, pulse 70, blood pressure 160/93. Currently on fentanyl and Versed drips. Intake for last 24 hours has been 4345, output 2425. HEENT: Remarkable for ulcer over the tip of his nose. NECK: No JVD. LUNGS: Inspiratory crackles bilaterally. CARDIAC: S1 and S2, regular. ABDOMEN: Soft. EXTREMITIES: No edema. LABORATORY DATA: Sodium 146, potassium 4, chloride 103, CO2 of 36, BUN 25, creatinine 0.5, and glucose 115. White blood cell count 9.4, hematocrit 36.6, and platelet count 153. PH of 7.46, pCO2 of 48, pO2 of 49 on assist control rate 20, inspiratory pressure 24, FiO2 of 60% with PEEP of 12. Right now, his O2 saturations are running 96% to 97% on the monitor. His x-ray continues to show bilateral infiltrates. ASSESSMENT: 1. COVID-19 pneumonia. 2. Acute hypoxic respiratory failure requiring mechanical ventilation. 3. Slightly improved hypernatremia after giving him more free water. PLAN: I have reduced his inspiratory pressure on the ventilator. We will see if he can tolerate that. Continue anticoagulation, steroids, and general supportive care. Job ID: [id number]
[2020-03-11] MEDS: Hydrocortisone Sod Succ/PF 100 mg/2 ml Vial IVP SCH ×2 (08:41→20:28)
[2020-03-11] MEDS: Cholecalciferol 1,000 UNITS (25 MCG) TAB PO SCH (08:41)
[2020-03-11] MEDS: Pantoprazole 40 MG GRANULES PACKET PER TUBE SCH (08:42)
[2020-03-11] MEDS: Aspirin 81 mg Enteric Coated Tablet PO SCH (08:42)
[2020-03-11] MEDS: Folic Acid 1 MG TAB PO SCH (08:42)
[2020-03-11] MEDS: Apixaban 5 MG TAB PER TUBE SCH ×2 (08:42→20:28)
[2020-03-11] MEDS: Zinc Sulfate 220 MG CAP PO SCH (08:42)
[2020-03-11] MEDS: Ascorbic Acid 500 mg Chewable Tablet PO SCH (08:42)
[2020-03-11] MEDS: Polyethylene Glycol 3350 17 GM Packet PER TUBE SCH (08:43)
[2020-03-11] MEDS: Cyanocobalamin (Vitamin B-12) 1,000 MCG TAB PO SCH (08:43)
[2020-03-11] MEDS: Micafungin 100 MG in Sodium Chloride 0.9% 100 ML IVPB SCH (08:59)
--- NOTE | 2020-03-11 09:14 | RAD ---
PORTABLE CHEST: Date: 03/11/2020 HISTORY: Follow-up COVID pneumonia. COMPARISON: Prior day's study. FINDINGS: Endotracheal and NG tubes are in satisfactory position. Diffuse lung infiltrates are stable. IMPRESSION: Stable exam. POS: OFF
[2020-03-11] MEDS: Dextrose 5% in Water 1,000 ML IV SCH (09:44)
--- NOTE | 2020-03-11 14:47 | PDOC.HOSPP ---
- Subjective Encounter Date: 03/11/20 Encounter Time: 07:00 Subjective: F/u: COVID The patient is still intubated and heavily sedated. PO2 is still 40, so he is still on FiO2 of 60%. His PIP pressure was decreased today per nursing staff. PEEP is still 12 He had a bowel movement yesterday Spoke with who states family is having a hard time because he is taking so long to recover - Objective Vital Signs & Weight: Vital Signs (12 hours) Temp Pulse Resp BP Pulse Ox 03/11/20 14:00 22 H 03/11/20 12:31 82 03/11/20 12:00 26 H 03/11/20 10:52 55 L 03/11/20 10:00 32 H 03/11/20 08:00 97 03/11/20 07:42 37 H 03/11/20 07:40 97.8 F 03/11/20 07:22 65 03/11/20 06:00 20 03/11/20 04:00 21 H 03/11/20 02:46 66 120/78 Weight Admit Weight 250 lb 0.067 oz Weight 220 lb 10.923 oz Most Recent Monitor Data Heart Rate from ECG 61 NIBP 140/73 NIBP BP-Mean 95 Respiration from ECG 22 SpO2 96 I&O: 03/10/20 03/11/20 03/12/20 06:59 06:59 06:59 Intake Total 4108 4345.1 Output Total 3250 2425 1215 Balance 858 1920.1 -1215 Result Diagrams: 03/11/20 03:18 03/11/20 03:18 Hospitalist ROS - Review of Systems ROS unobtainable: due to endotracheal tube - Medication Medications: Active Medications Generic Name Dose Route Start Last Admin Trade Name Freq PRN Reason Stop Dose Admin Acetaminophen 650 mg 02/10/20 11:33 03/06/20 17:57 Acetaminophen 325 Mg Tab PO 650 mg Q4H PRN Administration Headache/Fever/Mild Pain (1-3) Albuterol/Ipratropium 3 ml 03/05/20 13:00 03/11/20 12:34 Ipratropium/Albuterol Sulfate 3 Ml Neb NEB 3 ml [id number] CLAY Administration Apixaban 5 mg 03/05/20 09:00 03/11/20 08:42 Apixaban 5 Mg Tab PER TUBE 5 mg BID CLAY Administration Ascorbic Acid 1,000 mg 02/15/20 09:00 03/11/20 08:42 Ascorbic Acid 500 Mg Chewable Tablet PO 1,000 mg DAILY CLAY Administration Aspirin 81 mg 02/11/20 09:00 03/11/20 08:42 Aspirin 81 Mg Enteric Coated Tablet PO 81 mg DAILY CLAY Administration Bisacodyl 10 mg 02/11/20 08:36 03/03/20 05:02 Bisacodyl 5 Mg Tab PO 10 mg DAILYPRN PRN Administration Constipation Cholecalciferol 5,000 units 02/16/20 09:00 03/11/20 08:41 Cholecalciferol 1,000 Units (25 Mcg) Tab PO 5,000 units DAILY CLAY Administration Clonidine 0.1 mg 02/10/20 14:29 03/06/20 05:46 Clonidine 0.1 Mg Tab PO 0.1 mg Q4H PRN Administration SBP Greater Than 180 Cyanocobalamin 1,000 mcg 02/26/20 09:00 03/11/20 08:43 Cyanocobalamin (Vitamin B-12) 1,000 Mcg Tab PO 1,000 mcg DAILY CLAY Administration Folic Acid 1 mg 02/26/20 09:00 03/11/20 08:42 Folic Acid 1 Mg Tab PO 1 mg DAILY CLAY Administration Hydralazine HCl 10 mg 02/11/20 08:36 03/05/20 13:15 Hydralazine 20 Mg/Ml Vial SLOW IVP 10 mg Q4H PRN Administration SBP > 180 and HR < 70 Hydrocortisone Sodium Succinate 50 mg 03/06/20 07:36 03/11/20 08:41 Hydrocortisone Sod Succ/Pf 100 Mg/2 Ml Vial IVP 50 mg Q12HR CLAY Administration Meropenem 2 gm/ Miscellaneous 100 mls @ 200 mls/hr 03/06/20 14:00 03/11/20 13:44 Medication 1 each/ Sodium IVPB 03/13/20 14:01 100 mls Chloride Q8HR CLAY Administration Micafungin Sodium 100 mg/ 100 mls @ 100 mls/hr 03/06/20 07:45 03/11/20 08:59 Sodium Chloride IVPB 03/13/20 07:46 100 mls Q24H CLAY Administration Fentanyl Citrate 2,000 mcg/ 100 mls @ 0 mls/hr 03/09/20 04:00 03/11/20 07:01 Sodium Chloride IV 100 mls INF CLAY Administration Protocol Per Protocol Midazolam HCl 100 mg/ Sodium 100 mls @ 0 mls/hr 03/09/20 15:19 03/11/20 09:06 Chloride IVPB 100 mls INF PRN Administration Sedation Protocol As Directed Dextrose/Water 1,000 mls @ 75 mls/hr 03/10/20 06:45 03/11/20 09:44 D5w IV 03/11/20 22:44 1,000 mls .[id number] CLAY Administration Levothyroxine Sodium 150 mcg 03/06/20 06:00 03/11/20 06:09 Levothyroxine Sodium 75 Mcg Tab PO 150 mcg 0600 CLAY Administration Pantoprazole Sodium 40 mg 03/06/20 09:00 03/11/20 08:42 Pantoprazole 40 Mg Granules Packet PER TUBE 40 mg DAILY CLAY Administration Polyethylene Glycol 17 gm 03/10/20 09:00 03/11/20 08:43 Polyethylene Glycol 3350 17 Gm Packet PER TUBE 17 gm DAILY CLAY Administration Propofol 1,000 mg 02/28/20 03:30 03/03/20 05:14 Propofol 1,000 Mg/100 Ml Vial IV 03/29/20 03:30 1,000 mg INF PRN Administration TO ACHIEVE GOAL RASS Protocol Senna/Docusate Sodium 2 tab 02/10/20 11:33 02/16/20 19:55 Senokot S 8.6-50 Mg Tab PO 2 tab BIDPRN PRN Administration Constipation Sodium Chloride 10 ml 02/10/20 11:33 03/01/20 20:30 Flush - Normal Saline 10 Ml Syringe IVF 10 ml PRN PRN Administration Saline Flush Sterile Water 10 ml 02/28/20 03:54 03/08/20 07:49 Sterile Water 10 Ml Vial IVP 10 ml Q30MIN PRN Administration NEEDED FOR RECONSTITUTION Vecuronium [place] 10 mg 02/28/20 03:54 03/08/20 07:49 Vecuronium 10 Mg Vial IV 10 mg Q30MIN PRN Administration SPASM Zinc Sulfate 220 mg 02/15/20 09:00 03/11/20 08:42 Zinc Sulfate 220 Mg Cap PO 220 mg DAILY CLAY Administration - Exam General - other findings: sedated Eye: PERRL, anicteric sclera ENT: normocephalic atraumatic, no oropharyngeal lesions Neck: no JVD Heart: RRR, no murmur, no gallops, no rubs Respiratory: CTAB, no wheezes, no rales, no ronchi Gastrointestinal: soft, non-tender, normal bowel sounds Gastrointestinal - other findings: slightly distended Extremities: no edema Skin: normal turgor, no lesions, no rashes Hosp A/P - Plan Chest X ray 03/08: slightly improved lung aeration Chest X ray 03/11: diffuse lung infiltrates This is a 64 year old male diagnosed with COVID, developed progressive respiratory failure and is now intubated. Acute hypoxic respiratory failure secondary to COVID pneumonia - repeat chest X ray 02/22 show more diffuse pneumonia. He received remdesivir 02/09 to 02/13 and IV zosyn 02/24 to 03/03 and micafungin 02/23 to 03/03. - He was restarted on meropenem on 03/06 and micafungin on 03/06, plan to continue until 03/13. Chest X ray 03/09 is unchanged - he has been weaned some on the vent, but still hypoxic with pO2 of 40. Prognosis unclear Hypernatremia - sodium improving to 146 with D5W. Will continue Constipation - continue miralax Pernicious anemia - vitamin B12 < 200, intrinsic factor positive. Continue monthly vitamin B12 Folic acid deficiency anemia - continue folic acid
[2020-03-11] MEDS: cloNIDine 0.1 MG TAB PO PRN (20:28)
[2020-03-12] MEDS: fentaNYL Citrate/PF 2,000 MCG in Sodium Chloride 0.9% 60 ML IV SCH ×2 (03:10→13:51)
[2020-03-12] MEDS: Meropenem 2 GM, Admixture Fee 1 EACH in Sodium Chloride 0.9% 100 ML IVPB SCH ×3 (06:11→21:35)
[2020-03-12] MEDS: Levothyroxine Sodium 75 MCG TAB PO SCH (06:12)
[2020-03-12 07:50] LABS: Hemoglobin 12.5 g/dL (14.0-18.0); Mean Corpuscular HGB CONC 32.4 g/dL (32.0-36.0); Mean Corpuscular Hemoglobin 30.8 pg (27.0-31.0); Mean Corpuscular Volume 95.1 fL (78.0-98.0); Mean Platelet Volume 9.3 fL (7.4-10.4); Platelet Count 156 thou/uL (130-400); RBC Distribution Width 15.2 % (11.5-14.5); Red Blood Cell (RBC) Count 4.04 mill/uL (4.70-6.10); White Blood Cell (WBC) Count 10.5 thou/uL (4.8-10.8)
[2020-03-12 08:01] LABS: Anion Gap 12 mmol/L (10-20); BUN (Urea Nitrogen) 18 mg/dL (8.4-25.7); Calc. Creatinine Clearance 223 mL/min (70-130); Carbon Dioxide 34 mmol/L (23-31); Chloride 95 mmol/L (98-107); Glucose 101 mg/dL (80-115); Potassium 4.2 mmol/L (3.5-5.1); Sodium 137 mmol/L (136-145)
[2020-03-12 08:18] LABS: Actual Bicarbonate (HCO3a) 32.8 mEq/L (22-28); CO2 Tension 51.2 mmHg (35.0-45.0); Calcium, Ionized (arterial) 1.14 mmol/L (1.12-1.30); Carboxyhemoglobin (COHb) 2.6 gm% (0.0-3.0); Hemoglobin (Hb) 13.1 g/dL (14.0-18.0); pH, Arterial 7.42 (7.35-7.45)
[2020-03-12] MEDS: Pantoprazole 40 MG GRANULES PACKET PER TUBE SCH (08:25)
[2020-03-12] MEDS: Hydrocortisone Sod Succ/PF 100 mg/2 ml Vial IVP SCH ×2 (08:25→20:55)
[2020-03-12] MEDS: Polyethylene Glycol 3350 17 GM Packet PER TUBE SCH (08:26)
[2020-03-12] MEDS: Cholecalciferol 1,000 UNITS (25 MCG) TAB PO SCH (08:26)
[2020-03-12] MEDS: Folic Acid 1 MG TAB PO SCH (08:26)
[2020-03-12] MEDS: Zinc Sulfate 220 MG CAP PO SCH (08:26)
[2020-03-12] MEDS: Cyanocobalamin (Vitamin B-12) 1,000 MCG TAB PO SCH (08:26)
[2020-03-12] MEDS: Aspirin 81 mg Enteric Coated Tablet PO SCH (08:26)
[2020-03-12] MEDS: Ascorbic Acid 500 mg Chewable Tablet PO SCH (08:26)
--- NOTE | 2020-03-12 08:26 | PRG ---
DATE OF SERVICE: 03/12/2020 35 minutes critical care time. SUBJECTIVE: The patient remained intubated on mechanical ventilation. There really had been no acute changes in the last 24 hours. OBJECTIVE: VITAL SIGNS: Temperature is 98.4, pulse 74, blood pressure 174/105. HEENT: Unremarkable. NECK: No adenopathy or JVD. LUNGS: Have coarse rhonchi anteriorly. CARDIOVASCULAR: S1, S2 regular. ABDOMEN: Soft. EXTREMITIES: Edematous. LABORATORY DATA: White blood cell count 10, hematocrit 38.4, and platelet count 156. ABG is pending. Sodium 137, potassium 4.2, chloride 95, CO2 of 34, BUN 18, creatinine 0.4, glucose 101. Chest x-ray is about the same. ASSESSMENT: 1. COVID-19 pneumonia. 2. Acute hypoxic respiratory failure requiring mechanical ventilation. 3. Improved hypernatremia. PLAN: We will go ahead and stop the Micafungin as he has had 14 days according to pharmacy. Meropenem can be stopped after today's dose. Still requiring high amounts of PEEP and FiO2, so not quite ready for tracheostomy yet. Job ID: [id number]
[2020-03-12] MEDS: Apixaban 5 MG TAB PER TUBE SCH ×2 (08:27→20:56)
--- NOTE | 2020-03-12 08:33 | RAD ---
CHEST 1 VIEW: Date: 03/12/2020 INDICATION: History of pneumonia. COMPARISON: Prior exam dated 03/11/2020. FINDINGS: Bilateral air space disease is stable. ET tube and gastric catheter are unchanged. No definite pneumo thorax is evident. Osseous structures are unchanged. IMPRESSION: Stable exam. POS: BH
[2020-03-12 09:16] LABS: O2 Tension (PaO2), arterial 51.3 mmHg (> 80.0); Puncture Site LRA
[2020-03-12 09:27] LABS: Band 21 % (5-11); Eosinophils 1 % (0-10); Lymphocytes 10 % (21-51); MDiff Complete? YES; Myelocyte 2 % (0-0); Neutrophil 61 % (42-75); Platelet Morphology Comment Appears Adequate; Polychromasia SLIGHT = 2-3 cells (100X) (0-2/hpf); Reactive Lymphocytes 5 % (0-10)
[2020-03-12] MEDS: Micafungin 100 MG in Sodium Chloride 0.9% 100 ML IVPB SCH (14:28)
--- NOTE | 2020-03-12 15:53 | PDOC.HOSPP ---
- Subjective Encounter Date: 03/12/20 Encounter Time: 09:00 Subjective: F/u: The patient is still intubated. He was weaned down to 180 of fentanyl. Per nursing staff he wasn't following commands . When weaned too much his respiratory rate increased to 40 and he became very uncomfortable PEEP 12, FiO2 60 - Objective Vital Signs & Weight: Vital Signs (12 hours) Temp Pulse Pulse Pulse Resp BP BP 03/12/20 14:00 29 H 03/12/20 13:51 84 120/70 03/12/20 13:50 85 28 H 03/12/20 12:00 35 H 03/12/20 11:22 92 152/84 H 03/12/20 11:10 63 84 162/93 H 03/12/20 10:00 21 H 03/12/20 08:07 71 161/91 H 03/12/20 08:06 68 27 H 03/12/20 08:00 22 H 03/12/20 06:00 31 H 03/12/20 04:00 97.8 F 20 BP Pulse Ox Pulse Ox Pulse Ox 03/12/20 14:00 03/12/20 13:51 03/12/20 13:50 95 03/12/20 12:00 03/12/20 11:22 03/12/20 11:10 152/84 H 90 L 94 L 03/12/20 10:00 03/12/20 08:07 03/12/20 08:06 91 L 03/12/20 08:00 93 L 03/12/20 06:00 03/12/20 04:00 Weight Admit Weight 250 lb 0.067 oz Weight 223 lb 1.725 oz Most Recent Monitor Data Heart Rate from ECG 97 NIBP 168/97 NIBP BP-Mean 120 Respiration from ECG 25 SpO2 92 I&O: 03/11/20 03/12/20 03/13/20 06:59 06:59 06:59 Intake Total 4345.1 6127.8 577.0 Output Total 2425 3880 1525 Balance 1920.1 2247.8 -948.0 Result Diagrams: 03/12/20 07:28 03/12/20 07:28 Hospitalist ROS - Review of Systems Constitutional: denies: fever, chills - Medication Medications: Active Medications Generic Name Dose Route Start Last Admin Trade Name Freq PRN Reason Stop Dose Admin Acetaminophen 650 mg 02/10/20 11:33 03/06/20 17:57 Acetaminophen 325 Mg Tab PO 650 mg Q4H PRN Administration Headache/Fever/Mild Pain (1-3) Albuterol/Ipratropium 3 ml 03/05/20 13:00 03/12/20 13:50 Ipratropium/Albuterol Sulfate 3 Ml Neb NEB 3 ml [id number] CLAY Administration Apixaban 5 mg 03/05/20 09:00 03/12/20 08:27 Apixaban 5 Mg Tab PER TUBE 5 mg BID CLAY Administration Ascorbic Acid 1,000 mg 02/15/20 09:00 03/12/20 08:26 Ascorbic Acid 500 Mg Chewable Tablet PO 1,000 mg DAILY CLAY Administration Aspirin 81 mg 02/11/20 09:00 03/12/20 08:26 Aspirin 81 Mg Enteric Coated Tablet PO 81 mg DAILY CLAY Administration Bisacodyl 10 mg 02/11/20 08:36 03/03/20 05:02 Bisacodyl 5 Mg Tab PO 10 mg DAILYPRN PRN Administration Constipation Cholecalciferol 5,000 units 02/16/20 09:00 03/12/20 08:26 Cholecalciferol 1,000 Units (25 Mcg) Tab PO 5,000 units DAILY CLAY Administration Clonidine 0.1 mg 02/10/20 14:29 03/11/20 20:28 Clonidine 0.1 Mg Tab PO 0.1 mg Q4H PRN Administration SBP Greater Than 180 Cyanocobalamin 1,000 mcg 02/26/20 09:00 03/12/20 08:26 Cyanocobalamin (Vitamin B-12) 1,000 Mcg Tab PO 1,000 mcg DAILY CLAY Administration Folic Acid 1 mg 02/26/20 09:00 03/12/20 08:26 Folic Acid 1 Mg Tab PO 1 mg DAILY CLAY Administration Hydralazine HCl 10 mg 02/11/20 08:36 03/05/20 13:15 Hydralazine 20 Mg/Ml Vial SLOW IVP 10 mg Q4H PRN Administration SBP > 180 and HR < 70 Hydrocortisone Sodium Succinate 50 mg 03/06/20 07:36 03/12/20 08:25 Hydrocortisone Sod Succ/Pf 100 Mg/2 Ml Vial IVP 50 mg Q12HR CLAY Administration Meropenem 2 gm/ Miscellaneous 100 mls @ 200 mls/hr 03/06/20 14:00 03/12/20 14:36 Medication 1 each/ Sodium IVPB 03/13/20 14:01 100 mls Chloride Q8HR CLAY Administration Fentanyl Citrate 2,000 mcg/ 100 mls @ 0 mls/hr 03/09/20 04:00 03/12/20 13:51 Sodium Chloride IV 100 mls INF CLAY Administration Protocol Per Protocol Midazolam HCl 100 mg/ Sodium 100 mls @ 0 mls/hr 03/09/20 15:19 03/12/20 03:18 Chloride IVPB 100 mls INF PRN Administration Sedation Protocol As Directed Levothyroxine Sodium 150 mcg 03/06/20 06:00 03/12/20 06:12 Levothyroxine Sodium 75 Mcg Tab PO 150 mcg 0600 CLAY Administration Pantoprazole Sodium 40 mg 03/06/20 09:00 03/12/20 08:25 Pantoprazole 40 Mg Granules Packet PER TUBE 40 mg DAILY CLAY Administration Polyethylene Glycol 17 gm 03/10/20 09:00 03/12/20 08:26 Polyethylene Glycol 3350 17 Gm Packet PER TUBE 17 gm DAILY CLAY Administration Propofol 1,000 mg 02/28/20 03:30 03/03/20 05:14 Propofol 1,000 Mg/100 Ml Vial IV 03/29/20 03:30 1,000 mg INF PRN Administration TO ACHIEVE GOAL RASS Protocol Senna/Docusate Sodium 2 tab 02/10/20 11:33 02/16/20 19:55 Senokot S 8.6-50 Mg Tab PO 2 tab BIDPRN PRN Administration Constipation Sodium Chloride 10 ml 02/10/20 11:33 03/01/20 20:30 Flush - Normal Saline 10 Ml Syringe IVF 10 ml PRN PRN Administration Saline Flush Sterile Water 10 ml 02/28/20 03:54 03/08/20 07:49 Sterile Water 10 Ml Vial IVP 10 ml Q30MIN PRN Administration NEEDED FOR RECONSTITUTION Vecuronium [place] 10 mg 02/28/20 03:54 03/08/20 07:49 Vecuronium 10 Mg Vial IV 10 mg Q30MIN PRN Administration SPASM Zinc Sulfate 220 mg 02/15/20 09:00 03/12/20 08:26 Zinc Sulfate 220 Mg Cap PO 220 mg DAILY CLAY Administration - Exam General Appearance: NAD General - other findings: intubated Eye: PERRL, anicteric sclera ENT: normocephalic atraumatic, no oropharyngeal lesions Neck: no JVD Heart: RRR, no murmur, no gallops, no rubs Respiratory: CTAB, no wheezes, no rales, no ronchi Gastrointestinal: soft, non-tender, non-distended, normal bowel sounds Extremities: no cyanosis, no clubbing, no edema Skin: normal turgor, no lesions, no rashes Neurological: cranial nerve grossly intact, normal sensation to touch, no weakness Musculoskeletal: normal tone, normal strength, no muscle wasting Psychiatric: A&O x 3 Hosp A/P - Plan Chest X ray 03/08: slightly improved lung aeration Chest X ray 03/11: diffuse lung infiltrates This is a 64 year old male diagnosed with COVID, developed progressive respiratory failure and is now intubated. Acute hypoxic respiratory failure secondary to COVID pneumonia - repeat chest X ray 02/22 show more diffuse pneumonia. He received remdesivir 02/09 to 02/13 and IV zosyn 02/24 to 03/03 and micafungin 02/23 to 03/03. - He was restarted on meropenem on 03/06 and micafungin on 03/06, plan to continue until 03/13. Chest X ray 03/11 shows diffuse lung infiltrates - still ventilated with same settings, difficult to wean Hypernatremia - sodium improved to 137. D5W discontinued. Free water flushes will be changed to 30 q6 per dietary recommendations Constipation - continue miralax Pernicious anemia - vitamin B12 < 200, intrinsic factor positive. Continue monthly vitamin B12 Folic acid deficiency anemia - continue folic acid
[2020-03-13] MEDS: fentaNYL Citrate/PF 2,000 MCG in Sodium Chloride 0.9% 60 ML IV SCH ×2 (00:38→12:29)
[2020-03-13 04:23] LABS: #Eosinphils 0.1 thou/uL (0.0-0.7); #Lymphocytes 1.1 thou/uL (1.20-3.40); #Monocytes 0.3 thou/uL (0.11-0.59); #Neutrophils 8.5 thou/uL (1.40-6.50); %Basophils 0.3 % (0.0-1.0); %Eosinophils 0.8 % (0.0-10.0); %Lymphocytes 10.8 % (21.0-51.0); %Monocytes 2.8 % (0.0-10.0); %Neutrophils 85.3 % (42.0-75.0); Hemoglobin 11.9 g/dL (14.0-18.0); Mean Corpuscular HGB CONC 31.9 g/dL (32.0-36.0); Mean Corpuscular Hemoglobin 29.9 pg (27.0-31.0); Mean Corpuscular Volume 93.8 fL (78.0-98.0); Mean Platelet Volume 9.5 fL (7.4-10.4); Platelet Count 182 thou/uL (130-400); RBC Distribution Width 15.4 % (11.5-14.5); Red Blood Cell (RBC) Count 3.97 mill/uL (4.70-6.10)
[2020-03-13 04:49] LABS: Anion Gap 11 mmol/L (10-20); BUN (Urea Nitrogen) 26 mg/dL (8.4-25.7); Calc. Creatinine Clearance 202 mL/min (70-130); Calcium 7.9 mg/dL (7.8-10.44); Carbon Dioxide 36 mmol/L (23-31); Chloride 96 mmol/L (98-107); Glucose 134 mg/dL (80-115); Potassium 4.2 mmol/L (3.5-5.1); Sodium 139 mmol/L (136-145)
[2020-03-13] MEDS: Levothyroxine Sodium 75 MCG TAB PO SCH (06:04)
[2020-03-13] MEDS: Meropenem 2 GM, Admixture Fee 1 EACH in Sodium Chloride 0.9% 100 ML IVPB SCH ×2 (06:04→14:54)
--- NOTE | 2020-03-13 07:47 | RAD ---
Chest AP view INDICATION: Pneumonia COMPARISON: Prior exam dated March 12, 2020 FINDINGS: Lungs: Bilateral airspace disease is stable. ET tube and gastric catheter are unchanged. Cardiac silhouette: The cardiomediastinal silhouette appears within normal limits. Pulmonary vasculature: Normal Pleural spaces: No pleural effusion or pneumothorax is demonstrated. Upper abdomen: No abnormality seen. Osseous structures: No acute osseous abnormality. Additional findings: None. IMPRESSION: Stable bilateral pneumonia and tubes and lines. No pneumothorax.
[2020-03-13] MEDS: Hydrocortisone Sod Succ/PF 100 mg/2 ml Vial IVP SCH (08:11)
[2020-03-13] MEDS: Aspirin 81 mg Enteric Coated Tablet PO SCH (08:12)
[2020-03-13] MEDS: Cholecalciferol 1,000 UNITS (25 MCG) TAB PO SCH (08:12)
[2020-03-13] MEDS: Apixaban 5 MG TAB PER TUBE SCH ×2 (08:12→20:30)
[2020-03-13] MEDS: Polyethylene Glycol 3350 17 GM Packet PER TUBE SCH (08:12)
[2020-03-13] MEDS: Cyanocobalamin (Vitamin B-12) 1,000 MCG TAB PO SCH (08:12)
[2020-03-13] MEDS: Ascorbic Acid 500 mg Chewable Tablet PO SCH (08:12)
[2020-03-13] MEDS: Folic Acid 1 MG TAB PO SCH (08:13)
[2020-03-13] MEDS: Zinc Sulfate 220 MG CAP PO SCH (08:13)
[2020-03-13] MEDS: Pantoprazole 40 MG GRANULES PACKET PER TUBE SCH (08:13)
[2020-03-13 08:47] LABS: Actual Bicarbonate (HCO3a) 36.6 mEq/L (22-28); Base Excess (BEa) 10.6 mEq/L (-2.0 to +3.0); CO2 Tension 54.2 mmHg (35.0-45.0); Calcium, Ionized (arterial) 1.17 mmol/L (1.12-1.30); Carboxyhemoglobin (COHb) 2.6 gm% (0.0-3.0); Hemoglobin (Hb) 13.1 g/dL (14.0-18.0); Potassium - ABG Lab 3.81 mmol/L (3.70-5.30); pH, Arterial 7.45 (7.35-7.45)
[2020-03-13 08:51] LABS: O2 Tension (PaO2), arterial 50.8 mmHg (> 80.0); Puncture Site LRA
--- NOTE | 2020-03-13 09:12 | PRG ---
DATE OF SERVICE: 03/13/2020 35 minutes of critical care time. SUBJECTIVE: The patient remains intubated on mechanical ventilation. OBJECTIVE: VITAL SIGNS: Temperature 98.6 with a T-Max of 99.3, pulse rate 73, blood pressure 158/90, currently on midazolam and fentanyl for sedation. 24-hour intake 2830. Output 4450. HEENT: Unremarkable. NECK: No adenopathy or JVD. LUNGS: Coarse breath sounds. CARDIOVASCULAR: S1 and S2, regular. ABDOMEN: Soft. EXTREMITIES: Edematous. LABORATORY DATA: White blood cell count 10, hematocrit 37.2, and platelet count 182. ABG pending. Sodium 139, potassium 4.2, chloride 96, CO2 of 36, BUN 26, creatinine 0.5, and glucose 134. Chest x-ray shows stable bilateral infiltrates. ASSESSMENT: 1. COVID-19 pneumonia. 2. Acute hypoxic respiratory failure requiring mechanical ventilation. PLAN: His last day of meropenem will be today. I am encouraged that he may be slowly improving. I would hope to get him to a point over the next week where he can undergo tracheostomy feeding tube placement, although that is going to be predicated on his PEEP level and FiO2. I have switched his hydrocortisone over to methylprednisolone. We will continue to follow. Job ID: [id number]
[2020-03-13] MEDS: methylPREDNISolone Sod Succ 40 MG VIAL IVP SCH ×2 (10:24→20:31)
--- NOTE | 2020-03-13 17:44 | PDOC.HOSPP ---
- Subjective Encounter Date: 03/13/20 Encounter Time: 14:00 Subjective: F/u: COVID The patient's fentanyl drip has been weaned down to 160. He is following more commands and recognized his per nursing. His pO2 is still low today at 50 - Objective Vital Signs & Weight: Vital Signs (12 hours) Pulse Resp BP Pulse Ox 03/13/20 16:00 39 H 03/13/20 14:12 73 122/74 03/13/20 14:00 20 03/13/20 12:00 24 H 03/13/20 11:34 81 135/81 03/13/20 10:00 23 H 03/13/20 08:35 93 158/90 H 03/13/20 08:33 71 42 H 87 L 03/13/20 07:29 21 H 90 L 03/13/20 06:00 20 Weight Admit Weight 250 lb 0.067 oz Weight 223 lb 1.725 oz Most Recent Monitor Data Heart Rate from ECG 102 NIBP 161/102 NIBP BP-Mean 121 Respiration from ECG 32 SpO2 97 I&O: 03/12/20 03/13/20 03/14/20 06:59 06:59 06:59 Intake Total 6127.8 2830.0 1301 Output Total 3880 4450 1960 Balance 2247.8 -1620.0 -659 Result Diagrams: 03/13/20 04:00 03/13/20 04:00 Hospitalist ROS - Review of Systems ROS unobtainable: due to endotracheal tube - Medication Medications: Active Medications Generic Name Dose Route Start Last Admin Trade Name Freq PRN Reason Stop Dose Admin Acetaminophen 650 mg 02/10/20 11:33 03/06/20 17:57 Acetaminophen 325 Mg Tab PO 650 mg Q4H PRN Administration Headache/Fever/Mild Pain (1-3) Albuterol/Ipratropium 3 ml 03/05/20 13:00 03/13/20 14:11 Ipratropium/Albuterol Sulfate 3 Ml Neb NEB 3 ml [id number] CLAY Administration Apixaban 5 mg 03/05/20 09:00 03/13/20 08:12 Apixaban 5 Mg Tab PER TUBE 5 mg BID CLAY Administration Ascorbic Acid 1,000 mg 02/15/20 09:00 03/13/20 08:12 Ascorbic Acid 500 Mg Chewable Tablet PO 1,000 mg DAILY CLAY Administration Aspirin 81 mg 02/11/20 09:00 03/13/20 08:12 Aspirin 81 Mg Enteric Coated Tablet PO 81 mg DAILY CLAY Administration Bisacodyl 10 mg 02/11/20 08:36 03/03/20 05:02 Bisacodyl 5 Mg Tab PO 10 mg DAILYPRN PRN Administration Constipation Cholecalciferol 5,000 units 02/16/20 09:00 03/13/20 08:12 Cholecalciferol 1,000 Units (25 Mcg) Tab PO 5,000 units DAILY CLAY Administration Clonidine 0.1 mg 02/10/20 14:29 03/11/20 20:28 Clonidine 0.1 Mg Tab PO 0.1 mg Q4H PRN Administration SBP Greater Than 180 Cyanocobalamin 1,000 mcg 02/26/20 09:00 03/13/20 08:12 Cyanocobalamin (Vitamin B-12) 1,000 Mcg Tab PO 1,000 mcg DAILY CLAY Administration Folic Acid 1 mg 02/26/20 09:00 03/13/20 08:13 Folic Acid 1 Mg Tab PO 1 mg DAILY CLAY Administration Hydralazine HCl 10 mg 02/11/20 08:36 03/05/20 13:15 Hydralazine 20 Mg/Ml Vial SLOW IVP 10 mg Q4H PRN Administration SBP > 180 and HR < 70 Fentanyl Citrate 2,000 mcg/ 100 mls @ 0 mls/hr 03/09/20 04:00 03/13/20 12:29 Sodium Chloride IV 100 mls INF CLAY Administration Protocol Per Protocol Midazolam HCl 100 mg/ Sodium 100 mls @ 0 mls/hr 03/09/20 15:19 03/13/20 17:00 Chloride IVPB 100 mls INF PRN Administration Sedation Protocol As Directed Levothyroxine Sodium 150 mcg 03/06/20 06:00 03/13/20 06:04 Levothyroxine Sodium 75 Mcg Tab PO 150 mcg 0600 CLAY Administration Methylprednisolone Sodium Succinate 40 mg 03/13/20 09:00 03/13/20 10:24 Methylprednisolone Sod Succ 40 Mg Vial IVP Not Given BID CLAY Pantoprazole Sodium 40 mg 03/06/20 09:00 03/13/20 08:13 Pantoprazole 40 Mg Granules Packet PER TUBE 40 mg DAILY CLAY Administration Polyethylene Glycol 17 gm 03/10/20 09:00 03/13/20 08:12 Polyethylene Glycol 3350 17 Gm Packet PER TUBE 17 gm DAILY CLAY Administration Propofol 1,000 mg 02/28/20 03:30 03/03/20 05:14 Propofol 1,000 Mg/100 Ml Vial IV 03/29/20 03:30 1,000 mg INF PRN Administration TO ACHIEVE GOAL RASS Protocol Senna/Docusate Sodium 2 tab 02/10/20 11:33 02/16/20 19:55 Senokot S 8.6-50 Mg Tab PO 2 tab BIDPRN PRN Administration Constipation Sodium Chloride 10 ml 02/10/20 11:33 03/01/20 20:30 Flush - Normal Saline 10 Ml Syringe IVF 10 ml PRN PRN Administration Saline Flush Sterile Water 10 ml 02/28/20 03:54 03/08/20 07:49 Sterile Water 10 Ml Vial IVP 10 ml Q30MIN PRN Administration NEEDED FOR RECONSTITUTION Vecuronium [place] 10 mg 02/28/20 03:54 03/08/20 07:49 Vecuronium 10 Mg Vial IV 10 mg Q30MIN PRN Administration SPASM Zinc Sulfate 220 mg 02/15/20 09:00 03/13/20 08:13 Zinc Sulfate 220 Mg Cap PO 220 mg DAILY CLAY Administration - Exam General - other findings: intubated ENT: normocephalic atraumatic, no oropharyngeal lesions Neck: no JVD Heart: RRR, no murmur, no gallops, no rubs Respiratory: CTAB, no wheezes, no rales, no ronchi Gastrointestinal: soft, non-tender, non-distended, normal bowel sounds Extremities - other findings: edema in his arms Skin: normal turgor, no lesions, no rashes Neurological: cranial nerve grossly intact, normal sensation to touch, no weakness Musculoskeletal: normal tone, normal strength, no muscle wasting Hosp A/P - Plan Chest X ray 03/08: slightly improved lung aeration Chest X ray 03/11: diffuse lung infiltrates This is a 64 year old male diagnosed with COVID, developed progressive respiratory failure and is now intubated. Acute hypoxic respiratory failure secondary to COVID pneumonia - repeat chest X ray 02/22 show more diffuse pneumonia. He received remdesivir 02/09 to 02/13 and IV zosyn 02/24 to 03/03 and micafungin 02/23 to 03/03. - He was restarted on meropenem on 03/06 and micafungin on 03/06, will discontinue today. - weaning from sedation as tolerated, still hypoxic with pO2 of 50 Hypernatremia - resolved Constipation - continue miralax Pernicious anemia - vitamin B12 < 200, intrinsic factor positive. Continue monthly vitamin B12 Folic acid deficiency anemia - continue folic acid
[2020-03-13] MEDS: Lorazepam 2 MG/ML VIAL SLOW IVP PRN (20:36)
[2020-03-14] MEDS: Propofol 1,000 MG/100 ML VIAL IV PRN (00:42)
[2020-03-14] MEDS: fentaNYL Citrate/PF 2,000 MCG in Sodium Chloride 0.9% 60 ML IV SCH ×2 (00:43→19:28)
[2020-03-14 04:22] LABS: #Lymphocytes 0.9 thou/uL (1.20-3.40); #Monocytes 0.3 thou/uL (0.11-0.59); %Basophils 0.2 % (0.0-1.0); %Eosinophils 0.3 % (0.0-10.0); %Monocytes 2.5 % (0.0-10.0); %Neutrophils 88.1 % (42.0-75.0); Hemoglobin 11.9 g/dL (14.0-18.0); Mean Corpuscular HGB CONC 32.7 g/dL (32.0-36.0); Mean Corpuscular Hemoglobin 30.9 pg (27.0-31.0); Mean Corpuscular Volume 94.4 fL (78.0-98.0); Mean Platelet Volume 9.7 fL (7.4-10.4); Platelet Count 191 thou/uL (130-400); Red Blood Cell (RBC) Count 3.86 mill/uL (4.70-6.10); White Blood Cell (WBC) Count 10.2 thou/uL (4.8-10.8)
[2020-03-14 04:43] LABS: Anion Gap 11 mmol/L (10-20); BUN (Urea Nitrogen) 28 mg/dL (8.4-25.7); Calc. Creatinine Clearance 191 mL/min (70-130); Calcium 8.1 mg/dL (7.8-10.44); Carbon Dioxide 37 mmol/L (23-31); Chloride 98 mmol/L (98-107); Glucose 142 mg/dL (80-115); Potassium 4.4 mmol/L (3.5-5.1); Sodium 142 mmol/L (136-145)
[2020-03-14] MEDS: Levothyroxine Sodium 75 MCG TAB PO SCH (05:07)
[2020-03-14 07:57] LABS: Actual Bicarbonate (HCO3a) 37.7 mEq/L (22-28); Base Excess (BEa) 10.7 mEq/L (-2.0 to +3.0); Calcium, Ionized (arterial) 1.15 mmol/L (1.12-1.30); Carboxyhemoglobin (COHb) 2.7 gm% (0.0-3.0); Potassium - ABG Lab 4.37 mmol/L (3.70-5.30); pH, Arterial 7.41 (7.35-7.45)
--- NOTE | 2020-03-14 07:58 | RAD ---
CHEST 1 VIEW: Date: 03/14/2020 INDICATION: History of pneumonia. COMPARISON: Prior exam dated 03/13/2020. FINDINGS: Bilateral air space disease, ET tube, and gastric catheter are unchanged. No pneumothorax is evident. IMPRESSION: Stable bilateral pneumonia. No pneumothorax. POS: BH
[2020-03-14 08:11] LABS: CO2 Tension 61.6 mmHg (35.0-45.0); O2 Tension (PaO2), arterial 51.5 mmHg (> 80.0); Puncture Site LRA
[2020-03-14] MEDS: methylPREDNISolone Sod Succ 40 MG VIAL IVP SCH ×2 (08:33→20:52)
[2020-03-14] MEDS: Ascorbic Acid 500 mg Chewable Tablet PO SCH (08:34)
[2020-03-14] MEDS: Zinc Sulfate 220 MG CAP PO SCH (08:34)
[2020-03-14] MEDS: Polyethylene Glycol 3350 17 GM Packet PER TUBE SCH (08:34)
[2020-03-14] MEDS: Pantoprazole 40 MG GRANULES PACKET PER TUBE SCH (08:34)
[2020-03-14] MEDS: Apixaban 5 MG TAB PER TUBE SCH ×2 (08:35→20:52)
[2020-03-14] MEDS: Cholecalciferol 1,000 UNITS (25 MCG) TAB PO SCH (08:35)
[2020-03-14] MEDS: Folic Acid 1 MG TAB PO SCH (08:35)
[2020-03-14] MEDS: Cyanocobalamin (Vitamin B-12) 1,000 MCG TAB PO SCH (08:35)
[2020-03-14] MEDS: Aspirin 81 mg Enteric Coated Tablet PO SCH (08:35)
[2020-03-14] MEDS: Morphine 10 MG/ML VIAL SLOW IVP PRN ×3 (14:26→22:20)
--- NOTE | 2020-03-14 15:59 | PDOC.HOSPP ---
- Subjective Encounter Date: 03/14/20 Encounter Time: 13:00 Subjective: F/u: COVID The patient is still intubated. FiO2 has been weaned to 50%. PEEP is still 12. The patient' fentanyl is down to 100 mcg/hour . He had bowel movement yesterday - Objective Vital Signs & Weight: Vital Signs (12 hours) Temp Pulse Resp BP Pulse Ox 03/14/20 14:43 77 128/77 03/14/20 14:00 22 H 03/14/20 13:11 79 30 H 93 L 03/14/20 12:00 24 H 03/14/20 11:00 77 153/62 H 03/14/20 10:00 21 H 03/14/20 08:00 97.9 F 32 H 03/14/20 07:18 95 03/14/20 07:14 95 03/14/20 07:03 79 30 H 94 L 03/14/20 06:58 74 136/77 03/14/20 06:00 33 H 03/14/20 04:00 23 H Weight Admit Weight 250 lb 0.067 oz Weight 223 lb 1.725 oz Most Recent Monitor Data Heart Rate from ECG 69 NIBP 97/66 NIBP BP-Mean 76 Respiration from ECG 21 SpO2 94 I&O: 03/13/20 03/14/20 03/15/20 06:59 06:59 06:59 Intake Total 2830.0 2615.9 Output Total 4450 4730 1945 Balance -1620.0 -2114.1 -1945 Result Diagrams: 03/14/20 03:40 03/14/20 03:40 Hospitalist ROS - Review of Systems Constitutional: denies: fever, chills - Medication Medications: Active Medications Generic Name Dose Route Start Last Admin Trade Name Freq PRN Reason Stop Dose Admin Acetaminophen 650 mg 02/10/20 11:33 03/06/20 17:57 Acetaminophen 325 Mg Tab PO 650 mg Q4H PRN Administration Headache/Fever/Mild Pain (1-3) Albuterol/Ipratropium 3 ml 03/05/20 13:00 03/14/20 13:11 Ipratropium/Albuterol Sulfate 3 Ml Neb NEB 3 ml [id number] CLAY Administration Apixaban 5 mg 03/05/20 09:00 03/14/20 08:35 Apixaban 5 Mg Tab PER TUBE 5 mg BID CLAY Administration Ascorbic Acid 1,000 mg 02/15/20 09:00 03/14/20 08:34 Ascorbic Acid 500 Mg Chewable Tablet PO 1,000 mg DAILY CLAY Administration Aspirin 81 mg 02/11/20 09:00 03/14/20 08:35 Aspirin 81 Mg Enteric Coated Tablet PO 81 mg DAILY CLAY Administration Bisacodyl 10 mg 02/11/20 08:36 03/03/20 05:02 Bisacodyl 5 Mg Tab PO 10 mg DAILYPRN PRN Administration Constipation Cholecalciferol 5,000 units 02/16/20 09:00 03/14/20 08:35 Cholecalciferol 1,000 Units (25 Mcg) Tab PO 5,000 units DAILY CLAY Administration Clonidine 0.1 mg 02/10/20 14:29 03/11/20 20:28 Clonidine 0.1 Mg Tab PO 0.1 mg Q4H PRN Administration SBP Greater Than 180 Cyanocobalamin 1,000 mcg 02/26/20 09:00 03/14/20 08:35 Cyanocobalamin (Vitamin B-12) 1,000 Mcg Tab PO 1,000 mcg DAILY CLAY Administration Folic Acid 1 mg 02/26/20 09:00 03/14/20 08:35 Folic Acid 1 Mg Tab PO 1 mg DAILY CLAY Administration Hydralazine HCl 10 mg 02/11/20 08:36 03/05/20 13:15 Hydralazine 20 Mg/Ml Vial SLOW IVP 10 mg Q4H PRN Administration SBP > 180 and HR < 70 Fentanyl Citrate 2,000 mcg/ 100 mls @ 0 mls/hr 03/09/20 04:00 03/14/20 00:43 Sodium Chloride IV 100 mls INF CLAY Administration Protocol Per Protocol Midazolam HCl 100 mg/ Sodium 100 mls @ 0 mls/hr 03/09/20 15:19 03/13/20 17:00 Chloride IVPB 100 mls INF PRN Administration Sedation Protocol As Directed Levothyroxine Sodium 150 mcg 03/06/20 06:00 03/14/20 05:07 Levothyroxine Sodium 75 Mcg Tab PO 150 mcg 0600 CLAY Administration Lorazepam 2 mg 03/09/20 03:54 03/13/20 20:36 Lorazepam 2 Mg/Ml Vial SLOW IVP 2 mg Q1H PRN Administration Breakthrough agitation Methylprednisolone Sodium Succinate 40 mg 03/13/20 09:00 03/14/20 08:33 Methylprednisolone Sod Succ 40 Mg Vial IVP 40 mg BID CLAY Administration Morphine Sulfate 10 mg 03/14/20 12:36 03/14/20 14:26 Morphine 10 Mg/Ml Vial SLOW IVP 10 mg Q1H PRN Administration Breakthrough Pain/Agitation Pantoprazole Sodium 40 mg 03/06/20 09:00 03/14/20 08:34 Pantoprazole 40 Mg Granules Packet PER TUBE 40 mg DAILY CLAY Administration Polyethylene Glycol 17 gm 03/10/20 09:00 03/14/20 08:34 Polyethylene Glycol 3350 17 Gm Packet PER TUBE 17 gm DAILY CLAY Administration Propofol 1,000 mg 02/28/20 03:30 03/14/20 00:42 Propofol 1,000 Mg/100 Ml Vial IV 03/29/20 03:30 1,000 mg INF PRN Administration TO ACHIEVE GOAL RASS Protocol Senna/Docusate Sodium 2 tab 02/10/20 11:33 02/16/20 19:55 Senokot S 8.6-50 Mg Tab PO 2 tab BIDPRN PRN Administration Constipation Sodium Chloride 10 ml 02/10/20 11:33 03/01/20 20:30 Flush - Normal Saline 10 Ml Syringe IVF 10 ml PRN PRN Administration Saline Flush Sterile Water 10 ml 02/28/20 03:54 03/08/20 07:49 Sterile Water 10 Ml Vial IVP 10 ml Q30MIN PRN Administration NEEDED FOR RECONSTITUTION Vecuronium [place] 10 mg 02/28/20 03:54 03/08/20 07:49 Vecuronium 10 Mg Vial IV 10 mg Q30MIN PRN Administration SPASM Zinc Sulfate 220 mg 02/15/20 09:00 03/14/20 08:34 Zinc Sulfate 220 Mg Cap PO 220 mg DAILY CLAY Administration - Exam General - other findings: intubated ENT: normocephalic atraumatic, no oropharyngeal lesions Neck: no JVD Heart: RRR, no murmur, no gallops, no rubs Respiratory: CTAB, no wheezes, no rales Gastrointestinal: soft, non-tender, non-distended, normal bowel sounds Extremities: no cyanosis, 1+ LE edema Skin: normal turgor, no lesions, no rashes Hosp A/P - Plan Chest X ray 03/08: slightly improved lung aeration Chest X ray 03/11: diffuse lung infiltrates This is a 64 year old male diagnosed with COVID, developed progressive respiratory failure and is now intubated. Acute hypoxic respiratory failure secondary to COVID pneumonia - repeat chest X ray 02/22 show more diffuse pneumonia. He received remdesivir 02/09 to 02/13 and IV zosyn 02/24 to 03/03 and micafungin 02/23 to 03/03. He received a second course of meropenem and micafungin from 03/06 to 03/13. - continues to be intubated, with difficulty weaning, FiO2 down to 50%, PEEP 12. Needs further weaning of vent before a successful tracheostomy Hypernatremia - resolved Constipation - continue miralax Pernicious anemia - vitamin B12 < 200, intrinsic factor positive. Continue monthly vitamin B12 Folic acid deficiency anemia - continue folic acid
--- NOTE | 2020-03-14 16:29 | PRG ---
DATE OF SERVICE: 03/14/2020 SUBJECTIVE: Mr. Escudero remains hemodynamically stable. He is mechanically ventilated. His family is at the bedside. OBJECTIVE: VITAL SIGNS: Heart rates in the 60s, blood pressure 97/66, respiratory rate in the 20s. LUNGS: Remarkable for coarse equal breath sounds. HEART: Regular rhythm. ABDOMEN: Soft. LABORATORY DATA: White count 10.2, hemoglobin 11.9, platelets 191. Electrolytes; sodium 139, potassium 4.2, chloride 96, bicarb 36, BUN 26, creatinine 0.5. Intake and outputs negative at 2113. Chest x-ray is unchanged. IMPRESSION: Respiratory failure secondary to COVID pneumonia, making slow progress. He is 33 days into this hospitalization. Hopefully, as I have explained to family we will see COVID-19 pneumonia. He is stable at this time. He is not at a point where we could safely do a tracheostomy in my opinion. Critical care time 30 min. Job ID: [id number] MTDD
[2020-03-15 04:42] LABS: #Eosinphils 0.1 thou/uL (0.0-0.7); #Monocytes 0.2 thou/uL (0.11-0.59); #Neutrophils 10.7 thou/uL (1.40-6.50); %Basophils 0.2 % (0.0-1.0); %Eosinophils 0.4 % (0.0-10.0); %Lymphocytes 7.9 % (21.0-51.0); %Neutrophils 89.5 % (42.0-75.0); Hemoglobin 12.4 g/dL (14.0-18.0); Mean Corpuscular HGB CONC 31.8 g/dL (32.0-36.0); Mean Corpuscular Hemoglobin 30.2 pg (27.0-31.0); Mean Platelet Volume 9.3 fL (7.4-10.4); Platelet Count 242 thou/uL (130-400); RBC Distribution Width 16.4 % (11.5-14.5)
[2020-03-15 05:02] LABS: Anion Gap 12 mmol/L (10-20); BUN (Urea Nitrogen) 30 mg/dL (8.4-25.7); Calc. Creatinine Clearance 202 mL/min (70-130); Calcium 8.2 mg/dL (7.8-10.44); Carbon Dioxide 36 mmol/L (23-31); Chloride 97 mmol/L (98-107); Glucose 127 mg/dL (80-115); Potassium 4.9 mmol/L (3.5-5.1); Sodium 140 mmol/L (136-145)
[2020-03-15] MEDS: Levothyroxine Sodium 75 MCG TAB PO SCH (05:54)
[2020-03-15 07:04] LABS: Actual Bicarbonate (HCO3a) 36.9 mEq/L (22-28); Base Excess (BEa) 11.6 mEq/L (-2.0 to +3.0); CO2 Tension 50.2 mmHg (35.0-45.0); Calcium, Ionized (arterial) 1.15 mmol/L (1.12-1.30); Carboxyhemoglobin (COHb) 2.8 gm% (0.0-3.0); Hemoglobin (Hb) 13.5 g/dL (14.0-18.0); pH, Arterial 7.48 (7.35-7.45)
[2020-03-15 07:16] LABS: O2 Tension (PaO2), arterial 53.9 mmHg (> 80.0)
[2020-03-15 07:17] LABS: Puncture Site RRA
--- NOTE | 2020-03-15 08:25 | RAD ---
Chest AP view INDICATION: Pneumonia COMPARISON: March 14, 2020 FINDINGS: Lungs: Bilateral airspace disease is stable. Cardiac silhouette: The cardiomediastinal silhouette appears within normal limits. Pulmonary vasculature: Normal Pleural spaces: There is a new small right apical pneumothorax. No left-sided pneumothorax is eviden t. There is subcutaneous and seen involving the neck base that appears slightly more pronounced than on the prior exam. There is slightly more pronounced pneumomediastinum. Upper abdomen: No abnormality seen. Osseous structures: No acute osseous abnormality. Additional findings: Gastric catheter and ET tube tip are unchanged. There is an ACDF involving the cervical spine. IMPRESSION: 1. New small right apical pneumothorax. Findings called to Eri Lam RN at 8:21 AM on March 15, 2020. 2. Stable bilateral airspace disease consistent with pneumonia. 3. Persistent and slightly more pronounced subcutaneous emphysema involving the neck base with mild p neumomediastinum.
[2020-03-15] MEDS: Cholecalciferol 1,000 UNITS (25 MCG) TAB PO SCH (08:44)
[2020-03-15] MEDS: Ascorbic Acid 500 mg Chewable Tablet PO SCH (08:44)
[2020-03-15] MEDS: Pantoprazole 40 MG GRANULES PACKET PER TUBE SCH (08:45)
[2020-03-15] MEDS: Zinc Sulfate 220 MG CAP PO SCH (08:45)
[2020-03-15] MEDS: Polyethylene Glycol 3350 17 GM Packet PER TUBE SCH (08:45)
[2020-03-15] MEDS: Cyanocobalamin (Vitamin B-12) 1,000 MCG TAB PO SCH (08:45)
[2020-03-15] MEDS: Folic Acid 1 MG TAB PO SCH (08:45)
[2020-03-15] MEDS: methylPREDNISolone Sod Succ 40 MG VIAL IVP SCH ×2 (08:45→20:23)
[2020-03-15] MEDS: Aspirin 81 mg Enteric Coated Tablet PO SCH (08:45)
[2020-03-15] MEDS: Apixaban 5 MG TAB PER TUBE SCH ×2 (08:45→20:23)
[2020-03-15] MEDS: Morphine 10 MG/ML VIAL SLOW IVP PRN ×2 (11:23→17:31)
--- NOTE | 2020-03-15 11:24 | RAD ---
Exam: Chest one view HISTORY:Pneumonia Comparison: 03/15/2020 at 5:20 AM FINDINGS: Cardiac silhouette:Stable cardiac silhouette Lines and tubes: Stable endotracheal and nasogastric tube. Aorta: Unremarkable Pulmonary vessels: Normal Costophrenic angles: Clear LUNGS: Stable multi lobar opacification. Pneumothorax: Stable right-sided pneumothorax. Osseous abnormalities: None Soft tissues: Stable subcutaneous emphysema in the lower left and right neck as well as the right lat eral chest. Pneumomediastinum is redemonstrated. IMPRESSION: 1. Stable right-sided pneumothorax. 2. Stable multi lobar consolidation due to pneumonia. 3. Subcutaneous emphysema is noted.
--- NOTE | 2020-03-15 13:50 | PRG ---
DATE OF SERVICE: 03/15/2020 SUBJECTIVE: Lasha Escudero remains mechanically ventilated. He is dyssynchronous with mechanical ventilation. So, increasing his Versed is helped with that. He had a tiny pneumothorax on this morning's chest x-ray. 3 hours later, it is unchanged. I do not feel he needs chest tube at this point. OBJECTIVE: VITAL SIGNS: Blood pressure 127/72, respiratory rate is 20. LUNGS: Equal breath sounds. HEART: Regular rhythm. ABDOMEN: Soft. LABORATORY DATA: White count 12, hemoglobin 12.4, and platelets 242. Sodium 142, potassium 4.4, chloride 98, bicarb 37, BUN 28, creatinine 0.56. The pH 7.48, CO2 50, PO2 53. IMPRESSION: 1. Respiratory failure associated with COVID pneumonia. 2. Small apical pneumothorax associated with COVID pneumonia, not weanable. I met with his and answered all of her questions. Continue supportive care. Job ID: [id number]
--- NOTE | 2020-03-15 14:35 | PDOC.HOSPP ---
- Subjective Encounter Date: 03/15/20 Encounter Time: 11:00 Subjective: patient seen on f/u for covid 19 pneumonia with associated resp failure on MV. patient continues to be on sedation and MV - Objective Vital Signs & Weight: Vital Signs (12 hours) Temp Pulse Resp Pulse Ox 03/15/20 12:00 21 H 03/15/20 11:48 82 03/15/20 10:00 23 H 03/15/20 08:00 20 93 L 03/15/20 06:00 20 03/15/20 05:07 76 21 H 96 03/15/20 04:00 98.2 F 26 H Weight Admit Weight 250 lb 0.067 oz Weight 208 lb 8.917 oz Most Recent Monitor Data Heart Rate from ECG 72 NIBP 102/57 NIBP BP-Mean 72 Respiration from ECG 19 SpO2 99 I&O: 03/14/20 03/15/20 03/16/20 06:59 06:59 06:59 Intake Total 2615.9 2034 160 Output Total 4730 5375 1510 [facility]2114.1 -3341 -1350 Result Diagrams: 03/15/20 03:45 03/15/20 03:45 Hospitalist ROS - Review of Systems ROS unobtainable: due to mental status - Medication Medications: Active Medications Generic Name Dose Route Start Last Admin Trade Name Freq PRN Reason Stop Dose Admin Acetaminophen 650 mg 02/10/20 11:33 03/06/20 17:57 Acetaminophen 325 Mg Tab PO 650 mg Q4H PRN Administration Headache/Fever/Mild Pain (1-3) Albuterol/Ipratropium 3 ml 03/05/20 13:00 03/15/20 13:08 Ipratropium/Albuterol Sulfate 3 Ml Neb NEB 3 ml [id number] CLAY Administration Apixaban 5 mg 03/05/20 09:00 03/15/20 08:45 Apixaban 5 Mg Tab PER TUBE 5 mg BID CLAY Administration Ascorbic Acid 1,000 mg 02/15/20 09:00 03/15/20 08:44 Ascorbic Acid 500 Mg Chewable Tablet PO 1,000 mg DAILY CLAY Administration Aspirin 81 mg 02/11/20 09:00 03/15/20 08:45 Aspirin 81 Mg Enteric Coated Tablet PO 81 mg DAILY CLAY Administration Bisacodyl 10 mg 02/11/20 08:36 03/03/20 05:02 Bisacodyl 5 Mg Tab PO 10 mg DAILYPRN PRN Administration Constipation Cholecalciferol 5,000 units 02/16/20 09:00 03/15/20 08:44 Cholecalciferol 1,000 Units (25 Mcg) Tab PO 5,000 units DAILY CLAY Administration Clonidine 0.1 mg 02/10/20 14:29 03/11/20 20:28 Clonidine 0.1 Mg Tab PO 0.1 mg Q4H PRN Administration SBP Greater Than 180 Cyanocobalamin 1,000 mcg 02/26/20 09:00 03/15/20 08:45 Cyanocobalamin (Vitamin B-12) 1,000 Mcg Tab PO 1,000 mcg DAILY CLAY Administration Folic Acid 1 mg 02/26/20 09:00 03/15/20 08:45 Folic Acid 1 Mg Tab PO 1 mg DAILY CLAY Administration Hydralazine HCl 10 mg 02/11/20 08:36 03/05/20 13:15 Hydralazine 20 Mg/Ml Vial SLOW IVP 10 mg Q4H PRN Administration SBP > 180 and HR < 70 Fentanyl Citrate 2,000 mcg/ 100 mls @ 0 mls/hr 03/09/20 04:00 03/14/20 19:28 Sodium Chloride IV 100 mls INF CLAY Administration Protocol Per Protocol Midazolam HCl 100 mg/ Sodium 100 mls @ 0 mls/hr 03/09/20 15:19 03/14/20 19:26 Chloride IVPB 100 mls INF PRN Administration Sedation Protocol As Directed Levothyroxine Sodium 150 mcg 03/06/20 06:00 03/15/20 05:54 Levothyroxine Sodium 75 Mcg Tab PO 150 mcg 0600 CLAY Administration Lorazepam 2 mg 03/09/20 03:54 03/13/20 20:36 Lorazepam 2 Mg/Ml Vial SLOW IVP 2 mg Q1H PRN Administration Breakthrough agitation Methylprednisolone Sodium Succinate 40 mg 03/13/20 09:00 03/15/20 08:45 Methylprednisolone Sod Succ 40 Mg Vial IVP 40 mg BID CLAY Administration Morphine Sulfate 10 mg 03/14/20 12:36 03/15/20 11:23 Morphine 10 Mg/Ml Vial SLOW IVP 10 mg Q1H PRN Administration Breakthrough Pain/Agitation Pantoprazole Sodium 40 mg 03/06/20 09:00 03/15/20 08:45 Pantoprazole 40 Mg Granules Packet PER TUBE 40 mg DAILY CLAY Administration Polyethylene Glycol 17 gm 03/10/20 09:00 03/15/20 08:45 Polyethylene Glycol 3350 17 Gm Packet PER TUBE 17 gm DAILY CLAY Administration Propofol 1,000 mg 02/28/20 03:30 03/14/20 00:42 Propofol 1,000 Mg/100 Ml Vial IV 03/29/20 03:30 1,000 mg INF PRN Administration TO ACHIEVE GOAL RASS Protocol Senna/Docusate Sodium 2 tab 02/10/20 11:33 02/16/20 19:55 Senokot S 8.6-50 Mg Tab PO 2 tab BIDPRN PRN Administration Constipation Sodium Chloride 10 ml 02/10/20 11:33 03/01/20 20:30 Flush - Normal Saline 10 Ml Syringe IVF 10 ml PRN PRN Administration Saline Flush Sterile Water 10 ml 02/28/20 03:54 03/08/20 07:49 Sterile Water 10 Ml Vial IVP 10 ml Q30MIN PRN Administration NEEDED FOR RECONSTITUTION Vecuronium [place] 10 mg 02/28/20 03:54 03/08/20 07:49 Vecuronium 10 Mg Vial IV 10 mg Q30MIN PRN Administration SPASM Zinc Sulfate 220 mg 02/15/20 09:00 03/15/20 08:45 Zinc Sulfate 220 Mg Cap PO 220 mg DAILY CLAY Administration - Exam General Appearance: ill appearing Eye: PERRL, anicteric sclera ENT: normocephalic atraumatic, no oropharyngeal lesions Neck: supple, symmetric, no JVD Heart: RRR, no murmur, no gallops Respiratory: CTAB, no wheezes, no rales, no ronchi Gastrointestinal: soft, non-tender, non-distended Extremities: no cyanosis, no clubbing Skin: normal turgor, no lesions, no rashes Neurological: cranial nerve grossly intact Musculoskeletal: normal tone Psychiatric - other findings: sedated Hosp A/P (1) Acute respiratory failure due to COVID-19 Code(s): U07.1 - COVID-19; J96.00 - ACUTE RESPIRATORY FAILURE, UNSP W HYPOXIA OR HYPERCAPNIA Status: Acute (2) Pneumonia due to COVID-19 virus Code(s): U07.1 - COVID-19; J12.89 - OTHER VIRAL PNEUMONIA Status: Acute (3) Sepsis Code(s): A41.9 - SEPSIS, UNSPECIFIED ORGANISM Status: Acute Qualifiers: Sepsis type: sepsis due to unspecified organism Sepsis acute organ dysf unction status: with acute organ dysfunction Severe sepsis acute organ dy sfunction type: acute respiratory failure Acute respiratory failure type: with hypoxia Severe sepsis shock status: without septic shock Qualified Code(s): A41.9 - Sepsis, unspecified organism; R65.20 - Severe sepsis without septic shock; J96.01 - Acute respiratory failure with hypoxia - Plan Acute hypoxic respiratory failure secondary to COVID pneumonia - received remdesivir 02/09 to 02/13 and IV zosyn 02/24 to 03/03 and micafungin 02/23 to 03/03. - He received a second course of meropenem and micafungin from 03/06 to 03/13. - continues to be intubated, unable to wean barbara. Needs further weaning of vent before a successful tracheostomy - continue supportive care Hypernatremia - resolved Constipation - continue miralax Pernicious anemia - vitamin B12 < 200, intrinsic factor positive. Continue monthly vitamin B12 Folic acid deficiency anemia - continue folic acid
[2020-03-15] MEDS: fentaNYL Citrate/PF 2,000 MCG in Sodium Chloride 0.9% 60 ML IV SCH (15:02)
[2020-03-15] MEDS ORDERED: Refresh Lacri-lube Opth Oint 7 GM TUBE EA EYE PRN (15:05)
[2020-03-16] MEDS: Morphine 10 MG/ML VIAL SLOW IVP PRN ×2 (04:27→11:35)
[2020-03-16 04:51] LABS: #Eosinphils 0.1 thou/uL (0.0-0.7); #Lymphocytes 1.2 thou/uL (1.20-3.40); #Monocytes 0.3 thou/uL (0.11-0.59); #Neutrophils 11.9 thou/uL (1.40-6.50); %Basophils 0.1 % (0.0-1.0); %Eosinophils 0.5 % (0.0-10.0); %Lymphocytes 8.9 % (21.0-51.0); %Monocytes 2.4 % (0.0-10.0); %Neutrophils 88.1 % (42.0-75.0); Hemoglobin 12.8 g/dL (14.0-18.0); Mean Corpuscular HGB CONC 31.8 g/dL (32.0-36.0); Mean Corpuscular Hemoglobin 30.2 pg (27.0-31.0); Mean Corpuscular Volume 94.8 fL (78.0-98.0); Mean Platelet Volume 9.1 fL (7.4-10.4); Platelet Count 290 thou/uL (130-400); RBC Distribution Width 16.4 % (11.5-14.5); Red Blood Cell (RBC) Count 4.25 mill/uL (4.70-6.10); White Blood Cell (WBC) Count 13.6 thou/uL (4.8-10.8)
[2020-03-16 05:01] LABS: Anion Gap 15 mmol/L (10-20); BUN (Urea Nitrogen) 35 mg/dL (8.4-25.7); Calc. Creatinine Clearance 169 mL/min (70-130); Calcium 8.7 mg/dL (7.8-10.44); Carbon Dioxide 34 mmol/L (23-31); Chloride 97 mmol/L (98-107); Glucose 148 mg/dL (80-115); Potassium 4.5 mmol/L (3.5-5.1); Sodium 141 mmol/L (136-145)
[2020-03-16] MEDS: Levothyroxine Sodium 75 MCG TAB PO SCH (06:06)
[2020-03-16 07:06] LABS: Actual Bicarbonate (HCO3a) 37.1 mEq/L (22-28); Base Excess (BEa) 11.1 mEq/L (-2.0 to +3.0); CO2 Tension 54.3 mmHg (35.0-45.0); Carboxyhemoglobin (COHb) 2.5 gm% (0.0-3.0); Hemoglobin (Hb) 13.2 g/dL (14.0-18.0); O2 Tension (PaO2), arterial 63.6 mmHg (> 80.0); Potassium - ABG Lab 4.57 mmol/L (3.70-5.30); pH, Arterial 7.45 (7.35-7.45)
[2020-03-16 07:16] LABS: Puncture Site RBA
[2020-03-16 07:17] LABS: ALV-art Gradient 260.675 mmHg (0-20)
--- NOTE | 2020-03-16 08:15 | RAD ---
Chest AP view INDICATION: History of pneumonia and pneumothorax COMPARISON: Prior study dated March 15, 2020 FINDINGS: Lungs: Diffuse airspace disease is relatively stable Cardiac silhouette: The cardiomediastinal silhouette appears within normal limits. Pulmonary vasculature: Normal Pleural spaces: Right-sided apical pneumothorax is similar. Upper abdomen: No abnormality seen. Osseous structures: No acute osseous abnormality. Additional findings: Pneumomediastinum is less prominent. Subcutaneous emphysema persists. Small rig ht apical pneumothorax is stable. IMPRESSION: Stable exam. Small right apical pneumothorax. Persistent pneumomediastinum and subcutaneous emphysema . Persistent bilateral pneumonia.
[2020-03-16] MEDS: Folic Acid 1 MG TAB PO SCH (08:31)
[2020-03-16] MEDS: Zinc Sulfate 220 MG CAP PO SCH (08:31)
[2020-03-16] MEDS: Apixaban 5 MG TAB PER TUBE SCH ×2 (08:31→20:28)
[2020-03-16] MEDS: Aspirin 81 mg Enteric Coated Tablet PO SCH (08:31)
[2020-03-16] MEDS: Cyanocobalamin (Vitamin B-12) 1,000 MCG TAB PO SCH (08:32)
[2020-03-16] MEDS: Cholecalciferol 1,000 UNITS (25 MCG) TAB PO SCH (08:32)
[2020-03-16] MEDS: Ascorbic Acid 500 mg Chewable Tablet PO SCH (08:32)
[2020-03-16] MEDS: methylPREDNISolone Sod Succ 40 MG VIAL IVP SCH (08:33)
[2020-03-16] MEDS: Pantoprazole 40 MG GRANULES PACKET PER TUBE SCH (08:33)
[2020-03-16] MEDS: fentaNYL Citrate/PF 2,000 MCG in Sodium Chloride 0.9% 60 ML IV SCH (10:42)
--- NOTE | 2020-03-16 12:38 | RAD ---
Exam: Chest one view HISTORY:Pneumothorax. Pneumonia. Comparison: 03/16/2020 at 5:11 AM, 03/15/2020 FINDINGS: Cardiac silhouette:Stable cardiac silhouette. Aorta: Unremarkable Pulmonary vessels: Normal Costophrenic angles: Clear LUNGS: No masses or consolidation. Pneumothorax: Stable right-sided pneumothorax. There is persistent pneumomediastinum and extensive balderas bcutaneous emphysema, unchanged. Osseous abnormalities: None Lines and tubes: Stable endotracheal tube and nasogastric tube. IMPRESSION: No significant interval change.
[2020-03-16] MEDS: Polyethylene Glycol 3350 17 GM Packet PER TUBE SCH (14:28)
--- NOTE | 2020-03-16 17:01 | PRG ---
DATE OF SERVICE: 03/16/2020 SUBJECTIVE: Mr. Escudero required increased oxygen today. His pneumothorax is unchanged on two films done today. Heart rates in the 70s, respiratory rates in the 20s. He is sedated. Blood pressures in the 90s. Given his steroid dosing, he may not spike a fever. His chest x-ray is unchanged regarding the infiltrates. He certainly has setup for a ventilator associated pneumonia, so we will re-culture his blood and start him on empiric antimicrobial therapy today, given his decline. OBJECTIVE: LUNGS: Remarkable for coarse equal breath sounds. HEART: Regular rhythm. ABDOMEN: Soft. EXTREMITIES: Without asymmetry or edema. LABORATORY DATA: White count 13.6, hemoglobin 12.8, platelets 290. Sodium 141, potassium 4.5, chloride 97, bicarb 34, BUN 35, creatinine 0.5. IMPRESSION: 1. Respiratory failure associated with COVID pneumonia, not weanable at this time. 2. ? decline in pulmonary function and gas exchange. We will start empiric broad antimicrobial therapy. 3. Anticoagulation for hypercoagulable state. 4. Critical illness myopathy and deconditioning. I met with the and answered all her questions. I have explained to her that I cannot promise her that he will survive, and at this point in time, it looks like he will not survive. We will continue to be and continue aggressively. I have explained to her that a code will not be helpful and she should be thinking about resuscitation status issues, realizing that this does not mean we will quit taking care of him. We will continue supportive care. Critical care time, 30 minutes. Job ID: [id number]
--- NOTE | 2020-03-16 17:51 | PDOC.HOSPP ---
- Subjective Encounter Date: 03/16/20 Encounter Time: 09:00 Subjective: et tube in place, no acute changes overnight per nursing - Objective Vital Signs & Weight: Vital Signs (12 hours) Temp Pulse Resp Pulse Ox 03/16/20 16:00 98.1 F 03/16/20 15:09 71 03/16/20 14:00 20 03/16/20 12:00 98.0 F 03/16/20 10:11 71 03/16/20 10:00 20 03/16/20 09:00 98.6 F 03/16/20 08:00 20 88 L 03/16/20 06:00 21 H Weight Admit Weight 250 lb 0.067 oz Weight 206 lb 9.17 oz Most Recent Monitor Data Heart Rate from ECG 87 NIBP 135/97 NIBP BP-Mean 109 Respiration from ECG 16 SpO2 93 I&O: 03/15/20 03/16/20 03/17/20 06:59 06:59 06:59 Intake Total 2034 1981.7 30 Output Total 5375 3850 1225 [facility]3341 -1868.3 -1195 Result Diagrams: 03/17/20 03:50 03/17/20 03:50 Additional Labs: Accuchecks 03/16/20 16:50 POC Glucose 143 H Radiology Reviewed by me: Yes (reports of cxr reviewed) Hospitalist ROS - Medication Medications: Active Medications Generic Name Dose Route Start Last Admin Trade Name Freq PRN Reason Stop Dose Admin Acetaminophen 650 mg 02/10/20 11:33 03/06/20 17:57 Acetaminophen 325 Mg Tab PO 650 mg Q4H PRN Administration Headache/Fever/Mild Pain (1-3) Albuterol/Ipratropium 3 ml 03/05/20 13:00 03/16/20 12:07 Ipratropium/Albuterol Sulfate 3 Ml Neb NEB 3 ml [id number] CLAY Administration Apixaban 5 mg 03/05/20 09:00 03/16/20 08:31 Apixaban 5 Mg Tab PER TUBE 5 mg BID CLAY Administration Ascorbic Acid 1,000 mg 02/15/20 09:00 03/16/20 08:32 Ascorbic Acid 500 Mg Chewable Tablet PO 1,000 mg DAILY CLAY Administration Aspirin 81 mg 02/11/20 09:00 03/16/20 08:31 Aspirin 81 Mg Enteric Coated Tablet PO 81 mg DAILY CLAY Administration Bisacodyl 10 mg 02/11/20 08:36 03/03/20 05:02 Bisacodyl 5 Mg Tab PO 10 mg DAILYPRN PRN Administration Constipation Cholecalciferol 5,000 units 02/16/20 09:00 03/16/20 08:32 Cholecalciferol 1,000 Units (25 Mcg) Tab PO 5,000 units DAILY CLAY Administration Clonidine 0.1 mg 02/10/20 14:29 03/11/20 20:28 Clonidine 0.1 Mg Tab PO 0.1 mg Q4H PRN Administration SBP Greater Than 180 Cyanocobalamin 1,000 mcg 02/26/20 09:00 03/16/20 08:32 Cyanocobalamin (Vitamin B-12) 1,000 Mcg Tab PO 1,000 mcg DAILY CLAY Administration Folic Acid 1 mg 02/26/20 09:00 03/16/20 08:31 Folic Acid 1 Mg Tab PO 1 mg DAILY CLAY Administration Hydralazine HCl 10 mg 02/11/20 08:36 03/05/20 13:15 Hydralazine 20 Mg/Ml Vial SLOW IVP 10 mg Q4H PRN Administration SBP > 180 and HR < 70 Fentanyl Citrate 2,000 mcg/ 100 mls @ 0 mls/hr 03/09/20 04:00 03/16/20 10:42 Sodium Chloride IV 100 mls INF CLAY Administration Protocol Per Protocol Midazolam HCl 100 mg/ Sodium 100 mls @ 0 mls/hr 03/09/20 15:19 03/16/20 14:10 Chloride IVPB 100 mls INF PRN Administration Sedation Protocol As Directed Levothyroxine Sodium 150 mcg 03/06/20 06:00 03/16/20 06:06 Levothyroxine Sodium 75 Mcg Tab PO 150 mcg 0600 CLAY Administration Lorazepam 2 mg 03/09/20 03:54 03/13/20 20:36 Lorazepam 2 Mg/Ml Vial SLOW IVP 2 mg Q1H PRN Administration Breakthrough agitation Mineral Oil/White Petrolatum 0 gm 03/15/20 21:00 03/16/20 08:33 Artificial Tear Ointment 3.5 Gm Tube EA EYE 1 applic BID CLAY Administration Mineral Oil/White Petrolatum 0 gm 03/15/20 15:30 03/15/20 16:47 Artificial Tear Ointment 3.5 Gm Tube EA EYE 1 applic PRN PRN Administration DRY EYES Morphine Sulfate 10 mg 03/14/20 12:36 03/16/20 11:35 Morphine 10 Mg/Ml Vial SLOW IVP 10 mg Q1H PRN Administration Breakthrough Pain/Agitation Pantoprazole Sodium 40 mg 03/06/20 09:00 03/16/20 08:33 Pantoprazole 40 Mg Granules Packet PER TUBE 40 mg DAILY CLAY Administration Polyethylene Glycol 17 gm 03/10/20 09:00 03/16/20 14:28 Polyethylene Glycol 3350 17 Gm Packet PER TUBE Not Given DAILY CLAY Senna/Docusate Sodium 2 tab 02/10/20 11:33 02/16/20 19:55 Senokot S 8.6-50 Mg Tab PO 2 tab BIDPRN PRN Administration Constipation Sodium Chloride 10 ml 02/10/20 11:33 03/01/20 20:30 Flush - Normal Saline 10 Ml Syringe IVF 10 ml PRN PRN Administration Saline Flush Sterile Water 10 ml 02/28/20 03:54 03/08/20 07:49 Sterile Water 10 Ml Vial IVP 10 ml Q30MIN PRN Administration NEEDED FOR RECONSTITUTION Vecuronium [place] 10 mg 02/28/20 03:54 03/08/20 07:49 Vecuronium 10 Mg Vial IV 10 mg Q30MIN PRN Administration SPASM Zinc Sulfate 220 mg 02/15/20 09:00 03/16/20 08:31 Zinc Sulfate 220 Mg Cap PO 220 mg DAILY CLAY Administration - Exam General - other findings: et tube in place Eye: PERRL ENT: normocephalic atraumatic, moist mucosa Neck: supple, no JVD Heart: RRR, no murmur, no gallops, no rubs Respiratory: CTAB, no wheezes, no rales, no ronchi Gastrointestinal: soft, non-tender, non-distended, normal bowel sounds Extremities: no cyanosis, no clubbing, no edema Skin: no lesions, no rashes Hosp A/P (1) Acute respiratory failure due to COVID-19 Code(s): U07.1 - COVID-19; J96.00 - ACUTE RESPIRATORY FAILURE, UNSP W HYPOXIA OR HYPERCAPNIA Status: Acute (2) Moderate malnutrition Code(s): E44.0 - MODERATE PROTEIN-CALORIE MALNUTRITION Status: Acute (3) Pneumonia due to COVID-19 virus Code(s): U07.1 - COVID-19; J12.89 - OTHER VIRAL PNEUMONIA Status: Acute (4) Sepsis Code(s): A41.9 - SEPSIS, UNSPECIFIED ORGANISM Status: Acute Qualifiers: Sepsis type: sepsis due to unspecified organism Sepsis acute organ dysfunction status: with acute organ dysfunction Severe sepsis acute organ dysfunction type: acute respiratory failure Acute respiratory failure type: with hypoxia Severe sepsis shock status: without septic shock Qualified Code(s): A41.9 - Sepsis, unspecified organism; R65.20 - Severe sepsis without septic shock; J96.01 - Acute respiratory failure with hypoxia (5) Viral pneumonia Code(s): J12.9 - VIRAL PNEUMONIA, UNSPECIFIED Status: Acute (6) Chronic anemia Code(s): D64.9 - ANEMIA, UNSPECIFIED Status: Chronic (7) JARED (obstructive sleep apnea) Code(s): G47.33 - OBSTRUCTIVE SLEEP APNEA (ADULT) (PEDIATRIC) Status: Chronic (8) BPH (benign prostatic hyperplasia) Code(s): N40.0 - BENIGN PROSTATIC HYPERPLASIA WITHOUT LOWER URINRY TRACT SYMP Status: Chronic Qualifiers: Lower urinary tract symptom presence: symptoms absent Qualified Code(s): N40.0 - Benign prostatic hyperplasia without lower urinary tract symptoms (9) H/O Graves' disease Code(s): Z86.39 - PERSONAL HISTORY OF ENDO, NUTRITIONAL AND METABOLIC DISEASE Status: Chronic (10) Hypothyroidism (acquired) Code(s): E03.9 - HYPOTHYROIDISM, UNSPECIFIED Status: Chronic - Plan Acute hypoxic respiratory failure secondary to COVID pneumonia - received remdesivir 02/09 to 02/13 and IV zosyn 02/24 to 03/03 and micafungin 02/23 to 03/03. - He received a second course of meropenem and micafungin from 03/06 to 03/13. - continues to be intubated, unable to wean barbara. Needs further weaning of vent before a successful tracheostomy - continue supportive care - restarting on broad spectrum abx, antifungal steroid, pulmonary note reviewed Hypernatremia - resolved Constipation - continue miralax Pernicious anemia - vitamin B12 < 200, intrinsic factor positive. Continue monthly vitamin B12 Folic acid deficiency anemia - continue folic acid
[2020-03-16] MEDS: Meropenem 2 GM, Admixture Fee 1 EACH in Sodium Chloride 0.9% 100 ML IVPB SCH (22:38)
[2020-03-17] MEDS: Morphine 10 MG/ML VIAL SLOW IVP PRN ×2 (01:08→07:13)
[2020-03-17 05:07] LABS: #Eosinphils 0.2 thou/uL (0.0-0.7); #Lymphocytes 1.1 thou/uL (1.20-3.40); #Monocytes 0.4 thou/uL (0.11-0.59); #Neutrophils 9.6 thou/uL (1.40-6.50); %Basophils 0.3 % (0.0-1.0); %Eosinophils 1.6 % (0.0-10.0); %Lymphocytes 9.7 % (21.0-51.0); %Monocytes 3.7 % (0.0-10.0); %Neutrophils 84.7 % (42.0-75.0); Hemoglobin 12.7 g/dL (14.0-18.0); Mean Corpuscular HGB CONC 30.5 g/dL (32.0-36.0); Mean Corpuscular Hemoglobin 29.5 pg (27.0-31.0); Mean Corpuscular Volume 96.7 fL (78.0-98.0); Mean Platelet Volume 9.2 fL (7.4-10.4); Platelet Count 280 thou/uL (130-400); RBC Distribution Width 16.7 % (11.5-14.5); Red Blood Cell (RBC) Count 4.29 mill/uL (4.70-6.10); White Blood Cell (WBC) Count 11.3 thou/uL (4.8-10.8)
[2020-03-17 05:33] LABS: BUN (Urea Nitrogen) 37 mg/dL (8.4-25.7); Calc. Creatinine Clearance 162 mL/min (70-130); Calcium 8.8 mg/dL (7.8-10.44); Glucose 114 mg/dL (80-115); Magnesium 2.7 mg/dL (1.6-2.6)
[2020-03-17 05:40] LABS: Anion Gap 17 mmol/L (10-20); Carbon Dioxide 34 mmol/L (23-31); Chloride 101 mmol/L (98-107); Potassium 3.7 mmol/L (3.5-5.1); Sodium 148 mmol/L (136-145)
[2020-03-17] MEDS: Meropenem 2 GM, Admixture Fee 1 EACH in Sodium Chloride 0.9% 100 ML IVPB SCH ×3 (06:10→21:26)
[2020-03-17] MEDS: Levothyroxine Sodium 75 MCG TAB PO SCH (06:10)
[2020-03-17] MEDS: fentaNYL Citrate/PF 2,000 MCG in Sodium Chloride 0.9% 60 ML IV SCH (07:28)
--- NOTE | 2020-03-17 07:48 | RAD ---
Chest one view HISTORY: Pneumonia. Follow-up. COMPARISON: 03/16/2020. FINDINGS: Cardiac silhouette is magnified by projection. Widespread patchy parenchymal opacity is sim ilar in appearance to the prior study. [place] of the right visceral pleura is at the level of the superior margin posterior aspect right fourt h rib. Overall similar to the previous exam. Mediastinum is midline. Gas within the upper mediastinum and neck and at the supraclavicular levels and right chest wall is not significantly dc ged. Lines and tubes are unchanged in position. IMPRESSION : Right pneumothorax, pneumomediastinum, widespread infiltrates, and other findings are stable.
[2020-03-17 08:30] LABS: Actual Bicarbonate (HCO3a) 38.4 mEq/L (22-28); Base Excess (BEa) 11.5 mEq/L (-2.0 to +3.0); CO2 Tension 58.2 mmHg (35.0-45.0); Carboxyhemoglobin (COHb) 2.3 gm% (0.0-3.0); Hemoglobin (Hb) 15.4 g/dL (14.0-18.0); Potassium - ABG Lab 3.93 mmol/L (3.70-5.30); pH, Arterial 7.44 (7.35-7.45)
[2020-03-17 08:33] LABS: O2 Tension (PaO2), arterial 57.9 mmHg (> 80.0); Puncture Site RRA
[2020-03-17] MEDS: Folic Acid 1 MG TAB PO SCH (09:23)
[2020-03-17] MEDS: Polyethylene Glycol 3350 17 GM Packet PER TUBE SCH (09:23)
[2020-03-17] MEDS: Zinc Sulfate 220 MG CAP PO SCH (09:23)
[2020-03-17] MEDS: methylPREDNISolone Sod Succ 40 MG VIAL IVP SCH (09:23)
[2020-03-17] MEDS: Cholecalciferol 1,000 UNITS (25 MCG) TAB PO SCH (09:24)
[2020-03-17] MEDS: Cyanocobalamin (Vitamin B-12) 1,000 MCG TAB PO SCH (09:24)
[2020-03-17] MEDS: Ascorbic Acid 500 mg Chewable Tablet PO SCH (09:24)
[2020-03-17] MEDS: Apixaban 5 MG TAB PER TUBE SCH ×2 (09:25→20:51)
[2020-03-17] MEDS: Aspirin 81 mg Enteric Coated Tablet PO SCH (09:25)
[2020-03-17] MEDS: Pantoprazole 40 MG GRANULES PACKET PER TUBE SCH (09:27)
[2020-03-17] MEDS: Fluconazole In NaCl,Iso-Osm 200 MG in Premix Bag 1 BAG IVPB SCH (11:37)
--- NOTE | 2020-03-17 12:01 | PRG ---
DATE OF SERVICE: 03/17/2020 SUBJECTIVE: Lasha Escudero remains deeply sedated, mechanically ventilated. He has not really improved from yesterday today. OBJECTIVE: VITAL SIGNS: Blood pressure 110/76, heart rate is 109, respiratory rates in the high 20s. LUNGS: Remarkable for equal breath sounds. HEART: Regular rhythm. ABDOMEN: Soft. IMAGING DATA: Chest x-ray shows no change in pneumothorax. LABORATORY DATA: White count is 11.3, hemoglobin 12.7, platelets 280. Sodium 140, potassium 3.7, chloride 101, bicarb 34, BUN 37, creatinine 0.6. Intake and outputs negative 539. Cultures done yesterday are negative so far. IMPRESSION: Coronavirus disease pneumonia with respiratory failure. PLAN: Continue supportive care. Critical care time 30 min. Job ID: [id number] [id number]
--- NOTE | 2020-03-17 12:12 | PDOC.HOSPP ---
- Subjective Encounter Date: 03/17/20 Encounter Time: 12:10 Subjective: et tube in place, pulmonary note and imaging report and labs/vitals reviewed by me, at bedside and wishes most of care to be by Dr Rocha - Objective Vital Signs & Weight: Vital Signs (12 hours) Temp Pulse Resp BP Pulse Ox 03/17/20 12:00 20 03/17/20 11:36 105 H 03/17/20 10:00 20 03/17/20 08:17 91 91/66 03/17/20 08:00 100.2 F H 03/17/20 06:00 20 03/17/20 04:00 98.8 F 20 03/17/20 03:19 83 98/49 L 03/17/20 02:00 20 03/17/20 00:47 96 20 90 L Weight Admit Weight 250 lb 0.067 oz Weight 202 lb 2.622 oz Most Recent Monitor Data Heart Rate from ECG 104 NIBP 101/62 NIBP BP-Mean 75 Respiration from ECG 25 SpO2 98 I&O: 03/16/20 03/17/20 03/18/20 06:59 06:59 06:59 Intake Total 1981.7 2356 60 Output Total 3850 2895 600 [facility] -1868.3 -539 -540 Result Diagrams: 03/17/20 03:50 03/17/20 03:50 Additional Labs: Accuchecks 03/16/20 16:50 POC Glucose 143 H Hospitalist ROS - Medication Medications: Active Medications Generic Name Dose Route Start Last Admin Trade Name Freq PRN Reason Stop Dose Admin Acetaminophen 650 mg 02/10/20 11:33 03/06/20 17:57 Acetaminophen 325 Mg Tab PO 650 mg Q4H PRN Administration Headache/Fever/Mild Pain (1-3) Albuterol/Ipratropium 3 ml 03/05/20 13:00 03/17/20 08:15 Ipratropium/Albuterol Sulfate 3 Ml Neb NEB 3 ml [id number] CLAY Administration Apixaban 5 mg 03/05/20 09:00 03/17/20 09:25 Apixaban 5 Mg Tab PER TUBE 5 mg BID CLAY Administration Ascorbic Acid 1,000 mg 02/15/20 09:00 03/17/20 09:24 Ascorbic Acid 500 Mg Chewable Tablet PO 1,000 mg DAILY CLAY Administration Aspirin 81 mg 02/11/20 09:00 03/17/20 09:25 Aspirin 81 Mg Enteric Coated Tablet PO 81 mg DAILY CLAY Administration Bisacodyl 10 mg 02/11/20 08:36 03/03/20 05:02 Bisacodyl 5 Mg Tab PO 10 mg DAILYPRN PRN Administration Constipation Cholecalciferol 5,000 units 02/16/20 09:00 03/17/20 09:24 Cholecalciferol 1,000 Units (25 Mcg) Tab PO 5,000 units DAILY CLAY Administration Clonidine 0.1 mg 02/10/20 14:29 03/11/20 20:28 Clonidine 0.1 Mg Tab PO 0.1 mg Q4H PRN Administration SBP Greater Than 180 Cyanocobalamin 1,000 mcg 02/26/20 09:00 03/17/20 09:24 Cyanocobalamin (Vitamin B-12) 1,000 Mcg Tab PO 1,000 mcg DAILY CLAY Administration Folic Acid 1 mg 02/26/20 09:00 03/17/20 09:23 Folic Acid 1 Mg Tab PO 1 mg DAILY CLAY Administration Hydralazine HCl 10 mg 02/11/20 08:36 03/05/20 13:15 Hydralazine 20 Mg/Ml Vial SLOW IVP 10 mg Q4H PRN Administration SBP > 180 and HR < 70 Fentanyl Citrate 2,000 mcg/ 100 mls @ 0 mls/hr 03/09/20 04:00 03/17/20 07:28 Sodium Chloride IV 100 mls INF CLAY Administration Protocol Per Protocol Midazolam HCl 100 mg/ Sodium 100 mls @ 0 mls/hr 03/09/20 15:19 03/17/20 10:55 Chloride IVPB 100 mls INF PRN Administration Sedation Protocol As Directed Meropenem 2 gm/ Miscellaneous 100 mls @ 200 mls/hr 03/16/20 22:00 03/17/20 06:10 Medication 1 each/ Sodium IVPB 100 mls Chloride Q8HR CLAY Administration Fluconazole/Sodium Chloride 100 mls @ 100 mls/hr 03/17/20 09:00 03/17/20 11:37 200 mg/ Device IVPB 100 mls DAILY CLAY Administration Levothyroxine Sodium 150 mcg 03/06/20 06:00 03/17/20 06:10 Levothyroxine Sodium 75 Mcg Tab PO 150 mcg 0600 CLAY Administration Lorazepam 2 mg 03/09/20 03:54 03/13/20 20:36 Lorazepam 2 Mg/Ml Vial SLOW IVP 2 mg Q1H PRN Administration Breakthrough agitation Methylprednisolone Sodium Succinate 40 mg 03/17/20 09:00 03/17/20 09:23 Methylprednisolone Sod Succ 40 Mg Vial IVP 40 mg DAILY CLAY Administration Mineral Oil/White Petrolatum 0 gm 03/15/20 21:00 03/17/20 09:27 Artificial Tear Ointment 3.5 Gm Tube EA EYE 1 applic BID CLAY Administration Mineral Oil/White Petrolatum 0 gm 03/15/20 15:30 03/15/20 16:47 Artificial Tear Ointment 3.5 Gm Tube EA EYE 1 applic PRN PRN Administration DRY EYES Morphine Sulfate 10 mg 03/14/20 12:36 03/17/20 07:13 Morphine 10 Mg/Ml Vial SLOW IVP 10 mg Q1H PRN Administration Breakthrough Pain/Agitation Pantoprazole Sodium 40 mg 03/06/20 09:00 03/17/20 09:27 Pantoprazole 40 Mg Granules Packet PER TUBE 40 mg DAILY CLAY Administration Polyethylene Glycol 17 gm 03/10/20 09:00 03/17/20 09:23 Polyethylene Glycol 3350 17 Gm Packet PER TUBE 17 gm DAILY CLAY Administration Senna/Docusate Sodium 2 tab 02/10/20 11:33 02/16/20 19:55 Senokot S 8.6-50 Mg Tab PO 2 tab BIDPRN PRN Administration Constipation Sodium Chloride 10 ml 02/10/20 11:33 03/01/20 20:30 Flush - Normal Saline 10 Ml Syringe IVF 10 ml PRN PRN Administration Saline Flush Sterile Water 10 ml 02/28/20 03:54 03/08/20 07:49 Sterile Water 10 Ml Vial IVP 10 ml Q30MIN PRN Administration NEEDED FOR RECONSTITUTION Vecuronium [place] 10 mg 02/28/20 03:54 03/08/20 07:49 Vecuronium 10 Mg Vial IV 10 mg Q30MIN PRN Administration SPASM Zinc Sulfate 220 mg 02/15/20 09:00 03/17/20 09:23 Zinc Sulfate 220 Mg Cap PO 220 mg DAILY CLAY Administration - Exam General - other findings: et tube in place, sedated Eye: PERRL ENT: normocephalic atraumatic, moist mucosa Neck: supple, symmetric, no JVD Heart: RRR, no murmur, no gallops, no rubs Respiratory: CTAB, no wheezes, no rales, no ronchi Gastrointestinal: soft, non-distended, normal bowel sounds Extremities: no cyanosis, no clubbing, no edema Hosp A/P (1) Acute respiratory failure due to COVID-19 Code(s): U07.1 - COVID-19; J96.00 - ACUTE RESPIRATORY FAILURE, UNSP W HYPOXIA OR HYPERCAPNIA Status: Acute (2) Moderate malnutrition Code(s): E44.0 - MODERATE PROTEIN-CALORIE MALNUTRITION Status: Acute (3) Pneumonia due to COVID-19 virus Code(s): U07.1 - COVID-19; J12.89 - OTHER VIRAL PNEUMONIA Status: Acute (4) Sepsis Code(s): A41.9 - SEPSIS, UNSPECIFIED ORGANISM Status: Acute Qualifiers: Sepsis type: sepsis due to unspecified organism Sepsis acute organ dysfunction status: with acute organ dysfunction Severe sepsis acute organ dysfunction type: acute respiratory failure Acute respiratory failure type: with hypoxia Severe sepsis shock status: without septic shock Qualified Code(s): A41.9 - Sepsis, unspecified organism; R65.20 - Severe sepsis without septic shock; J96.01 - Acute respiratory failure with hypoxia (5) Viral pneumonia Code(s): J12.9 - VIRAL PNEUMONIA, UNSPECIFIED Status: Acute (6) Chronic anemia Code(s): D64.9 - ANEMIA, UNSPECIFIED Status: Chronic (7) JARED (obstructive sleep apnea) Code(s): G47.33 - OBSTRUCTIVE SLEEP APNEA (ADULT) (PEDIATRIC) Status: Chronic (8) BPH (benign prostatic hyperplasia) Code(s): N40.0 - BENIGN PROSTATIC HYPERPLASIA WITHOUT LOWER URINRY TRACT SYMP Status: Chronic Qualifiers: Lower urinary tract symptom presence: symptoms absent Qualified Code(s): N40.0 - Benign prostatic hyperplasia without lower urinary tract symptoms (9) H/O Graves' disease Code(s): Z86.39 - PERSONAL HISTORY OF ENDO, NUTRITIONAL AND METABOLIC DISEASE Status: Chronic (10) Hypothyroidism (acquired) Code(s): E03.9 - HYPOTHYROIDISM, UNSPECIFIED Status: Chronic - Plan Acute hypoxic respiratory failure secondary to COVID pneumonia - received remdesivir 02/09 to 02/13 and IV zosyn 02/24 to 03/03 and micafungin 02/23 to 03/03. - He received a second course of meropenem and micafungin from 03/06 to 03/13. - continues to be intubated, unable to wean barbara. Needs further weaning of vent before a successful tracheostomy - continue supportive care - restarting on broad spectrum abx, antifungal steroid, pulmonary note reviewed Hypernatremia - resolved Constipation - continue miralax Pernicious anemia - vitamin B12 < 200, intrinsic factor positive. Continue monthly vitamin B12 Folic acid deficiency anemia - continue folic acid # hypernatremia - <1 day, trend BMP to establish pattern if there is one, defer volume mangement to pulmonary
[2020-03-18] MEDS: fentaNYL Citrate/PF 2,000 MCG in Sodium Chloride 0.9% 60 ML IV SCH ×2 (02:25→22:05)
[2020-03-18] MEDS: Vecuronium 10 MG VIAL IV PRN ×2 (02:40→10:22)
[2020-03-18] MEDS: Levothyroxine Sodium 75 MCG TAB PO SCH (05:41)
[2020-03-18] MEDS: Meropenem 2 GM, Admixture Fee 1 EACH in Sodium Chloride 0.9% 100 ML IVPB SCH ×3 (06:10→17:12)
[2020-03-18 07:08] LABS: #Eosinphils 0.1 thou/uL (0.0-0.7); #Lymphocytes 1.2 thou/uL (1.20-3.40); #Monocytes 0.6 thou/uL (0.11-0.59); %Basophils 0.2 % (0.0-1.0); %Eosinophils 1.1 % (0.0-10.0); %Monocytes 4.3 % (0.0-10.0); %Neutrophils 85.4 % (42.0-75.0); Hemoglobin 13.2 g/dL (14.0-18.0); Mean Corpuscular HGB CONC 31.4 g/dL (32.0-36.0); Mean Corpuscular Hemoglobin 30.5 pg (27.0-31.0); Mean Corpuscular Volume 97.1 fL (78.0-98.0); Mean Platelet Volume 8.9 fL (7.4-10.4); Platelet Count 294 thou/uL (130-400); RBC Distribution Width 16.8 % (11.5-14.5); Red Blood Cell (RBC) Count 4.35 mill/uL (4.70-6.10); White Blood Cell (WBC) Count 12.9 thou/uL (4.8-10.8)
[2020-03-18 07:10] LABS: Actual Bicarbonate (HCO3a) 40.4 mEq/L (22-28); Base Excess (BEa) 13.3 mEq/L (-2.0 to +3.0); Calcium, Ionized (arterial) 1.21 mmol/L (1.12-1.30); Carboxyhemoglobin (COHb) 1.7 gm% (0.0-3.0); Potassium - ABG Lab 3.88 mmol/L (3.70-5.30); pH, Arterial 7.43 (7.35-7.45)
[2020-03-18 07:18] LABS: CO2 Tension 61.9 mmHg (35.0-45.0); O2 Tension (PaO2), arterial 52.3 mmHg (> 80.0); Puncture Site RRA
[2020-03-18 07:19] LABS: ALV-art Gradient 369.425 mmHg (0-20)
--- NOTE | 2020-03-18 07:57 | RAD ---
Chest one view HISTORY: Pneumothorax. Pneumonia. Follow-up. COMPARISON: 03/17/2020. FINDINGS: Cardiac silhouette is magnified by projection. Mediastinum is slightly shifted leftward pat ient rotation. Lines and tubes unchanged in position. Mediastinal and chest wall gas and right pneumothorax are unchanged. Ill-defined patchy areas of infiltrate throughout each lung are not significantly different than on t he recent exams. IMPRESSION : Right pneumothorax, pneumomediastinum, bilateral infiltrates, and other findings are stable.
[2020-03-18] MEDS: Fluconazole In NaCl,Iso-Osm 200 MG in Premix Bag 1 BAG IVPB SCH (08:47)
[2020-03-18] MEDS: methylPREDNISolone Sod Succ 40 MG VIAL IVP SCH (08:48)
[2020-03-18] MEDS: Zinc Sulfate 220 MG CAP PO SCH (08:48)
[2020-03-18] MEDS: Pantoprazole 40 MG GRANULES PACKET PER TUBE SCH (08:48)
[2020-03-18] MEDS: Cyanocobalamin (Vitamin B-12) 1,000 MCG TAB PO SCH (08:48)
[2020-03-18] MEDS: Apixaban 5 MG TAB PER TUBE SCH ×2 (08:48→20:27)
[2020-03-18] MEDS: Cholecalciferol 1,000 UNITS (25 MCG) TAB PO SCH (08:48)
[2020-03-18] MEDS: Polyethylene Glycol 3350 17 GM Packet PER TUBE SCH (08:48)
[2020-03-18] MEDS: Aspirin 81 mg Enteric Coated Tablet PO SCH (08:48)
[2020-03-18] MEDS: Folic Acid 1 MG TAB PO SCH (08:49)
[2020-03-18] MEDS: Ascorbic Acid 500 mg Chewable Tablet PO SCH (08:58)
[2020-03-18] MEDS: Floranex Packet PER TUBE SCH (08:58)
[2020-03-18 09:24] LABS: Anion Gap 14 mmol/L (10-20); Calcium 8.8 mg/dL (7.8-10.44); Carbon Dioxide 33 mmol/L (23-31); Chloride 105 mmol/L (98-107); Glucose 122 mg/dL (80-115); Potassium 4.1 mmol/L (3.5-5.1); Sodium 148 mmol/L (136-145)
[2020-03-18 09:29] LABS: BUN (Urea Nitrogen) 33 mg/dL (8.4-25.7); Calc. Creatinine Clearance 170 mL/min (70-130); Magnesium 2.5 mg/dL (1.6-2.6)
[2020-03-18] MEDS ORDERED: Sterile Water 10 ML ONE (10:19)
[2020-03-18] MEDS: Lorazepam 2 MG/ML VIAL SLOW IVP PRN ×2 (12:15→18:03)
--- NOTE | 2020-03-18 17:05 | PRG ---
DATE OF SERVICE: 03/18/2020 SUBJECTIVE: Mr. Escudero is developing some intolerance to Versed. We increased his Versed today. He looks more comfortable after that with mechanical ventilation. OBJECTIVE: VITAL SIGNS: Heart rate is 106, blood pressure 100/70, FiO2 is at 60. Intake and outputs -573. LUNGS: Unchanged. HEART: Unchanged. ABDOMEN: Unchanged. IMAGING DATA: Chest x-ray shows no change in his small apical pneumothorax. LABORATORY DATA: White count 12.9, hemoglobin 13.2, platelets 294. Sodium 148, potassium 4.1, chloride 105, bicarb 32, BUN 33, creatinine 0.57. PH 7.3, CO2 of 61, PO2 of 52. IMPRESSION: Respiratory failure associated with COVID pneumonia. He is making very slow progress. He is a little bit better and he was at the end of last week, but he is not at the point where we could consider a tracheostomy. His cultures are negative, but he is being treated empirically for nosocomial pneumonia on top of his COVID pneumonia. We will continue supportive care. Critical care time 30 min. Job ID: [id number] MTDD
[2020-03-18] MEDS: Morphine 10 MG/ML VIAL SLOW IVP PRN (18:55)
--- NOTE | 2020-03-18 21:44 | PDOC.HOSPP ---
- Subjective Encounter Date: 03/18/20 Encounter Time: 17:20 Subjective: intubated, sedated - Objective Vital Signs & Weight: Vital Signs (12 hours) Temp Pulse Resp BP Pulse Ox 03/18/20 20:00 98.8 F 20 97 03/18/20 18:56 118 H 148/91 H 03/18/20 18:00 23 H 03/18/20 16:00 99.2 F 25 H 03/18/20 14:45 106 H 100/70 03/18/20 14:00 24 H 03/18/20 13:32 104 H 87/54 L 03/18/20 12:00 99.3 F 20 03/18/20 10:30 117 H 166/105 H 03/18/20 10:00 30 H Weight Admit Weight 250 lb 0.067 oz Weight 202 lb 2.622 oz Most Recent Monitor Data Heart Rate from ECG 99 NIBP 94/62 NIBP BP-Mean 72 Respiration from ECG 20 SpO2 98 I&O: 03/17/20 03/18/20 03/19/20 06:59 06:59 06:59 Intake Total 2356 2351.7 1347 Output Total 2895 2830 1230 Balance -539 -478.3 117 Result Diagrams: 03/18/20 06:31 03/18/20 06:31 Radiology Reviewed by me: Yes Hospitalist ROS - Medication Medications: Active Medications Generic Name Dose Route Start Last Admin Trade Name Freq PRN Reason Stop Dose Admin Acetaminophen 650 mg 02/10/20 11:33 03/06/20 17:57 Acetaminophen 325 Mg Tab PO 650 mg Q4H PRN Administration Headache/Fever/Mild Pain (1-3) Acidophilus 1 gm 03/18/20 09:00 03/18/20 08:58 Floranex Packet PER TUBE 1 gm DAILY CLAY Administration Albuterol/Ipratropium 3 ml 03/05/20 13:00 03/18/20 18:55 Ipratropium/Albuterol Sulfate 3 Ml Neb NEB 3 ml [id number] CLAY Administration Apixaban 5 mg 03/05/20 09:00 03/18/20 20:27 Apixaban 5 Mg Tab PER TUBE 5 mg BID CLAY Administration Ascorbic Acid 1,000 mg 02/15/20 09:00 03/18/20 08:58 Ascorbic Acid 500 Mg Chewable Tablet PO 1,000 mg DAILY CLAY Administration Aspirin 81 mg 02/11/20 09:00 03/18/20 08:48 Aspirin 81 Mg Enteric Coated Tablet PO 81 mg DAILY CLAY Administration Bisacodyl 10 mg 02/11/20 08:36 03/03/20 05:02 Bisacodyl 5 Mg Tab PO 10 mg DAILYPRN PRN Administration Constipation Cholecalciferol 5,000 units 02/16/20 09:00 03/18/20 08:48 Cholecalciferol 1,000 Units (25 Mcg) Tab PO 5,000 units DAILY CLAY Administration Clonidine 0.1 mg 02/10/20 14:29 03/11/20 20:28 Clonidine 0.1 Mg Tab PO 0.1 mg Q4H PRN Administration SBP Greater Than 180 Cyanocobalamin 1,000 mcg 02/26/20 09:00 03/18/20 08:48 Cyanocobalamin (Vitamin B-12) 1,000 Mcg Tab PO 1,000 mcg DAILY CLAY Administration Folic Acid 1 mg 02/26/20 09:00 03/18/20 08:49 Folic Acid 1 Mg Tab PO 1 mg DAILY CLAY Administration Hydralazine HCl 10 mg 02/11/20 08:36 03/05/20 13:15 Hydralazine 20 Mg/Ml Vial SLOW IVP 10 mg Q4H PRN Administration SBP > 180 and HR < 70 Fentanyl Citrate 2,000 mcg/ 100 mls @ 0 mls/hr 03/09/20 04:00 03/18/20 02:25 Sodium Chloride IV 100 mls INF CLAY Administration Protocol Per Protocol Midazolam HCl 100 mg/ Sodium 100 mls @ 0 mls/hr 03/09/20 15:19 03/18/20 18:36 Chloride IVPB 100 mls INF PRN Administration Sedation Protocol As Directed Fluconazole/Sodium Chloride 100 mls @ 100 mls/hr 03/17/20 09:00 03/18/20 08:47 200 mg/ Device IVPB 100 mls DAILY CLAY Administration Meropenem 2 gm/ Miscellaneous 100 mls @ 200 mls/hr 03/18/20 17:00 03/18/20 17:09 Medication 1 each/ Sodium IVPB 100 mls Chloride 0100,0900,1700 CLAY Administration Levothyroxine Sodium 150 mcg 03/06/20 06:00 03/18/20 05:41 Levothyroxine Sodium 75 Mcg Tab PO 150 mcg 0600 CLAY Administration Lorazepam 2 mg 03/09/20 03:54 03/18/20 18:03 Lorazepam 2 Mg/Ml Vial SLOW IVP 2 mg Q1H PRN Administration Breakthrough agitation Methylprednisolone Sodium Succinate 40 mg 03/17/20 09:00 03/18/20 08:48 Methylprednisolone Sod Succ 40 Mg Vial IVP 40 mg DAILY CLAY Administration Mineral Oil/White Petrolatum 0 gm 03/15/20 21:00 03/18/20 20:27 Artificial Tear Ointment 3.5 Gm Tube EA EYE 1 applic BID CLAY Administration Mineral Oil/White Petrolatum 0 gm 03/15/20 15:30 03/15/20 16:47 Artificial Tear Ointment 3.5 Gm Tube EA EYE 1 applic PRN PRN Administration DRY EYES Morphine Sulfate 10 mg 03/14/20 12:36 03/18/20 18:55 Morphine 10 Mg/Ml Vial SLOW IVP 10 mg Q1H PRN Administration Breakthrough Pain/Agitation Pantoprazole Sodium 40 mg 03/06/20 09:00 03/18/20 08:48 Pantoprazole 40 Mg Granules Packet PER TUBE 40 mg DAILY CLAY Administration Polyethylene Glycol 17 gm 03/10/20 09:00 03/18/20 08:48 Polyethylene Glycol 3350 17 Gm Packet PER TUBE 17 gm DAILY CLAY Administration Senna/Docusate Sodium 2 tab 02/10/20 11:33 02/16/20 19:55 Senokot S 8.6-50 Mg Tab PO 2 tab BIDPRN PRN Administration Constipation Sodium Chloride 10 ml 02/10/20 11:33 03/01/20 20:30 Flush - Normal Saline 10 Ml Syringe IVF 10 ml PRN PRN Administration Saline Flush Sterile Water 10 ml 02/28/20 03:54 03/08/20 07:49 Sterile Water 10 Ml Vial IVP 10 ml Q30MIN PRN Administration NEEDED FOR RECONSTITUTION Vecuronium [place]ell 10 mg 02/28/20 03:54 03/18/20 10:22 Vecuronium 10 Mg Vial IV 10 mg Q30MIN PRN Administration SPASM Zinc Sulfate 220 mg 02/15/20 09:00 03/18/20 08:48 Zinc Sulfate 220 Mg Cap PO 220 mg DAILY CLAY Administration - Exam General - other findings: intubated, sedated Eye: PERRL, anicteric sclera ENT: normocephalic atraumatic, no oropharyngeal lesions, moist mucosa Neck: supple, symmetric, no JVD, no thyromegaly, no lymphadenopathy, no carotid bruit Heart: RRR, no murmur, no gallops, no rubs, normal peripheral pulses Respiratory: CTAB, no wheezes, no rales, no ronchi, normal chest expansion, no tachypnea, normal percussion Gastrointestinal: soft, non-tender, non-distended, normal bowel sounds, no palpable masses, no hepatomegaly, no splenomegaly, no bruit Hosp A/P (1) Acute respiratory failure due to COVID-19 Code(s): U07.1 - COVID-19; J96.00 - ACUTE RESPIRATORY FAILURE, UNSP W HYPOXIA OR HYPERCAPNIA Status: Acute (2) Moderate malnutrition Code(s): E44.0 - MODERATE PROTEIN-CALORIE MALNUTRITION Status: Acute (3) Pneumonia due to COVID-19 virus Code(s): U07.1 - COVID-19; J12.89 - OTHER VIRAL PNEUMONIA Status: Acute (4) Sepsis Code(s): A41.9 - SEPSIS, UNSPECIFIED ORGANISM Status: Acute Qualifiers: Sepsis type: sepsis due to unspecified organism Sepsis acute organ dysfunction status: with acute organ dysfunction Severe sepsis acute organ dysfunction type: acute respiratory failure Acute respiratory failure type: with hypoxia Severe sepsis shock status: without septic shock Qualified Code(s): A41.9 - Sepsis, unspecified organism; R65.20 - Severe sepsis without septic shock; J96.01 - Acute respiratory failure with hypoxia (5) Viral pneumonia Code(s): J12.9 - VIRAL PNEUMONIA, UNSPECIFIED Status: Acute (6) Chronic anemia Code(s): D64.9 - ANEMIA, UNSPECIFIED Status: Chronic (7) JARED (obstructive sleep apnea) Code(s): G47.33 - OBSTRUCTIVE SLEEP APNEA (ADULT) (PEDIATRIC) Status: Chronic (8) BPH (benign prostatic hyperplasia) Code(s): N40.0 - BENIGN PROSTATIC HYPERPLASIA WITHOUT LOWER URINRY TRACT SYMP Status: Chronic Qualifiers: Lower urinary tract symptom presence: symptoms absent Qualified Code(s): N40.0 - Benign prostatic hyperplasia without lower urinary tract symptoms (9) H/O Graves' disease Code(s): Z86.39 - PERSONAL HISTORY OF ENDO, NUTRITIONAL AND METABOLIC DISEASE Status: Chronic (10) Hypothyroidism (acquired) Code(s): E03.9 - HYPOTHYROIDISM, UNSPECIFIED Status: Chronic - Plan Acute hypoxic respiratory failure secondary to COVID pneumonia - received remdesivir 02/09 to 02/13 and IV zosyn 02/24 to 03/03 and micafungin 02/23 to 03/03. - He received a second course of meropenem and micafungin from 03/06 to 03/13. - continues to be intubated, unable to wean barbara. Needs further weaning of vent before a successful tracheostomy - continue supportive care - restarting on broad spectrum abx, antifungal steroid, pulmonary note reviewed Hypernatremia - resolved # cons bacteremia - likely contimanant, continue to monitor, empiric vancomycin and repeat cultures in am Constipation - continue miralax Pernicious anemia - vitamin B12 < 200, intrinsic factor positive. Continue monthly vitamin B12 Folic acid deficiency anemia - continue folic acid # hypernatremia - <1 day, trend BMP to establish pattern if there is one, defer volume mangement to pulmonary
[2020-03-19] MEDS: Meropenem 2 GM, Admixture Fee 1 EACH in Sodium Chloride 0.9% 100 ML IVPB SCH ×3 (00:37→16:47)
[2020-03-19 05:31] LABS: #Eosinphils 0.1 thou/uL (0.0-0.7); #Monocytes 0.5 thou/uL (0.11-0.59); #Neutrophils 6.7 thou/uL (1.40-6.50); %Basophils 0.2 % (0.0-1.0); %Lymphocytes 12.4 % (21.0-51.0); %Monocytes 5.9 % (0.0-10.0); %Neutrophils 80.5 % (42.0-75.0); Hemoglobin 12.6 g/dL (14.0-18.0); Mean Corpuscular HGB CONC 30.7 g/dL (32.0-36.0); Mean Corpuscular Hemoglobin 29.9 pg (27.0-31.0); Mean Corpuscular Volume 97.5 fL (78.0-98.0); Mean Platelet Volume 8.9 fL (7.4-10.4); Platelet Count 285 thou/uL (130-400); RBC Distribution Width 16.9 % (11.5-14.5); Red Blood Cell (RBC) Count 4.21 mill/uL (4.70-6.10); White Blood Cell (WBC) Count 8.4 thou/uL (4.8-10.8)
[2020-03-19] MEDS: Levothyroxine Sodium 75 MCG TAB PO SCH (05:44)
[2020-03-19] MEDS: Vancomycin 1.5 GRAM/300 ML BAG 1.5 GM in Premix Bag 1 BAG IVPB SCH ×2 (05:45→13:48)
[2020-03-19 05:53] LABS: Anion Gap 15 mmol/L (10-20); BUN (Urea Nitrogen) 37 mg/dL (8.4-25.7); Calc. Creatinine Clearance 164 mL/min (70-130); Calcium 8.5 mg/dL (7.8-10.44); Carbon Dioxide 33 mmol/L (23-31); Chloride 108 mmol/L (98-107); Glucose 144 mg/dL (80-115); Magnesium 2.6 mg/dL (1.6-2.6); Potassium 3.8 mmol/L (3.5-5.1); Sodium 152 mmol/L (136-145)
[2020-03-19 07:32] LABS: Actual Bicarbonate (HCO3a) 37.7 mEq/L (22-28); Base Excess (BEa) 10.2 mEq/L (-2.0 to +3.0); CO2 Tension 59.3 mmHg (35.0-45.0); Carboxyhemoglobin (COHb) 1.9 gm% (0.0-3.0); Hemoglobin (Hb) 17.7 g/dL (14.0-18.0); O2 Tension (PaO2), arterial 62.3 mmHg (> 80.0); Potassium - ABG Lab 3.71 mmol/L (3.70-5.30); pH, Arterial 7.42 (7.35-7.45)
[2020-03-19 08:10] LABS: ALV-art Gradient 291.375 mmHg (0-20); Puncture Site RBA
[2020-03-19] MEDS: methylPREDNISolone Sod Succ 40 MG VIAL IVP SCH (08:26)
[2020-03-19] MEDS: Aspirin 81 mg Enteric Coated Tablet PO SCH (08:26)
[2020-03-19] MEDS: Cyanocobalamin (Vitamin B-12) 1,000 MCG TAB PO SCH (08:26)
[2020-03-19] MEDS: Ascorbic Acid 500 mg Chewable Tablet PO SCH (08:27)
[2020-03-19] MEDS: Pantoprazole 40 MG GRANULES PACKET PER TUBE SCH (08:27)
[2020-03-19] MEDS: Zinc Sulfate 220 MG CAP PO SCH (08:27)
[2020-03-19] MEDS: Apixaban 5 MG TAB PER TUBE SCH ×2 (08:27→21:18)
[2020-03-19] MEDS: Folic Acid 1 MG TAB PO SCH (08:27)
[2020-03-19] MEDS: Fluconazole In NaCl,Iso-Osm 200 MG in Premix Bag 1 BAG IVPB SCH (08:30)
[2020-03-19] MEDS: Polyethylene Glycol 3350 17 GM Packet PER TUBE SCH (08:30)
[2020-03-19] MEDS: Floranex Packet PER TUBE SCH (08:51)
[2020-03-19] MEDS: Cholecalciferol 1,000 UNITS (25 MCG) TAB PO SCH (09:07)
--- NOTE | 2020-03-19 09:52 | RAD ---
PORTABLE CHEST: HISTORY: Pneumonia followup. COMPARISON: 03/18/2020. FINDINGS: ET tube and NG tube remain in place. Subcutaneous emphysema in the neck region again noted. The right pneumothorax is again seen and is unchanged. Confluent infiltrate in the right mid and low er lung as well as hazy infiltrate throughout the left lung again noted, unchanged in appearance. IMPRESSION: Stable chest finding. POS: AGW
--- NOTE | 2020-03-19 14:18 | PRG ---
DATE OF SERVICE: 03/19/2020 SUBJECTIVE: Mr. Escudero remains mechanically ventilated. He is sedated with Versed drip and fentanyl. His pneumothorax has not changed on radiograph. OBJECTIVE: LUNGS: Unchanged. HEART: Unchanged. ABDOMEN: Unchanged. LABORATORY DATA: White count 8.4, hemoglobin 12.6, platelets 285. Electrolytes are unchanged. He is mildly hypernatremic, although I am not concerned about this. Excess free water will end up in his lungs, which he will not tolerate. IMPRESSION: 1. COVID pneumonia. 2. Small stable pneumothorax. PLAN: Decrease his FiO2 to 55% today. We will consider decreasing PEEP slowly over the next few days. At some point in time, we need to consider tracheostomy if we can get him below 10 cm of PEEP. Critical care time 30 min. Job ID: [id number] MTDD
[2020-03-19] MEDS: fentaNYL Citrate/PF 2,000 MCG in Sodium Chloride 0.9% 60 ML IV SCH (14:33)
--- NOTE | 2020-03-19 16:15 | PDOC.HOSPP ---
- Subjective Encounter Date: 03/20/20 Encounter Time: 14:50 Subjective: intubated, sedated, no acute events overnight - Objective Vital Signs & Weight: Vital Signs (12 hours) Temp Pulse Resp Pulse Ox 03/19/20 14:00 20 03/19/20 12:00 99.5 F 03/19/20 10:50 72 03/19/20 10:00 20 03/19/20 08:11 79 03/19/20 08:00 20 03/19/20 07:52 98 03/19/20 07:00 98.4 F 03/19/20 05:54 21 H Weight Admit Weight 250 lb 0.067 oz Weight 202 lb 2.622 oz Most Recent Monitor Data Heart Rate from ECG 73 NIBP 97/65 NIBP BP-Mean 75 Respiration from ECG 21 SpO2 96 I&O: 03/18/20 03/19/20 03/20/20 06:59 06:59 06:59 Intake Total 2351.7 3617 1081 Output Total 2830 2255 920 Balance -478.3 1362 161 Result Diagrams: 03/19/20 05:16 03/19/20 05:16 Hospitalist ROS - Medication Medications: Active Medications Generic Name Dose Route Start Last Admin Trade Name Freq PRN Reason Stop Dose Admin Acetaminophen 650 mg 02/10/20 11:33 03/06/20 17:57 Acetaminophen 325 Mg Tab PO 650 mg Q4H PRN Administration Headache/Fever/Mild Pain (1-3) Acidophilus 1 gm 03/18/20 09:00 03/19/20 08:51 Floranex Packet PER TUBE 1 gm DAILY CLAY Administration Albuterol/Ipratropium 3 ml 03/05/20 13:00 03/19/20 10:49 Ipratropium/Albuterol Sulfate 3 Ml Neb NEB 3 ml [id number] CLAY Administration Apixaban 5 mg 03/05/20 09:00 03/19/20 08:27 Apixaban 5 Mg Tab PER TUBE 5 mg BID CLAY Administration Ascorbic Acid 1,000 mg 02/15/20 09:00 03/19/20 08:27 Ascorbic Acid 500 Mg Chewable Tablet PO 1,000 mg DAILY CLAY Administration Aspirin 81 mg 02/11/20 09:00 03/19/20 08:26 Aspirin 81 Mg Enteric Coated Tablet PO 81 mg DAILY CLAY Administration Bisacodyl 10 mg 02/11/20 08:36 03/03/20 05:02 Bisacodyl 5 Mg Tab PO 10 mg DAILYPRN PRN Administration Constipation Cholecalciferol 5,000 units 02/16/20 09:00 03/19/20 09:07 Cholecalciferol 1,000 Units (25 Mcg) Tab PO 5,000 units DAILY CLAY Administration Clonidine 0.1 mg 02/10/20 14:29 03/11/20 20:28 Clonidine 0.1 Mg Tab PO 0.1 mg Q4H PRN Administration SBP Greater Than 180 Cyanocobalamin 1,000 mcg 02/26/20 09:00 03/19/20 08:26 Cyanocobalamin (Vitamin B-12) 1,000 Mcg Tab PO 1,000 mcg DAILY CLAY Administration Folic Acid 1 mg 02/26/20 09:00 03/19/20 08:27 Folic Acid 1 Mg Tab PO 1 mg DAILY CLAY Administration Hydralazine HCl 10 mg 02/11/20 08:36 03/05/20 13:15 Hydralazine 20 Mg/Ml Vial SLOW IVP 10 mg Q4H PRN Administration SBP > 180 and HR < 70 Fluconazole/Sodium Chloride 100 mls @ 100 mls/hr 03/17/20 09:00 03/19/20 08:30 200 mg/ Device IVPB 100 mls DAILY CLAY Administration Meropenem 2 gm/ Miscellaneous 100 mls @ 200 mls/hr 03/18/20 17:00 03/19/20 10:17 Medication 1 each/ Sodium IVPB 100 mls Chloride 0100,0900,1700 CLAY Administration Vancomycin HCl 1.5 gm/ Device 300 mls @ 200 mls/hr 03/19/20 06:00 03/19/20 13:48 IVPB 03/25/20 23:59 300 mls Q8HR CLAY Administration Fentanyl Citrate 2,000 mcg/ 100 mls @ 0 mls/hr 03/19/20 13:00 03/19/20 14:33 Sodium Chloride IV 04/18/20 13:00 100 mls INF CLAY Administration Protocol Per Protocol Levothyroxine Sodium 150 mcg 03/06/20 06:00 03/19/20 05:44 Levothyroxine Sodium 75 Mcg Tab PO 150 mcg 0600 CLAY Administration Methylprednisolone Sodium Succinate 40 mg 03/17/20 09:00 03/19/20 08:26 Methylprednisolone Sod Succ 40 Mg Vial IVP 40 mg DAILY CLAY Administration Mineral Oil/White Petrolatum 0 gm 03/15/20 21:00 03/19/20 08:46 Artificial Tear Ointment 3.5 Gm Tube EA EYE 1 applic BID CLAY Administration Mineral Oil/White Petrolatum 0 gm 03/15/20 15:30 03/15/20 16:47 Artificial Tear Ointment 3.5 Gm Tube EA EYE 1 applic PRN PRN Administration DRY EYES Morphine Sulfate 10 mg 03/14/20 12:36 03/18/20 18:55 Morphine 10 Mg/Ml Vial SLOW IVP 10 mg Q1H PRN Administration Breakthrough Pain/Agitation Pantoprazole Sodium 40 mg 03/06/20 09:00 03/19/20 08:27 Pantoprazole 40 Mg Granules Packet PER TUBE 40 mg DAILY CLAY Administration Polyethylene Glycol 17 gm 03/10/20 09:00 03/19/20 08:30 Polyethylene Glycol 3350 17 Gm Packet PER TUBE 17 gm DAILY CLAY Administration Senna/Docusate Sodium 2 tab 02/10/20 11:33 02/16/20 19:55 Senokot S 8.6-50 Mg Tab PO 2 tab BIDPRN PRN Administration Constipation Sodium Chloride 10 ml 02/10/20 11:33 03/01/20 20:30 Flush - Normal Saline 10 Ml Syringe IVF 10 ml PRN PRN Administration Saline Flush Sterile Water 10 ml 02/28/20 03:54 03/08/20 07:49 Sterile Water 10 Ml Vial IVP 10 ml Q30MIN PRN Administration NEEDED FOR RECONSTITUTION Vecuronium [place] 10 mg 02/28/20 03:54 03/18/20 10:22 Vecuronium 10 Mg Vial IV 10 mg Q30MIN PRN Administration SPASM Zinc Sulfate 220 mg 02/15/20 09:00 03/19/20 08:27 Zinc Sulfate 220 Mg Cap PO 220 mg DAILY CLAY Administration - Exam General - other findings: intubated, sedated Eye: PERRL ENT: normocephalic atraumatic, no oropharyngeal lesions, moist mucosa Neck: supple, symmetric, no JVD, no thyromegaly, no lymphadenopathy, no carotid bruit Heart: RRR, no murmur, no gallops, no rubs Respiratory: CTAB, no wheezes, no rales, no ronchi Gastrointestinal: soft, non-tender, non-distended, normal bowel sounds Hosp A/P (1) Acute respiratory failure due to COVID-19 Code(s): U07.1 - COVID-19; J96.00 - ACUTE RESPIRATORY FAILURE, UNSP W HYPOXIA OR HYPERCAPNIA Status: Acute (2) Moderate malnutrition Code(s): E44.0 - MODERATE PROTEIN-CALORIE MALNUTRITION Status: Acute (3) Pneumonia due to COVID-19 virus Code(s): U07.1 - COVID-19; J12.89 - OTHER VIRAL PNEUMONIA Status: Acute (4) Sepsis Code(s): A41.9 - SEPSIS, UNSPECIFIED ORGANISM Status: Acute Qualifiers: Sepsis type: sepsis due to unspecified organism Sepsis acute organ dysfunction status: with acute organ dysfunction Severe sepsis acute organ dysfunction type: acute respiratory failure Acute respiratory failure type: with hypoxia Severe sepsis shock status: without septic shock Qualified Code(s): A41.9 - Sepsis, unspecified organism; R65.20 - Severe sepsis without septic shock; J96.01 - Acute respiratory failure with hypoxia (5) Viral pneumonia Code(s): J12.9 - VIRAL PNEUMONIA, UNSPECIFIED Status: Acute (6) Chronic anemia Code(s): D64.9 - ANEMIA, UNSPECIFIED Status: Chronic (7) JARED (obstructive sleep apnea) Code(s): G47.33 - OBSTRUCTIVE SLEEP APNEA (ADULT) (PEDIATRIC) Status: Chronic (8) BPH (benign prostatic hyperplasia) Code(s): N40.0 - BENIGN PROSTATIC HYPERPLASIA WITHOUT LOWER URINRY TRACT SYMP Status: Chronic Qualifiers: Lower urinary tract symptom presence: symptoms absent Qualified Code(s): N40.0 - Benign prostatic hyperplasia without lower urinary tract symptoms (9) H/O Graves' disease Code(s): Z86.39 - PERSONAL HISTORY OF ENDO, NUTRITIONAL AND METABOLIC DISEASE Status: Chronic (10) Hypothyroidism (acquired) Code(s): E03.9 - HYPOTHYROIDISM, UNSPECIFIED Status: Chronic - Plan Acute hypoxic respiratory failure secondary to COVID pneumonia - received remdesivir 02/09 to 02/13 and IV zosyn 02/24 to 03/03 and micafungin 02/23 to 03/03. - He received a second course of meropenem and micafungin from 03/06 to 03/13. - continues to be intubated, unable to wean barbara. Needs further weaning of vent before a successful tracheostomy - continue supportive care - restarting on broad spectrum abx, antifungal steroid, pulmonary note reviewed Hypernatremia - resolved # cons bacteremia - likely contimanant, continue to monitor, empiric vancomycin and repeat cultures Constipation - continue miralax Pernicious anemia - vitamin B12 < 200, intrinsic factor positive. Continue monthly vitamin B12 Folic acid deficiency anemia - continue folic acid # hypernatremia - again nain, will order 500cc 1/2 ns and defer further volume till after discussion with critical care given volume sensitivity of covid patients
[2020-03-19 21:34] LABS: Vancomycin, Trough 22.1 ug/mL
[2020-03-19] MEDS: Vancomycin HCl 1.25 GM in Sodium Chloride 0.9% 250 ML 250 ML IVPB SCH (23:59)
[2020-03-20] MEDS: Meropenem 2 GM, Admixture Fee 1 EACH in Sodium Chloride 0.9% 100 ML IVPB SCH ×3 (01:05→17:07)
[2020-03-20] MEDS ORDERED: Sodium Chloride 0.45% 500 ML IV SCH (03:45)
[2020-03-20 04:27] LABS: #Eosinphils 0.1 thou/uL (0.0-0.7); #Lymphocytes 0.9 thou/uL (1.20-3.40); #Monocytes 0.5 thou/uL (0.11-0.59); #Neutrophils 7.3 thou/uL (1.40-6.50); %Basophils 0.3 % (0.0-1.0); %Eosinophils 0.6 % (0.0-10.0); %Monocytes 5.4 % (0.0-10.0); %Neutrophils 83.8 % (42.0-75.0); Hemoglobin 11.6 g/dL (14.0-18.0); Mean Corpuscular HGB CONC 30.2 g/dL (32.0-36.0); Mean Corpuscular Hemoglobin 29.8 pg (27.0-31.0); Mean Corpuscular Volume 98.6 fL (78.0-98.0); Mean Platelet Volume 9.1 fL (7.4-10.4); Platelet Count 281 thou/uL (130-400); White Blood Cell (WBC) Count 8.7 thou/uL (4.8-10.8)
[2020-03-20 04:35] LABS: Anion Gap 14 mmol/L (10-20); BUN (Urea Nitrogen) 34 mg/dL (8.4-25.7); Calc. Creatinine Clearance 179 mL/min (70-130); Calcium 8.5 mg/dL (7.8-10.44); Carbon Dioxide 34 mmol/L (23-31); Chloride 109 mmol/L (98-107); Glucose 124 mg/dL (80-115); Potassium 3.6 mmol/L (3.5-5.1); Sodium 153 mmol/L (136-145)
[2020-03-20] MEDS: Levothyroxine Sodium 75 MCG TAB PO SCH (05:53)
[2020-03-20 08:00] LABS: Actual Bicarbonate (HCO3a) 35.6 mEq/L (22-28); CO2 Tension 52.7 mmHg (35.0-45.0); Carboxyhemoglobin (COHb) 1.4 gm% (0.0-3.0); Hemoglobin (Hb) 12.5 g/dL (14.0-18.0); O2 Tension (PaO2), arterial 61.6 mmHg (> 80.0); Potassium - ABG Lab 3.64 mmol/L (3.70-5.30); pH, Arterial 7.45 (7.35-7.45)
[2020-03-20 08:02] LABS: Puncture Site LRA
[2020-03-20 08:04] LABS: ALV-art Gradient 264.675 mmHg (0-20)
[2020-03-20] MEDS: Aspirin 81 mg Enteric Coated Tablet PO SCH (08:09)
[2020-03-20] MEDS: Pantoprazole 40 MG GRANULES PACKET PER TUBE SCH (08:09)
[2020-03-20] MEDS: Cyanocobalamin (Vitamin B-12) 1,000 MCG TAB PO SCH (08:09)
[2020-03-20] MEDS: Floranex Packet PER TUBE SCH (08:09)
[2020-03-20] MEDS: Cholecalciferol 1,000 UNITS (25 MCG) TAB PO SCH (08:09)
[2020-03-20] MEDS: Ascorbic Acid 500 mg Chewable Tablet PO SCH (08:09)
[2020-03-20] MEDS: Zinc Sulfate 220 MG CAP PO SCH (08:10)
[2020-03-20] MEDS: Apixaban 5 MG TAB PER TUBE SCH ×2 (08:10→21:09)
[2020-03-20] MEDS: Folic Acid 1 MG TAB PO SCH (08:10)
[2020-03-20] MEDS: methylPREDNISolone Sod Succ 40 MG VIAL IVP SCH (08:10)
[2020-03-20] MEDS: Polyethylene Glycol 3350 17 GM Packet PER TUBE SCH (08:10)
[2020-03-20] MEDS: Fluconazole In NaCl,Iso-Osm 200 MG in Premix Bag 1 BAG IVPB SCH (08:10)
[2020-03-20] MEDS: Lorazepam 2 MG/ML VIAL SLOW IVP PRN ×5 (08:32→18:45)
--- NOTE | 2020-03-20 08:34 | RAD ---
Portable frontal chest radiograph: 03/20/2020 COMPARISON: 03/19/2020 HISTORY: Pneumonia FINDINGS: A stable right apical pneumothorax is noted. Stable endotracheal tube and nasogastric tube. No left pneumothorax. Persistent coarse linear interstitial opacity with superimposed groundglass opacity present within bi lateral perihilar regions and both lung bases. Stable subcutaneous emphysema in the right chest wall and the bilateral supraclavicular regions. IMPRESSION: No significant interval change.
[2020-03-20] MEDS: Vancomycin HCl 1.25 GM in Sodium Chloride 0.9% 250 ML 250 ML IVPB SCH ×2 (09:00→15:30)
[2020-03-20] MEDS: fentaNYL Citrate/PF 2,000 MCG in Sodium Chloride 0.9% 60 ML IV SCH (10:41)
[2020-03-20] MEDS: Vecuronium 10 MG VIAL IV PRN ×2 (14:09→23:10)
--- NOTE | 2020-03-20 17:15 | PRG ---
DATE OF SERVICE: 03/20/2020 SUBJECTIVE: Mr. Escudero remains mechanically ventilated. Heart rates in the 90s, blood pressure is 117/69, respiratory rate is 20, oximetry is 90%. Chest radiograph shows no change in small pneumothorax. He did have a cuff leak today and Anesthesia was gracious enough to change out the endotracheal tube Lungs, heart, and abdomen are otherwise unchanged. A slowly decreasing PEEP and decreasing FiO2. White count is 8.7, hemoglobin 11.6, platelets 281. Sodium 153, potassium 3.6, chloride 109, bicarb 34, BUN 34, creatinine 0.54. IMPRESSION: 1. COVID pneumonia. 2. Deterioration early this week, felt to possibly be secondary to a nosocomial process. He was started empirically on broad antimicrobial therapy and has started improving again. Hopefully, we can consider tracheostomy early next week with the daughter and answered all of her questions. Job ID: [id number]
--- NOTE | 2020-03-20 17:45 | PDOC.HOSPP ---
- Subjective Encounter Date: 03/20/20 Subjective: Patient was seen and examined in bed. Ventilator support. Noncommunicative - Objective Vital Signs & Weight: Vital Signs (12 hours) Temp Pulse Resp BP Pulse Ox 03/20/20 16:00 20 03/20/20 15:16 92 20 90 L 03/20/20 15:11 89 117/69 03/20/20 15:00 97.9 F 03/20/20 14:00 97.6 F 20 03/20/20 12:00 20 03/20/20 10:09 66 99/56 L 03/20/20 10:00 23 H 03/20/20 08:00 20 96 03/20/20 07:36 72 108/63 03/20/20 07:35 71 22 H 98 03/20/20 07:00 97.7 F 03/20/20 05:58 21 H Weight Admit Weight 250 lb 0.067 oz Weight 205 lb 14.588 oz Most Recent Monitor Data Heart Rate from ECG 80 NIBP 93/60 NIBP BP-Mean 71 Respiration from ECG 24 SpO2 92 I&O: 03/19/20 03/20/20 03/21/20 06:59 06:59 06:59 Intake Total 3617 4405 1521 Output Total 2255 2415 1000 Balance 1362 1990 521 Result Diagrams: 03/20/20 03:35 03/20/20 03:35 Hospitalist ROS - Review of Systems ROS unobtainable: due to mental status - Medication Medications: Active Medications Generic Name Dose Route Start Last Admin Trade Name Freq PRN Reason Stop Dose Admin Acetaminophen 650 mg 02/10/20 11:33 03/06/20 17:57 Acetaminophen 325 Mg Tab PO 650 mg Q4H PRN Administration Headache/Fever/Mild Pain (1-3) Acidophilus 1 gm 03/18/20 09:00 03/20/20 08:09 Floranex Packet PER TUBE 1 gm DAILY CLAY Administration Albuterol/Ipratropium 3 ml 03/05/20 13:00 03/20/20 15:16 Ipratropium/Albuterol Sulfate 3 Ml Neb NEB 3 ml [id number] CLYA Administration Apixaban 5 mg 03/05/20 09:00 03/20/20 08:10 Apixaban 5 Mg Tab PER TUBE 5 mg BID CLAY Administration Ascorbic Acid 1,000 mg 02/15/20 09:00 03/20/20 08:09 Ascorbic Acid 500 Mg Chewable Tablet PO 1,000 mg DAILY CLAY Administration Aspirin 81 mg 02/11/20 09:00 03/20/20 08:09 Aspirin 81 Mg Enteric Coated Tablet PO 81 mg DAILY CLAY Administration Bisacodyl 10 mg 02/11/20 08:36 03/03/20 05:02 Bisacodyl 5 Mg Tab PO 10 mg DAILYPRN PRN Administration Constipation Cholecalciferol 5,000 units 02/16/20 09:00 03/20/20 08:09 Cholecalciferol 1,000 Units (25 Mcg) Tab PO 5,000 units DAILY CLAY Administration Clonidine 0.1 mg 02/10/20 14:29 03/11/20 20:28 Clonidine 0.1 Mg Tab PO 0.1 mg Q4H PRN Administration SBP Greater Than 180 Cyanocobalamin 1,000 mcg 02/26/20 09:00 03/20/20 08:09 Cyanocobalamin (Vitamin B-12) 1,000 Mcg Tab PO 1,000 mcg DAILY CLAY Administration Folic Acid 1 mg 02/26/20 09:00 03/20/20 08:10 Folic Acid 1 Mg Tab PO 1 mg DAILY CLAY Administration Hydralazine HCl 10 mg 02/11/20 08:36 03/05/20 13:15 Hydralazine 20 Mg/Ml Vial SLOW IVP 10 mg Q4H PRN Administration SBP > 180 and HR < 70 Fluconazole/Sodium Chloride 100 mls @ 100 mls/hr 03/17/20 09:00 03/20/20 08:10 200 mg/ Device IVPB 100 mls DAILY CLAY Administration Meropenem 2 gm/ Miscellaneous 100 mls @ 200 mls/hr 03/18/20 17:00 03/20/20 17:07 Medication 1 each/ Sodium IVPB 100 mls Chloride 0100,0900,1700 CLAY Administration Fentanyl Citrate 2,000 mcg/ 100 mls @ 0 mls/hr 03/19/20 13:00 03/20/20 10:41 Sodium Chloride IV 04/18/20 13:00 100 mls INF CLAY Administration Protocol Per Protocol Midazolam HCl 100 mg/ Sodium 100 mls @ 0 mls/hr 03/19/20 21:17 03/20/20 10:41 Chloride IVPB 100 mls INF PRN Administration Sedation Protocol As Directed Vancomycin HCl 1.25 gm/ Sodium 250 mls @ 166.667 mls/hr 03/19/20 23:59 03/20/20 15:30 Chloride IVPB 250 mls 0800,1600,2359 CLAY Administration Levothyroxine Sodium 150 mcg 03/06/20 06:00 03/20/20 05:53 Levothyroxine Sodium 75 Mcg Tab PO 150 mcg 0600 CLAY Administration Lorazepam 2 mg 03/19/20 10:46 03/20/20 14:01 Lorazepam 2 Mg/Ml Vial SLOW IVP 2 mg Q2H PRN Administration Anxiety/Agitation Methylprednisolone Sodium Succinate 40 mg 03/17/20 09:00 03/20/20 08:10 Methylprednisolone Sod Succ 40 Mg Vial IVP 40 mg DAILY CLAY Administration Mineral Oil/White Petrolatum 0 gm 03/15/20 21:00 03/20/20 09:40 Artificial Tear Ointment 3.5 Gm Tube EA EYE 1 applic BID CLAY Administration Mineral Oil/White Petrolatum 0 gm 03/15/20 15:30 03/15/20 16:47 Artificial Tear Ointment 3.5 Gm Tube EA EYE 1 applic PRN PRN Administration DRY EYES Morphine Sulfate 10 mg 03/14/20 12:36 03/18/20 18:55 Morphine 10 Mg/Ml Vial SLOW IVP 10 mg Q1H PRN Administration Breakthrough Pain/Agitation Pantoprazole Sodium 40 mg 03/06/20 09:00 03/20/20 08:09 Pantoprazole 40 Mg Granules Packet PER TUBE 40 mg DAILY CLAY Administration Polyethylene Glycol 17 gm 03/10/20 09:00 03/20/20 08:10 Polyethylene Glycol 3350 17 Gm Packet PER TUBE 17 gm DAILY CLAY Administration Senna/Docusate Sodium 2 tab 02/10/20 11:33 02/16/20 19:55 Senokot S 8.6-50 Mg Tab PO 2 tab BIDPRN PRN Administration Constipation Sodium Chloride 10 ml 02/10/20 11:33 03/01/20 20:30 Flush - Normal Saline 10 Ml Syringe IVF 10 ml PRN PRN Administration Saline Flush Sterile Water 10 ml 02/28/20 03:54 03/08/20 07:49 Sterile Water 10 Ml Vial IVP 10 ml Q30MIN PRN Administration NEEDED FOR RECONSTITUTION Vecuronium [place] 10 mg 02/28/20 03:54 03/20/20 14:09 Vecuronium 10 Mg Vial IV 10 mg Q30MIN PRN Administration SPASM Zinc Sulfate 220 mg 02/15/20 09:00 03/20/20 08:10 Zinc Sulfate 220 Mg Cap PO 220 mg DAILY CLAY Administration - Exam General - other findings: Patient not communicative, on ventilator support. ENT: normocephalic atraumatic Heart: RRR, no murmur, no gallops, no rubs Respiratory: CTAB, no wheezes, no rales, no ronchi Gastrointestinal: soft, non-distended, normal bowel sounds Extremities: no cyanosis, no clubbing, no edema Psychiatric - other findings: Unable to assess Hosp A/P - Plan This is 64-year-old male patient with a history of hypothyroidism, diverticulosis and JARED who is admitted on account of acute hypoxic respiratory failure secondary to COVID-19. Is currently on ventilator support. Acute hypoxic respiratory failure Continue on ventilator Appreciate pulmonology input. Pneumonia due to Covid Continue vitamins, steroids anticoagulation on apixaban Monitor closely. Sepsis Continue monitoring/antibiotics JARED BPH Hypothyroidism Secondary Graves' disease Continue levothyroxine. VT prophylaxistherapeutic Lovenox CODE STATUSfull code
[2020-03-20] MEDS ORDERED: Cyanocobalamin 1000 MCG/ML VIAL IM SCH (18:00)
[2020-03-20 23:32] LABS: Vancomycin, Trough 21.1 ug/mL
[2020-03-21] MEDS: Vancomycin HCl 1.25 GM in Sodium Chloride 0.9% 250 ML 250 ML IVPB SCH ×3 (00:06→16:03)
[2020-03-21] MEDS: fentaNYL Citrate/PF 2,000 MCG in Sodium Chloride 0.9% 60 ML IV SCH ×2 (00:21→15:59)
[2020-03-21] MEDS: Morphine 10 MG/ML VIAL SLOW IVP PRN (00:38)
[2020-03-21] MEDS: Meropenem 2 GM, Admixture Fee 1 EACH in Sodium Chloride 0.9% 100 ML IVPB SCH ×3 (01:15→15:59)
[2020-03-21 04:36] LABS: #Lymphocytes 0.8 thou/uL (1.20-3.40); #Monocytes 0.4 thou/uL (0.11-0.59); #Neutrophils 5.6 thou/uL (1.40-6.50); %Basophils 0.1 % (0.0-1.0); %Eosinophils 0.6 % (0.0-10.0); %Lymphocytes 11.9 % (21.0-51.0); %Monocytes 5.9 % (0.0-10.0); %Neutrophils 81.5 % (42.0-75.0); Hemoglobin 11.1 g/dL (14.0-18.0); Mean Corpuscular HGB CONC 31.1 g/dL (32.0-36.0); Mean Corpuscular Hemoglobin 30.7 pg (27.0-31.0); Mean Corpuscular Volume 98.6 fL (78.0-98.0); Platelet Count 244 thou/uL (130-400); RBC Distribution Width 16.8 % (11.5-14.5); Red Blood Cell (RBC) Count 3.63 mill/uL (4.70-6.10); White Blood Cell (WBC) Count 6.8 thou/uL (4.8-10.8)
[2020-03-21 04:57] LABS: Anion Gap 13 mmol/L (10-20); BUN (Urea Nitrogen) 29 mg/dL (8.4-25.7); Calc. Creatinine Clearance 197 mL/min (70-130); Calcium 8.2 mg/dL (7.8-10.44); Carbon Dioxide 34 mmol/L (23-31); Chloride 109 mmol/L (98-107); Glucose 89 mg/dL (80-115); Potassium 3.8 mmol/L (3.5-5.1); Sodium 152 mmol/L (136-145)
[2020-03-21] MEDS: Levothyroxine Sodium 75 MCG TAB PO SCH (05:28)
[2020-03-21] MEDS: Lorazepam 2 MG/ML VIAL SLOW IVP PRN ×4 (05:39→17:51)
[2020-03-21 07:24] LABS: Actual Bicarbonate (HCO3a) 32.9 mEq/L (22-28); Base Excess (BEa) 7.4 mEq/L (-2.0 to +3.0); CO2 Tension 49.2 mmHg (35.0-45.0); Carboxyhemoglobin (COHb) 2.4 gm% (0.0-3.0); Hemoglobin (Hb) 14.2 g/dL (14.0-18.0); Potassium - ABG Lab 3.69 mmol/L (3.70-5.30); pH, Arterial 7.44 (7.35-7.45)
[2020-03-21 07:26] LABS: O2 Tension (PaO2), arterial 52.6 mmHg (> 80.0); Puncture Site LRA
[2020-03-21] MEDS: Cyanocobalamin (Vitamin B-12) 1,000 MCG TAB PO SCH (09:16)
[2020-03-21] MEDS: Fluconazole In NaCl,Iso-Osm 200 MG in Premix Bag 1 BAG IVPB SCH (09:16)
[2020-03-21] MEDS: Floranex Packet PER TUBE SCH (09:16)
[2020-03-21] MEDS: Ascorbic Acid 500 mg Chewable Tablet PO SCH (09:16)
[2020-03-21] MEDS: Cholecalciferol 1,000 UNITS (25 MCG) TAB PO SCH (09:16)
[2020-03-21] MEDS: methylPREDNISolone Sod Succ 40 MG VIAL IVP SCH (09:17)
[2020-03-21] MEDS: Pantoprazole 40 MG GRANULES PACKET PER TUBE SCH (09:17)
[2020-03-21] MEDS: Apixaban 5 MG TAB PER TUBE SCH ×2 (09:17→19:52)
[2020-03-21] MEDS: Zinc Sulfate 220 MG CAP PO SCH (09:17)
[2020-03-21] MEDS: Folic Acid 1 MG TAB PO SCH (09:17)
[2020-03-21] MEDS: Aspirin 81 mg Enteric Coated Tablet PO SCH (09:30)
--- NOTE | 2020-03-21 09:45 | RAD ---
Chest one view HISTORY: Pneumonia. Pneumothorax. Follow-up. COMPARISON: 03/20/2020. FINDINGS: Cardiac silhouette is magnified by projection and partially obscured by patchy areas of ill -defined infiltrate throughout each lung are similar in appearance to the prior study. Mediastinum is midline. Lines and tubes unchanged in position. Right apical visceral pleura overlies the posterior aspect of the right fourth rib. Mediastinal and c hest wall gas similar in appearance to the prior study. IMPRESSION : Right apical pneumothorax. Patchy bilateral infiltrates, and other findings are stable.
--- NOTE | 2020-03-21 09:47 | PRG ---
DATE OF SERVICE: 03/21/2020 SUBJECTIVE: Lasha Escudero remains in the ICU, day #40 in the hospital. OBJECTIVE: VITAL SIGNS: Temperature 98, pulse 76, blood pressure 122/69, respiratory rate 28. I's and O's positive. He is sedated. CHEST: No wheezing. No crackles. CARDIAC: Normal S1 and S2. No gallops. ABDOMEN: No masses. LABORATORY DATA: White count 6000, H and H 11 and 33, platelet count 244. His sodium is 152. He is dry. PO2 is 52, pCO2 AC mode. X-ray still shows bilateral infiltrates. ASSESSMENT: Respiratory failure, foreman positive pneumonia, prolonged intubation, probably dehydration. He is not weanable. Family to consider trach and a PEG next week. One-half hour of critical time. Job ID: [id number]
[2020-03-21] MEDS: Polyethylene Glycol 3350 17 GM Packet PER TUBE SCH (11:01)
[2020-03-21] MEDS: Vecuronium 10 MG VIAL IV PRN ×2 (16:13→17:49)
[2020-03-21] MEDS ORDERED: Sterile Water 10 ML ONE (16:13)
[2020-03-21] MEDS: Sterile Water 10 ML VIAL IVP PRN ×2 (16:14→17:49)
--- NOTE | 2020-03-21 18:28 | PDOC.HOSPP ---
- Subjective Encounter Date: 03/21/20 Subjective: Patient was seen and examined in bed. Still remains on ventilator support. No acute events overnight - Objective Vital Signs & Weight: Vital Signs (12 hours) Temp Pulse Pulse Pulse Resp BP BP 03/21/20 17:59 99.1 F 32 H 03/21/20 16:00 98.1 F 28 H 03/21/20 14:02 83 108/58 L 03/21/20 14:01 81 30 H 03/21/20 13:32 34 H 03/21/20 12:00 98.4 F 36 H 03/21/20 10:50 72 127/81 03/21/20 10:00 30 H 03/21/20 09:00 98.5 F 03/21/20 08:41 107 H 75 159/89 H 03/21/20 08:00 28 H 03/21/20 07:32 03/21/20 07:14 76 112/69 03/21/20 07:10 75 23 H 03/21/20 07:00 98.5 F BP Pulse Ox Pulse Ox Pulse Ox 03/21/20 17:59 03/21/20 16:00 03/21/20 14:02 03/21/20 14:01 94 L 03/21/20 13:32 03/21/20 12:00 03/21/20 10:50 03/21/20 10:00 03/21/20 09:00 03/21/20 08:41 99/63 98 96 03/21/20 08:00 03/21/20 07:32 98 03/21/20 07:14 03/21/20 07:10 97 03/21/20 07:00 Weight Admit Weight 250 lb 0.067 oz Weight 3.295 oz Most Recent Monitor Data Heart Rate from ECG 87 NIBP 114/70 NIBP BP-Mean 84 Respiration from ECG 20 SpO2 92 I&O: 03/20/20 03/21/20 03/22/20 06:59 06:59 06:59 Intake Total 0209 7031 1987 Output Total 4161 6159 6936 Balance 1989 517 212 Result Diagrams: 03/21/20 03:50 03/21/20 03:50 Hospitalist ROS - Review of Systems ROS unobtainable: due to endotracheal tube - Medication Medications: Active Medications Generic Name Dose Route Start Last Admin Trade Name Freq PRN Reason Stop Dose Admin Acetaminophen 650 mg 02/10/20 11:33 03/06/20 17:57 Acetaminophen 325 Mg Tab PO 650 mg Q4H PRN Administration Headache/Fever/Mild Pain (1-3) Acidophilus 1 gm 03/18/20 09:00 03/21/20 09:16 Floranex Packet PER TUBE 1 gm DAILY CLAY Administration Albuterol/Ipratropium 3 ml 03/05/20 13:00 03/21/20 14:01 Ipratropium/Albuterol Sulfate 3 Ml Neb NEB 3 ml [id number] CLAY Administration Apixaban 5 mg 03/05/20 09:00 03/21/20 09:17 Apixaban 5 Mg Tab PER TUBE 5 mg BID CLAY Administration Ascorbic Acid 1,000 mg 02/15/20 09:00 03/21/20 09:16 Ascorbic Acid 500 Mg Chewable Tablet PO 1,000 mg DAILY CLAY Administration Aspirin 81 mg 02/11/20 09:00 03/21/20 09:30 Aspirin 81 Mg Enteric Coated Tablet PO 81 mg DAILY CLAY Administration Bisacodyl 10 mg 02/11/20 08:36 03/03/20 05:02 Bisacodyl 5 Mg Tab PO 10 mg DAILYPRN PRN Administration Constipation Cholecalciferol 5,000 units 02/16/20 09:00 03/21/20 09:16 Cholecalciferol 1,000 Units (25 Mcg) Tab PO 5,000 units DAILY CLAY Administration Clonidine 0.1 mg 02/10/20 14:29 03/11/20 20:28 Clonidine 0.1 Mg Tab PO 0.1 mg Q4H PRN Administration SBP Greater Than 180 Cyanocobalamin 1,000 mcg 02/26/20 09:00 03/21/20 09:16 Cyanocobalamin (Vitamin B-12) 1,000 Mcg Tab PO 1,000 mcg DAILY CLAY Administration Folic Acid 1 mg 02/26/20 09:00 03/21/20 09:17 Folic Acid 1 Mg Tab PO 1 mg DAILY CLAY Administration Hydralazine HCl 10 mg 02/11/20 08:36 03/05/20 13:15 Hydralazine 20 Mg/Ml Vial SLOW IVP 10 mg Q4H PRN Administration SBP > 180 and HR < 70 Fluconazole/Sodium Chloride 100 mls @ 100 mls/hr 03/17/20 09:00 03/21/20 09:16 200 mg/ Device IVPB 100 mls DAILY CLAY Administration Meropenem 2 gm/ Miscellaneous 100 mls @ 200 mls/hr 03/18/20 17:00 03/21/20 15:59 Medication 1 each/ Sodium IVPB 100 mls Chloride 0100,0900,1700 CLAY Administration Fentanyl Citrate 2,000 mcg/ 100 mls @ 0 mls/hr 03/19/20 13:00 03/21/20 15:59 Sodium Chloride IV 04/18/20 13:00 100 mls INF CLAY Administration Protocol Per Protocol Midazolam HCl 100 mg/ Sodium 100 mls @ 0 mls/hr 03/19/20 21:17 03/21/20 15:08 Chloride IVPB 100 mls INF PRN Administration Sedation Protocol As Directed Vancomycin HCl 1.25 gm/ Sodium 250 mls @ 166.667 mls/hr 03/19/20 23:59 03/21/20 16:03 Chloride IVPB 250 mls 0800,1600,2359 CLAY Administration Levothyroxine Sodium 150 mcg 03/06/20 06:00 03/21/20 05:28 Levothyroxine Sodium 75 Mcg Tab PO 150 mcg 0600 CLAY Administration Lorazepam 2 mg 03/19/20 10:46 03/21/20 17:51 Lorazepam 2 Mg/Ml Vial SLOW IVP 2 mg Q2H PRN Administration Anxiety/Agitation Methylprednisolone Sodium Succinate 40 mg 03/17/20 09:00 03/21/20 09:17 Methylprednisolone Sod Succ 40 Mg Vial IVP 40 mg DAILY CLAY Administration Mineral Oil/White Petrolatum 0 gm 03/15/20 21:00 03/21/20 09:17 Artificial Tear Ointment 3.5 Gm Tube EA EYE 1 applic BID CLAY Administration Mineral Oil/White Petrolatum 0 gm 03/15/20 15:30 03/15/20 16:47 Artificial Tear Ointment 3.5 Gm Tube EA EYE 1 applic PRN PRN Administration DRY EYES Morphine Sulfate 10 mg 03/14/20 12:36 03/21/20 00:38 Morphine 10 Mg/Ml Vial SLOW IVP 10 mg Q1H PRN Administration Breakthrough Pain/Agitation Pantoprazole Sodium 40 mg 03/06/20 09:00 03/21/20 09:17 Pantoprazole 40 Mg Granules Packet PER TUBE 40 mg DAILY CLAY Administration Polyethylene Glycol 17 gm 03/10/20 09:00 03/21/20 11:01 Polyethylene Glycol 3350 17 Gm Packet PER TUBE Not Given DAILY CLAY Senna/Docusate Sodium 2 tab 02/10/20 11:33 02/16/20 19:55 Senokot S 8.6-50 Mg Tab PO 2 tab BIDPRN PRN Administration Constipation Sodium Chloride 10 ml 02/10/20 11:33 03/01/20 20:30 Flush - Normal Saline 10 Ml Syringe IVF 10 ml PRN PRN Administration Saline Flush Sterile Water 10 ml 02/28/20 03:54 03/21/20 17:49 Sterile Water 10 Ml Vial IVP 10 ml Q30MIN PRN Administration NEEDED FOR RECONSTITUTION Vecuronium [place] 10 mg 02/28/20 03:54 03/21/20 17:49 Vecuronium 10 Mg Vial IV 10 mg Q30MIN PRN Administration SPASM Zinc Sulfate 220 mg 02/15/20 09:00 03/21/20 09:17 Zinc Sulfate 220 Mg Cap PO 220 mg DAILY CLAY Administration - Exam General - other findings: In bed, on ventilator support. Heart: RRR, no murmur, no gallops, no rubs Respiratory - other findings: Coarse breath sounds bilaterally. Gastrointestinal: soft, non-distended, normal bowel sounds, no palpable masses Extremities: no cyanosis, no clubbing, no edema Hosp A/P - Plan This is 64-year-old male patient with a history of hypothyroidism, diverticulosis and JARED who is admitted on account of acute hypoxic respiratory failure secondary to COVID-19. Is currently on ventilator support. Acute hypoxic respiratory failure Not making significant improvement Continue on ventilator Appreciate pulmonology input. Pneumonia due to Covid Continue vitamins, steroids anticoagulation on apixaban Monitor closely. Sepsis Continue monitoring/antibiotics JARED BPH Hypothyroidism Secondary Graves' disease Continue levothyroxine. VT prophylaxistherapeutic Lovenox CODE STATUSfull code
[2020-03-21 23:28] LABS: Vancomycin, Trough 24.7 ug/mL
[2020-03-22] MEDS: Vancomycin 1 GM in Premix Bag 1 BAG IVPB SCH ×4 (00:59→23:58)
[2020-03-22] MEDS: Meropenem 2 GM, Admixture Fee 1 EACH in Sodium Chloride 0.9% 100 ML IVPB SCH ×3 (01:57→17:40)
[2020-03-22 04:56] LABS: #Eosinphils 0.1 thou/uL (0.0-0.7); #Lymphocytes 1.2 thou/uL (1.20-3.40); #Monocytes 0.4 thou/uL (0.11-0.59); #Neutrophils 6.8 thou/uL (1.40-6.50); %Eosinophils 0.7 % (0.0-10.0); %Lymphocytes 14.1 % (21.0-51.0); %Monocytes 4.4 % (0.0-10.0); %Neutrophils 80.8 % (42.0-75.0); Hemoglobin 11.3 g/dL (14.0-18.0); Mean Corpuscular HGB CONC 31.4 g/dL (32.0-36.0); Mean Corpuscular Hemoglobin 30.8 pg (27.0-31.0); Mean Corpuscular Volume 97.8 fL (78.0-98.0); Mean Platelet Volume 9.3 fL (7.4-10.4); Platelet Count 247 thou/uL (130-400); RBC Distribution Width 17.2 % (11.5-14.5); Red Blood Cell (RBC) Count 3.66 mill/uL (4.70-6.10); White Blood Cell (WBC) Count 8.4 thou/uL (4.8-10.8)
[2020-03-22 05:18] LABS: Anion Gap 12 mmol/L (10-20); BUN (Urea Nitrogen) 27 mg/dL (8.4-25.7); Calc. Creatinine Clearance 0 mL/min (70-130); Calcium 8.1 mg/dL (7.8-10.44); Carbon Dioxide 32 mmol/L (23-31); Chloride 106 mmol/L (98-107); Glucose 115 mg/dL (80-115); Potassium 3.9 mmol/L (3.5-5.1); Sodium 146 mmol/L (136-145)
[2020-03-22] MEDS: Levothyroxine Sodium 75 MCG TAB PO SCH (05:40)
[2020-03-22] MEDS: fentaNYL Citrate/PF 2,000 MCG in Sodium Chloride 0.9% 60 ML IV SCH ×2 (06:16→19:27)
[2020-03-22 07:26] LABS: Actual Bicarbonate (HCO3a) 32.1 mEq/L (22-28); Base Excess (BEa) 7.3 mEq/L (-2.0 to +3.0); CO2 Tension 45.2 mmHg (35.0-45.0); Calcium, Ionized (arterial) 1.17 mmol/L (1.12-1.30); Carboxyhemoglobin (COHb) 2.2 gm% (0.0-3.0); Hemoglobin (Hb) 15.7 g/dL (14.0-18.0); pH, Arterial 7.47 (7.35-7.45)
[2020-03-22 07:28] LABS: O2 Tension (PaO2), arterial 47.6 mmHg (> 80.0); Puncture Site LRA
[2020-03-22] MEDS: Floranex Packet PER TUBE SCH (08:19)
[2020-03-22] MEDS: Cyanocobalamin (Vitamin B-12) 1,000 MCG TAB PO SCH (08:20)
[2020-03-22] MEDS: Cholecalciferol 1,000 UNITS (25 MCG) TAB PO SCH (08:20)
[2020-03-22] MEDS: Fluconazole In NaCl,Iso-Osm 200 MG in Premix Bag 1 BAG IVPB SCH (08:21)
[2020-03-22] MEDS: Apixaban 5 MG TAB PER TUBE SCH ×2 (08:51→21:07)
[2020-03-22] MEDS: Ascorbic Acid 500 mg Chewable Tablet PO SCH (08:59)
[2020-03-22] MEDS: Aspirin 81 mg Enteric Coated Tablet PO SCH (08:59)
[2020-03-22] MEDS: Zinc Sulfate 220 MG CAP PO SCH (09:00)
[2020-03-22] MEDS: Folic Acid 1 MG TAB PO SCH (09:00)
[2020-03-22] MEDS: methylPREDNISolone Sod Succ 40 MG VIAL IVP SCH (09:01)
[2020-03-22] MEDS: Pantoprazole 40 MG GRANULES PACKET PER TUBE SCH (09:02)
--- NOTE | 2020-03-22 09:21 | PRG ---
DATE OF SERVICE: 03/22/2020 He is day #14 in the hospital. We had difficulty sedating him last night. Still having significant respiratory drive in the 30s and 40s. OBJECTIVE: VITALS: Temperature 98.7, pulse 96, blood pressure 120/65, sats are 93% on a PEEP of 10, 55% FiO2. His I's and O's have been consistently ahead. CHEST: No rhonchi or crackles. CARDIAC: Sinus tach. ABDOMEN: Soft. LABORATORY DATA: White count 8,000, H and H unremarkable, platelet count normal. His pO2 is only 42 this morning, pCO2 . His lytes are normal. X-ray, diffuse infiltrates. ASSESSMENT: 1. Garcia positive pneumonia, respiratory failure, prolonged intubation. 2. metabolic encephalopathy. Family to decide about a trach and a PEG. He is not weanable at this stage. Otherwise, nutrition. Supportive care. One-half hour of critical care time. Job ID: [id number]
--- NOTE | 2020-03-22 09:45 | RAD ---
Chest one view HISTORY: Pneumonia. Follow-up. COMPARISON: 03/21/2020. Cardiac silhouette is magnified by projection. Pulmonary vasculature upper limits of normal. Mediastinum is midline. Lines and tubes unchanged in position. Predominantly vertically oriented mediastinal gas is similar in appearance to prior study. Chest wall and neck gas again demonstrated. Right visceropleural apex overlies the posterior aspect of the right fourth rib. Left lung remains we ll-inflated. Ill-defined patchy areas of groundglass infiltrate throughout each lung are similar in appearance to the prior study. IMPRESSION : Small right apical pneumothorax, pneumomediastinum, patchy infiltrates, and other findings are stable .
[2020-03-22] MEDS: Acetaminophen 650 MG/20.3 ML UDCUP PO PRN ×2 (11:18→14:18)
[2020-03-22] MEDS: Polyethylene Glycol 3350 17 GM Packet PER TUBE SCH (11:37)
--- NOTE | 2020-03-22 17:16 | PDOC.HOSPP ---
- Subjective Encounter Date: 03/22/20 Encounter Time: 14:00 Subjective: F/u: COVID Patient spiked a fever to 102.5. This improved with Tylenol. Patient remains intubated. PEEP has been reduced to 12. His FiO2 is still 60% Per nursing, there is no significant secretion and is mostly dried and dark brown - Objective Vital Signs & Weight: Vital Signs (12 hours) Temp Pulse Pulse Pulse Resp BP BP 03/22/20 16:00 26 H 03/22/20 15:14 85 94/53 L 03/22/20 15:13 88 25 H 03/22/20 15:00 100.4 F H 82 26 H 03/22/20 14:18 102.8 F H 98 29 H 108/67 03/22/20 14:00 25 H 03/22/20 12:00 102.8 F H 24 H 03/22/20 11:18 101.1 F H 101 H 38 H 99/61 03/22/20 11:05 71 103 H 98/63 03/22/20 10:35 100 112/62 03/22/20 10:00 34 H 03/22/20 08:00 101.1 F H 40 H 03/22/20 07:13 99 110/66 03/22/20 07:11 96 36 H 03/22/20 06:00 98.7 F 36 H BP Pulse Ox Pulse Ox Pulse Ox 03/22/20 16:00 03/22/20 15:14 03/22/20 15:13 96 03/22/20 15:00 03/22/20 14:18 03/22/20 14:00 03/22/20 12:00 03/22/20 11:18 03/22/20 11:05 99/61 91 L 92 L 03/22/20 10:35 03/22/20 10:00 03/22/20 08:00 93 L 03/22/20 07:13 03/22/20 07:11 91 L 03/22/20 06:00 Weight Admit Weight 250 lb 0.067 oz Weight 206 lb 9.17 oz Most Recent Monitor Data Heart Rate from ECG 83 NIBP 91/57 NIBP BP-Mean 68 Respiration from ECG 23 SpO2 97 I&O: 03/21/20 03/22/20 03/23/20 06:59 06:59 06:59 Intake Total 3254 2944 500 Output Total 2054 0490 1050 Balance 415 -289 -161 Result Diagrams: 03/22/20 03:30 03/22/20 03:30 Hospitalist ROS - Review of Systems ROS unobtainable: due to endotracheal tube - Medication Medications: Active Medications Generic Name Dose Route Start Last Admin Trade Name Freq PRN Reason Stop Dose Admin Acetaminophen 650 mg 03/22/20 08:30 03/22/20 14:18 Acetaminophen 650 Mg/20.3 Ml Udcup PO 650 mg Q4H PRN Administration Headache/Fever/Mild Pain (1-3) Acidophilus 1 gm 03/18/20 09:00 03/22/20 08:19 Floranex Packet PER TUBE 1 gm DAILY CLAY Administration Albuterol/Ipratropium 3 ml 03/05/20 13:00 03/22/20 15:13 Ipratropium/Albuterol Sulfate 3 Ml Neb NEB 3 ml [id number] CLAY Administration Apixaban 5 mg 03/05/20 09:00 03/22/20 08:51 Apixaban 5 Mg Tab PER TUBE 5 mg BID CLAY Administration Ascorbic Acid 1,000 mg 02/15/20 09:00 03/22/20 08:59 Ascorbic Acid 500 Mg Chewable Tablet PO 1,000 mg DAILY CLAY Administration Aspirin 81 mg 02/11/20 09:00 03/22/20 08:59 Aspirin 81 Mg Enteric Coated Tablet PO 81 mg DAILY CLAY Administration Bisacodyl 10 mg 02/11/20 08:36 03/03/20 05:02 Bisacodyl 5 Mg Tab PO 10 mg DAILYPRN PRN Administration Constipation Cholecalciferol 5,000 units 02/16/20 09:00 03/22/20 08:20 Cholecalciferol 1,000 Units (25 Mcg) Tab PO 5,000 units DAILY CLAY Administration Clonidine 0.1 mg 02/10/20 14:29 03/11/20 20:28 Clonidine 0.1 Mg Tab PO 0.1 mg Q4H PRN Administration SBP Greater Than 180 Cyanocobalamin 1,000 mcg 02/26/20 09:00 03/22/20 08:20 Cyanocobalamin (Vitamin B-12) 1,000 Mcg Tab PO 1,000 mcg DAILY CLAY Administration Folic Acid 1 mg 02/26/20 09:00 03/22/20 09:00 Folic Acid 1 Mg Tab PO 1 mg DAILY CLAY Administration Hydralazine HCl 10 mg 02/11/20 08:36 03/05/20 13:15 Hydralazine 20 Mg/Ml Vial SLOW IVP 10 mg Q4H PRN Administration SBP > 180 and HR < 70 Fluconazole/Sodium Chloride 100 mls @ 100 mls/hr 03/17/20 09:00 03/22/20 08:21 200 mg/ Device IVPB 100 mls DAILY CLAY Administration Meropenem 2 gm/ Miscellaneous 100 mls @ 200 mls/hr 03/18/20 17:00 03/22/20 10:00 Medication 1 each/ Sodium IVPB 100 mls Chloride 0100,0900,1700 CLAY Administration Fentanyl Citrate 2,000 mcg/ 100 mls @ 0 mls/hr 03/19/20 13:00 03/22/20 06:16 Sodium Chloride IV 04/18/20 13:00 100 mls INF CLAY Administration Protocol Per Protocol Midazolam HCl 100 mg/ Sodium 100 mls @ 0 mls/hr 03/19/20 21:17 03/22/20 12:45 Chloride IVPB 100 mls INF PRN Administration Sedation Protocol As Directed Vancomycin HCl 1 gm/ Device 200 mls @ 200 mls/hr 03/21/20 23:59 03/22/20 16:00 IVPB 200 mls 0800,1600,2359 CLAY Administration Levothyroxine Sodium 150 mcg 03/06/20 06:00 03/22/20 05:40 Levothyroxine Sodium 75 Mcg Tab PO 150 mcg 0600 CLAY Administration Lorazepam 2 mg 03/19/20 10:46 03/21/20 17:51 Lorazepam 2 Mg/Ml Vial SLOW IVP 2 mg Q2H PRN Administration Anxiety/Agitation Methylprednisolone Sodium Succinate 40 mg 03/17/20 09:00 03/22/20 09:01 Methylprednisolone Sod Succ 40 Mg Vial IVP 40 mg DAILY CLAY Administration Mineral Oil/White Petrolatum 0 gm 03/15/20 21:00 03/22/20 08:52 Artificial Tear Ointment 3.5 Gm Tube EA EYE 1 applic BID CLAY Administration Mineral Oil/White Petrolatum 0 gm 03/15/20 15:30 03/15/20 16:47 Artificial Tear Ointment 3.5 Gm Tube EA EYE 1 applic PRN PRN Administration DRY EYES Pantoprazole Sodium 40 mg 03/06/20 09:00 03/22/20 09:02 Pantoprazole 40 Mg Granules Packet PER TUBE 40 mg DAILY CLAY Administration Polyethylene Glycol 17 gm 03/10/20 09:00 03/22/20 11:37 Polyethylene Glycol 3350 17 Gm Packet PER TUBE 17 gm DAILY CALY Administration Senna/Docusate Sodium 2 tab 02/10/20 11:33 02/16/20 19:55 Senokot S 8.6-50 Mg Tab PO 2 tab BIDPRN PRN Administration Constipation Sodium Chloride 10 ml 02/10/20 11:33 03/01/20 20:30 Flush - Normal Saline 10 Ml Syringe IVF 10 ml PRN PRN Administration Saline Flush Sterile Water 10 ml 02/28/20 03:54 03/21/20 17:49 Sterile Water 10 Ml Vial IVP 10 ml Q30MIN PRN Administration NEEDED FOR RECONSTITUTION Vecuronium [place] 10 mg 02/28/20 03:54 03/21/20 17:49 Vecuronium 10 Mg Vial IV 10 mg Q30MIN PRN Administration SPASM Zinc Sulfate 220 mg 02/15/20 09:00 03/22/20 09:00 Zinc Sulfate 220 Mg Cap PO 220 mg DAILY CLAY Administration - Exam General - other findings: Intubated, sedated Eye: PERRL, anicteric sclera ENT: normocephalic atraumatic, no oropharyngeal lesions Neck: no JVD Heart: RRR, no murmur, no gallops, no rubs Respiratory: CTAB, no wheezes, no rales, no ronchi Gastrointestinal: soft, non-tender, non-distended, normal bowel sounds Extremities: no cyanosis, no clubbing, 1+ LE edema Skin: normal turgor, no rashes Hosp A/P - Plan Chest X ray 03/08: slightly improved lung aeration Chest X ray 03/11: diffuse lung infiltrates Chest x-ray 03/15: New small right apical pneumothorax Chest x-ray 03/22: Small right apical pneumothorax, pneumomediastinum, patchy infiltrates This is a 64 year old male diagnosed with COVID, developed progressive respira tory failure and is now intubated. He received remdesivir 02/09 to 02/13 and IV zosyn 02/24 to 03/03 and micafungin 02/23 to 03/03. He received a second course of meropenem and micafungin from 03/06 to 03/13. On 03/15, patient developed a small right apical pneumothorax with pneumomediastinum. He was restarted on meropenem and vancomycin due to increasing white blood cell count. #Acute hypoxic respiratory failure secondary to COVID pneumonia versus bacterial pneumonia with superimposed pneumothorax/pneumomediastinum -Repeat chest x-ray 03/22 shows stable small right apical pneumothorax, pneumomediastinum, bilateral infiltrate. No chest tube per pulmonary -Continue meropenem (D1 03/17), vancomycin (D1 03/18), and fluconazole. Consideration of a tracheostomy possibly early next week for pulmonary #Fever -We will repeat blood cultures. Attempt to do sputum culture. Will check UA Hypernatremia - resolved Constipation - continue miralax Pernicious anemia - vitamin B12 < 200, intrinsic factor positive. Continue monthly vitamin B12 Folic acid deficiency anemia - continue folic acid
[2020-03-22 19:50] LABS: Bilirubin Negative (Negative); Blood, Urine 3+ (Negative); Clarity Clear (Clear); Glucose, Urine (Dipstick) Normal (Negative); Ketone, Urine 10 mg/dL (Negative); Leukocyte Negative Leu/uL (Negative); Nitrite Negative (Negative); Protein, Urine (Dipstick) 70 mg/dL (Neg-Trace); RBC/HPF Greater than 50 HPF (0-3); Specific Gravity, Urine 1.029 (1.002-1.036); Squamous Epithelial 0-3 HPF (0-3); Urobilinogen Greater than 12 mg/dL (Less than 2); pH, Urine 6.5 (5.0-9.0)
[2020-03-22 19:51] LABS: Bacteria/HPF 1+ HPF (None Seen)
[2020-03-22 19:52] LABS: Urine Culture Reflex Yes Yes
[2020-03-23] MEDS: Meropenem 2 GM, Admixture Fee 1 EACH in Sodium Chloride 0.9% 100 ML IVPB SCH ×3 (01:47→17:31)
[2020-03-23 04:18] LABS: #Lymphocytes 0.9 thou/uL (1.20-3.40); #Monocytes 0.2 thou/uL (0.11-0.59); #Neutrophils 7.1 thou/uL (1.40-6.50); %Basophils 0.3 % (0.0-1.0); %Eosinophils 0.5 % (0.0-10.0); %Lymphocytes 10.5 % (21.0-51.0); %Monocytes 2.2 % (0.0-10.0); %Neutrophils 86.5 % (42.0-75.0); Hemoglobin 11.5 g/dL (14.0-18.0); Mean Corpuscular HGB CONC 32.1 g/dL (32.0-36.0); Mean Corpuscular Hemoglobin 31.1 pg (27.0-31.0); Mean Corpuscular Volume 97.1 fL (78.0-98.0); Platelet Count 209 thou/uL (130-400); White Blood Cell (WBC) Count 8.2 thou/uL (4.8-10.8)
[2020-03-23 04:41] LABS: Anion Gap 11 mmol/L (10-20); BUN (Urea Nitrogen) 29 mg/dL (8.4-25.7); Calc. Creatinine Clearance 205 mL/min (70-130); Carbon Dioxide 33 mmol/L (23-31); Chloride 104 mmol/L (98-107); Glucose 123 mg/dL (80-115); Potassium 4.5 mmol/L (3.5-5.1); Sodium 143 mmol/L (136-145)
[2020-03-23] MEDS: Levothyroxine Sodium 75 MCG TAB PO SCH (05:29)
[2020-03-23] MEDS: Vancomycin 1 GM in Premix Bag 1 BAG IVPB SCH ×3 (07:36→23:51)
[2020-03-23 07:50] LABS: Actual Bicarbonate (HCO3a) 28.5 mEq/L (22-28); Base Excess (BEa) 3.6 mEq/L (-2.0 to +3.0); CO2 Tension 44.3 mmHg (35.0-45.0); Calcium, Ionized (arterial) 1.21 mmol/L (1.12-1.30); Carboxyhemoglobin (COHb) 2.3 gm% (0.0-3.0); O2 Tension (PaO2), arterial 67.2 mmHg (> 80.0); Potassium - ABG Lab 4.23 mmol/L (3.70-5.30); pH, Arterial 7.43 (7.35-7.45)
[2020-03-23 07:51] LABS: ALV-art Gradient 305.225 mmHg (0-20); Puncture Site LRA
[2020-03-23] MEDS: Ascorbic Acid 500 mg Chewable Tablet PO SCH (08:20)
[2020-03-23] MEDS: Zinc Sulfate 220 MG CAP PO SCH (08:20)
[2020-03-23] MEDS: methylPREDNISolone Sod Succ 40 MG VIAL IVP SCH (08:20)
[2020-03-23] MEDS: Cholecalciferol 1,000 UNITS (25 MCG) TAB PO SCH (08:20)
[2020-03-23] MEDS: Polyethylene Glycol 3350 17 GM Packet PER TUBE SCH (08:20)
[2020-03-23] MEDS: Cyanocobalamin (Vitamin B-12) 1,000 MCG TAB PO SCH (08:21)
[2020-03-23] MEDS: Apixaban 5 MG TAB PER TUBE SCH ×2 (08:21→20:58)
[2020-03-23] MEDS: Aspirin 81 mg Enteric Coated Tablet PO SCH (08:21)
[2020-03-23] MEDS: Folic Acid 1 MG TAB PO SCH (08:21)
[2020-03-23] MEDS: Pantoprazole 40 MG GRANULES PACKET PER TUBE SCH (08:21)
--- NOTE | 2020-03-23 08:21 | RAD ---
Chest one view HISTORY: Pneumonia. Follow-up. COMPARISON: 03/22/2020. FINDINGS: Cardiac silhouette is magnified by projection. Pulmonary vasculature accentuated by shallow inspiration. Mediastinum is midline. Lines and tubes unchanged in position. An oval well-circumscribed calcific de nsity projecting over the right suprahilar level is 2.1 cm diameter, and not present on the prior exam. It could represent overlying artifact or be related to osteophytosis of the thoracic spine, as it does not well correlate for and expected pathology. Patchy areas of ill-defined infiltrate involving each lung are slightly more dense, but favored to be related to a more shallow inspiration on the current exam. Minimal remaining right apical pneumothorax. IMPRESSION : Interval decrease in size of right pneumothorax. Other appearance differences related to shallow inspiration. Patchy bilateral infiltrates favored to be stable.
[2020-03-23] MEDS: Fluconazole In NaCl,Iso-Osm 200 MG in Premix Bag 1 BAG IVPB SCH (09:03)
[2020-03-23] MEDS: Floranex Packet PER TUBE SCH (09:14)
--- NOTE | 2020-03-23 09:21 | PRG ---
DATE OF SERVICE: 03/23/2020 SUBJECTIVE: 64-year-old gentleman who is about 41 days in the hospital, over 3 weeks on the vent. I spoke to his daughter yesterday. They will talk to primary business office assistant tomorrow regarding trach and a PEG. OBJECTIVE: VITAL SIGNS: Temperature 98, he is on AC mode with a rate of 20, blood pressure 110/70, sats 100%. I's and O's have been even. CHEST: Rhonchi, crackles. CARDIAC: Sinus tach. ABDOMEN: No masses. LABORATORY DATA: White count 8000, platelet count is normal. PO2 67, pCO2 47.43, 60%, PEEP of 10. Lytes are normal. ASSESSMENT: 1. Respiratory failure. 2. Acute respiratory distress syndrome. 3. Garcia positive, on a prolonged intubation. PLAN: 1. Is to do a trach and PEG as per the family's wishes in the next several days. 2. Continue steroids. Job ID: [id number]
[2020-03-23] MEDS: Morphine 10 MG/ML VIAL SLOW IVP PRN ×2 (11:35→21:57)
[2020-03-23] MEDS: Lorazepam 2 MG/ML VIAL SLOW IVP PRN ×2 (12:35→21:08)
[2020-03-23] MEDS: fentaNYL Citrate/PF 2,000 MCG in Sodium Chloride 0.9% 60 ML IV SCH (12:45)
[2020-03-23] MEDS ORDERED: Scopolamine 1.5 mg/72 hour Patch TD SCH (13:00)
--- NOTE | 2020-03-23 18:08 | PDOC.HOSPP ---
- Subjective Encounter Date: 03/23/20 Encounter Time: 10:00 Subjective: F/u: COVID pneumonia The patient is intubated. He appears pale. He does not follow commands per nursing. He did have some thick secretions today per nursing, asked for sputum culture to be collected. They did add scopolamine patch FiO2 was increased back to 60% since he got agitated and more SOB. - Objective Vital Signs & Weight: Vital Signs (12 hours) Temp Pulse Resp BP Pulse Ox 03/23/20 16:00 98.6 F 24 H 03/23/20 14:46 77 100/64 03/23/20 14:43 78 28 H 95 03/23/20 14:00 25 H 03/23/20 12:00 98.3 F 38 H 03/23/20 10:23 78 109/73 03/23/20 10:00 32 H 03/23/20 08:00 98.4 F 25 H 95 03/23/20 07:15 74 89/57 L 03/23/20 07:14 76 23 H 98 Weight Admit Weight 250 lb 0.067 oz Weight 205 lb 4.006 oz Most Recent Monitor Data Heart Rate from ECG 71 NIBP 107/71 NIBP BP-Mean 83 Respiration from ECG 25 SpO2 95 I&O: 03/22/20 03/23/20 03/24/20 06:59 06:59 06:59 Intake Total 2944 2592.4 1030 Output Total 3565 2995 1340 Balance -621 -402.6 -310 Result Diagrams: 03/23/20 03:30 03/23/20 03:30 Hospitalist ROS - Review of Systems ROS unobtainable: due to endotracheal tube - Medication Medications: Active Medications Generic Name Dose Route Start Last Admin Trade Name Freq PRN Reason Stop Dose Admin Acetaminophen 650 mg 03/22/20 08:30 03/22/20 14:18 Acetaminophen 650 Mg/20.3 Ml Udcup PO 650 mg Q4H PRN Administration Headache/Fever/Mild Pain (1-3) Acidophilus 1 gm 03/18/20 09:00 03/23/20 09:14 Floranex Packet PER TUBE 1 gm DAILY CLAY Administration Albuterol/Ipratropium 3 ml 03/05/20 13:00 03/23/20 14:43 Ipratropium/Albuterol Sulfate 3 Ml Neb NEB 3 ml [id number] CLAY Administration Apixaban 5 mg 03/05/20 09:00 03/23/20 08:21 Apixaban 5 Mg Tab PER TUBE 5 mg BID CLAY Administration Ascorbic Acid 1,000 mg 02/15/20 09:00 03/23/20 08:20 Ascorbic Acid 500 Mg Chewable Tablet PO 1,000 mg DAILY CLAY Administration Aspirin 81 mg 02/11/20 09:00 03/23/20 08:21 Aspirin 81 Mg Enteric Coated Tablet PO 81 mg DAILY CLAY Administration Bisacodyl 10 mg 02/11/20 08:36 03/03/20 05:02 Bisacodyl 5 Mg Tab PO 10 mg DAILYPRN PRN Administration Constipation Cholecalciferol 5,000 units 02/16/20 09:00 03/23/20 08:20 Cholecalciferol 1,000 Units (25 Mcg) Tab PO 5,000 units DAILY CLAY Administration Clonidine 0.1 mg 02/10/20 14:29 03/11/20 20:28 Clonidine 0.1 Mg Tab PO 0.1 mg Q4H PRN Administration SBP Greater Than 180 Cyanocobalamin 1,000 mcg 02/26/20 09:00 03/23/20 08:21 Cyanocobalamin (Vitamin B-12) 1,000 Mcg Tab PO 1,000 mcg DAILY CLAY Administration Folic Acid 1 mg 02/26/20 09:00 03/23/20 08:21 Folic Acid 1 Mg Tab PO 1 mg DAILY CLAY Administration Hydralazine HCl 10 mg 02/11/20 08:36 03/05/20 13:15 Hydralazine 20 Mg/Ml Vial SLOW IVP 10 mg Q4H PRN Administration SBP > 180 and HR < 70 Fluconazole/Sodium Chloride 100 mls @ 100 mls/hr 03/17/20 09:00 03/23/20 09:03 200 mg/ Device IVPB 100 mls DAILY CLAY Administration Meropenem 2 gm/ Miscellaneous 100 mls @ 200 mls/hr 03/18/20 17:00 03/23/20 17:31 Medication 1 each/ Sodium IVPB 100 mls Chloride 0100,0900,1700 CLAY Administration Fentanyl Citrate 2,000 mcg/ 100 mls @ 0 mls/hr 03/19/20 13:00 03/23/20 12:45 Sodium Chloride IV 04/18/20 13:00 100 mls INF CLAY Administration Protocol Per Protocol Midazolam HCl 100 mg/ Sodium 100 mls @ 0 mls/hr 03/19/20 21:17 03/23/20 13:21 Chloride IVPB 100 mls INF PRN Administration Sedation Protocol As Directed Vancomycin HCl 1 gm/ Device 200 mls @ 200 mls/hr 03/21/20 23:59 03/23/20 15:55 IVPB 200 mls 0800,1600,2359 CLAY Administration Levothyroxine Sodium 150 mcg 03/06/20 06:00 03/23/20 05:29 Levothyroxine Sodium 75 Mcg Tab PO 150 mcg 0600 CLAY Administration Lorazepam 2 mg 03/19/20 10:46 03/23/20 12:35 Lorazepam 2 Mg/Ml Vial SLOW IVP 2 mg Q2H PRN Administration Anxiety/Agitation Methylprednisolone Sodium Succinate 40 mg 03/17/20 09:00 03/23/20 08:20 Methylprednisolone Sod Succ 40 Mg Vial IVP 40 mg DAILY CLAY Administration Mineral Oil/White Petrolatum 0 gm 03/15/20 21:00 03/23/20 08:22 Artificial Tear Ointment 3.5 Gm Tube EA EYE 1 applic BID CLAY Administration Mineral Oil/White Petrolatum 0 gm 03/15/20 15:30 03/15/20 16:47 Artificial Tear Ointment 3.5 Gm Tube EA EYE 1 applic PRN PRN Administration DRY EYES Morphine Sulfate 10 mg 03/22/20 08:56 03/23/20 11:35 Morphine 10 Mg/Ml Vial SLOW IVP 10 mg Q2HR PRN Administration Congestion Pantoprazole Sodium 40 mg 03/06/20 09:00 03/23/20 08:21 Pantoprazole 40 Mg Granules Packet PER TUBE 40 mg DAILY CLAY Administration Polyethylene Glycol 17 gm 03/10/20 09:00 03/23/20 08:20 Polyethylene Glycol 3350 17 Gm Packet PER TUBE 17 gm DAILY CLAY Administration Scopolamine 1.5 mg 03/23/20 13:00 03/23/20 13:17 Scopolamine 1.5 Mg/72 Hour Patch TD 1.5 mg Q3D CLAY Administration Senna/Docusate Sodium 2 tab 02/10/20 11:33 02/16/20 19:55 Senokot S 8.6-50 Mg Tab PO 2 tab BIDPRN PRN Administration Constipation Sodium Chloride 10 ml 02/10/20 11:33 03/01/20 20:30 Flush - Normal Saline 10 Ml Syringe IVF 10 ml PRN PRN Administration Saline Flush Sterile Water 10 ml 02/28/20 03:54 03/21/20 17:49 Sterile Water 10 Ml Vial IVP 10 ml Q30MIN PRN Administration NEEDED FOR RECONSTITUTION Vecuronium [place] 10 mg 02/28/20 03:54 03/21/20 17:49 Vecuronium 10 Mg Vial IV 10 mg Q30MIN PRN Administration SPASM Zinc Sulfate 220 mg 02/15/20 09:00 03/23/20 08:20 Zinc Sulfate 220 Mg Cap PO 220 mg DAILY CLAY Administration - Exam General - other findings: intubated ENT: normocephalic atraumatic, no oropharyngeal lesions Neck: no JVD Heart: RRR, no murmur, no gallops, no rubs Respiratory - other findings: diminished breath sounds Gastrointestinal: soft, non-tender, non-distended Extremities: 1+ LE edema Skin: normal turgor, no lesions, no rashes Hosp A/P - Plan Chest X ray 03/08: slightly improved lung aeration Chest X ray 03/11: diffuse lung infiltrates Chest x-ray 03/15: New small right apical pneumothorax Chest x-ray 03/22: Small right apical pneumothorax, pneumomediastinum, patchy infiltrates This is a 64 year old male diagnosed with COVID, developed progressive respiratory failure and is now intubated. He received remdesivir 02/09 to and IV zosyn 02/24 to 03/03 and micafungin 02/23 to 03/03. He received a second course of meropenem and micafungin from 03/06 to 03/13. On 03/15, patient developed a small right apical pneumothorax with pneumomediastinum. He was restarted on meropenem and vancomycin due to increasing white blood cell count. #Acute hypoxic respiratory failure secondary to COVID pneumonia versus bacterial pneumonia with superimposed pneumothorax/pneumomediastinum -Repeat chest x-ray 03/22 shows stable small right apical pneumothorax, pneumomediastinum, bilateral infiltrate. No chest tube per pulmonary -Continue meropenem (D1 03/17), vancomycin (D1 03/18), and fluconazole. - had abundant secretions today . Will check sputum culture #Fever- resolved -repeat blood cultures negative. Sputum culture pending. UA negative Hypernatremia - resolved Constipation - continue miralax Pernicious anemia - vitamin B12 < 200, intrinsic factor positive. Continue monthly vitamin B12 Folic acid deficiency anemia - continue folic acid
[2020-03-23] MEDS: Vecuronium 10 MG VIAL IV PRN (21:18)
[2020-03-24] MEDS: Meropenem 2 GM, Admixture Fee 1 EACH in Sodium Chloride 0.9% 100 ML IVPB SCH (01:50)
[2020-03-24] MEDS: fentaNYL Citrate/PF 2,000 MCG in Sodium Chloride 0.9% 60 ML IV SCH ×2 (03:00→14:36)
[2020-03-24 04:22] LABS: #Eosinphils 0.1 thou/uL (0.0-0.7); #Lymphocytes 1.3 thou/uL (1.20-3.40); #Monocytes 0.3 thou/uL (0.11-0.59); #Neutrophils 7.7 thou/uL (1.40-6.50); %Basophils 0.4 % (0.0-1.0); %Eosinophils 1.2 % (0.0-10.0); %Monocytes 2.7 % (0.0-10.0); %Neutrophils 81.7 % (42.0-75.0); Hemoglobin 12.1 g/dL (14.0-18.0); Mean Corpuscular HGB CONC 30.5 g/dL (32.0-36.0); Mean Corpuscular Hemoglobin 29.6 pg (27.0-31.0); Mean Corpuscular Volume 97.2 fL (78.0-98.0); Mean Platelet Volume 9.5 fL (7.4-10.4); Platelet Count 206 thou/uL (130-400); RBC Distribution Width 17.2 % (11.5-14.5); White Blood Cell (WBC) Count 9.4 thou/uL (4.8-10.8)
[2020-03-24 04:36] LABS: Anion Gap 12 mmol/L (10-20); BUN (Urea Nitrogen) 22 mg/dL (8.4-25.7); Calc. Creatinine Clearance 172 mL/min (70-130); Calcium 8.2 mg/dL (7.8-10.44); Carbon Dioxide 33 mmol/L (23-31); Chloride 99 mmol/L (98-107); Glucose 90 mg/dL (80-115); Sodium 140 mmol/L (136-145)
[2020-03-24] MEDS: Levothyroxine Sodium 75 MCG TAB PO SCH (05:21)
[2020-03-24] MEDS: Vancomycin 1 GM in Premix Bag 1 BAG IVPB SCH (07:25)
[2020-03-24 08:00] LABS: Actual Bicarbonate (HCO3a) 33.5 mEq/L (22-28); Base Excess (BEa) 9.1 mEq/L (-2.0 to +3.0); CO2 Tension 44.7 mmHg (35.0-45.0); Calcium, Ionized (arterial) 1.14 mmol/L (1.12-1.30); Carboxyhemoglobin (COHb) 1.9 gm% (0.0-3.0); Hemoglobin (Hb) 13.1 g/dL (14.0-18.0); Potassium - ABG Lab 3.96 mmol/L (3.70-5.30); pH, Arterial 7.49 (7.35-7.45)
[2020-03-24 08:02] LABS: O2 Tension (PaO2), arterial 44.5 mmHg (> 80.0)
[2020-03-24 08:03] LABS: ALV-art Gradient 327.425 mmHg (0-20); Puncture Site LRA
--- NOTE | 2020-03-24 08:25 | PRG ---
DATE OF SERVICE: 03/24/2020 This is 35 minutes critical care time. SUBJECTIVE: The patient remains intubated and sedated on mechanical ventilation. It is difficult to wake up. OBJECTIVE: VITAL SIGNS: His temperature is 99.1, pulse 112, blood pressure 108/64, O2 saturation in the low 90s. He is currently on midazolam and fentanyl. 24-hour intake 4131, output 3150. Weight 207 pounds. Admission weight looks to be 218 pounds. HEENT: Unremarkable except for being intubated. NECK: No adenopathy or JVD. LUNGS: Inspiratory crackles. CARDIAC: S1 and S2. Slightly tachycardic. ABDOMEN: Soft and nontender. EXTREMITIES: Edematous. LABORATORY DATA: PH 7.49, pCO2 of 44, pO2 of 44. He is on assist control rate 20, PEEP 10, FiO2 of 65%. Sodium is 140, potassium 4, chloride 99, CO2 of 33, BUN 22, creatinine 0.5, glucose 90. White blood cell count 9.4, hematocrit 39.9, and platelet count 206. His chest x-ray continued to show bilateral infiltrates. ASSESSMENT: 1. COVID-19 pneumonia. 2. Prolonged acute respiratory failure, requiring mechanical ventilation. PLAN: 1. FiO2 and PEEP requirements are still quite high for tracheostomy, but I will discuss with surgeon to see what level of PEEP and FiO2 they would be willing to perform tracheostomy at. 2. Continue IV corticosteroids. 3. The patient was placed on empiric antibiotics on 28 that would already give him about 7 days of each, so I will go ahead and stop that. I am not sure what the vancomycin is for as we do not have anything on culture except coag-negative staph, which is probably a contaminant. 4. We will continue to follow. Job ID: [id number]
[2020-03-24] MEDS: Polyethylene Glycol 3350 17 GM Packet PER TUBE SCH (08:50)
[2020-03-24] MEDS: Folic Acid 1 MG TAB PO SCH (08:50)
[2020-03-24] MEDS: Cyanocobalamin (Vitamin B-12) 1,000 MCG TAB PO SCH (08:50)
[2020-03-24] MEDS: Pantoprazole 40 MG GRANULES PACKET PER TUBE SCH (08:51)
[2020-03-24] MEDS: Aspirin 81 mg Enteric Coated Tablet PO SCH (08:51)
[2020-03-24] MEDS: Zinc Sulfate 220 MG CAP PO SCH (08:51)
[2020-03-24] MEDS: Ascorbic Acid 500 mg Chewable Tablet PO SCH (08:51)
[2020-03-24] MEDS: Cholecalciferol 1,000 UNITS (25 MCG) TAB PO SCH (08:51)
[2020-03-24] MEDS: Apixaban 5 MG TAB PER TUBE SCH ×2 (08:52→20:22)
[2020-03-24] MEDS: methylPREDNISolone Sod Succ 40 MG VIAL IVP SCH (08:52)
--- NOTE | 2020-03-24 09:26 | RAD ---
PORTABLE CHEST: HISTORY: Pneumonia followup. CCU followup on ventilator. COMPARISON: 03/23/2020. FINDINGS: ET tube and NG tube unchanged. Bilateral lung infiltrates again noted. No significant interval change. IMPRESSION: Stable chest finding. POS: AGW
[2020-03-24] MEDS: Floranex Packet PER TUBE SCH (10:59)
[2020-03-24] MEDS: Morphine 10 MG/ML VIAL SLOW IVP PRN (10:59)
--- NOTE | 2020-03-24 11:21 | PDOC.PALPN ---
Palliative Progress Note - Subjective Intubated, mechanical ventilation. Sedated. Empiric antibiotics stopped. - Objective Vital Signs: Vital Signs - Most Recent Temp Pulse Resp BP Pulse Ox 98.5 F 110 H 34 H 119/72 91 L 03/24/20 08:00 03/24/20 11:12 03/24/20 08:00 03/24/20 11:12 03/24/20 07:08 - Physical Exam Constitutional: encephalitic, ill appearing HEENT: moist MMs Deviation from normal: Intubtaed, bilaterally adventicious. Cardiovascular: diminished peripheral pulses Deviation from normal: Intermittent tachycardia Gastrointestinal: soft, positive bowel sounds, incontinent Genitourinary: rivas catheter Musculoskeletal: edema present, diffuse muscle atrophy Neurology: no focal deficits Skin: fragile Deviation from normal: metabolic encephalopathy, sedated - Assessment (1) Acute respiratory failure due to COVID-19 Code(s): U07.1 - COVID-19; J96.00 - ACUTE RESPIRATORY FAILURE, UNSP W HYPOXIA OR HYPERCAPNIA Current Visit: Yes Status: Acute (2) Obesity (BMI 30.0-34.9) Code(s): E66.9 - OBESITY, UNSPECIFIED Current Visit: No Status: Chronic - Plan Plan: Palliative care has addressed resuscitation status and goal of care with patient . She is desiring to continue to pursue all aggressive measures. Palliative care also provided emotional support and therapeutic listening. At this time our team will sign off, please re consult if we can assist in the future with Goal of care, revisiting resuscitation status, complex decision making. Thank you for this very appropriate consult. Please also refer to Palliative Care notes in note section. [30] minutes spent on this encounter with >50% of the time in counseling and coordination of care. - ROS Non Response: due to endotracheal tube, due to mental status
--- NOTE | 2020-03-24 17:02 | PDOC.HOSPP ---
- Subjective Encounter Date: 03/24/20 Encounter Time: 09:00 Subjective: F/u: COVID The patient is still intubated with no significant change. I have heard that there is plan for trach on Tuesday . The patient had tracheal culture 03/23 which is pending. There was some bloody secretion per nurse - Objective Vital Signs & Weight: Vital Signs (12 hours) Temp Pulse Resp BP Pulse Ox 03/24/20 14:07 92 118/69 03/24/20 14:05 93 27 H 96 03/24/20 11:12 110 H 119/72 03/24/20 10:00 35 H 03/24/20 08:00 98.5 F 34 H 84 L 03/24/20 07:09 112 H 108/64 03/24/20 07:08 112 H 39 H 91 L 03/24/20 06:00 22 H Weight Admit Weight 250 lb 0.067 oz Weight 207 lb 10.807 oz Most Recent Monitor Data Heart Rate from ECG 99 NIBP 86/57 NIBP BP-Mean 66 Respiration from ECG 28 SpO2 95 I&O: 03/23/20 03/24/20 03/25/20 06:59 06:59 06:59 Intake Total 2592.4 4131.2 200 Output Total 2995 3150 530 Balance -402.6 981.2 -330 Result Diagrams: 03/24/20 03:30 03/24/20 03:30 Hospitalist ROS - Review of Systems Constitutional: denies: fever, chills - Medication Medications: Active Medications Generic Name Dose Route Start Last Admin Trade Name Freq PRN Reason Stop Dose Admin Acetaminophen 650 mg 03/22/20 08:30 03/22/20 14:18 Acetaminophen 650 Mg/20.3 Ml Udcup PO 650 mg Q4H PRN Administration Headache/Fever/Mild Pain (1-3) Acidophilus 1 gm 03/18/20 09:00 03/24/20 10:59 Floranex Packet PER TUBE 1 gm DAILY CLAY Administration Albuterol/Ipratropium 3 ml 03/05/20 13:00 03/24/20 14:05 Ipratropium/Albuterol Sulfate 3 Ml Neb NEB 3 ml [id number] CLAY Administration Apixaban 5 mg 03/05/20 09:00 03/24/20 08:52 Apixaban 5 Mg Tab PER TUBE 5 mg BID CLAY Administration Ascorbic Acid 1,000 mg 02/15/20 09:00 03/24/20 08:51 Ascorbic Acid 500 Mg Chewable Tablet PO 1,000 mg DAILY CLAY Administration Aspirin 81 mg 02/11/20 09:00 03/24/20 08:51 Aspirin 81 Mg Enteric Coated Tablet PO 81 mg DAILY CLAY Administration Bisacodyl 10 mg 02/11/20 08:36 03/03/20 05:02 Bisacodyl 5 Mg Tab PO 10 mg DAILYPRN PRN Administration Constipation Cholecalciferol 5,000 units 02/16/20 09:00 03/24/20 08:51 Cholecalciferol 1,000 Units (25 Mcg) Tab PO 5,000 units DAILY CLAY Administration Clonidine 0.1 mg 02/10/20 14:29 03/11/20 20:28 Clonidine 0.1 Mg Tab PO 0.1 mg Q4H PRN Administration SBP Greater Than 180 Cyanocobalamin 1,000 mcg 02/26/20 09:00 03/24/20 08:50 Cyanocobalamin (Vitamin B-12) 1,000 Mcg Tab PO 1,000 mcg DAILY CLAY Administration Folic Acid 1 mg 02/26/20 09:00 03/24/20 08:50 Folic Acid 1 Mg Tab PO 1 mg DAILY CLAY Administration Hydralazine HCl 10 mg 02/11/20 08:36 03/05/20 13:15 Hydralazine 20 Mg/Ml Vial SLOW IVP 10 mg Q4H PRN Administration SBP > 180 and HR < 70 Fentanyl Citrate 2,000 mcg/ 100 mls @ 0 mls/hr 03/19/20 13:00 03/24/20 14:36 Sodium Chloride IV 04/18/20 13:00 100 mls INF CLAY Administration Protocol Per Protocol Midazolam HCl 100 mg/ Sodium 100 mls @ 0 mls/hr 03/19/20 21:17 03/24/20 10:26 Chloride IVPB 100 mls INF PRN Administration Sedation Protocol As Directed Levothyroxine Sodium 150 mcg 03/06/20 06:00 03/24/20 05:21 Levothyroxine Sodium 75 Mcg Tab PO 150 mcg 0600 CLAY Administration Lorazepam 2 mg 03/19/20 10:46 03/23/20 21:08 Lorazepam 2 Mg/Ml Vial SLOW IVP 2 mg Q2H PRN Administration Anxiety/Agitation Methylprednisolone Sodium Succinate 40 mg 03/17/20 09:00 03/24/20 08:52 Methylprednisolone Sod Succ 40 Mg Vial IVP 40 mg DAILY CLAY Administration Mineral Oil/White Petrolatum 0 gm 03/15/20 21:00 03/24/20 08:52 Artificial Tear Ointment 3.5 Gm Tube EA EYE 1 applic BID CLAY Administration Mineral Oil/White Petrolatum 0 gm 03/15/20 15:30 03/15/20 16:47 Artificial Tear Ointment 3.5 Gm Tube EA EYE 1 applic PRN PRN Administration DRY EYES Morphine Sulfate 10 mg 03/22/20 08:56 03/24/20 10:59 Morphine 10 Mg/Ml Vial SLOW IVP 10 mg Q2HR PRN Administration Congestion Pantoprazole Sodium 40 mg 03/06/20 09:00 03/24/20 08:51 Pantoprazole 40 Mg Granules Packet PER TUBE 40 mg DAILY CLAY Administration Polyethylene Glycol 17 gm 03/10/20 09:00 03/24/20 08:50 Polyethylene Glycol 3350 17 Gm Packet PER TUBE 17 gm DAILY CLAY Administration Scopolamine 1.5 mg 03/23/20 13:00 03/23/20 13:17 Scopolamine 1.5 Mg/72 Hour Patch TD 1.5 mg Q3D CLAY Administration Senna/Docusate Sodium 2 tab 02/10/20 11:33 02/16/20 19:55 Senokot S 8.6-50 Mg Tab PO 2 tab BIDPRN PRN Administration Constipation Sodium Chloride 10 ml 02/10/20 11:33 03/01/20 20:30 Flush - Normal Saline 10 Ml Syringe IVF 10 ml PRN PRN Administration Saline Flush Sterile Water 10 ml 02/28/20 03:54 03/21/20 17:49 Sterile Water 10 Ml Vial IVP 10 ml Q30MIN PRN Administration NEEDED FOR RECONSTITUTION Vecuronium [place] 10 mg 02/28/20 03:54 03/23/20 21:18 Vecuronium 10 Mg Vial IV 10 mg Q30MIN PRN Administration SPASM Zinc Sulfate 220 mg 02/15/20 09:00 03/24/20 08:51 Zinc Sulfate 220 Mg Cap PO 220 mg DAILY CLAY Administration - Exam General Appearance: NAD, awake alert Eye: PERRL, anicteric sclera ENT: normocephalic atraumatic, no oropharyngeal lesions Neck: no JVD Heart: RRR, no murmur, no gallops, no rubs Respiratory: rales Gastrointestinal: normal bowel sounds, no palpable masses, no bruit, no rigidity, distended, diminished bowl sounds. negative: non-tender, non- distended Extremities: no clubbing, no edema Hosp A/P - Plan Chest X ray 03/08: slightly improved lung aeration Chest X ray 03/11: diffuse lung infiltrates Chest x-ray 03/15: New small right apical pneumothorax Chest x-ray 03/22: Small right apical pneumothorax, pneumomediastinum, patchy inf iltrates This is a 64 year old male diagnosed with COVID, developed progressive respiratory failure and is now intubated. He received remdesivir 02/09 to 02/13 and IV zosyn 02/24 to 03/03 and micafungin 02/23 to 03/03. He received a second course of meropenem and micafungin from 03/06 to 03/13. On 03/15, patient developed a small right apical pneumothorax with pneumomediastinum. He was restarted on meropenem and vancomycin due to increasing white blood cell count. #Acute hypoxic respiratory failure secondary to COVID pneumonia versus bacterial pneumonia with superimposed pneumothorax/pneumomediastinum -Repeat chest x-ray 03/22 shows stable small right apical pneumothorax, pneumomediastinum, bilateral infiltrate. No chest tube per pulmonary -the patient is on meropenem (D1 03/17), vancomycin (D1 03/18), and fluconazole. These have been discontinued by pulmonary - sputum culture is pending. Plan for tracheostomy potentially on Tuesday? #Fever- resolved -repeat blood cultures negative. Sputum culture pending. UA negative Hypernatremia - resolved Constipation - continue miralax Pernicious anemia - vitamin B12 < 200, intrinsic factor positive. Continue monthly vitamin B12 Folic acid deficiency anemia - continue folic acid
[2020-03-25] MEDS: fentaNYL Citrate/PF 2,000 MCG in Sodium Chloride 0.9% 60 ML IV SCH ×2 (01:49→14:18)
[2020-03-25] MEDS: Lorazepam 2 MG/ML VIAL SLOW IVP PRN (03:04)
[2020-03-25] MEDS: Morphine 10 MG/ML VIAL SLOW IVP PRN ×3 (03:16→08:06)
[2020-03-25] MEDS: Vecuronium 10 MG VIAL IV PRN ×7 (03:45→22:42)
[2020-03-25 04:56] LABS: #Eosinphils 0.1 thou/uL (0.0-0.7); #Lymphocytes 1.4 thou/uL (1.20-3.40); #Monocytes 0.3 thou/uL (0.11-0.59); #Neutrophils 5.7 thou/uL (1.40-6.50); %Basophils 0.5 % (0.0-1.0); %Eosinophils 0.9 % (0.0-10.0); %Lymphocytes 18.4 % (21.0-51.0); %Monocytes 3.3 % (0.0-10.0); %Neutrophils 76.9 % (42.0-75.0); Hemoglobin 12.9 g/dL (14.0-18.0); Mean Corpuscular HGB CONC 31.3 g/dL (32.0-36.0); Mean Corpuscular Hemoglobin 30.7 pg (27.0-31.0); Mean Corpuscular Volume 98.2 fL (78.0-98.0); Mean Platelet Volume 10.1 fL (7.4-10.4); Platelet Count 179 thou/uL (130-400); RBC Distribution Width 17.6 % (11.5-14.5); Red Blood Cell (RBC) Count 4.19 mill/uL (4.70-6.10); White Blood Cell (WBC) Count 7.5 thou/uL (4.8-10.8)
[2020-03-25] MEDS: Levothyroxine Sodium 75 MCG TAB PO SCH (05:07)
[2020-03-25 05:19] LABS: Anion Gap 11 mmol/L (10-20); BUN (Urea Nitrogen) 33 mg/dL (8.4-25.7); Calc. Creatinine Clearance 184 mL/min (70-130); Calcium 8.4 mg/dL (7.8-10.44); Carbon Dioxide 37 mmol/L (23-31); Chloride 99 mmol/L (98-107); Glucose 107 mg/dL (80-115); Potassium 3.9 mmol/L (3.5-5.1); Sodium 143 mmol/L (136-145)
[2020-03-25] MEDS ORDERED: Sterile Water 10 ML ONE (07:43)
[2020-03-25] MEDS: Acetaminophen 650 MG/20.3 ML UDCUP PO PRN (08:20)
[2020-03-25] MEDS: Pantoprazole 40 MG GRANULES PACKET PER TUBE SCH (08:21)
[2020-03-25] MEDS: Cyanocobalamin (Vitamin B-12) 1,000 MCG TAB PO SCH (08:21)
[2020-03-25] MEDS: Folic Acid 1 MG TAB PO SCH (08:21)
[2020-03-25] MEDS: Cholecalciferol 1,000 UNITS (25 MCG) TAB PO SCH (08:21)
[2020-03-25] MEDS: Ascorbic Acid 500 mg Chewable Tablet PO SCH (08:22)
[2020-03-25] MEDS: Polyethylene Glycol 3350 17 GM Packet PER TUBE SCH (08:22)
[2020-03-25] MEDS: methylPREDNISolone Sod Succ 40 MG VIAL IVP SCH (08:22)
--- NOTE | 2020-03-25 08:31 | PRG ---
DATE OF SERVICE: 03/25/2020 35 minutes critical care time. SUBJECTIVE: The patient remains intubated on mechanical ventilation with no discernible improvement in last 24 hours. OBJECTIVE: VITAL SIGNS: Temperature is 100.7, pulse 133, blood pressure 133/77, O2 saturation 87%. 24-hour intake 2075, output 2505. HEENT: Shows dry oral mucous membranes. NECK: No JVD. LUNGS: Crackles bilaterally. CARDIAC: S1, S2. Regular. ABDOMEN: Soft. EXTREMITIES: Severe muscle wasting. LABORATORY DATA: White blood cell count 7.5, hematocrit 41.2, and platelet count 179. ABG pending. Sodium 143, potassium 3.9, chloride 99, CO2 of 37, BUN 33, creatinine 0.5, glucose 107. X-ray demonstrates bilateral infiltrative changes, no discernible difference from previous x-rays. ASSESSMENT: 1. COVID-19 pneumonia. 2. Acute hypoxic respiratory failure, requiring mechanical ventilation. 3. Probably some degree of volume depletion. 4. Low-grade fever with negative cultures over the last 3 days. PLAN: 1. We will prefer to continue to hold antibiotics. 2. Hold anticoagulation in preparation for tracheostomy. 3. I will give him some albumin to see improving his intravascular status will help with his tachycardia. Job ID: [id number]
[2020-03-25] MEDS: Floranex Packet PER TUBE SCH (08:47)
[2020-03-25] MEDS: Aspirin 81 mg Enteric Coated Tablet PO SCH (08:49)
--- NOTE | 2020-03-25 08:52 | RAD ---
PORTABLE CHEST: HISTORY: Pneumonia. CCU followup on ventilator. COMPARISON: 03/24/2020. FINDINGS: ET tube and NG tube remain in place. Bilateral diffuse confluent infiltrates with interstitial and alveolar components. Confluent airspac e opacities in the mid and lower lungs. IMPRESSION: Bilateral infiltrates remain. Possible worsening of the right lung infiltrates. POS: AGW
[2020-03-25 09:15] LABS: Actual Bicarbonate (HCO3a) 32.8 mEq/L (22-28); Base Excess (BEa) 6.2 mEq/L (-2.0 to +3.0); CO2 Tension 56.5 mmHg (35.0-45.0); Calcium, Ionized (arterial) 1.13 mmol/L (1.12-1.30); Carboxyhemoglobin (COHb) 1.8 gm% (0.0-3.0); Hemoglobin (Hb) 12.9 g/dL (14.0-18.0); Potassium - ABG Lab 4.13 mmol/L (3.70-5.30); pH, Arterial 7.38 (7.35-7.45)
[2020-03-25 09:31] LABS: O2 Tension (PaO2), arterial 39.6 mmHg (> 80.0)
[2020-03-25 09:32] LABS: ALV-art Gradient 388.875 mmHg (0-20); Puncture Site RBA
[2020-03-25] MEDS ORDERED: Norepinephrine 4 MG/4 ML VIAL ONE (09:35)
[2020-03-25] MEDS: Norepinephrine 8 MG in Dextrose 5% in Water 242 ML IVPB PRN ×2 (09:50→15:16)
[2020-03-25] MEDS: Zinc Sulfate 220 MG CAP PO SCH (10:21)
[2020-03-25] MEDS: Meropenem 2 GM, Admixture Fee 1 EACH in Sodium Chloride 0.9% 100 ML IVPB SCH (18:24)
--- NOTE | 2020-03-25 18:58 | PDOC.HOSPP ---
- Subjective Encounter Date: 03/25/20 Encounter Time: 15:00 Subjective: F/u: COVID pneumonia This is 64-year-old male with Covid he has been intubated. Patient has been declining per nursing staff. O2 sat 80%. PEEP is still at 10. There is still plan for possible tracheostomy on Tuesday - Objective Vital Signs & Weight: Vital Signs (12 hours) Temp Pulse Resp BP Pulse Ox 03/25/20 18:00 33 H 03/25/20 16:00 98.1 F 35 H 03/25/20 14:32 85 106/64 03/25/20 14:00 28 H 03/25/20 12:26 90 24 H 90 L 03/25/20 12:00 97.9 F 23 H 03/25/20 10:39 97 84/46 L 03/25/20 10:00 22 H 03/25/20 08:20 97.5 F L 03/25/20 08:00 97.9 F 25 H 90 L 03/25/20 07:31 125 H 93/62 03/25/20 07:28 124 H 24 H 86 L Weight Admit Weight 250 lb 0.067 oz Weight 207 lb 10.807 oz Most Recent Monitor Data Heart Rate from ECG 83 NIBP 121/70 NIBP BP-Mean 87 Respiration from ECG 34 SpO2 94 I&O: 03/24/20 03/25/20 03/26/20 06:59 06:59 06:59 Intake Total 4131.2 2875.2 2091 Output Total 3150 2505 555 Balance 981.2 370.2 1536 Result Diagrams: 03/25/20 04:15 03/25/20 04:15 Hospitalist ROS - Review of Systems ROS unobtainable: due to endotracheal tube - Medication Medications: Active Medications Generic Name Dose Route Start Last Admin Trade Name Freq PRN Reason Stop Dose Admin Acetaminophen 650 mg 03/22/20 08:30 03/25/20 08:20 Acetaminophen 650 Mg/20.3 Ml Udcup PO 650 mg Q4H PRN Administration Headache/Fever/Mild Pain (1-3) Acidophilus 1 gm 03/18/20 09:00 03/25/20 08:47 Floranex Packet PER TUBE 1 gm DAILY CLAY Administration Albuterol/Ipratropium 3 ml 03/05/20 13:00 03/25/20 12:26 Ipratropium/Albuterol Sulfate 3 Ml Neb NEB 3 ml [id number] CLAY Administration Ascorbic Acid 1,000 mg 02/15/20 09:00 03/25/20 08:22 Ascorbic Acid 500 Mg Chewable Tablet PO 1,000 mg DAILY CLAY Administration Aspirin 81 mg 02/11/20 09:00 03/25/20 08:49 Aspirin 81 Mg Enteric Coated Tablet PO Not Given DAILY CLAY Bisacodyl 10 mg 02/11/20 08:36 03/03/20 05:02 Bisacodyl 5 Mg Tab PO 10 mg DAILYPRN PRN Administration Constipation Cholecalciferol 5,000 units 02/16/20 09:00 03/25/20 08:21 Cholecalciferol 1,000 Units (25 Mcg) Tab PO 5,000 units DAILY CLAY Administration Clonidine 0.1 mg 02/10/20 14:29 03/11/20 20:28 Clonidine 0.1 Mg Tab PO 0.1 mg Q4H PRN Administration SBP Greater Than 180 Cyanocobalamin 1,000 mcg 02/26/20 09:00 03/25/20 08:21 Cyanocobalamin (Vitamin B-12) 1,000 Mcg Tab PO 1,000 mcg DAILY CLAY Administration Folic Acid 1 mg 02/26/20 09:00 03/25/20 08:21 Folic Acid 1 Mg Tab PO 1 mg DAILY CLAY Administration Hydralazine HCl 10 mg 02/11/20 08:36 03/05/20 13:15 Hydralazine 20 Mg/Ml Vial SLOW IVP 10 mg Q4H PRN Administration SBP > 180 and HR < 70 Fentanyl Citrate 2,000 mcg/ 100 mls @ 0 mls/hr 03/19/20 13:00 03/25/20 14:18 Sodium Chloride IV 04/18/20 13:00 100 mls INF CLAY Administration Protocol Per Protocol Midazolam HCl 100 mg/ Sodium 100 mls @ 0 mls/hr 03/19/20 21:17 03/25/20 06:38 Chloride IVPB 100 mls INF PRN Administration Sedation Protocol As Directed Norepinephrine Bitartrate 8 mg 250 mls @ 0 mls/hr 03/25/20 14:30 03/25/20 15:16 / Dextrose/Water IVPB 250 mls INF PRN Administration TO MAINTAIN MAP > 65 Protocol As Directed Meropenem 2 gm/ Miscellaneous 100 mls @ 200 mls/hr 03/25/20 17:00 03/25/20 18 :24 Medication 1 each/ Sodium IVPB 100 mls Chloride 0100,0900,1700 CLAY Administration Levothyroxine Sodium 150 mcg 03/06/20 06:00 03/25/20 05:07 Levothyroxine Sodium 75 Mcg Tab PO 150 mcg 0600 CLAY Administration Lorazepam 2 mg 03/19/20 10:46 03/25/20 03:04 Lorazepam 2 Mg/Ml Vial SLOW IVP 2 mg Q2H PRN Administration Anxiety/Agitation Methylprednisolone Sodium Succinate 40 mg 03/17/20 09:00 03/25/20 08:22 Methylprednisolone Sod Succ 40 Mg Vial IVP 40 mg DAILY CALY Administration Mineral Oil/White Petrolatum 0 gm 03/15/20 21:00 03/25/20 08:48 Artificial Tear Ointment 3.5 Gm Tube EA EYE 1 applic BID CLAY Administration Mineral Oil/White Petrolatum 0 gm 03/15/20 15:30 03/15/20 16:47 Artificial Tear Ointment 3.5 Gm Tube EA EYE 1 applic PRN PRN Administration DRY EYES Morphine Sulfate 10 mg 03/22/20 08:56 03/25/20 08:06 Morphine 10 Mg/Ml Vial SLOW IVP 10 mg Q2HR PRN Administration Congestion Pantoprazole Sodium 40 mg 03/06/20 09:00 03/25/20 08:21 Pantoprazole 40 Mg Granules Packet PER TUBE 40 mg DAILY CLAY Administration Polyethylene Glycol 17 gm 03/10/20 09:00 03/25/20 08:22 Polyethylene Glycol 3350 17 Gm Packet PER TUBE 17 gm DAILY CLAY Administration Senna/Docusate Sodium 2 tab 02/10/20 11:33 02/16/20 19:55 Senokot S 8.6-50 Mg Tab PO 2 tab BIDPRN PRN Administration Constipation Sodium Chloride 10 ml 02/10/20 11:33 03/01/20 20:30 Flush - Normal Saline 10 Ml Syringe IVF 10 ml PRN PRN Administration Saline Flush Sterile Water 10 ml 02/28/20 03:54 03/21/20 17:49 Sterile Water 10 Ml Vial IVP 10 ml Q30MIN PRN Administration NEEDED FOR RECONSTITUTION Vecuronium [place] 10 mg 02/28/20 03:54 03/25/20 14:33 Vecuronium 10 Mg Vial IV 10 mg Q30MIN PRN Administration SPASM Zinc Sulfate 220 mg 02/15/20 09:00 03/25/20 10:21 Zinc Sulfate 220 Mg Cap PO 220 mg DAILY CLAY Administration - Exam General Appearance: awake alert General - other findings: Dusky skin discoloration. Intubated and sedated Eye: PERRL, anicteric sclera ENT: normocephalic atraumatic, no oropharyngeal lesions Neck: no JVD Heart: RRR, no murmur, no gallops, no rubs Respiratory: CTAB, no wheezes, no rales, no ronchi Gastrointestinal: soft, non-tender, non-distended, normal bowel sounds Extremities: no cyanosis, no clubbing, no edema Hosp A/P - Plan Chest X ray 03/08: slightly improved lung aeration Chest X ray 03/11: diffuse lung infiltrates Chest x-ray 03/15: New small right apical pneumothorax Chest x-ray 03/22: Small right apical pneumothorax, pneumomediastinum, patchy infiltrates This is a 64 year old male diagnosed with COVID, developed progressive respirato ry failure and is now intubated. He received remdesivir 02/09 to 02/13 and IV zosyn 02/24 to 03/03 and micafungin 02/23 to 03/03. He received a second course of meropenem and micafungin from 03/06 to 03/13. On 03/15, patient developed a small right apical pneumothorax with pneumomediastinum. He was restarted on meropenem and vancomycin due to increasing white blood cell count. #Acute hypoxic respiratory failure secondary to COVID pneumonia versus bacterial pneumonia with superimposed pneumothorax/pneumomediastinum -Repeat chest x-ray 03/22 shows stable small right apical pneumothorax, pneumomediastinum, bilateral infiltrate. No chest tube per pulmonary -the patient is on meropenem (D1 03/17), vancomycin (D1 03/18), and fluconazole. Antibiotics antifungals were discontinued yesterday by pulmonary on 03/24. 03/25: sputum culture is now growing gram-negative rods. Meropenem has been reordered. #Fever- resolved -repeat blood cultures negative. Sputum culture growing gram-negative rods. We will follow up final cultures Hypernatremia - resolved Constipation - continue miralax Pernicious anemia - vitamin B12 < 200, intrinsic factor positive. Continue monthly vitamin B12 Folic acid deficiency anemia - continue folic acid
[2020-03-25] MEDS: Sterile Water 10 ML VIAL IVP PRN ×2 (20:20→22:42)
[2020-03-26] MEDS: Meropenem 2 GM, Admixture Fee 1 EACH in Sodium Chloride 0.9% 100 ML IVPB SCH ×3 (01:29→16:25)
[2020-03-26] MEDS: Lorazepam 2 MG/ML VIAL SLOW IVP PRN ×3 (02:24→19:43)
[2020-03-26] MEDS: Vecuronium 10 MG VIAL IV PRN ×5 (02:24→19:43)
[2020-03-26] MEDS: Sterile Water 10 ML VIAL IVP PRN (02:24)
[2020-03-26 05:14] LABS: Band 59 % (5-11); Eosinophils 1 % (0-10); Hemoglobin 10.9 g/dL (14.0-18.0); Lymphocytes 13 % (21-51); MDiff Complete? YES; Mean Corpuscular HGB CONC 31.7 g/dL (32.0-36.0); Mean Corpuscular Hemoglobin 31.6 pg (27.0-31.0); Mean Corpuscular Volume 99.6 fL (78.0-98.0); Mean Platelet Volume 9.9 fL (7.4-10.4); Metamyelocyte 1 % (0-0); Monocytes 1 % (0-10); Neutrophil 25 % (42-75); Platelet Count 127 thou/uL (130-400); RBC Distribution Width 17.5 % (11.5-14.5); Red Blood Cell (RBC) Count 3.44 mill/uL (4.70-6.10); White Blood Cell (WBC) Count 6.9 thou/uL (4.8-10.8)
[2020-03-26] MEDS: Levothyroxine Sodium 75 MCG TAB PO SCH (05:28)
[2020-03-26 05:45] LABS: Anion Gap 14 mmol/L (10-20); BUN (Urea Nitrogen) 61 mg/dL (8.4-25.7); Calc. Creatinine Clearance 89 mL/min (70-130); Calcium 8.3 mg/dL (7.8-10.44); Carbon Dioxide 35 mmol/L (23-31); Chloride 99 mmol/L (98-107); Glucose 117 mg/dL (80-115); Potassium 4.6 mmol/L (3.5-5.1); Sodium 143 mmol/L (136-145)
--- NOTE | 2020-03-26 08:38 | PRG ---
DATE OF SERVICE: 03/26/2020 This is 35 minutes critical care time. SUBJECTIVE: The patient remains intubated on mechanical ventilation. He has developed a leak around his cuff, which is secondary to the spring on the end of his insufflator for the endotracheal tube. He is requiring 100% oxygen. He has been weaned off the Levophed drip successfully. OBJECTIVE: VITAL SIGNS: Blood pressure 145/80, pulse 112, O2 saturation 88%, last recorded temperature was 98.5, 24-hour intake 2451, output 1030. HEENT: Unremarkable. NECK: No JVD. LUNGS: Poor air movement. CARDIOVASCULAR: S1 and S2. Regular. ABDOMEN: Soft. EXTREMITIES: No edema. LABORATORY DATA: Sodium 143, potassium 4.6, chloride 99, CO2 of 35, BUN 61, creatinine 1.1, glucose 117. White blood count 6.9, hematocrit 34.2, platelet count 127. ABG result is pending. X-ray continues to show bilateral infiltrative changes. ASSESSMENT: 1. Acute hypoxic respiratory failure requiring mechanical ventilation. 2. COVID-19 pneumonia. 3. Damaged insufflator on the ET tube. PLAN: 1. Repaired ET tube. 2. Restarted antibiotics yesterday. 3. Resume anticoagulation as it is going to be next week before we can consider doing trach again assuming his O2 saturations improve. 4. Versed is currently being held. 5. Prognosis very poor. Discussed with patient's . Job ID: [id number]
[2020-03-26 08:49] LABS: Actual Bicarbonate (HCO3a) 36.1 mEq/L (22-28); Base Excess (BEa) 4.9 mEq/L (-2.0 to +3.0); Calcium, Ionized (arterial) 1.19 mmol/L (1.12-1.30); Carboxyhemoglobin (COHb) 2.3 gm% (0.0-3.0); Hemoglobin (Hb) 10.9 g/dL (14.0-18.0); Potassium - ABG Lab 4.55 mmol/L (3.70-5.30)
--- NOTE | 2020-03-26 09:19 | RAD ---
EXAM: Portable chest PROVIDED CLINICAL HISTORY: Respiratory insufficiency COMPARISON: 03/25/2020 FINDINGS: Significant interval change with respect to the prior examination is not apparent. IMPRESSION: As above.
[2020-03-26 09:45] LABS: O2 Tension (PaO2), arterial 54.5 mmHg (> 80.0); pH, Arterial 7.16 (7.35-7.45)
[2020-03-26 09:46] LABS: Puncture Site LRA
[2020-03-26] MEDS: Floranex Packet PER TUBE SCH (09:49)
[2020-03-26] MEDS: Cholecalciferol 1,000 UNITS (25 MCG) TAB PO SCH (09:49)
[2020-03-26] MEDS: Ascorbic Acid 500 mg Chewable Tablet PO SCH (09:50)
[2020-03-26] MEDS: Pantoprazole 40 MG GRANULES PACKET PER TUBE SCH (09:50)
[2020-03-26] MEDS: Apixaban 5 MG TAB PER TUBE SCH ×2 (09:50→19:43)
[2020-03-26] MEDS: Aspirin 81 mg Enteric Coated Tablet PO SCH (09:50)
[2020-03-26] MEDS: Cyanocobalamin (Vitamin B-12) 1,000 MCG TAB PO SCH (09:50)
[2020-03-26] MEDS: Folic Acid 1 MG TAB PO SCH (09:50)
[2020-03-26] MEDS: Polyethylene Glycol 3350 17 GM Packet PER TUBE SCH (09:51)
[2020-03-26] MEDS: methylPREDNISolone Sod Succ 40 MG VIAL IVP SCH (09:59)
[2020-03-26 10:04] LABS: Actual Bicarbonate (HCO3a) 34.3 mEq/L (22-28); Base Excess (BEa) 3.9 mEq/L (-2.0 to +3.0); Calcium, Ionized (arterial) 1.17 mmol/L (1.12-1.30); Carboxyhemoglobin (COHb) 2.2 gm% (0.0-3.0); Hemoglobin (Hb) 12.1 g/dL (14.0-18.0); Potassium - ABG Lab 4.61 mmol/L (3.70-5.30)
[2020-03-26 10:46] LABS: CO2 Tension 87.7 mmHg (35.0-45.0); O2 Tension (PaO2), arterial 51.3 mmHg (> 80.0); Puncture Site LRA; pH, Arterial 7.21 (7.35-7.45)
[2020-03-26 10:48] LABS: ALV-art Gradient 552.075 mmHg (0-20)
[2020-03-26] MEDS: Zinc Sulfate 220 MG CAP PO SCH (10:49)
--- NOTE | 2020-03-26 11:17 | PRG ---
DATE OF SERVICE: 03/26/2020 This is to document a conversation with the patient's and daughter earlier today. The patient's ABG today has shown that he is now retaining carbon dioxide as well as having severe hypoxemia. This is indicative of progressive pulmonary dysfunction despite adequate care. It is my opinion that this patient could not survive this illness. I was very leonard with the patient's and daughter about my prognosis. I have brought up the idea of withdrawing care and instituting comfort measures. They clearly need some time to think about that. The patient's was agreeable to a DNAR order, which will be put on the chart. Job ID: [id number]
[2020-03-26] MEDS ORDERED: Sterile Water 10 ML ONE (12:26)
[2020-03-26 12:53] VITALS: BMI 27.4
--- NOTE | 2020-03-26 16:33 | PDOC.HOSPP ---
- Subjective Encounter Date: 03/26/20 Encounter Time: 08:00 Subjective: F/u: COVID The patient desaturated to 80% and is now on 100% FiO2 on the ventilator now. His skin appears more mottled . - Objective Vital Signs & Weight: Vital Signs (12 hours) Temp Pulse Pulse Pulse Resp BP BP 03/26/20 14:47 106 H 112/70 03/26/20 14:00 20 03/26/20 12:31 105 H 24 H 03/26/20 12:00 98.6 F 28 H 03/26/20 11:13 102 H 102/73 03/26/20 10:00 25 H 03/26/20 09:21 104 H 105 H 113/70 03/26/20 08:00 20 03/26/20 07:43 109 H 133/73 03/26/20 07:42 108 H 20 03/26/20 07:37 03/26/20 07:00 98.2 F 03/26/20 06:00 20 BP Pulse Ox Pulse Ox Pulse Ox 03/26/20 14:47 03/26/20 14:00 03/26/20 12:31 91 L 03/26/20 12:00 03/26/20 11:13 03/26/20 10:00 03/26/20 09:21 120/68 91 L 91 L 03/26/20 08:00 03/26/20 07:43 03/26/20 07:42 87 L 03/26/20 07:37 87 L 03/26/20 07:00 03/26/20 06:00 Weight Admit Weight 250 lb 0.067 oz Weight 202 lb 9.677 oz Most Recent Monitor Data Heart Rate from ECG 105 NIBP 116/69 NIBP BP-Mean 84 Respiration from ECG 27 SpO2 86 I&O: 03/25/20 03/26/20 03/27/20 06:59 06:59 06:59 Intake Total 2875.2 2451.2 Output Total 2505 1030 460 Balance 370.2 1421.2 -460 Result Diagrams: 03/26/20 03:53 03/26/20 03:53 Additional Labs: Accuchecks 03/25/20 22:16 POC Glucose 139 H Hospitalist ROS - Review of Systems Constitutional: denies: fever, chills - Medication Medications: Active Medications Generic Name Dose Route Start Last Admin Trade Name Freq PRN Reason Stop Dose Admin Acetaminophen 650 mg 03/22/20 08:30 03/25/20 08:20 Acetaminophen 650 Mg/20.3 Ml Udcup PO 650 mg Q4H PRN Administration Headache/Fever/Mild Pain (1-3) Acidophilus 1 gm 03/18/20 09:00 03/26/20 09:49 Floranex Packet PER TUBE 1 gm DAILY CLAY Administration Albuterol/Ipratropium 3 ml 03/05/20 13:00 03/26/20 12:31 Ipratropium/Albuterol Sulfate 3 Ml Neb NEB 3 ml [id number] CLAY Administration Apixaban 5 mg 03/26/20 09:00 03/26/20 09:50 Apixaban 5 Mg Tab PER TUBE 5 mg BID CLAY Administration Ascorbic Acid 1,000 mg 02/15/20 09:00 03/26/20 09:50 Ascorbic Acid 500 Mg Chewable Tablet PO 1,000 mg DAILY CLAY Administration Aspirin 81 mg 02/11/20 09:00 03/26/20 09:50 Aspirin 81 Mg Enteric Coated Tablet PO 81 mg DAILY CLAY Administration Bisacodyl 10 mg 02/11/20 08:36 03/03/20 05:02 Bisacodyl 5 Mg Tab PO 10 mg DAILYPRN PRN Administration Constipation Cholecalciferol 5,000 units 02/16/20 09:00 03/26/20 09:49 Cholecalciferol 1,000 Units (25 Mcg) Tab PO 5,000 units DAILY CLAY Administration Clonidine 0.1 mg 02/10/20 14:29 03/11/20 20:28 Clonidine 0.1 Mg Tab PO 0.1 mg Q4H PRN Administration SBP Greater Than 180 Cyanocobalamin 1,000 mcg 02/26/20 09:00 03/26/20 09:50 Cyanocobalamin (Vitamin B-12) 1,000 Mcg Tab PO 1,000 mcg DAILY CLAY Administration Folic Acid 1 mg 02/26/20 09:00 03/26/20 09:50 Folic Acid 1 Mg Tab PO 1 mg DAILY CLAY Administration Hydralazine HCl 10 mg 02/11/20 08:36 03/05/20 13:15 Hydralazine 20 Mg/Ml Vial SLOW IVP 10 mg Q4H PRN Administration SBP > 180 and HR < 70 Fentanyl Citrate 2,000 mcg/ 100 mls @ 0 mls/hr 03/19/20 13:00 03/25/20 14:18 Sodium Chloride IV 04/18/20 13:00 100 mls INF CLAY Administration Protocol Per Protocol Midazolam HCl 100 mg/ Sodium 100 mls @ 0 mls/hr 03/19/20 21:17 03/25/20 06:38 Chloride IVPB 100 mls INF PRN Administration Sedation Protocol As Directed Norepinephrine Bitartrate 8 mg 250 mls @ 0 mls/hr 03/25/20 14:30 03/25/20 15:16 / Dextrose/Water IVPB 250 mls INF PRN Administration TO MAINTAIN MAP > 65 Protocol As Directed Meropenem 2 gm/ Miscellaneous 100 mls @ 200 mls/hr 03/25/20 17:00 03/26/20 16:25 Medication 1 each/ Sodium IVPB 100 mls Chloride 0100,0900,1700 CLAY Administration Levothyroxine Sodium 150 mcg 03/06/20 06:00 03/26/20 05:28 Levothyroxine Sodium 75 Mcg Tab PO 150 mcg 0600 CLAY Administration Lorazepam 2 mg 03/19/20 10:46 03/26/20 05:28 Lorazepam 2 Mg/Ml Vial SLOW IVP 2 mg Q2H PRN Administration Anxiety/Agitation Methylprednisolone Sodium Succinate 40 mg 03/17/20 09:00 03/26/20 09:59 Methylprednisolone Sod Succ 40 Mg Vial IVP 40 mg DAILY CLAY Administration Mineral Oil/White Petrolatum 0 gm 03/15/20 21:00 03/26/20 09:56 Artificial Tear Ointment 3.5 Gm Tube EA EYE 1 applic BID CLAY Administration Mineral Oil/White Petrolatum 0 gm 03/15/20 15:30 03/15/20 16:47 Artificial Tear Ointment 3.5 Gm Tube EA EYE 1 applic PRN PRN Administration DRY EYES Morphine Sulfate 10 mg 03/22/20 08:56 03/25/20 08:06 Morphine 10 Mg/Ml Vial SLOW IVP 10 mg Q2HR PRN Administration Congestion Pantoprazole Sodium 40 mg 03/06/20 09:00 03/26/20 09:50 Pantoprazole 40 Mg Granules Packet PER TUBE 40 mg DAILY CLAY Administration Polyethylene Glycol 17 gm 03/10/20 09:00 03/26/20 09:51 Polyethylene Glycol 3350 17 Gm Packet PER TUBE 17 gm DAILY CLAY Administration Senna/Docusate Sodium 2 tab 02/10/20 11:33 02/16/20 19:55 Senokot S 8.6-50 Mg Tab PO 2 tab BIDPRN PRN Administration Constipation Sodium Chloride 10 ml 02/10/20 11:33 03/01/20 20:30 Flush - Normal Saline 10 Ml Syringe IVF 10 ml PRN PRN Administration Saline Flush Sterile Water 10 ml 02/28/20 03:54 03/26/20 02:24 Sterile Water 10 Ml Vial IVP 10 ml Q30MIN PRN Administration NEEDED FOR RECONSTITUTION Vecuronium [place] 10 mg 02/28/20 03:54 03/26/20 16:16 Vecuronium 10 Mg Vial IV 10 mg Q30MIN PRN Administration SPASM Zinc Sulfate 220 mg 02/15/20 09:00 03/26/20 10:49 Zinc Sulfate 220 Mg Cap PO Not Given DAILY CLAY - Exam General Appearance: NAD, awake alert General - other findings: dusky skin discoloration Eye: PERRL, anicteric sclera ENT: normocephalic atraumatic, no oropharyngeal lesions Neck: no JVD Heart: RRR, no murmur, no gallops, no rubs Respiratory: CTAB, no wheezes, no rales, no ronchi Gastrointestinal: soft, non-tender, non-distended, normal bowel sounds Extremities: no cyanosis, no clubbing, no edema Skin: normal turgor, no lesions, no rashes Hosp A/P - Plan Chest X ray 03/08: slightly improved lung aeration Chest X ray 03/11: diffuse lung infiltrates Chest x-ray 03/15: New small right apical pneumothorax Chest x-ray 03/22: Small right apical pneumothorax, pneumomediastinum, patchy infiltrates This is a 64 year old male diagnosed with COVID, developed progressive respiratory failure and is now intubated. He received remdesivir 02/09 to 02/13 and IV zosyn 02/24 to 03/03 and micafungin 02/23 to 03/03. He received a s econd course of meropenem and micafungin from 03/06 to 03/13. On 03/15, patient developed a small right apical pneumothorax with pneumomediastinum. He was restarted on meropenem and vancomycin due to increasing white blood cell count. #Acute hypoxic respiratory failure secondary to COVID pneumonia versus bacterial pneumonia with superimposed pneumothorax/pneumomediastinum -Repeat chest x-ray 03/22 shows stable small right apical pneumothorax, pneumomediastinum, bilateral infiltrate. No chest tube per pulmonary -the patient was on meropenem (D1 03/17), vancomycin (D1 03/18), and fluconazole. Vancomycin discontinued 03/24. Meropenem discontinued 03/24, but reordered 03/25 due to gram negative rods in sputum culture and urine culture - FiO2 has been increased to 100%. The patient appears to have a very guarded prognosis. Pulmonary has discussed with family and the patient has now been made a DNR. They are not ready to withdraw care yet #Sepsis possibly from pneumonia vs UTI -repeat blood cultures negative. Sputum culture growing gram-negative rods. Urine culture is growing gram negative rods. We will follow up final cultures - continue meropenem Hypernatremia - - on free water flush 30 q6 Constipation - continue miralax Pernicious anemia - vitamin B12 < 200, intrinsic factor positive. Continue monthly vitamin B12 Folic acid deficiency anemia - continue folic acid
[2020-03-26] MEDS: fentaNYL Citrate/PF 2,000 MCG in Sodium Chloride 0.9% 60 ML IV SCH (17:36)
[2020-03-27] MEDS: Lorazepam 2 MG/ML VIAL SLOW IVP PRN ×2 (01:18→06:13)
[2020-03-27] MEDS: Vecuronium 10 MG VIAL IV PRN ×2 (01:18→06:13)
[2020-03-27] MEDS: Meropenem 2 GM, Admixture Fee 1 EACH in Sodium Chloride 0.9% 100 ML IVPB SCH ×2 (01:32→09:17)
[2020-03-27 05:38] LABS: Hemoglobin 10.1 g/dL (14.0-18.0); Mean Corpuscular HGB CONC 30.7 g/dL (32.0-36.0); Mean Corpuscular Hemoglobin 30.9 pg (27.0-31.0); Mean Platelet Volume 10.4 fL (7.4-10.4); Platelet Count 109 thou/uL (130-400); Red Blood Cell (RBC) Count 3.26 mill/uL (4.70-6.10); White Blood Cell (WBC) Count 5.1 thou/uL (4.8-10.8)
[2020-03-27 05:39] LABS: Band 54 % (5-11); Dohle Bodies SLIGHT; Lymphocytes 6 % (21-51); MDiff Complete? YES; Metamyelocyte 1 % (0-0); Monocytes 3 % (0-10); Neutrophil 36 % (42-75); Platelet Morphology Comment Appears Decreased
[2020-03-27] MEDS: Vancomycin 1.5 GRAM/300 ML BAG 1.5 GM in Premix Bag 1 BAG IVPB SCH (05:46)
[2020-03-27 06:05] LABS: Anion Gap 15 mmol/L (10-20); BUN (Urea Nitrogen) 87 mg/dL (8.4-25.7); Calc. Creatinine Clearance 57 mL/min (70-130); Calcium 8.8 mg/dL (7.8-10.44); Carbon Dioxide 36 mmol/L (23-31); Chloride 99 mmol/L (98-107); Glucose 136 mg/dL (80-115); Potassium 5.4 mmol/L (3.5-5.1); Sodium 145 mmol/L (136-145)
[2020-03-27] MEDS: Levothyroxine Sodium 75 MCG TAB PO SCH (06:13)
[2020-03-27 07:59] LABS: Actual Bicarbonate (HCO3a) 34.9 mEq/L (22-28); Base Excess (BEa) 7.2 mEq/L (-2.0 to +3.0); Calcium, Ionized (arterial) 1.16 mmol/L (1.12-1.30); Carboxyhemoglobin (COHb) 1.2 gm% (0.0-3.0); Hemoglobin (Hb) 10.2 g/dL (14.0-18.0); Potassium - ABG Lab 5.27 mmol/L (3.70-5.30); pH, Arterial 7.32 (7.35-7.45)
[2020-03-27 08:01] LABS: CO2 Tension 68.8 mmHg (35.0-45.0); Puncture Site LRA
[2020-03-27] MEDS ORDERED: Sodium Chloride 0.9% 1,000 ML IV SCH (08:15)
[2020-03-27] MEDS: Ascorbic Acid 500 mg Chewable Tablet PO SCH (08:30)
[2020-03-27] MEDS: Polyethylene Glycol 3350 17 GM Packet PER TUBE SCH (08:31)
[2020-03-27] MEDS: Floranex Packet PER TUBE SCH (08:31)
[2020-03-27] MEDS: Cyanocobalamin (Vitamin B-12) 1,000 MCG TAB PO SCH (08:31)
[2020-03-27] MEDS: Zinc Sulfate 220 MG CAP PO SCH (08:32)
[2020-03-27] MEDS: Apixaban 5 MG TAB PER TUBE SCH (08:33)
[2020-03-27] MEDS: Folic Acid 1 MG TAB PO SCH (08:33)
[2020-03-27] MEDS: Cholecalciferol 1,000 UNITS (25 MCG) TAB PO SCH (08:34)
[2020-03-27] MEDS: Aspirin 81 mg Enteric Coated Tablet PO SCH (08:34)
[2020-03-27] MEDS: methylPREDNISolone Sod Succ 40 MG VIAL IVP SCH (08:35)
[2020-03-27] MEDS: Pantoprazole 40 MG GRANULES PACKET PER TUBE SCH (08:36)
--- NOTE | 2020-03-27 08:37 | RAD ---
EXAM: CHEST ONE VIEW HISTORY: Pneumonia COMPARISON: 03/26/2020 FINDINGS: Endotracheal tube and nasogastric tubes remain in place. Cardiac silhouette is magnified by projectio n but is at the upper limits of normal in size. Diffuse increased interstitial and confluent airspace opacities are seen throughout the lungs bilaterally with mild increase in airspace opacity i n the left perihilar region. No pneumothorax is seen. No other interval change. IMPRESSION: Persistent increased interstitial and confluent airspace opacities seen diffusely throughout the lung s which may be mildly increased in the left perihilar location.
[2020-03-27] MEDS ORDERED: fentaNYL 100 mcg/hour Patch TD SCH (09:00)
--- NOTE | 2020-03-27 09:23 | PRG ---
DATE OF SERVICE: 03/27/2020 This is 35 minutes critical care time. SUBJECTIVE: The patient remains intubated on mechanical ventilation. We are having some problems with air leak from his endotracheal cuff. OBJECTIVE: VITAL SIGNS: Temperature 97, O2 saturation 97%, pulse 109, blood pressure 130/72. 24-hour intake 2626, output 1070. HEENT: Dry oral mucous membranes. NECK: No JVD. LUNGS: Coarse breath sounds. CARDIOVASCULAR: S1 and S2. Slightly tachycardic. ABDOMEN: Soft and nontender. EXTREMITIES: No edema. LABORATORY DATA: PH 7.32, pCO2 of 68, PO2 of 61, that is on assist control, rate 24, FiO2 100%, PEEP of 10. White blood cell count 5.1, hematocrit 32.1, platelet count 109. Sodium 145, potassium 5.4, chloride 99, CO2 of 36, BUN 87, creatinine 1.7, and glucose 136. ASSESSMENT: 1. COVID-19 pneumonia. 2. Persistent acute respiratory failure requiring mechanical ventilation. 3. Developing renal failure. PLAN: 1. As per my note yesterday, I had a long talk with the patient's and daughter stating my belief that the patient will not survive this. There is not much more we can do at this point. We will tried to repair his endotracheal tube today. I am continuing antibiotics, although the only thing growing from cultures right now is a gram-negative brady from urine, which is likely just colonization and quantitation is less than 10,000 colony-forming units. 2. I have tried to switch him from a fentanyl drip to a fentanyl patch. 3. I am reviewing his medications, but do not see anything that could be aggravating his renal failure. Job ID: [id number]
[2020-03-27 11:21] VITALS: TEMP 98.6
[2020-03-27] MEDS ORDERED: Morphine 4 MG/ML VIAL SLOW IVP PRN (11:21)
[2020-03-27] MEDS ORDERED: Lorazepam 2 MG/ML VIAL SLOW IVP PRN (11:22)
[2020-03-27 11:38] VITALS: BP 128/74
--- NOTE | 2020-03-27 19:07 | PDOC.DS.DS ---
Provider - Provider Date of Admission: 02/10/20 11:35 Date of Discharge: 03/27/20 Admitting Provider: Juaquin Hall MD Consultations: Infectious Disease (Dr. Mitchell Tapia), Pulmonary (Dr. Anthony Tony) Primary Care Physician: Sherrill Lazo MD Course - Hospital Course Hospital Course: Discharge Diagnoses: 1. Acute hypoxic respiratory failure secondary to COVID and enterobacter pneumonia 2. Pneumothorax/pneumomediastinum 3. E coli UTI 4. Sepsis from pneumonia 5. Hypernatremia 6. Pernicious Anemia Brief HPI: This is a 64-year-old male who presented to the emergency room with myalgias, diarrhea, headaches, fever, hypoxia. His room air saturation was 87 to 88%. The patient tested positive for COVID-19 on February 03. Received dexamethasone and antibiotics and admitted to the hospital for further work-up. Hospital Course: The patient was initially admitted to the floor. He received remdesivir from 02/09-02/13 and dexamethasone. He was started on doxycycline on 02/22 and m icafungin on 02/23. He was initially on high flow nasal cannula on the floor and eventually failed that and was placed on BiPAP. Due to worsening bilateral pneumonia, he was started on IV zosyn on 02/24. He received this until 03/03 and also received IV micafungin from 02/23 to 03/03. The patient was transferred to the ICU for worsening respiratory failure and did require intubation on 02/27. He received a second course of meropenem and micafungin from 03/06-03/13. He did require high pressures on the vent and unfortunately on 03/15, the patient developed a small right apical pneumothorax with pneumomediastinum. This was managed conservatively without any chest tubes. Due to increasing white count, meropenem and vancomycin were resumed on 03/17 and 03/18 respectively, as well as fluconazole. Antibiotics were again discontinued on 03/24, but sputum culture grew gram negative rods, so meropenem was restarted on 03/25. Over the last two days, the patient desaturated on the ventilator and required 100% FiO2. He displayed agonal breathing and dusky skin discoloration. A family meeting was held on 03/26 regarding his poor prognosis, and the patient was made a DNR. On 03/27, his family decided to terminally extubate the patient to comfort measures. The patient at 12:35 pm . His body was sent to [facility] Hypernatremia: the patient had multiple episodes of hypernatremia which were treated witH IV fluids occasionally and increasing free water flushes Pernicious anemia: vitamin B12 < 200, intrinsic factor positive. He received IM vitamin B12 while in the hospital Folic acid deficiency anemia : the patient was started on folate supplements w max in the hospital Pertinent Studies: Chest X ray 03/08: slightly improved lung aeration Chest X ray 03/11: diffuse lung infiltrates Chest x-ray 03/15: New small right apical pneumothorax Chest x-ray 03/22: Small right apical pneumothorax, pneumomediastinum, patchy infiltrates Chest Xray 03/23: decrease in size of right pneumothorax. Patchy bilateral infiltrates Chest X ray 03/27: persistent increased interstitial and conluent airspace opacities seen diffusely throughout the lungs Resuscitation Status: 03/26/20 10:51 Resuscitation Status Routine Resuscitation Status: DNAR: NO Resuscitation Discussed with: Dr. Tony discussed with and daughter - Labs Lab Results: 03/27/20 03:56 03/27/20 03:56 Abnormal Lab Results - Last 48 hrs 03/26/20 03:53: Carbon Dioxide 35 H, BUN 61 H 03/26/20 03:53: RBC 3.44 L, Hgb 10.9 L, Hct 34.2 L, MCV 99.6 H, MCH 31.6 H, MCHC 31.7 L, RDW 17.5 H, Plt Count 127 L, Neutrophils % (Manual) 25 L, Band Neuts % (Manual) 59 H, Lymphocytes % (Manual) 13 L 03/26/20 07:30: Bicarbonate Actual 36.1 H, ABG pH 7.16 L*, ABG pCO2 103.0 H*, ABG pO2 54.5 L*, ABG O2 Sat (Measured) 81.9 L*, ABG O2 Content 12.3 L, ABG Base Excess 4.9 H, ABG Hematocrit 32.0 L, ABG Hemoglobin 10.9 L, ABG Oxyhemoglobin 79.8 L, ABG Deoxyhemoglobin 17.6 H, A-a O2 Gradient 458.450 H 03/26/20 09:50: Bicarbonate Actual 34.3 H, ABG pH 7.21 L*, ABG pCO2 87.7 H*, ABG pO2 51.3 L*, ABG O2 Sat (Measured) 81.7 L*, ABG O2 Content 13.6 L, ABG Base Excess 3.9 H, ABG Hematocrit 36.0 L, ABG Hemoglobin 12.1 L, ABG Oxyhemoglobin 79.7 L, ABG Deoxyhemoglobin 17.8 H, A-a O2 Gradient 552.075 H 03/27/20 03:56: Potassium 5.4 H, Carbon Dioxide 36 H, BUN 87 H, Creatinine 1.73 H 03/27/20 03:56: RBC 3.26 L, Hgb 10.1 L, Hct 32.9 L, MCV 101.0 H, MCHC 30.7 L, RDW 17.0 H, Plt Count 109 L, Neutrophils % (Manual) 36 L, Band Neuts % (Manual) 54 H, Lymphocytes % (Manual) 6 L, Plt Morphology Comment Appears Decreased L 03/27/20 07:30: Bicarbonate Actual 34.9 H, ABG pH 7.32 L, ABG pCO2 68.8 H*, ABG O2 Sat (Measured) 90.4 L, ABG O2 Content 12.8 L, ABG Base Excess 7.2 H, ABG Hematocrit 30.0 L, ABG Hemoglobin 10.2 L, ABG Oxyhemoglobin 89.0 L, ABG Deoxyhemoglobin 9.5 H, A-a O2 Gradient 566.000 H Microbiology - Entire Visit 03/23/20 23:25 Tracheal Respiratory Culture - Final Enterobacter aerogenes 03/25/20 18:20 Urine Straight Catheter Urine Culture - Final Gram Negative Kavin 03/25/20 18:00 Venous blood - Right Arm Blood Culture - Preliminary NO GROWTH AT 48 HOURS 03/25/20 17:38 Venous blood - Right Arm Blood Culture - Preliminary NO GROWTH AT 48 HOURS 03/19/20 05:16 Venous blood - Left Hand Blood Culture - Final NO GROWTH IN 5 DAYS 03/19/20 05:16 Venous blood - Left Arm Blood Culture - Final NO GROWTH IN 5 DAYS 03/22/20 19:57 Venous blood - Right Arm Blood Culture - Preliminary NO GROWTH AT 48 HOURS 03/22/20 19:21 Venous blood - Right Arm Blood Culture - Preliminary NO GROWTH AT 48 HOURS 03/22/20 19:51 Urine rivas catheter Urine Culture - Final NO GROWTH AT 36 HOURS 03/16/20 16:57 Venous blood - Left Hand Blood Culture - Final NO GROWTH IN 5 DAYS 03/16/20 16:49 Venous blood - Right Arm Blood Culture - Final Coagulase Neg Staphylococcus 03/06/20 08:35 Venous blood - Right Arm Blood Culture - Final NO GROWTH IN 5 DAYS 03/06/20 08:35 Venous blood - Left Arm Blood Culture - Final NO GROWTH IN 5 DAYS 02/10/20 22:43 Venous blood - Right Hand Blood Culture - Final NO GROWTH IN 5 DAYS 02/10/20 22:43 Venous blood - Right Arm Blood Culture - Final NO GROWTH IN 5 DAYS - Physical Exam Vitals: Vital Signs (12 hours) Temp Pulse Pulse Pulse Resp BP BP 03/27/20 10:52 102 H 127/68 03/27/20 10:00 24 H 03/27/20 09:15 106 H 108 H 128/74 03/27/20 08:00 98.6 F 24 H BP Pulse Ox Pulse Ox Pulse Ox 03/27/20 10:52 03/27/20 10:00 03/27/20 09:15 133/67 90 L 90 L 03/27/20 08:00 91 L Weight Admit Weight 250 lb 0.067 oz Weight 206 lb 9.17 oz Most Recent Monitor Data Heart Rate from ECG 101 NIBP 145/76 NIBP BP-Mean 99 Respiration from ECG 39 SpO2 93 Physical Exam: The patient was seen and examined on the day of discharge. Patient with no heart, or lung sounds, no reflexes Plan - Discharge Medications Home Medications: Medication Instructions Recorded Confirmed Type Aspirin [Ecotrin Low Strength] 81 mg PO DAILY 09/12/13 02/10/20 History Tamsulosin HCl 0.4 mg PO QAM 11/07/16 02/10/20 History Ibuprofen 800 mg PO DAILY PRN 01/31/17 02/11/20 History Levothyroxine Sodium [Synthroid] 150 mcg PO DAILY 01/31/17 02/10/20 History Allergies: No Known Allergies Allergy (Verified 06/10/19 12:06) - Follow up Plan Referrals: Sherrill Lazo MD [Primary Care Provider] - Disposition: Quality - Care Measures CORE MEASURES:: N/A
[2020-03-27] MEDS ORDERED: Meropenem 2 GM, Admixture Fee 1 EACH in Sodium Chloride 0.9% 100 ML IVPB SCH (21:00)
--- NOTE | 2020-04-01 15:36 | PQF ---
Dear : Lena Hoffman Date 04/01/2019 Please exercise your independent, professional judgment in responding to the clarification form. Clinical indicators are provided on the bottom of this form for your review Can you please further clarify the conflicting Diagnosis of the patient? Please check appropriate box(es): Conflicting documentation was noted in the Medical Record; please clarify if patient is being treated/monitored for: [ X ] Sepsis [ ] No Sepsis [ ] Other diagnosis please specify [ ] Unable to determine In addition, please specify: Present on Admission (POA): [ ] Yes [ X] No [ ] Unable to determine Physician Signature: Date/Time: For continuity of documentation, please document condition throughout progress notes and discharge summary. Thank You. To be completed by CDI/Coding staff for physician review: Present Clinical Indicators - Signs / Symptoms / Labs Results and Location in Medical Record [ x ] Tested Positive for COVID Pneumonia on H and P pg.1 [ x ] Acute hypoxic respiratory failure due to COVID Pneumonia H and P pg.5 [ x ] Localized infection without Sepsis Physician Documentation pg.02/28 [ x ] Blood culture- no growth for 5 days Microbiology 02/09 [ x ] Blood culture- Coagulase Neg Staphylococcus Microbiology 03/16 [ x ] Respiratory Culture Enterobacter aerogenes Microbiology 03/23 [ x ] Sepsis from Pneumonia DS pg.1 [ x ] WBC: 5.4, 5.2, 7.3, 17.2H, 14.5H, 16.1H, 17.2H Present Risk Factors Results and Location in Medical Record [ x ] COVID Pneumonia H and P pg.1 [ x ] 64 years old H and P pg.1 [ x ] Enterobacter Pneumonia DS pg.1 [ x ] E.coli UTI DS pg.1 Present Treatments Results and Location in Medical Record [ x ] Infectious Consult Dr. Tapia 02/09 [ x ] Oxygen supplementation H and P pg.1 [ x ] Mechanical ventilation Patient Care Notes [ x ] IV Fluids MAR [ x ] Pulmonary Consult Dr. Hall 02/14 [ x ] Azithormycin 500mg IV MAR [ x ] Remdesiver 200mg IV MAR [ x ] Zosyn 3.375gm IV MAR CDS/Batch Weigher Signature: AnnaBob bergerard Philruth Phone #: ext [phone] Date_04/01/2020 This is a permanent part of the Medical Record [facility]
== END 2020-03-27 12:35 | disposition expired | DRG 207 ==
LOC: ERS 08:24 → T4-B 11:35 → IMCU/EMU 02-15 06:45 → CCU 02-28 02:38
PROVIDERS: ADMIT Internal Medicine; ATTEND Internal Medicine
PROC: 8E0ZXY6 Isolation (ICD-10-PCS; 2020-02-10)
PROC: XW033E5 Introduction of Remdesivir Anti-infective into Peripheral Vein, Percutaneous Approach, New Technology Group 5 (ICD-10-PCS; 2020-02-10)
PROC: 5A09557 Assistance with Respiratory Ventilation, Greater than 96 Consecutive Hours, Continuous Positive Airway Pressure (ICD-10-PCS; 2020-02-15)
PROC: 5A1955Z Respiratory Ventilation, Greater than 96 Consecutive Hours (ICD-10-PCS; principal; 2020-02-28)
PROC: 0BH17EZ Insertion of Endotracheal Airway into Trachea, Via Natural or Artificial Opening (ICD-10-PCS; 2020-02-28)
DX: U07.1 COVID-19 (principal); J12.82 Pneumonia due to coronavirus disease 2019; J96.21 Acute and chronic respiratory failure with hypoxia; J96.22 Acute and chronic respiratory failure with hypercapnia; R65.20 Severe sepsis without septic shock; G93.41 Metabolic encephalopathy; J15.6 Pneumonia due to other Gram-negative bacteria; A41.81 Sepsis due to Enterococcus; E44.0 Moderate protein-calorie malnutrition; E87.1 Hypo-osmolality and hyponatremia; E87.3 Alkalosis; E87.0 Hyperosmolality and hypernatremia; D68.59 Other primary thrombophilia; J93.9 Pneumothorax, unspecified; N39.0 Urinary tract infection, site not specified; G72.81 Critical illness myopathy; Z66 Do not resuscitate; Z51.5 Encounter for palliative care; E03.9 Hypothyroidism, unspecified; N40.0 Benign prostatic hyperplasia without lower urinary tract symptoms; Z96.652 Presence of left artificial knee joint; Z86.39 Personal history of other endocrine, nutritional and metabolic disease; E66.9 Obesity, unspecified; M19.90 Unspecified osteoarthritis, unspecified site; D52.9 Folate deficiency anemia, unspecified; G47.33 Obstructive sleep apnea (adult) (pediatric); D51.0 Vitamin B12 deficiency anemia due to intrinsic factor deficiency; J98.2 Interstitial emphysema; R74.01 Elevation of levels of liver transaminase levels; E86.9 Volume depletion, unspecified; B96.20 Unspecified Escherichia coli [E. coli] as the cause of diseases classified elsewhere; K59.00 Constipation, unspecified; Z99.89 Dependence on other enabling machines and devices; Z79.51 Long term (current) use of inhaled steroids; Z90.49 Acquired absence of other specified parts of digestive tract; Z98.890 Other specified postprocedural states; Z87.891 Personal history of nicotine dependence; Z79.890 Hormone replacement therapy; Z79.899 Other long term (current) drug therapy; Z68.28 Body mass index [BMI] 28.0-28.9, adult
CPT/HCPCS: 36415; 36416; 36600; 71045; 71275; 80048; 80053; 80076; 80202; 81001; 82550; 82565; 82607; 82728; 82746; 82805; 83605; 83615; 83735; 83880; 84484; 85014; 85018; 85025; 85027; 85048; 85049; 85379; 85384; 85610; 85730; 86140; 86141; 86340; 86850; 86900; 86901; 87040; 87070; 87077; 87086; 87149; 87186; 87205; 93005; 94002; 94003; 94640; 94660; 96365; 96367; 96375; J0360; J0456; J0696; J1100; J1200; J1450; J1650; J1720; J1885; J1940; J2060; J2185; J2248; J2250; J2270; J2543; J2704; J2765; J2920; J3010; J3370; J3490; J7030; J7050; J7070; J7620; P9045; Q9967; S0028